=== PATIENT | male | born 1955 | race Caucasian/White ===

== ENCOUNTER 2018-12-03 12:11 | Emergency (ER) | payer MEDICARE, BC ==
--- NOTE | 2018-12-03 12:23 | ERPHSYRPT ---
- History of Present Illness Time Seen by Provider: 12/03/18 12:22 Source: patient, family Exam Limitations: no limitations Physician History: 63 y/o white male presents with left shoulder pain and bruising. pt outside at night and missed a step when walking. fell onto left shoulder. denies head or neck injury. no other complaints. occurred 6 days ago. Occurred: days ago (6) Reason for Fall: tripped (on missed step) Injuries/Pain Location: upper extremity (left shoulder) Loss of Consciousness: no loss of consciousness Quality: aching Severity of Pain-Max: moderate Severity of Pain-Current: moderate Modifying Factors: Improves With: movement (worsens) Associated Symptoms (Fall): extremity injury (left shoulder) Allergies/Adverse Reactions: No Known Drug Allergies Allergy (Verified 12/03/18 12:32) Home Medications: Aspirin EC 81 mg [Ecotrin 81 mg] 81 mg PO DAILY 03/01/13 [History] Atorvastatin Calcium [Lipitor] 40 mg PO DAILY 03/01/13 [History] B Complex with Vitamin C [Super B Complex with C] 1 each PO DAILY 03/01/13 [ History] Losartan Potassium 50 mg [Cozaar 50 MG] 100 mg PO DAILY 03/01/13 [History] Metoprolol Succinate 50 mg [Toprol Xl 50 MG] 50 mg PO DAILY 03/01/13 [ History] Nitroglycerin 0.4 mg Tablet [Nitrostat 0.4 MG Tablet] 0.4 mg SL UD PRN 07/08 [History] Albuterol Sulfate 0.63 mg IH Q6H 12/03/18 [History] Albuterol Sulfate [Ventolin Hfa] 1 gm IH UD PRN 12/03/18 [History] Bumetanide 1 mg PO BID 12/03/18 [History] Fluticasone/Vilanterol [Breo Ellipta 200-25 Mcg INH] 1 inh PO DAILY 12/03/18 [ History] Terazosin HCl [Hytrin] 2 mg PO DAILY 12/03/18 [History] Tiotropium [place] [Spiriva Respimat] 1 inh PO BID 12/03/18 [History] Hx Tetanus, Diphtheria Vaccination/Date Given: No Hx Influenza Vaccination/Date Given: No (2011) Hx Pneumococcal Vaccination/Date Given: No - Review of Systems Constitutional: No Symptoms Eyes: No Symptoms Ears, Nose, & Throat: No Symptoms Respiratory: No Symptoms Cardiac: No Symptoms Abdominal/Gastrointestinal: No Symptoms Genitourinary Symptoms: No Symptoms Musculoskeletal: Fall, Injury (left shoulder) Skin: No Symptoms Neurological: No Symptoms Psychological: No Symptoms Endocrine: No Symptoms Immunological/Allergic: No Symptoms All Other Systems: Reviewed and Negative - Past Medical History Pertinent Past Medical History: Yes Neurological History: No Pertinent History ENT History: No Pertinent History Cardiac History: Coronary Artery Disease, High Cholesterol, Hypertension, Other Respiratory History: COPD, Other (smoker) Endocrine Medical History: Other (questionable in the past) Musculoskeletal History: No Pertinent History GI Medical History: No Pertinent History History: No Pertinent History Psycho-Social History: No Pertinent History Male Reproductive Disorders: No Pertinent History Other Medical History: Rupture disc-surgery to repair - Past Surgical History Past Surgical History: Yes Neuro Surgical History: No Pertinent History Cardiac: Other (stent) Respiratory: No Pertinent History Gastrointestinal: No Pertinent History Genitourinary: No Pertinent History Musculoskeletal: Other Male Surgical History: No Pertinent History Other Surgical History: T&A at 8-8 yrs old. Ruptured disc repair - Social History Smoking Status: Current every day smoker How long have you smoked: 43 yrs Exposure to second hand smoke: Yes Drug Use: none Patient Lives Alone: No - Nursing Vital Signs Nursing Vital Signs: Initial Vital Signs Temperature 98.0 F 12/03/18 12:19 Pulse Rate 91 H 12/03/18 12:19 Blood Pressure 139/78 12/03/18 12:19 O2 Sat by Pulse Oximetry 98 12/03/18 12:19 Pain Scale Pain Intensity 0 - Vero Coma Score Best Eye Response (Vero): (4) open spontaneously Best Verbal Response (Spencer): (5) oriented Best Motor Response (Spencer): (6) obeys commands Spencer Total: 15 - Physical Exam General Appearance: mild distress, alert, anxiety Head Injury: no evidence of injury, No active bleeding, No Bell's Sign, No ecchymosis, No tenderness Eye Exam: PERRL/EOMI, eyes nml inspection ENT Exam: airway nml, nml ext.inspection Neck Exam: supple, trachea midline, full range of motion, normal alignment Respiratory/Chest Exam: normal breath sounds, No chest tenderness, No respiratory distress, No ecchymosis, No crepitus Cardiovascular Exam: normal heart sounds, regular rate/rhythm Gastrointestinal Exam: soft, normal bowel sounds, No tenderness Rectal Exam: not done Back Exam: normal inspection, normal range of motion, No CVA tenderness, No vertebral tenderness Extremity Exam: limited range of motion, evidence of injury (left shoulder), tenderness, other (ecchymosis) Neurologic Exam: alert, oriented x 3, cooperative, 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 tested, normal mood/affect, nml cerebellar function, nml station & gait, sensation nml Skin Exam: normal color, warm, dry O2 Delivery: Room Air Ordered Tests: Active Orders 24 hr Category Date Time Status HUMERUS Stat Exams 12/03/18 12:50 Completed SHOULDER Stat Exams 12/03/18 12:50 Completed Medication Summary Discontinued Medications Generic Name Dose Route Start Last Admin Trade Name Freq PRN Reason Stop Dose Admin Hydromorphone HCl 1 mg 12/03/18 12:51 12/03/18 13:49 Hydromorphone 1 Mg/Ml Ampule IM 12/03/18 12:52 Not Given STAT ONE Hydromorphone HCl Confirm 12/03/18 13:01 Hydromorphone 1 Mg/Ml Ampule Administered 12/03/18 13:02 Dose 1 mg .ROUTE .STK-MED ONE Ondansetron HCl 4 mg 12/03/18 12:51 12/03/18 13:32 Zofran Odt 4 Mg PO 12/03/18 12:52 Not Given STAT ONE Ondansetron HCl Confirm 12/03/18 13:01 Zofran Odt 4 Mg Administered 12/03/18 13:02 Dose 4 mg .ROUTE .STK-MED ONE - Progress Progress: improved, pain not gone completely, re-examined Progress Note: 12/03/18 14:01 xray left shoulder-minimally displaced comminuted humeral head/neck fx Counseled pt/family regarding: diagnosis, need for follow-up, rad results - Departure Departure Disposition: Home Clinical Impression: Fracture of humeral head, left, closed Condition: Stable Critical Care Time: No Referrals: CAROLYNE CARCAMO MD [Primary Care Provider] - [place] - JYOTHI SNOW NP [NON-STAFF PHY W/O PRIVILEGES] - [facility]-Ortho M-F [phone] Additional Instructions: wear sling for comfort. ice pack to area 3 times daily for 2 days. follow up with [facility] tomorrow morning for further management Prescriptions: Oxycodone HCl/Acetaminophen [Percocet 5-325 mg Tablet] 1 each PO Q6H PRN PRN # 12 tablet MDD 4 PRN Reason: Pain Cyclobenzaprine HCl 10 mg [Cyclobenzaprine 10 MG] 10 mg PO TID #10 tablet
[2018-12-03] MEDS ORDERED: ZOFRAN ODT 4 MG PO ONE (12:51)
[2018-12-03] MEDS ORDERED: Hydromorphone 1 mg/ml Ampule IM ONE (12:51)
[2018-12-03] MEDS ORDERED: ZOFRAN ODT 4 MG ONE (13:01)
[2018-12-03] MEDS ORDERED: Hydromorphone 1 mg/ml Ampule ONE (13:01)
--- NOTE | 2018-12-03 13:47 | XRAY ---
Indication: Pain following fall November 27, 2018. Comparison: None 3 views of the left shoulder demonstrates minimally displaced comminuted humeral head/neck fracture without obvious callus formation. Elsewhere mild osteopenia, mild AC degenerative arthropathy, and old 10 rib fracture. No other bony, articular, or soft tissue abnormalities.
--- NOTE | 2018-12-03 13:48 | XRAY ---
Indication: Pain following fall November 27, 2018. Comparison: None 2 views of the left humerus demonstrates minimally displaced comminuted humeral head/neck fracture without obvious callus formation. Elsewhere mild osteopenia, mild AC degenerative arthropathy, and old anterior 10 rib fracture. No other bony, articular, or soft tissue abnormalities.
[2018-12-03 14:13] VITALS: BP 145/70; PULSE 78; O2SAT 97
== END 2018-12-03 14:21 | disposition home or self-care (01) ==
LOC: ED 12:11
DX: S42.492A Other displaced fracture of lower end of left humerus, initial encounter for closed fracture (principal); M25.512 Pain in left shoulder; W01.10XA Fall on same level from slipping, tripping and stumbling with subsequent striking against unspecified object, initial encounter; Y93.01 Activity, walking, marching and hiking; Z79.899 Other long term (current) drug therapy
CPT/HCPCS: 73030; 73060; 99283; J1170; Q0162

== ENCOUNTER 2021-03-14 14:43 | Inpatient (IN) | payer MEDICARE, BC ==
[2021-03-14] MEDS ORDERED: DUONEB 0.5-3 MG/3 ml Neb IH ONE ×2 (15:08→15:42)
--- NOTE | 2021-03-14 15:14 | ERPHSYRPT ---
- History of Present Illness Source: patient Exam Limitations: clinical condition Patient Subjective Stated Complaint: "I can't breath." Triage Nursing Assessment: Patient reported 1 week progressive dyspnea with increasing use of home rescue inhaler. Significant history of COPD, HTN, and CAD. He has not been taking his home breathing treatments d/t insurance coverage problems. Reported moderate productive cough with thick white sputum. Denied headache, dizziness, chest pain, N/V/D. he reported that he does wear supplemental oxygen 2 L/min via [place] [facility]. however, he has been wearing the oxygen more throghout the day. Obvious respiratory distress evidence by two word d yspnea, orthopnea, audible wheezes, and hypoxia 86% on room air. Pupils 4mm bilateral. Neck supple without JVD/lymphadenopathy. Symmetrical chest expansion. heart tones S1/S2 RRR without extra sounds. Lungs with significant insp/exp wheezes in the upper bilateral lobes and rhonchi/diminished sounds in the lower bilateral lobes. Peripheral pulses +2 bilateral. 3+ pitting edema in the bilateral lower extremities. Physician History: 65 yo WM w progressive dyspnea x 1 wk/Worsening cough/mild rhinorrhea. Pt smokes 1.5 ppd and uses O2 prn with increasing need. Pt denies chest pain ands states that dyspnea is worse upon exertion. He is fully vaccinated and boosted w Mode rna. Timing/Duration: other (1 WK) Severity of Dyspnea-Max: severe Severity of Dyspnea-Current: severe Possible Cause: frequent episodes Modifying Factors: Improves With: exertion Associated Symptoms: cough, edema, ankle swelling, leg swelling, productive cough, No anxiety, No chest pain/discomfort, No fever, No insomnia, No loss of appetite, No lightheadedness, No wheezing, No weakness, No chills, No hemoptysis, No calf pain, No dizziness, No heaviness, No heart racing, No lightheadedness, No muscle spasms feet, No muscle spasms hands, No painful breathing, No sweating, No tightness, No tingling face Allergies/Adverse Reactions: No Known Drug Allergies Allergy (Verified 03/14/21 21:50) Home Medications: Aspirin EC 81 mg [Ecotrin 81 mg] 81 mg PO DAILY 03/01/13 [History] Atorvastatin Calcium [Lipitor] 40 mg PO DAILY 03/01/13 [History] B Complex with Vitamin C [Super B Complex with C] 1 each PO DAILY 03/01/13 [History] Losartan Potassium 50 mg [Cozaar 50 MG] 100 mg PO DAILY 03/01/13 [History] Metoprolol Succinate 50 mg [Toprol Xl 50 MG] 50 mg PO DAILY 03/01/13 [History] Nitroglycerin 0.4 mg Tablet [Nitrostat 0.4 MG Tablet] 0.4 mg SL UD PRN 03/01/13 [History] Albuterol Sulfate [Ventolin Hfa] 1 gm IH UD PRN 12/03/18 [History] Fluticasone/Vilanterol [Breo Ellipta 200-25 Mcg INH] 1 inh PO DAILY 12/03/18 [History] Terazosin HCl [Hytrin] 2 mg PO DAILY 12/03/18 [History] Tiotropium [place] [Spiriva Respimat] 1 inh PO BID 12/03/18 [History] Torsemide 20 mg [Demadex 20 mg] 40 mg PO DAILY 03/14/21 [History] Hx Tetanus, Diphtheria Vaccination/Date Given: No Hx Influenza Vaccination/Date Given: No (2011) Hx Pneumococcal Vaccination/Date Given: No Travel Risk - International Travel Have you traveled outside of the country in past 3 weeks: No - Coronavirus Screening Are you exhibiting any of the following symptoms?: Yes Symptoms: Shortness of Breath Close contact with a COVID-19 positive Pt in past 14-21 Days: No - Vaccine Status Have you recieved a Covid-19 vaccination: Yes Conference Services Director: FIZZA - Vaccination Dates Date of 2cond Vaccination (if applicable): 05/2020 - Review of Systems Constitutional: No Symptoms, Weakness Eyes: No Symptoms Ears, Nose, & Throat: No Symptoms Respiratory: Cough, Dyspnea Cardiac: No Symptoms, Edema Abdominal/Gastrointestinal: No Symptoms Genitourinary Symptoms: No Symptoms Musculoskeletal: No Symptoms Skin: No Symptoms Neurological: No Symptoms Psychological: No Symptoms Endocrine: No Symptoms Hematologic/Lymphatic: No Symptoms Immunological/Allergic: No Symptoms - Past Medical History Pertinent Past Medical History: Yes Neurological History: No Pertinent History ENT History: No Pertinent History Cardiac History: Coronary Artery Disease, High Cholesterol, Hypertension, Other Respiratory History: CHF, COPD, Other Endocrine Medical History: Other Musculoskeletal History: No Pertinent History GI Medical History: No Pertinent History History: No Pertinent History Psycho-Social History: No Pertinent History Male Reproductive Disorders: No Pertinent History Other Medical History: Rupture disc-surgery to repair - Past Surgical History Past Surgical History: Yes Neuro Surgical History: No Pertinent History Cardiac: Other Respiratory: No Pertinent History Gastrointestinal: No Pertinent History Genitourinary: No Pertinent History Musculoskeletal: Other Male Surgical History: No Pertinent History Other Surgical History: T&A at 8-10 yrs old. Ruptured disc repair - Social History Smoking Status: Current every day smoker How long have you smoked: 43 yrs Exposure to second hand smoke: Yes Drug Use: none Patient Lives Alone: No Significant Family History: no pertinent family hx - Nursing Vital Signs Nursing Vital Signs: Initial Vital Signs Temperature 97.8 F 03/14/21 14:43 Pulse Rate 88 03/14/21 14:43 Respiratory Rate 26 H 03/14/21 14:43 Blood Pressure 149/69 03/14/21 14:43 O2 Sat by Pulse Oximetry 84 L 03/14/21 14:43 Pain Scale Pain Intensity 0 Hypoxic - Physical Exam General Appearance: mild distress, obese Eye Exam: PERRL/EOMI, eyes nml inspection Ears, Nose, Throat Exam: hearing grossly normal, normal ENT inspection, normal pharynx Neck Exam: normal inspection, non-tender, supple, full range of motion, No Brudzinski, No Kernig's, No meningismus, No carotid bruit Respiratory Exam: respiratory distress (Mild to Moderate), airway intact, rhonchi, wheezing Cardiovascular/Chest Exam: normal heart sounds, regular rate/rhythm, normal peripheral pulses, edema (1-2 +), No murmur Abdominal/Gastrointestinal Exam: soft, normal bowel sounds, No tenderness Extremity Exam: non-tender, normal range of motion, normal inspection, normal capillary refill, no calf tenderness, pedal edema Peripheral Pulses Exam: carotid (R): 2+, carotid (L): 2+ Neurologic Exam: alert, oriented x 3, cooperative, 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-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 nml as tested, normal mood/affect Skin Exam: normal color, warm, dry, No rash Lymphatic Exam: No adenopathy SpO2 Interpretation: hypoxic SpO2: 86 - Course Nursing assessment & vital signs reviewed: Yes EKG Interpreted by Me: RATE (NSR/R88/Possible old Septal TX/IVCD/No acute ST segment changes) Ordered Tests: Active Orders 24 hr Category Date Time Status EKG-ER Only STAT Care 03/14/21 15:07 Completed CHEST 1 VIEW (PORTABLE) Stat Exams 03/14/21 15:07 Completed CHEST WITH CONTRAST [CT] Stat Exams 03/14/21 16:19 Completed BLOOD CULTURE Stat Lab 03/14/21 18:15 Received CBC W DIFF Stat Lab 03/14/21 15:18 Completed CMP AM.LAB Lab 03/15/21 04:00 Ordered CMP Stat Lab 03/14/21 15:18 Completed D-DIMER QUANTITATIVE Stat Lab 03/14/21 15:52 Completed Manual Differential NC Stat Lab 03/14/21 15:18 Completed NT PRO BNP Stat Lab 03/14/21 15:18 Completed PROTIME WITH INR Stat Lab 03/14/21 15:18 Completed PTT Stat Lab 03/14/21 15:18 Completed TROPONIN Q3H Lab 03/14/21 15:18 Completed TROPONIN Q3H Lab 03/14/21 18:15 Completed TROPONIN Q3H Lab 03/14/21 21:51 Completed TROPONIN Q3H Lab 03/15/21 00:15 Ordered TROPONIN Q3H Lab 03/15/21 03:15 Ordered Transfer Order Routine Transfer 03/14/21 Completed Medication Summary Generic Name Dose Route Start Last Admin Trade Name Freq PRN Reason Stop Dose Admin Albuterol/Ipratropium 3 ml 03/14/21 19:00 03/14/21 20:40 Ipratropium/Albuterol Sulfate 3 Ml Ampul.Neb IH 04/13/21 18:59 3 ml Q4HRT SAL Administration Enoxaparin Sodium 40 mg 03/15/21 10:00 Enoxaparin Sodium 40 Mg/0.4 Ml Syringe SQ 04/14/21 09:59 DAILY SAL Sodium Chloride 1,000 mls @ 80 mls/hr 03/14/21 17:30 Sodium Chloride 0.9% 1000 Ml IV 04/13/21 17:29 .[id number] SAL Azithromycin 500 mg in 250 mls @ 250 mls/hr 03/15/21 10:00 Zithromax 500 Mg/ 250 Ml Nacl Premix IV 04/14/21 09:59 Q24H10 SAL Ceftriaxone Sodium/Dextrose 1 g in 50 mls @ 100 mls/hr 03/15/21 10:00 Rocephin 1 Gm-D5w 50 Ml Bag IV 03/18/21 09:59 Q24H10 SAL Nicotine 21 mg 03/14/21 17:30 03/14/21 22:35 Nicotine 21 Mg/Patch Patch TOP 04/13/21 17:29 Not Given Q24H SAL Pantoprazole Sodium 40 mg 03/15/21 10:00 Pantoprazole 40 Mg Vial IV 04/14/21 09:59 Q24H10 SAL Discontinued Medications Generic Name Dose Route Start Last Admin Trade Name Freq PRN Reason Stop Dose Admin Albuterol/Ipratropium 3 ml 03/14/21 15:08 03/14/21 15:48 Ipratropium/Albuterol Sulfate 3 Ml Ampul.Neb IH 03/14/21 15:09 3 ml STAT ONE Administration Albuterol/Ipratropium Confirm 03/14/21 15:42 Ipratropium/Albuterol Sulfate 3 Ml Ampul.Neb Administered 03/14/21 15:43 Dose 3 ml IH .STK-MED ONE Ceftriaxone Sodium/Dextrose 1 g in 50 mls @ 100 mls/hr 03/14/21 17:26 03/14/21 18:43 Rocephin 1 Gm-D5w 50 Ml Bag IV 03/14/21 17:55 Infused STAT STA Infusion Ceftriaxone Sodium/Dextrose Confirm 03/14/21 17:30 Rocephin 1 Gm-D5w 50 Ml Bag Administered 03/14/21 17:31 Dose 1 g in 50 mls @ ud IV .STK-MED ONE Lab/Rad Data: Laboratory Result Diagrams 03/14/21 15:18 03/14/21 15:18 Laboratory Results 03/14/21 03/14/21 03/14/21 Range/Units 18:15 15:52 15:18 WBC (4.0-10.5) K/mm3 RBC (4.1-5.6) M/mm3 Hgb (12.5-18.0) gm/dl Hct (42-50) % MCV (78-100) fl MCH (26-32) pg MCHC (32-36) g/dl RDW (11.5-14.0) % Plt Count (150-450) K/mm3 MPV (7.5-11.0) fl Segmented Neutrophils (36.-66.) % Lymphocytes (Manual) (24-44) % Monocytes (Manual) (0.0-12.0) % Toxic Granulation Platelet Estimate (NORMAL) RBC Morphology PT (9.4-12.5) SECONDS INR (0.8-3.0) APTT (25.1-36.5) SECONDS D-Dimer 962 H* (215-500) ng/mL Sodium (137-145) mmol/L Potassium (3.5-5.1) mmol/L Chloride (98-107) mmol/L Carbon Dioxide (22-30) mmol/L Anion Gap (5-15) MEQ/L BUN (9-20) mg/dL Creatinine (0.66-1.25) mg/dL Estimated GFR ML/MIN Glucose (74-106) mg/dL Calcium (8.4-10.2) mg/dL Total Bilirubin (0.2-1.3) mg/dL AST (17-59) U/L ALT (0-50) U/L Alkaline Phosphatase (38-126) U/L Troponin I 0.020 0.020 (0.000-0.034) ng/mL NT-Pro-B Natriuret Pep (0-900) pg/mL Serum Total Protein (6.3-8.2) g/dL Albumin (3.5-5.0) g/dL Influenza Type A Ag (NEGATIVE) Influenza Type B Ag (NEGATIVE) RSV (PCR) (Negative) SARS-CoV-2 (PCR) (NEGATIVE) 03/14/21 03/14/21 03/14/21 Range/Units 15:18 15:18 15:18 WBC 17.6 H (4.0-10.5) K/mm3 RBC 3.95 L (4.1-5.6) M/mm3 Hgb 12.6 (12.5-18.0) gm/dl Hct 37.0 L (42-50) % MCV 93.7 (78-100) fl MCH 31.9 (26-32) pg MCHC 34.1 (32-36) g/dl RDW 14.2 H (11.5-14.0) % Plt Count 253 (150-450) K/mm3 MPV 10.0 (7.5-11.0) fl Segmented Neutrophils 88 H (36.-66.) % Lymphocytes (Manual) 8 L (24-44) % Monocytes (Manual) 4 (0.0-12.0) % Toxic Granulation 1+ Platelet Estimate NORMAL (NORMAL) RBC Morphology NORMAL PT 12.5 (9.4-12.5) SECONDS INR 1.06 (0.8-3.0) APTT 31.0 (25.1-36.5) SECONDS D-Dimer (215-500) ng/mL Sodium 125 L (137-145) mmol/L Potassium 3.7 (3.5-5.1) mmol/L Chloride 83 L (98-107) mmol/L Carbon Dioxide 30 (22-30) mmol/L Anion Gap 15.1 H (5-15) MEQ/L BUN 34 H (9-20) mg/dL Creatinine 1.18 (0.66-1.25) mg/dL Estimated GFR > 60.0 ML/MIN Glucose 108 H (74-106) mg/dL Calcium 8.7 (8.4-10.2) mg/dL Total Bilirubin 1.00 (0.2-1.3) mg/dL AST 64 H (17-59) U/L ALT 34 (0-50) U/L Alkaline Phosphatase 122 (38-126) U/L Troponin I (0.000-0.034) ng/mL NT-Pro-B Natriuret Pep 267 (0-900) pg/mL Serum Total Protein 6.8 (6.3-8.2) g/dL Albumin 3.8 (3.5-5.0) g/dL Influenza Type A Ag (NEGATIVE) Influenza Type B Ag (NEGATIVE) RSV (PCR) (Negative) SARS-CoV-2 (PCR) (NEGATIVE) 03/14/21 Range/Units 15:17 WBC (4.0-10.5) K/mm3 RBC (4.1-5.6) M/mm3 Hgb (12.5-18.0) gm/dl Hct (42-50) % MCV (78-100) fl MCH (26-32) pg MCHC (32-36) g/dl RDW (11.5-14.0) % Plt Count (150-450) K/mm3 MPV (7.5-11.0) fl Segmented Neutrophils (36.-66.) % Lymphocytes (Manual) (24-44) % Monocytes (Manual) (0.0-12.0) % Toxic Granulation Platelet Estimate (NORMAL) RBC Morphology PT (9.4-12.5) SECONDS INR (0.8-3.0) APTT (25.1-36.5) SECONDS D-Dimer (215-500) ng/mL Sodium (137-145) mmol/L Potassium (3.5-5.1) mmol/L Chloride (98-107) mmol/L Carbon Dioxide (22-30) mmol/L Anion Gap (5-15) MEQ/L BUN (9-20) mg/dL Creatinine (0.66-1.25) mg/dL Estimated GFR ML/MIN Glucose (74-106) mg/dL Calcium (8.4-10.2) mg/dL Total Bilirubin (0.2-1.3) mg/dL AST (17-59) U/L ALT (0-50) U/L Alkaline Phosphatase (38-126) U/L Troponin I (0.000-0.034) ng/mL NT-Pro-B Natriuret Pep (0-900) pg/mL Serum Total Protein (6.3-8.2) g/dL Albumin (3.5-5.0) g/dL Influenza Type A Ag NEGATIVE (NEGATIVE) Influenza Type B Ag NEGATIVE (NEGATIVE) RSV (PCR) NEGATIVE (Negative) SARS-CoV-2 (PCR) NEGATIVE (NEGATIVE) - Progress Progress: improved Progress Note: 03/14/21 23:59 Pt's sats greatly improved on 5L Oximask and Duoneb 1gm IV Rocephin Discussed with : Duane Counseled pt/family regarding: lab results, diagnosis, need for follow-up, rad results - Departure Departure Disposition: Observation Clinical Impression: Pneumonia Condition: Stable Critical Care Time: No
[2021-03-14 15:21] LABS: Hemoglobin 12.6 gm/dl (12.5-18.0); Mean Cell Volume 93.7 fl (78-100); Mean Corpuscular Hemoglobin 31.9 pg (26-32); Mean Corpuscular Hgb Concent. 34.1 g/dl (32-36); Platelet Count 253 K/mm3 (150-450); Red Blood Count 3.95 M/mm3 (4.1-5.6); Red Cell Distribution Width 14.2 % (11.5-14.0); White Blood Count 17.6 K/mm3 (4.0-10.5)
[2021-03-14 15:27] LABS: INR 1.06 (0.8-3.0); PROTIME 12.5 SECONDS (9.4-12.5)
[2021-03-14 15:41] LABS: ALBUMIN 3.8 g/dL (3.5-5.0); ALKALINE PHOSPHATASE 122 U/L (38-126); ANION GAP 15.1 MEQ/L (5-15); BLOOD UREA NITROGEN 34 mg/dL (9-20); CHLORIDE 83 mmol/L (98-107); Calcium 8.7 mg/dL (8.4-10.2); Carbon Dioxide 30 mmol/L (22-30); Creatinine 1 1.18 mg/dL (0.66-1.25); EST GLOMERULAR FILTRATION RATE > 60.0 ML/MIN; Glucose 108 mg/dL (74-106); NT PRO BNP 267 pg/mL (0-900); Potassium 3.7 mmol/L (3.5-5.1); SGOT/AST 64 U/L (17-59); SGPT/ALT 34 U/L (0-50); SODIUM 125 mmol/L (137-145); Total Protein 6.8 g/dL (6.3-8.2)
[2021-03-14 15:57] LABS: INFLUENZA A NEGATIVE (NEGATIVE); INFLUENZA B NEGATIVE (NEGATIVE); RESPIRATORY SYNCTIAL VIRUS NEGATIVE (Negative); SARS-CoV-2 Xpert Express NEGATIVE (NEGATIVE)
--- NOTE | 2021-03-14 16:21 | XRAY ---
Indication: Dyspnea 5 days. Comparison: January 23, 2016. Portable apical lordotic chest demonstrates new mild bibasilar infiltrates versus atelectasis, left greater than right. Heart not enlarged. Bony thorax intact again with mild osteopenia and degenerative changes.
[2021-03-14 16:29] LABS: Lymphocytes 8 % (24-44); Monocyte 4 % (0.0-12.0); Neutrophils 88 % (36.-66.); Platelet Estimate NORMAL (NORMAL); Total Cells Counted 100; Toxic Granulation 1+
--- NOTE | 2021-03-14 17:14 | XRAY ---
Indication: Pneumonia. Elevated d-dimer. Pulmonary embolus. Multiple contiguous axial images obtained through the chest using 80 cc Isovue 370 contrast and PE protocol. Comparison: None There is adequate opacification of the pulmonary arteries. However marked diffuse respiration artifact limits evaluation for pulmonary embolus. No obvious central pulmonary embolus. Heart not enlarged. Aorta is mildly arteriosclerotic without aneurysm/dissection. No pathologic mediastinal/hilar lymphadenopathy. Lungs demonstrates moderate diffuse pulmonary emphysema with scattered fibrosis/scarring bilaterally. Mid to lower lung lisa demonstrates scattered consolidating opacities, subsegmental atelectasis versus organizing pneumonia. No effusion. Bony thorax intact with mild osteopenia and mild degenerative changes throughout the spine. Limited upper abdomen images mild diffuse fatty liver. Impression: 1. Marked diffuse respiration artifact limits evaluation for pulmonary embolus. No obvious central pulmonary embolus. 2. Scattered bilateral mid to lower lung consolidating opacities, subsegmental atelectasis versus organizing pneumonia. 3. Diffuse pulmonary emphysema with scattered fibrosis/scarring. 4. Incidental fatty liver and chronic bony findings.
[2021-03-14] MEDS ORDERED: ROCEPHIN 1 Gm-D5w 50 ml Bag** 1 G/50 ML IVPB IV STA (17:26)
[2021-03-14] MEDS ORDERED: ROCEPHIN 1 Gm-D5w 50 ml Bag** 1 G/50 ML IVPB IV ONE (17:30)
[2021-03-14] MEDS ORDERED: Sodium Chloride 0.9% 1000 ML 1,000 ML IV SCH (17:30)
[2021-03-14] MEDS: DUONEB 0.5-3 MG/3 ml Neb IH SCH (20:40)
[2021-03-14 22:16] LABS: A-aADO2 161; ABG HEMOGLOBIN 12.8; ABG POTASSIUM 3.7 (3.5-5.1); ARTERIAL BLD GAS O2 SATURATION 95.5 % (95-100); ARTERIAL BLOOD GAS BASE EXCESS 2.8 (-2.0-2.0); ARTERIAL BLOOD GAS FIO2 45 %; ARTERIAL BLOOD GAS PO2 76 mmHg (75-100); ARTERIAL BLOOD GAS pH 7.28 (7.35-7.45); CARBOXYHEMOGLOBIN 1.7 % THgb (0.0-6.9); HCO3- 31.5 (22-28); HGB O2 SAT 93.2 g/dF (94-100); Methhemoglobin 0.7 % (1.4-1.5)
[2021-03-14 22:17] LABS: ABG SITE RIGHT RADIAL; ALLEN TEST OK? YES; ARTERIAL BLOOD GAS PCO2 67 mmHg (35-45)
[2021-03-14] MEDS: Nicoderm CQ 21 MG TOP SCH (22:35)
[2021-03-15] MEDS: DUONEB 0.5-3 MG/3 ml Neb IH SCH ×7 (00:20→22:50)
[2021-03-15 03:46] LABS: A-aADO2 99; ABG HEMOGLOBIN 12.1; ABG POTASSIUM 3.9 (3.5-5.1); ARTERIAL BLD GAS O2 SATURATION 99.7 % (95-100); ARTERIAL BLOOD GAS FIO2 40 %; ARTERIAL BLOOD GAS PCO2 57 mmHg (35-45); ARTERIAL BLOOD GAS PO2 115 mmHg (75-100); ARTERIAL BLOOD GAS pH 7.32 (7.35-7.45); CARBOXYHEMOGLOBIN 1.9 % THgb (0.0-6.9); HCO3- 29.4 (22-28); HGB O2 SAT 96.8 g/dF (94-100)
[2021-03-15 03:47] LABS: ABG SITE LEFT RADIAL; ALLEN TEST OK? YES
[2021-03-15 04:14] LABS: ALBUMIN 3.9 g/dL (3.5-5.0); ANION GAP 15.6 MEQ/L (5-15); BILIRUBIN,TOTAL 0.8 mg/dL (0.2-1.3); Calcium 8.7 mg/dL (8.4-10.2); Creatinine 1 1.68 mg/dL (0.66-1.25); EST GLOMERULAR FILTRATION RATE 43.5 ML/MIN; Potassium 3.9 mmol/L (3.5-5.1); Total Protein 7.2 g/dL (6.3-8.2)
[2021-03-15 04:15] LABS: Hemoglobin 12.5 gm/dl (12.5-18.0); Mean Cell Volume 97.2 fl (78-100); Mean Corpuscular Hgb Concent. 32.9 g/dl (32-36); Mean Platelet Volume 10.4 fl (7.5-11.0); Platelet Count 218 K/mm3 (150-450); Red Blood Count 3.91 M/mm3 (4.1-5.6); Red Cell Distribution Width 14.8 % (11.5-14.0); White Blood Count 19.2 K/mm3 (4.0-10.5)
[2021-03-15] MEDS: Advair Hfa 115/21 Common canister IH SCH ×2 (06:42→19:25)
[2021-03-15] MEDS: PROTONIX 40 MG IV IV SCH (10:05)
[2021-03-15] MEDS: ROCEPHIN 1 Gm-D5w 50 ml Bag** 1 G/50 ML IVPB IV SCH (10:11)
--- NOTE | 2021-03-15 10:18 | PCM.HP ---
History of Present Illness - Chief Complaint Chief Complaint: pneumonia History of Present Illness: is a 65 year old male who presented to the ER with cough and increasing shortness of breath, he has had some white sputum production, no fever. has a history of copd, continues to smoke, was hypoxic on arrival to ER, he is feeling some better since admission. - Review of Systems Constitutional: No Fever, No Chills Respiratory: Cough, Short Of Breath, Wheezing Cardiac: No Chest Pain, No Edema, No Syncope Abdominal/Gastrointestinal: No Abdominal Pain, No Nausea, No Vomiting, No Diarrhea Skin: No Rash All Other Systems: Reviewed and Negative Medications & Allergies Home Medications: Home Medication List Aspirin EC 81 mg [Ecotrin 81 mg] 81 mg PO DAILY 03/01/13 [History Confirmed 03/14/21] Atorvastatin Calcium [Lipitor] 40 mg PO DAILY 03/01/13 [History Confirmed 03/14] B Complex with Vitamin C [Super B Complex with C] 1 each PO QHS 03/01/13 [History Confirmed 03/15/21] Losartan Potassium 50 mg [Cozaar 50 MG] 100 mg PO DAILY 03/01/13 [History Confirmed 03/14/21] Metoprolol Succinate 50 mg [Toprol Xl 50 MG] 50 mg PO QHS 03/01/13 [History Confirmed 03/15/21] Nitroglycerin 0.4 mg Tablet [Nitrostat 0.4 MG Tablet] 0.4 mg SL UD PRN 03/01/13 [History Confirmed 03/14/21] Albuterol Sulfate [Ventolin Hfa] 1 gm IH UD PRN 12/03/18 [History Confirmed 03/14/21] Fluticasone/Vilanterol [Breo Ellipta 200-25 Mcg INH] 1 inh PO QHS 12/03/18 [History Confirmed 03/15/21] Terazosin HCl [Hytrin] 2 mg PO QHS 12/03/18 [History Confirmed 03/15/21] Torsemide 20 mg [Demadex 20 mg] 40 mg PO DAILY 03/14/21 [History Confirmed 03/14/21] Umeclidinium [place] [Incruse Ellipta] 1 puff IH QHS 03/15/21 [History Confirmed 03/15/21] Allergies/Adverse Reactions: Allergies Allergy/AdvReac Type Severity Reaction Status Date / Time No Known Drug Allergies Allergy Verified 03/14/21 21:50 - Past Medical History Past Medical History: Yes Neurological History: No Pertinent History ENT History: No Pertinent History Cardiac History: Coronary Artery Disease, High Cholesterol, Hypertension, Other Respiratory History: CHF, COPD, Other Endocrine Medical History: Other Musculoskelatal History: No Pertinent History GI Medical History: No Pertinent History History: No Pertinent History Pyscho-Social History: No Pertinent History Male Reproductive Disorders: No Pertinent History Comment: Rupture disc-surgery to repair - Past Surgical History Past Surgical History: Yes Neuro Surgical History: No Pertinent History Cardiac History: Other Respiratory Surgery: No Pertinent History GI Surgical History: No Pertinent History Genitourinary Surgical Hx: No Pertinent History Musculskeletal Surgical Hx: Other Male Surgical History: No Pertinent History Other Surgical History: T&A at 8-10 yrs old. Ruptured disc repair - Social History Smoking Status: Current every day smoker How long have you smoked: 43 yrs Exposure to second hand smoke: Yes Alcohol: Daily Drug Use: none Significant Family History: no pertinent family hx - Physical Exam Vital Signs: Vital Signs - 24 hr Temp Pulse Resp BP Pulse Ox 03/15/21 08:00 98.4 F 91 H 26 H 129/58 93 L 03/15/21 06:44 92 H 22 90 L 03/15/21 04:02 98.7 F 92 H 23 120/58 94 L 03/15/21 03:25 83 24 94 L 03/15/21 00:20 85 25 H 95 03/15/21 00:00 86 L 03/14/21 23:35 99.1 F 84 25 H 112/55 93 L 03/14/21 22:25 99 03/14/21 21:53 98.5 F 97 H 26 H 141/72 93 L 03/14/21 21:04 92 H 20 93 L 03/14/21 20:40 90 26 H 92 L 03/14/21 20:00 28 H 122/68 92 L 03/14/21 19:05 81 17 111/68 92 L 03/14/21 18:44 86 24 127/59 90 L 03/14/21 17:27 89 24 124/67 92 L 03/14/21 16:02 76 22 112/51 93 L 03/14/21 15:48 80 22 136/70 93 L 03/14/21 14:43 97.8 F 88 26 H 149/69 86 L General Appearance: no apparent distress Neurologic Exam: alert, oriented x 3, cooperative Respiratory Exam: accessory muscle use, prolonged expirations, wheezing Cardiovascular Exam: regular rate/rhythm, normal heart sounds, normal peripheral pulses Gastrointestinal/Abdomen Exam: soft, normal bowel sounds, No tenderness, No mass Extremity Exam: normal inspection, normal range of motion, pelvis stable Skin Exam: normal color, warm, dry, No rash Results - Labs Lab/Micro Results: Lab Results-Last 24 Hours 03/14/21 03/14/21 03/14/21 Range/Units 03:32 15:17 15:18 WBC 19.2 H 17.6 H (4.0-10.5) K/mm3 RBC 3.91 L 3.95 L (4.1-5.6) M/mm3 Hgb 12.5 12.6 (12.5-18.0) gm/dl Hct 38.0 L 37.0 L (42-50) % MCV 97.2 93.7 (78-100) fl MCH 32.0 31.9 (26-32) pg MCHC 32.9 34.1 (32-36) g/dl RDW 14.8 H 14.2 H (11.5-14.0) % Plt Count 218 253 (150-450) K/mm3 MPV 10.4 10.0 (7.5-11.0) fl Segmented Neutrophils 88 H (36.-66.) % Lymphocytes (Manual) 8 L (24-44) % Monocytes (Manual) 4 (0.0-12.0) % Toxic Granulation 1+ Platelet Estimate NORMAL (NORMAL) RBC Morphology NORMAL PT (9.4-12.5) SECONDS INR (0.8-3.0) APTT (25.1-36.5) SECONDS D-Dimer (215-500) ng/mL Puncture Site pCO2 (35-45) mmHg pO2 (75-100) mmHg Base Excess (-2.0-2.0) O2 Saturation (94-100) g/dF ABG pH (7.35-7.45) ABG HCO3 (22-28) ABG O2 Sat (Measured) (95-100) % Win Test A-a Gradient a/A Ratio Hemoglobin Carboxyhemoglobin (0.0-6.9) % THgb Methemoglobin (1.4-1.5) % Temperature C POC O2 Flow Rate % Inspiratory BiPAP Expiratory BiPAP Sodium (137-145) mmol/L Potassium (3.5-5.1) mmol/L Chloride (98-107) mmol/L Carbon Dioxide (22-30) mmol/L Anion Gap (5-15) MEQ/L BUN (9-20) mg/dL Creatinine (0.66-1.25) mg/dL Estimated GFR ML/MIN Glucose (74-106) mg/dL Calcium (8.4-10.2) mg/dL Total Bilirubin (0.2-1.3) mg/dL AST (17-59) U/L ALT (0-50) U/L Alkaline Phosphatase (38-126) U/L Troponin I (0.000-0.034) ng/mL NT-Pro-B Natriuret Pep (0-900) pg/mL Serum Total Protein (6.3-8.2) g/dL Albumin (3.5-5.0) g/dL Prealbumin (17.6-36.0) mg/dL Influenza Type A Ag NEGATIVE (NEGATIVE) Influenza Type B Ag NEGATIVE (NEGATIVE) RSV (PCR) NEGATIVE (Negative) SARS-CoV-2 (PCR) NEGATIVE (NEGATIVE) 03/14/21 03/14/21 03/14/21 Range/Units 15:18 15:18 15:18 WBC (4.0-10.5) K/mm3 RBC (4.1-5.6) M/mm3 Hgb (12.5-18.0) gm/dl Hct (42-50) % MCV (78-100) fl MCH (26-32) pg MCHC (32-36) g/dl RDW (11.5-14.0) % Plt Count (150-450) K/mm3 MPV (7.5-11.0) fl Segmented Neutrophils (36.-66.) % Lymphocytes (Manual) (24-44) % Monocytes (Manual) (0.0-12.0) % Toxic Granulation Platelet Estimate (NORMAL) RBC Morphology PT 12.5 (9.4-12.5) SECONDS INR 1.06 (0.8-3.0) APTT 31.0 (25.1-36.5) SECONDS D-Dimer (215-500) ng/mL Puncture Site pCO2 (35-45) mmHg pO2 (75-100) mmHg Base Excess (-2.0-2.0) O2 Saturation (94-100) g/dF ABG pH (7.35-7.45) ABG HCO3 (22-28) ABG O2 Sat (Measured) (95-100) % Win Test A-a Gradient a/A Ratio Hemoglobin Carboxyhemoglobin (0.0-6.9) % THgb Methemoglobin (1.4-1.5) % Temperature C POC O2 Flow Rate % Inspiratory BiPAP Expiratory BiPAP Sodium 125 L (137-145) mmol/L Potassium 3.7 (3.5-5.1) mmol/L Chloride 83 L (98-107) mmol/L Carbon Dioxide 30 (22-30) mmol/L Anion Gap 15.1 H (5-15) MEQ/L BUN 34 H (9-20) mg/dL Creatinine 1.18 (0.66-1.25) mg/dL Estimated GFR > 60.0 ML/MIN Glucose 108 H (74-106) mg/dL Calcium 8.7 (8.4-10.2) mg/dL Total Bilirubin 1.00 (0.2-1.3) mg/dL AST 64 H (17-59) U/L ALT 34 (0-50) U/L Alkaline Phosphatase 122 (38-126) U/L Troponin I 0.020 (0.000-0.034) ng/mL NT-Pro-B Natriuret Pep 267 (0-900) pg/mL Serum Total Protein 6.8 (6.3-8.2) g/dL Albumin 3.8 (3.5-5.0) g/dL Prealbumin (17.6-36.0) mg/dL Influenza Type A Ag (NEGATIVE) Influenza Type B Ag (NEGATIVE) RSV (PCR) (Negative) SARS-CoV-2 (PCR) (NEGATIVE) 03/14/21 03/14/21 03/14/21 Range/Units 15:52 18:15 21:51 WBC (4.0-10.5) K/mm3 RBC (4.1-5.6) M/mm3 Hgb (12.5-18.0) gm/dl Hct (42-50) % MCV (78-100) fl MCH (26-32) pg MCHC (32-36) g/dl RDW (11.5-14.0) % Plt Count (150-450) K/mm3 MPV (7.5-11.0) fl Segmented Neutrophils (36.-66.) % Lymphocytes (Manual) (24-44) % Monocytes (Manual) (0.0-12.0) % Toxic Granulation Platelet Estimate (NORMAL) RBC Morphology PT (9.4-12.5) SECONDS INR (0.8-3.0) APTT (25.1-36.5) SECONDS D-Dimer 962 H* (215-500) ng/mL Puncture Site pCO2 (35-45) mmHg pO2 (75-100) mmHg Base Excess (-2.0-2.0) O2 Saturation (94-100) g/dF ABG pH (7.35-7.45) ABG HCO3 (22-28) ABG O2 Sat (Measured) (95-100) % Win Test A-a Gradient a/A Ratio Hemoglobin Carboxyhemoglobin (0.0-6.9) % THgb Methemoglobin (1.4-1.5) % Temperature C POC O2 Flow Rate % Inspiratory BiPAP Expiratory BiPAP Sodium (137-145) mmol/L Potassium (3.5-5.1) mmol/L Chloride (98-107) mmol/L Carbon Dioxide (22-30) mmol/L Anion Gap (5-15) MEQ/L BUN (9-20) mg/dL Creatinine (0.66-1.25) mg/dL Estimated GFR ML/MIN Glucose (74-106) mg/dL Calcium (8.4-10.2) mg/dL Total Bilirubin (0.2-1.3) mg/dL AST (17-59) U/L ALT (0-50) U/L Alkaline Phosphatase (38-126) U/L Troponin I 0.020 0.020 (0.000-0.034) ng/mL NT-Pro-B Natriuret Pep (0-900) pg/mL Serum Total Protein (6.3-8.2) g/dL Albumin (3.5-5.0) g/dL Prealbumin (17.6-36.0) mg/dL Influenza Type A Ag (NEGATIVE) Influenza Type B Ag (NEGATIVE) RSV (PCR) (Negative) SARS-CoV-2 (PCR) (NEGATIVE) 03/14/21 03/15/21 03/15/21 Range/Units 22:11 00:50 03:32 WBC (4.0-10.5) K/mm3 RBC (4.1-5.6) M/mm3 Hgb (12.5-18.0) gm/dl Hct (42-50) % MCV (78-100) fl MCH (26-32) pg MCHC (32-36) g/dl RDW (11.5-14.0) % Plt Count (150-450) K/mm3 MPV (7.5-11.0) fl Segmented Neutrophils (36.-66.) % Lymphocytes (Manual) (24-44) % Monocytes (Manual) (0.0-12.0) % Toxic Granulation Platelet Estimate (NORMAL) RBC Morphology PT (9.4-12.5) SECONDS INR (0.8-3.0) APTT (25.1-36.5) SECONDS D-Dimer (215-500) ng/mL Puncture Site RIGHT RADIAL pCO2 67 H* (35-45) mmHg pO2 76 (75-100) mmHg Base Excess 2.8 H (-2.0-2.0) O2 Saturation 93.2 L (94-100) g/dF ABG pH 7.28 L (7.35-7.45) ABG HCO3 31.5 H* (22-28) ABG O2 Sat (Measured) 95.5 (95-100) % Win Test YES A-a Gradient 161 a/A Ratio 0.32 Hemoglobin 12.8 Carboxyhemoglobin 1.7 (0.0-6.9) % THgb Methemoglobin 0.7 L (1.4-1.5) % Temperature 37.0 C POC O2 Flow Rate 45 % Inspiratory BiPAP Expiratory BiPAP Sodium (137-145) mmol/L Potassium 3.7 (3.5-5.1) mmol/L Chloride (98-107) mmol/L Carbon Dioxide (22-30) mmol/L Anion Gap (5-15) MEQ/L BUN (9-20) mg/dL Creatinine (0.66-1.25) mg/dL Estimated GFR ML/MIN Glucose (74-106) mg/dL Calcium (8.4-10.2) mg/dL Total Bilirubin (0.2-1.3) mg/dL AST (17-59) U/L ALT (0-50) U/L Alkaline Phosphatase (38-126) U/L Troponin I 0.025 0.032 (0.000-0.034) ng/mL NT-Pro-B Natriuret Pep (0-900) pg/mL Serum Total Protein (6.3-8.2) g/dL Albumin (3.5-5.0) g/dL Prealbumin (17.6-36.0) mg/dL Influenza Type A Ag (NEGATIVE) Influenza Type B Ag (NEGATIVE) RSV (PCR) (Negative) SARS-CoV-2 (PCR) (NEGATIVE) 03/15/21 03/15/21 03/15/21 Range/Units 03:32 03:32 03:41 WBC (4.0-10.5) K/mm3 RBC (4.1-5.6) M/mm3 Hgb (12.5-18.0) gm/dl Hct (42-50) % MCV (78-100) fl MCH (26-32) pg MCHC (32-36) g/dl RDW (11.5-14.0) % Plt Count (150-450) K/mm3 MPV (7.5-11.0) fl Segmented Neutrophils (36.-66.) % Lymphocytes (Manual) (24-44) % Monocytes (Manual) (0.0-12.0) % Toxic Granulation Platelet Estimate (NORMAL) RBC Morphology PT (9.4-12.5) SECONDS INR (0.8-3.0) APTT (25.1-36.5) SECONDS D-Dimer (215-500) ng/mL Puncture Site LEFT RADIAL pCO2 57 H (35-45) mmHg pO2 115 H (75-100) mmHg Base Excess 2.0 (-2.0-2.0) O2 Saturation 96.8 (94-100) g/dF ABG pH 7.32 L (7.35-7.45) ABG HCO3 29.4 H* (22-28) ABG O2 Sat (Measured) 99.7 (95-100) % Win Test YES A-a Gradient 99 a/A Ratio 0.54 Hemoglobin 12.1 Carboxyhemoglobin 1.9 (0.0-6.9) % THgb Methemoglobin 1.0 L (1.4-1.5) % Temperature 37.0 C POC O2 Flow Rate 40 % Inspiratory BiPAP 16 Expiratory BiPAP 10 Sodium 126 L (137-145) mmol/L Potassium 3.9 3.9 (3.5-5.1) mmol/L Chloride 84 L (98-107) mmol/L Carbon Dioxide 30 (22-30) mmol/L Anion Gap 15.6 H (5-15) MEQ/L BUN 39 H (9-20) mg/dL Creatinine 1.68 H (0.66-1.25) mg/dL Estimated GFR 43.5 ML/MIN Glucose 103 (74-106) mg/dL Calcium 8.7 (8.4-10.2) mg/dL Total Bilirubin 0.80 (0.2-1.3) mg/dL AST 54 (17-59) U/L ALT 34 (0-50) U/L Alkaline Phosphatase 112 (38-126) U/L Troponin I (0.000-0.034) ng/mL NT-Pro-B Natriuret Pep (0-900) pg/mL Serum Total Protein 7.2 (6.3-8.2) g/dL Albumin 3.9 (3.5-5.0) g/dL Prealbumin 5.89 L (17.6-36.0) mg/dL Influenza Type A Ag (NEGATIVE) Influenza Type B Ag (NEGATIVE) RSV (PCR) (Negative) SARS-CoV-2 (PCR) (NEGATIVE) - Radiology Impressions Radiology Exams & Impressions: Radiology Procedures Category Date Time Status CHEST 1 VIEW (PORTABLE) Stat Exams 03/14/21 15:07 Completed CHEST WITH CONTRAST [CT] Stat Exams 03/14/21 16:19 Completed - Other Procedures and Tests Respiratory Therapy 03/14/21 15:54 Respiratory Therapy Assessment DAILY 03/14/21 17:22 Oxygen Oxymask LPM 5 lpm 03/14/21 22:55 BiPap/CPAP ROUTINE Assessment/Plan (1) COPD with acute exacerbation Current Visit: Yes Status: Acute Assessment & Plan: add IV solu medrol, continue rocephin and zithromax, chest ct reviewed, clinically appears more like copd exacerbation than lobar pneumonia so will add steroid but continue CAP treatment Code(s): J44.1 - CHRONIC OBSTRUCTIVE PULMONARY DISEASE W (ACUTE) EXACERBATION (2) Hypoxia Current Visit: Yes Status: Acute Code(s): R09.02 - HYPOXEMIA (3) Pneumonia Current Visit: Yes Status: Acute Assessment & Plan: rocephin/zithromax Code(s): J18.9 - PNEUMONIA, UNSPECIFIED ORGANISM
[2021-03-15] MEDS ORDERED: DEMADEX 20 MG PO SCH (11:00)
[2021-03-15] MEDS: Zithromax 500 MG/ 250 ML NaCl Premix 500 MG/250 ML IVPB IV SCH (11:17)
[2021-03-15] MEDS: solu-MEDROL 80 MG, Sterile H2O 10 ml 2 ML IV SCH ×6 (11:18→23:30)
[2021-03-15] MEDS: Cozaar 50 MG PO SCH (11:27)
[2021-03-15] MEDS: ZOCOR 20MG PO SCH (11:27)
[2021-03-15] MEDS: ECOTRIN 81 MG PO SCH (11:27)
[2021-03-15] MEDS: ENOXAPARIN SODIUM SQ SCH (11:28)
[2021-03-15] MEDS ORDERED: solu-MEDROL W/DILUENT 500 MG IV SCH (12:00)
[2021-03-15] MEDS ORDERED: solu-MEDROL ONE (17:14)
[2021-03-15] MEDS: Nicoderm CQ 21 MG TOP SCH (17:37)
[2021-03-15] MEDS: HYTRIN 1 MG PO SCH (21:22)
[2021-03-15] MEDS: Toprol Xl 50 MG PO SCH (21:22)
[2021-03-15] MEDS ORDERED: TERAZOSIN HCL 2 MG PO SCH (22:00)
[2021-03-15] MEDS ORDERED: NON-FORMULARY ITEM (Umeclidinium Bromide [Incruse Ellipta] 62.5 MCG Blst.W.Dev) IH SCH (22:00)
[2021-03-16] MEDS: DUONEB 0.5-3 MG/3 ml Neb IH SCH ×6 (03:05→22:32)
[2021-03-16] MEDS ORDERED: solu-MEDROL ONE (03:38)
[2021-03-16] MEDS: solu-MEDROL 80 MG, Sterile H2O 10 ml 2 ML IV SCH ×6 (05:51→17:07)
[2021-03-16] MEDS: Advair Hfa 115/21 Common canister IH SCH ×2 (06:50→19:08)
--- NOTE | 2021-03-16 08:46 | PCM.NOTE ---
Date and Time: 03/16/21 0845 Subjective Assessment: patient is breathing some better, still requiring oxygen but feels less tight. he has swelling in his feet, slept in the chair so worse today Objective Exam General Appearance: no apparent distress Neurologic Exam: alert, oriented x 3 Respiratory Exam: crackles/rales, wheezing Cardiovascular Exam: regular rate/rhythm, normal heart sounds Gastrointestinal/Abdomen Exam: soft, No tenderness, No mass Extremity Exam: swelling (venous stasis changes BLE, 2+ pitting edema) OBJECTIVE DATA Vital Signs: Vital Signs - 24 hr Temp Pulse Resp BP Pulse Ox 03/16/21 08:00 97.5 F 87 16 126/59 93 L 03/16/21 06:52 73 22 93 L 03/16/21 04:00 98.7 F 81 19 131/62 98 03/16/21 03:05 87 24 95 03/15/21 23:56 98.6 F 80 20 111/54 92 L 03/15/21 22:40 89 22 95 03/15/21 20:00 98.8 F 90 20 129/57 95 03/15/21 19:26 86 24 93 L 03/15/21 16:00 97.9 F 81 22 124/58 94 L 03/15/21 15:22 85 24 93 L 03/15/21 11:57 98.0 F 87 24 114/53 93 L 03/15/21 10:32 81 22 91 L Pain Assessment - Last Documented Pain Intensity 0 Intake and Output: Intake & Output 03/13/21 03/14/21 03/15/21 03/16/21 11:59 11:59 11:59 11:59 Intake Total 120 2242 Output Total 500 Balance 120 1742 Weight 75.6 kg Radiology Exams: Radiology Procedures Category Date Time Status CHEST 1 VIEW (PORTABLE) Stat Exams 03/14/21 15:07 Completed CHEST WITH CONTRAST [CT] Stat Exams 03/14/21 16:19 Completed ECHO W/2D AND DOPPLER [US] Routine Exams 03/16/21 Ordered Multi-Disciplinary Progress Notes: Multi-Disciplinary Progress Notes 03/15/21 12:44 Case Management Note by Christy Garcia Addendum entered by Christy Garcia 03/15/21 12:45: NOTE PLACED ON CHART FOR MD Original Note: IF PHYSICIAN WOULD LIKE PATIENT TO HAVE NEBS AT HOME. PATIENT WILL NEED ORDER FOR NEB MACHINE AND NEBULES. THIS WILL NEED SUBMITTED TO [facility] D/Bre[facility] [employer]UR[employer] Initialized on 03/15/21 12:44 - END OF NOTE Assessment/Plan (1) COPD with acute exacerbation Current Visit: Yes Status: Acute Assessment & Plan: continue rocephin/zithromax and solu medrol with nebs Code(s): J44.1 - CHRONIC OBSTRUCTIVE PULMONARY DISEASE W (ACUTE) EXACERBATION (2) Hypoxia Current Visit: Yes Status: Acute Code(s): R09.02 - HYPOXEMIA (3) Pneumonia Current Visit: Yes Status: Acute Code(s): J18.9 - PNEUMONIA, UNSPECIFIED ORGANISM (4) CHF (congestive heart failure) Current Visit: Yes Status: Acute Assessment & Plan: IV lasix, check echo. has seen Dr De Leon in the past. Code(s): I50.9 - HEART FAILURE, UNSPECIFIED
[2021-03-16] MEDS ORDERED: LIPITOR 40MG PO SCH (10:00)
[2021-03-16] MEDS ORDERED: Lasix 40 MG/4 ML IV SCH (10:00)
[2021-03-16] MEDS: ROCEPHIN 1 Gm-D5w 50 ml Bag** 1 G/50 ML IVPB IV SCH (10:12)
[2021-03-16] MEDS: ECOTRIN 81 MG PO SCH (10:12)
[2021-03-16] MEDS: ZOCOR 20MG PO SCH (10:12)
[2021-03-16] MEDS: Klor Con 10 MEQ PO SCH (10:13)
[2021-03-16] MEDS: PROTONIX 40 MG IV IV SCH (10:13)
[2021-03-16] MEDS: Cozaar 50 MG PO SCH (10:13)
[2021-03-16] MEDS: ENOXAPARIN SODIUM SQ SCH (10:20)
[2021-03-16] MEDS: Zithromax 500 MG/ 250 ML NaCl Premix 500 MG/250 ML IVPB IV SCH (10:57)
[2021-03-16] MEDS: Nicoderm CQ 21 MG TOP SCH (17:07)
[2021-03-16] MEDS: HYTRIN 1 MG PO SCH (21:42)
[2021-03-16] MEDS: Toprol Xl 50 MG PO SCH (21:43)
[2021-03-17] MEDS: solu-MEDROL 80 MG, Sterile H2O 10 ml 2 ML IV SCH ×8 (00:07→18:15)
[2021-03-17] MEDS: DUONEB 0.5-3 MG/3 ml Neb IH SCH ×6 (03:04→22:41)
[2021-03-17 05:45] LABS: Hematocrit 37.7 % (42-50); Hemoglobin 12.3 gm/dl (12.5-18.0); Mean Cell Volume 95.9 fl (78-100); Mean Corpuscular Hemoglobin 31.3 pg (26-32); Mean Corpuscular Hgb Concent. 32.6 g/dl (32-36); Platelet Count 333 K/mm3 (150-450); Red Blood Count 3.93 M/mm3 (4.1-5.6); White Blood Count 16.1 K/mm3 (4.0-10.5)
[2021-03-17 06:39] LABS: ANISOCYTOSIS 1+; Lymphocytes 10 % (24-44); Monocyte 3 % (0.0-12.0); Neutrophils 87 % (36.-66.); Platelet Estimate NORMAL (NORMAL); Poikilocytosis 1+; Polychromasia 1+; Total Cells Counted 100
[2021-03-17 06:49] LABS: ANION GAP 14.5 MEQ/L (5-15); Calcium 9.5 mg/dL (8.4-10.2); Creatinine 1 2.59 mg/dL (0.66-1.25); EST GLOMERULAR FILTRATION RATE 26.4 ML/MIN; Potassium 3.7 mmol/L (3.5-5.1)
[2021-03-17] MEDS: Advair Hfa 115/21 Common canister IH SCH ×2 (07:16→18:49)
--- NOTE | 2021-03-17 08:26 | PCM.NOTE ---
Date and Time: 03/17/21822 Subjective Assessment: patient reports improvement in his shortness of breath and cough, still requiring 4-5L oxygen flow. normally is on 2-2.5L flow at home intermittently/mostly at night. Objective Exam General Appearance: no apparent distress Neurologic Exam: alert, oriented x 3 Respiratory Exam: prolonged expirations, wheezing Cardiovascular Exam: regular rate/rhythm, normal heart sounds Gastrointestinal/Abdomen Exam: soft, No tenderness, No mass Extremity Exam: pedal edema (chronic venous stasis changes) OBJECTIVE DATA Vital Signs: Vital Signs - 24 hr Temp Pulse Resp BP Pulse Ox 03/17/21 07:16 87 20 94 L 03/17/21 04:00 97.1 F 82 22 130/68 93 L 03/17/21 03:04 94 H 26 H 93 L 03/16/21 23:43 97.5 F 78 22 130/62 95 03/16/21 22:35 88 20 94 L 03/16/21 20:00 98.5 F 105 H 26 H 137/63 92 L 03/16/21 19:09 83 20 95 03/16/21 16:17 93 H 22 94 L 03/16/21 16:00 98.0 F 95 H 18 120/57 93 L 03/16/21 12:29 111 H 22 93 L 03/16/21 12:00 97.3 F 101 H 16 114/61 92 L Pain Assessment - Last Documented Pain Intensity 0 Intake and Output: Intake & Output 03/14/21 03/15/21 03/16/21 03/17/21 11:59 11:59 11:59 11:59 Intake Total 120 2482 1500 Output Total 500 Balance 120 1982 1500 Weight 75.6 kg 79.8 kg Lab Results: Lab Results-Last 24 Hours 03/17/21 03/17/21 Range/Units 04:30 04:30 WBC 16.1 H (4.0-10.5) K/mm3 RBC 3.93 L (4.1-5.6) M/mm3 Hgb 12.3 L (12.5-18.0) gm/dl Hct 37.7 L (42-50) % MCV 95.9 (78-100) fl MCH 31.3 (26-32) pg MCHC 32.6 (32-36) g/dl RDW 15.0 H (11.5-14.0) % Plt Count 333 (150-450) K/mm3 MPV 10.0 (7.5-11.0) fl Segmented Neutrophils 87 H (36.-66.) % Lymphocytes (Manual) 10 L (24-44) % Monocytes (Manual) 3 (0.0-12.0) % Platelet Estimate NORMAL (NORMAL) RBC Morphology ABNORMAL Polychromasia 1+ Poikilocytosis 1+ Anisocytosis 1+ Sodium 133 L (137-145) mmol/L Potassium 3.7 (3.5-5.1) mmol/L Chloride 92 L (98-107) mmol/L Carbon Dioxide 30 (22-30) mmol/L Anion Gap 14.5 (5-15) MEQ/L BUN 64 H (9-20) mg/dL Creatinine 2.59 H (0.66-1.25) mg/dL Estimated GFR 26.4 ML/MIN Glucose 189 H (74-106) mg/dL Calcium 9.5 (8.4-10.2) mg/dL NT-Pro-B Natriuret Pep 453 (0-900) pg/mL Radiology Exams: Radiology Procedures Category Date Time Status ECHO W/2D AND DOPPLER [US] Routine Exams 03/16/21 00:00 Taken Assessment/Plan (1) COPD with acute exacerbation Current Visit: Yes Status: Acute Assessment & Plan: continue rocephin/zithromax and IV solu medrol with nebs. clinically improving. Code(s): J44.1 - CHRONIC OBSTRUCTIVE PULMONARY DISEASE W (ACUTE) EXACERBATION (2) Acute on chronic renal insufficiency Current Visit: Yes Status: Acute Assessment & Plan: d/c IV lasix and rehydrate due to increase in bun/cr likely from excessive diuresis Code(s): N28.9 - DISORDER OF KIDNEY AND URETER, UNSPECIFIED; N18.9 - CHRONIC KIDNEY DISEASE, UNSPECIFIED (3) Hypoxia Current Visit: Yes Status: Acute Assessment & Plan: patient has home oxygen supplies through [employer] Code(s): R09.02 - HYPOXEMIA (4) Pneumonia Current Visit: Yes Status: Acute Code(s): J18.9 - PNEUMONIA, UNSPECIFIED ORGANISM (5) CHF (congestive heart failure) Current Visit: Yes Status: Acute Code(s): I50.9 - HEART FAILURE, UNSPECIFIED
[2021-03-17] MEDS: Klor Con 10 MEQ PO SCH (09:17)
[2021-03-17] MEDS: ENOXAPARIN SODIUM SQ SCH (09:17)
[2021-03-17] MEDS: Cozaar 50 MG PO SCH (09:17)
[2021-03-17] MEDS: Sodium Chloride 0.9% 1000 ML 1,000 ML IV SCH ×2 (09:17→21:24)
[2021-03-17] MEDS: ECOTRIN 81 MG PO SCH (09:18)
[2021-03-17] MEDS: ZOCOR 20MG PO SCH (09:18)
[2021-03-17] MEDS: ROCEPHIN 1 Gm-D5w 50 ml Bag** 1 G/50 ML IVPB IV SCH (09:21)
[2021-03-17] MEDS: PROTONIX 40 MG IV IV SCH (09:21)
[2021-03-17] MEDS: Zithromax 500 MG/ 250 ML NaCl Premix 500 MG/250 ML IVPB IV SCH (10:32)
[2021-03-17] MEDS: Nicoderm CQ 21 MG TOP SCH (18:53)
[2021-03-17] MEDS: Toprol Xl 50 MG PO SCH (21:21)
[2021-03-17] MEDS: HYTRIN 1 MG PO SCH (21:22)
[2021-03-18] MEDS: solu-MEDROL 80 MG, Sterile H2O 10 ml 2 ML IV SCH ×4 (01:11→06:30)
[2021-03-18] MEDS: DUONEB 0.5-3 MG/3 ml Neb IH SCH ×3 (02:53→10:55)
[2021-03-18 06:10] LABS: Hematocrit 36.9 % (42-50); Mean Cell Volume 96.6 fl (78-100); Mean Corpuscular Hemoglobin 31.4 pg (26-32); Mean Corpuscular Hgb Concent. 32.5 g/dl (32-36); Mean Platelet Volume 9.4 fl (7.5-11.0); Platelet Count 341 K/mm3 (150-450); Red Blood Count 3.82 M/mm3 (4.1-5.6); Red Cell Distribution Width 15.3 % (11.5-14.0); White Blood Count 13.2 K/mm3 (4.0-10.5)
[2021-03-18] MEDS: Sodium Chloride 0.9% 1000 ML 1,000 ML IV SCH (06:30)
[2021-03-18] MEDS: Advair Hfa 115/21 Common canister IH SCH (06:35)
[2021-03-18 06:43] LABS: ANION GAP 13.3 MEQ/L (5-15); Calcium 9.4 mg/dL (8.4-10.2); Creatinine 1 1.91 mg/dL (0.66-1.25); EST GLOMERULAR FILTRATION RATE 37.5 ML/MIN; MAGNESIUM 2.4 mg/dL (1.6-2.3); Potassium 4.1 mmol/L (3.5-5.1)
[2021-03-18 06:46] LABS: Lymphocytes 5 % (24-44); Monocyte 4 % (0.0-12.0); Neutrophils 91 % (36.-66.); Platelet Estimate NORMAL (NORMAL); Total Cells Counted 100
[2021-03-18 08:18] VITALS: BP 146/74
[2021-03-18] MEDS: ENOXAPARIN SODIUM SQ SCH (09:16)
[2021-03-18] MEDS: PROTONIX 40 MG IV IV SCH (09:16)
[2021-03-18] MEDS: ROCEPHIN 1 Gm-D5w 50 ml Bag** 1 G/50 ML IVPB IV SCH (09:16)
[2021-03-18] MEDS: ECOTRIN 81 MG PO SCH (09:17)
[2021-03-18] MEDS: Cozaar 50 MG PO SCH (09:17)
[2021-03-18] MEDS: Klor Con 10 MEQ PO SCH (09:17)
[2021-03-18] MEDS: ZOCOR 20MG PO SCH (09:17)
[2021-03-18] MEDS ORDERED: DEMADEX 20 MG PO SCH (10:00)
[2021-03-18 11:00] VITALS: PULSE 80
[2021-03-18 11:15] VITALS: O2SAT 95
--- NOTE | 2021-03-19 11:46 | PCM.DS ---
Discharge Summary Date of Admission: 03/15/21 10:13 Date of Discharge: 03/18/2021 Admitting Physician: CAROLYNE CARCAMO Primary Care Provider: CAROLYNE CARCAMO Allergies Allergies No Known Drug Allergies Allergy (Verified 03/14/21 21:50) Hospital Summary - Hospital Course Hospital Course: Pt. admitted to hospital for pneumonia, patient gradually improved and felt he was good, back to his baseline and ready to go home by the am of 03/18/21. Pt. adament he felt good and ready to go home. - Vitals & Intake/Output Vital Signs: Vital Signs Temperature 97.1 F 03/18/21 08:00 Pulse Rate 80 03/18/21 10:58 Respiratory Rate 24 03/18/21 10:58 Blood Pressure 146/74 03/18/21 08:00 O2 Sat by Pulse Oximetry 95 03/18/21 11:15 Intake & Output: Intake & Output 03/16/21 03/17/21 03/18/21 03/19/21 11:59 11:59 11:59 11:59 Intake Total 2482 1979 5401 Output Total 500 300 Balance 1981 1979 5101 Weight 79.8 kg 85.842 kg - Lab Result Diagrams: 03/18/21 05:55 03/18/21 05:55 Micro Results-Entire Visit: Microbiology 03/14/21 18:15 Blood Culture Gram Stain - Final Blood Not Reportable Blood Culture - Final NO GROWTH 03/14/21 14:52 Blood Culture Gram Stain - Final Blood Blood Culture - Preliminary Coagulase Negative Staph. Possible Contaminant. Clinical judgement required. NO FURTHER WORKUP WILL BE PERFORMED UNLESS PHYSICIAN REQUESTED WITHIN THE NEXT 72 HOURS - Procedures and Test Procedures and Tests throughout Hospitalization: Therapy Orders & Screens 03/14/21 15:54 Respiratory Therapy Assessment DAILY Comment: 03/14/21 17:22 Oxygen Oxymask LPM 5 lpm Comment: 03/14/21 22:55 BiPap/CPAP ROUTINE Comment: Diagnosis: pneumonia 03/15/21 04:13 Respiratory MDI BID Comment: Diagnosis: pneumonia 03/15/21 08:30 Flutter Therapy UD Comment: Diagnosis: pneumonia 03/15/21 10:00 Smoking Cessation Education ONCE Comment: Diagnosis: pneumonia Smoking Status: Current every day smoker How long have you smoked: 58 years Have you smoked in the past 12 months: Yes Approximately how many cigarettes per day: 20 Do you dip or chew tobacco: No 03/16/21 06:52 Oxygen Nasal Cannula 5 lpm Comment: Diagnosis: pneumonia 03/17/21 08:38 PT Eval & Treat ( Order) ONCE Reason for Eval:: PATIENT WOULD LIKE WALKER TO STABILIZE Diagnosis: EXAC COPD, PNEUMONIA Discharge Exam General Appearance: no apparent distress, alert Neurologic Exam: alert, oriented x 3, cooperative, normal mood/affect, nml cerebellar function, sensation nml, No motor deficits Eye Exam: PERRL, EOMI, eyes nml inspection Ears, Nose, Throat Exam: normal ENT inspection, pharynx normal, moist mucous membranes Neck Exam: normal inspection, non-tender, supple, full range of motion Respiratory Exam: diminished breath sounds, No respiratory distress Cardiovascular Exam: regular rate/rhythm, normal heart sounds Gastrointestinal/Abdomen Exam: soft, No tenderness, No mass Male Genitalia Exam: deferred Rectal Exam: deferred Back Exam: normal inspection, normal range of motion, No CVA tenderness, No vertebral tenderness Extremity Exam: normal inspection, normal range of motion Skin Exam: warm, dry, other (venous stasis changed and pedal edema noted, which pt. will not change habits and does not was compression for, notes this is normal and he will continue to sit in his recliner with feet down, this does not bother him.) Final Diagnosis/Problem List - Final Discharge Diagnosis/Problem (1) COPD with acute exacerbation Status: Acute Code(s): J44.1 - CHRONIC OBSTRUCTIVE PULMONARY DISEASE W (ACUTE) EXACERBATION (2) Hypoxia Status: Acute Code(s): R09.02 - HYPOXEMIA (3) Pneumonia Status: Acute Code(s): J18.9 - PNEUMONIA, UNSPECIFIED ORGANISM - Discharge Discharge Date: 03/18/21 Disposition: Home, Self-Care Condition: Stable Prescriptions: New Amox Tr/[place] Clav. 875 mg [Augmentin 875-125 Tablet] 875 mg PO BID #20 tablet Azithromycin [Azithromycin 250 mg Pack] 250 mg PO UD #6 tablet Methylprednisolone Packet [Medrol Dosepack] 4 mg PO UD #1 packet Continue Aspirin EC 81 mg [Ecotrin 81 mg] 81 mg PO DAILY Losartan Potassium 50 mg [Cozaar 50 MG] 100 mg PO DAILY Atorvastatin Calcium [Lipitor] 40 mg PO DAILY B Complex with Vitamin C [Super B Complex with C] 1 each PO QHS Metoprolol Succinate 50 mg [Toprol Xl 50 MG] 50 mg PO QHS Nitroglycerin 0.4 mg Tablet [Nitrostat 0.4 MG Tablet] 0.4 mg SL UD PRN PRN Reason: Chest Pain Fluticasone/Vilanterol [Breo Ellipta 200-25 Mcg INH] 1 inh PO QHS Albuterol Sulfate [Ventolin Hfa] 1 gm IH UD PRN PRN Reason: Shortness Of Breath Terazosin HCl [Hytrin] 2 mg PO QHS Torsemide 20 mg [Demadex 20 mg] 40 mg PO DAILY Umeclidinium [place] [Incruse Ellipta] 1 puff IH QHS Instructions: Pneumonia, Adult (DC) Additional Instructions: ORDER FOR ROLLATOR SENT TO [facility]- THEY WILL DELIVER THIS TO YOUR HOME. THEIR PHONE NUMBER IS [phone] Follow up with: CAROLYNE CARCAMO MD [Primary Care Provider] - 03/27/21 1:15 am Forms: Discharge Instructions
== END 2021-03-18 11:32 | disposition home or self-care (01) | DRG 190 ==
LOC: ED 14:43 → MED SURG 21:25 → OBSVTOIN 03-15 10:13
PROVIDERS: ADMIT Family Medicine; ATTEND Family Medicine
DX: J44.1 Chronic obstructive pulmonary disease with (acute) exacerbation (principal); J18.9 Pneumonia, unspecified organism; I13.0 Hypertensive heart and chronic kidney disease with heart failure and stage 1 through stage 4 chronic kidney disease, or unspecified chronic kidney disease; R09.02 Hypoxemia; I25.10 Atherosclerotic heart disease of native coronary artery without angina pectoris; N18.9 Chronic kidney disease, unspecified; E78.00 Pure hypercholesterolemia, unspecified; I50.9 Heart failure, unspecified; R60.0 Localized edema; Z72.0 Tobacco use; Z99.81 Dependence on supplemental oxygen; Z79.899 Other long term (current) drug therapy; Z20.828 Contact with and (suspected) exposure to other viral communicable diseases
CPT/HCPCS: 0241U; 36415; 36600; 71045; 71260; 80048; 80053; 82375; 82803; 83735; 83880; 84134; 84484; 85025; 85027; 85379; 85610; 85730; 87040; 93005; 93306; 94002; 94003; 94640; 94667; 94762; 96365; 97161; 99284; G0378; J0456; J0696; J1650; J1940; J2930; A9270-GY

== ENCOUNTER 2022-02-03 23:55 | Inpatient (IN) | payer MEDICARE, BC ==
[2022-02-04] MEDS ORDERED: DUONEB 0.5-3 MG/3 ml Neb IH ONE ×3 (00:01→08:43)
[2022-02-04] MEDS ORDERED: TYLENOL EXTRA STRENGTH 500 MG PO STA (00:19)
[2022-02-04] MEDS ORDERED: Zithromax 500 MG/ 250 ML NaCl Premix 500 MG/250 ML IVPB IV STA (00:22)
[2022-02-04] MEDS ORDERED: ROCEPHIN 2 Gm-D5w 50ML BAG** 2 G/50 ML IVPB IV STA (00:22)
[2022-02-04] MEDS ORDERED: TYLENOL EXTRA STRENGTH 500 MG ONE (00:22)
--- NOTE | 2022-02-04 00:30 | ERPHSYRPT ---
- History of Present Illness Time Seen by Provider: 02/04/22 00:00 Patient Subjective Stated Complaint: pt states "I started feeling more short of breath around 8 pm. I felt sick all day." Triage Nursing Assessment: pt presents to ED via Scat 1, pt alert and oriented x3, pt c/o increased shortness of breath and generally not feeling well, pt has hx of copd, chf, cardiac stent, pt normally wears 3l NC at home, pt recieved duoneb and 125 mg solumederol, pt labored breathing, wheezing lung sounds Physician History: 66 years old male with a history of chronic respiratory failure secondary to COPD on 3 L oxygen, coronary artery disease status post stenting, hypertension, hyperlipidemia, tobacco abuse, chronic bilateral lower extremity with swelling/lymphedema presented in the ER with sudden onset worsening shortness of breath since 8 PM tonight with associated cough productive of yellow-green sputum along with bilateral diffuse wheezing and subjective feeling of fever and chills. As per EMS patient was in mild to moderate distress with oxygen saturation on the low 90s, given DuoNeb and Solu-Medrol and on presentation around 92% on 4 L. Patient also has a temperature of 103 on presentation in the ER. Timing/Duration: hour(s) (4), gradual onset, worse Activities at Onset: activity, rest Severity of Dyspnea-Max: severe Severity of Dyspnea-Current: moderate Possible Cause: unknown cause Modifying Factors: Improves With: albuterol nebulizer, oxygen. Worsens With: coughing Associated Symptoms: cough, chest pain/discomfort, edema, fever, lightheadedness, wheezing, heaviness, productive cough, tightness Allergies/Adverse Reactions: No Known Drug Allergies Allergy (Verified 02/04/22 00:03) Home Medications: Aspirin EC 81 mg [Ecotrin 81 mg] 81 mg PO DAILY 03/01/13 [History] Atorvastatin Calcium [Lipitor] 40 mg PO DAILY 03/01/13 [History] B Complex with Vitamin C [Super B Complex with C] 1 each PO QHS 03/01/13 [History] Losartan Potassium 50 mg [Cozaar 50 MG] 100 mg PO DAILY 03/01/13 [History] Metoprolol Succinate 50 mg [Toprol Xl 50 MG] 50 mg PO QHS 03/01/13 [History] Nitroglycerin 0.4 mg Tablet [Nitrostat 0.4 MG Tablet] 0.4 mg SL UD PRN 03/01/13 [History] Albuterol Sulfate [Ventolin Hfa] 1 gm IH UD PRN 12/03/18 [History] Fluticasone/Vilanterol [Breo Ellipta 200-25 Mcg INH] 1 inh PO QHS 12/03/18 [History] Terazosin HCl [Hytrin] 2 mg PO QHS 12/03/18 [History] Torsemide 20 mg [Demadex 20 mg] 40 mg PO DAILY 03/14/21 [History] Umeclidinium Upham [Incruse Ellipta] 1 puff IH QHS 03/15/21 [History] Hx Tetanus, Diphtheria Vaccination/Date Given: Yes Hx Influenza Vaccination/Date Given: No Hx Pneumococcal Vaccination/Date Given: Yes Immunizations Up to Date: Yes Travel Risk - International Travel Have you traveled outside of the country in past 3 weeks: No - Coronavirus Screening Are you exhibiting any of the following symptoms?: Yes Symptoms: Fever, Cough: New Onset, Shortness of Breath Close contact with a COVID-19 positive Pt in past 14-21 Days: No - Vaccine Status Have you recieved a Covid-19 vaccination: Yes 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: [email or web address] - Vaccination Dates Date of 2cond Vaccination (if applicable): 05/2020 - Review of Systems Constitutional: Fever, Chills Eyes: No Symptoms Ears, Nose, & Throat: No Symptoms Respiratory: Cough, Dyspnea, Wheezing Cardiac: Edema Abdominal/Gastrointestinal: No Symptoms Genitourinary Symptoms: No Symptoms Musculoskeletal: Arthralgias Skin: No Symptoms Neurological: No Symptoms Psychological: No Symptoms Hematologic/Lymphatic: No Symptoms Immunological/Allergic: No Symptoms - Past Medical History Pertinent Past Medical History: Yes Neurological History: No Pertinent History ENT History: No Pertinent History Cardiac History: Coronary Artery Disease, High Cholesterol, Hypertension, Other Respiratory History: CHF, COPD, Emphysema, Pneumonia, Other Endocrine Medical History: Other Musculoskeletal History: No Pertinent History GI Medical History: No Pertinent History History: No Pertinent History Psycho-Social History: No Pertinent History Male Reproductive Disorders: No Pertinent History Other Medical History: Rupture disc-surgery to repair - Past Surgical History Past Surgical History: Yes Neuro Surgical History: No Pertinent History Cardiac: Other Respiratory: No Pertinent History Gastrointestinal: No Pertinent History Genitourinary: No Pertinent History Musculoskeletal: Other Male Surgical History: No Pertinent History Other Surgical History: T&A at 8-10 yrs old. Ruptured disc repair - Social History Smoking Status: Current every day smoker How long have you smoked: 43 yrs Exposure to second hand smoke: No Drug Use: none Patient Lives Alone: No Significant Family History: no pertinent family hx - Nursing Vital Signs Nursing Vital Signs: Initial Vital Signs O2 Sat by Pulse Oximetry 86 L 02/04/22 00:00 Pain Scale Pain Intensity 0 - Physical Exam General Appearance: no apparent distress, alert Eye Exam: PERRL/EOMI Ears, Nose, Throat Exam: hearing grossly normal, pharyngeal erythema Neck Exam: normal inspection, supple, full range of motion Respiratory Exam: diminished breath sounds, accessory muscle use, crackles/rales, rhonchi, wheezing Cardiovascular/Chest Exam: regular rate/rhythm, edema, tachycardia Abdominal/Gastrointestinal Exam: soft, normal bowel sounds, No tenderness Extremity Exam: pedal edema, swelling Neurologic Exam: alert, oriented x 3, assurance manager insurance II-XII nml as tested Skin Exam: normal color SpO2 Interpretation: O2 applied SpO2: 90 O2 Delivery: Nasal Cannula - Course EKG Interpreted by Me: RATE (124), Sinus Tach, NORMAL AXIS, Q-wave, Non-specific ST Changes, Other (ST depression in anterolateral leads) Ordered Tests: Active Orders 24 hr Category Date Time Status Manufacturing Engineer Paint STAT Care 02/04/22 00:02 Active EKG-ER Only STAT Care 02/04/22 00:01 Active IV Insertion STAT Care 02/04/22 00:01 Active Oxygen-ED Only Nasal Cannula 4 lpm Care 02/04/22 00:01 Active CHEST 1 VIEW (PORTABLE) Stat Exams 02/04/22 00:02 Taken CHEST WITH CONTRAST [CT] Stat Exams 02/04/22 01:45 Taken ARTERIAL BLOOD GASES Stat Lab 02/04/22 00:46 Completed BLOOD CULTURE Stat Lab 02/04/22 00:27 Received CBC W DIFF Stat Lab 02/04/22 00:27 Completed CMP Stat Lab 02/04/22 00:27 Completed D-DIMER QUANTITATIVE Stat Lab 02/04/22 00:20 Completed Lactic Acid Stat Lab 02/04/22 00:46 Completed MAGNESIUM Stat Lab 02/04/22 00:27 Completed NT PRO BNP Stat Lab 02/04/22 00:27 Completed PROCALCITONIN Stat Lab 02/04/22 00:36 Completed TROPONIN Q4H Lab 02/04/22 00:27 Completed TROPONIN Q4H Lab 02/04/22 04:21 Completed TROPONIN Q4H Lab 02/04/22 08:15 Ordered UA W/RFX CULTURE Stat Lab 02/04/22 Ordered Respiratory Therapy Assessment DAILY RT 02/04/22 00:23 Active Transfer Order Routine Transfer 02/04/22 Ordered Medication Summary Generic Name Dose Route Start Last Admin Trade Name Freq PRN Reason Stop Dose Admin Magnesium Sulfate/Dextrose 100 mls @ 100 mls/hr 02/04/22 01:45 02/04/22 03:43 Magnesium 1 Gm / 100 Ml D5w IV 02/04/22 03:44 100 mls/hr Q1H SAL Administration Discontinued Medications Generic Name Dose Route Start Last Admin Trade Name Freq PRN Reason Stop Dose Admin Acetaminophen 1,000 mg 02/04/22 00:19 02/04/22 00:23 Acetaminophen 500 Mg Tablet PO 02/04/22 00:20 1,000 mg STAT STA Administration Acetaminophen Confirm 02/04/22 00:22 Acetaminophen 500 Mg Tablet Administered 02/04/22 00:23 Dose 1,000 mg .ROUTE .STK-MED ONE Albuterol/Ipratropium 3 ml 02/04/22 00:01 02/04/22 00:25 Ipratropium/Albuterol Sulfate 3 Ml Ampul.Neb IH 02/04/22 00:02 3 ml STAT ONE Administration Albuterol/Ipratropium Confirm 02/04/22 00:24 Ipratropium/Albuterol Sulfate 3 Ml Ampul.Neb Administered 02/04/22 00:25 Dose 3 ml IH .STK-MED ONE Aspirin 324 mg 02/04/22 00:50 02/04/22 00:57 Aspirin 81 Mg Tab.Chew PO 02/04/22 00:51 324 mg STAT ONE Administration Ceftriaxone Sodium/Dextrose 2 g in 50 mls @ 100 mls/hr 02/04/22 00:22 02/04/22 01:40 Rocephin 2 Gm-D5w 50ml Bag IV 02/04/22 00:51 Infused STAT STA Infusion Azithromycin 500 mg in 250 mls @ 250 mls/hr 02/04/22 00:22 02/04/22 03:05 Zithromax 500 Mg/ 250 Ml Nacl Premix IV 02/04/22 01:21 Infused STAT STA Infusion Ceftriaxone Sodium/Dextrose Confirm 02/04/22 00:56 Rocephin 2 Gm-D5w 50ml Bag Administered 02/04/22 00:57 Dose 2 g in 50 mls @ ud IV .STK-MED ONE Azithromycin Confirm 02/04/22 01:26 Zithromax 500 Mg/ 250 Ml Nacl Premix Administered 02/04/22 01:27 Dose 500 mg in 250 mls @ ud IV .STK-MED ONE Lab/Rad Data: Laboratory Result Diagrams 02/04/22 00:27 02/04/22 00:27 Laboratory Results 02/04/22 02/04/22 02/04/22 Range/Units 04:21 00:46 00:36 WBC (4.0-10.5) x10^3/uL RBC (4.1-5.6) x10^6/uL Hgb (12.5-18.0) g/dL Hct (42-50) % MCV (78-100) fL MCH (26-32) pg MCHC (32-36) g/dL RDW (11.5-14.0) % Plt Count (150-450) x10^3/uL MPV (7.5-11.0) fL Gran % (36.0-66.0) % Immature Gran % (Auto) (0.00-0.4) % Nucleat RBC Rel Count (0.00-0.1) % Eos # (Auto) (0-0.5) x10^3/uL Immature Gran # (Auto) (0.00-0.03) x10^3u/L Absolute Lymphs (auto) (1.0-4.6) x10^3/uL Absolute Monos (auto) (0.0-1.3) x10^3/uL Absolute Nucleated RBC (0.00-0.01) x10^3u/L Lymphocytes % (24.0-44.0) % Monocytes % (0.0-12.0) % Eosinophils % (0.00-5.0) % Basophils % (0.0-0.4) % Absolute Granulocytes (1.4-6.9) x10^3/uL Basophils # (0-0.4) x10^3/uL D-Dimer (0.0-0.50) mg/L Puncture Site RIGHT RADIAL pCO2 44 (35-45) mmHg pO2 68 L (75-100) mmHg Base Excess 6.7 H (-2.0-2.0) O2 Saturation 92.7 L (94-100) g/dF ABG pH 7.46 H (7.35-7.45) ABG HCO3 31.3 H* (22-28) ABG O2 Sat (Measured) 95.3 (95-100) % Win Test YES A-a Gradient 134 a/A Ratio 0.34 Hemoglobin 11.7 Carboxyhemoglobin 2.0 (0.0-6.9) % THgb Methemoglobin 0.7 L (1.4-1.5) % Temperature 37.0 C POC O2 Flow Rate 36 % Sodium (137-145) mmol/L Potassium 3.4 L (3.5-5.1) mmol/L Chloride (98-107) mmol/L Carbon Dioxide (22-30) mmol/L Anion Gap (5-15) MEQ/L BUN (9-20) mg/dL Creatinine (0.66-1.25) mg/dL Estimated GFR ML/MIN Glucose (74-106) mg/dL Lactic Acid 0.7 (0.4-2.0) Calcium (8.4-10.2) mg/dL Magnesium (1.6-2.3) mg/dL Total Bilirubin (0.2-1.3) mg/dL AST (17-59) U/L ALT (0-50) U/L Alkaline Phosphatase (38-126) U/L Troponin I 0.031 (0.000-0.034) ng/mL NT-Pro-B Natriuret Pep (0-900) pg/mL Serum Total Protein (6.3-8.2) g/dL Albumin (3.5-5.0) g/dL Procalcitonin 1.390 H (0.030-0.080) ng/mL Influenza Type A Ag (NEGATIVE) Influenza Type B Ag (NEGATIVE) RSV (PCR) (Negative) SARS-CoV-2 (PCR) (NEGATIVE) 02/04/22 02/04/2202/04/22 Range/Units 00:32 00:27 00:27 WBC (4.0-10.5) x10^3/uL RBC (4.1-5.6) x10^6/uL Hgb (12.5-18.0) g/dL Hct (42-50) % MCV (78-100) fL MCH (26-32) pg MCHC (32-36) g/dL RDW (11.5-14.0) % Plt Count (150-450) x10^3/uL MPV (7.5-11.0) fL Gran % (36.0-66.0) % Immature Gran % (Auto) (0.00-0.4) % Nucleat RBC Rel Count (0.00-0.1) % Eos # (Auto) (0-0.5) x10^3/uL Immature Gran # (Auto) (0.00-0.03) x10^3u/L Absolute Lymphs (auto) (1.0-4.6) x10^3/uL Absolute Monos (auto) (0.0-1.3) x10^3/uL Absolute Nucleated RBC (0.00-0.01) x10^3u/L Lymphocytes % (24.0-44.0) % Monocytes % (0.0-12.0) % Eosinophils % (0.00-5.0) % Basophils % (0.0-0.4) % Absolute Granulocytes (1.4-6.9) x10^3/uL Basophils # (0-0.4) x10^3/uL D-Dimer (0.0-0.50) mg/L Puncture Site pCO2 (35-45) mmHg pO2 (75-100) mmHg Base Excess (-2.0-2.0) O2 Saturation (94-100) g/dF ABG pH (7.35-7.45) ABG HCO3 (22-28) ABG O2 Sat (Measured) (95-100) % Win Test A-a Gradient a/A Ratio Hemoglobin Carboxyhemoglobin (0.0-6.9) % THgb Methemoglobin (1.4-1.5) % Temperature C POC O2 Flow Rate % Sodium 133 L (137-145) mmol/L Potassium 3.9 (3.5-5.1) mmol/L Chloride 95 L (98-107) mmol/L Carbon Dioxide 30 (22-30) mmol/L Anion Gap 11.8 (5-15) MEQ/L BUN 35 H (9-20) mg/dL Creatinine 1.09 (0.66-1.25) mg/dL Estimated GFR > 60.0 ML/MIN Glucose 101 (74-106) mg/dL Lactic Acid (0.4-2.0) Calcium 9.5 (8.4-10.2) mg/dL Magnesium 1.3 L (1.6-2.3) mg/dL Total Bilirubin 0.90 (0.2-1.3) mg/dL AST 39 (17-59) U/L ALT 28 (0-50) U/L Alkaline Phosphatase 134 H (38-126) U/L Troponin I 0.020 (0.000-0.034) ng/mL NT-Pro-B Natriuret Pep 136 (0-900) pg/mL Serum Total Protein 8.4 H (6.3-8.2) g/dL Albumin 4.2 (3.5-5.0) g/dL Procalcitonin (0.030-0.080) ng/mL Influenza Type A Ag NEGATIVE (NEGATIVE) Influenza Type B Ag NEGATIVE (NEGATIVE) RSV (PCR) NEGATIVE (Negative) SARS-CoV-2 (PCR) NEGATIVE (NEGATIVE) 02/04/22 02/04/22 Range/Units 00:27 00:20 WBC 20.5 H (4.0-10.5) x10^3/uL RBC 3.94 L (4.1-5.6) x10^6/uL Hgb 11.6 L (12.5-18.0) g/dL Hct 36.6 L (42-50) % MCV 92.9 (78-100) fL MCH 29.4 (26-32) pg MCHC 31.7 L (32-36) g/dL RDW 14.7 H (11.5-14.0) % Plt Count 330 (150-450) x10^3/uL MPV 9.5 (7.5-11.0) fL Gran % 94.0 H (36.0-66.0) % Immature Gran % (Auto) 1.0 H (0.00-0.4) % Nucleat RBC Rel Count 0.0 (0.00-0.1) % Eos # (Auto) 0.01 (0-0.5) x10^3/uL Immature Gran # (Auto) 0.20 H (0.00-0.03) x10^3u/L Absolute Lymphs (auto) 0.30 L (1.0-4.6) x10^3/uL Absolute Monos (auto) 0.66 (0.0-1.3) x10^3/uL Absolute Nucleated RBC 0.00 (0.00-0.01) x10^3u/L Lymphocytes % 1.5 L (24.0-44.0) % Monocytes % 3.2 (0.0-12.0) % Eosinophils % 0.0 (0.00-5.0) % Basophils % 0.3 (0.0-0.4) % Absolute Granulocytes 19.24 H (1.4-6.9) x10^3/uL Basophils # 0.06 (0-0.4) x10^3/uL D-Dimer 2.38 H* (0.0-0.50) mg/L Puncture Site pCO2 (35-45) mmHg pO2 (75-100) mmHg Base Excess (-2.0-2.0) O2 Saturation (94-100) g/dF ABG pH (7.35-7.45) ABG HCO3 (22-28) ABG O2 Sat (Measured) (95-100) % Win Test A-a Gradient a/A Ratio Hemoglobin Carboxyhemoglobin (0.0-6.9) % THgb Methemoglobin (1.4-1.5) % Temperature C POC O2 Flow Rate % Sodium (137-145) mmol/L Potassium (3.5-5.1) mmol/L Chloride (98-107) mmol/L Carbon Dioxide (22-30) mmol/L Anion Gap (5-15) MEQ/L BUN (9-20) mg/dL Creatinine (0.66-1.25) mg/dL Estimated GFR ML/MIN Glucose (74-106) mg/dL Lactic Acid (0.4-2.0) Calcium (8.4-10.2) mg/dL Magnesium (1.6-2.3) mg/dL Total Bilirubin (0.2-1.3) mg/dL AST (17-59) U/L ALT (0-50) U/L Alkaline Phosphatase (38-126) U/L Troponin I (0.000-0.034) ng/mL NT-Pro-B Natriuret Pep (0-900) pg/mL Serum Total Protein (6.3-8.2) g/dL Albumin (3.5-5.0) g/dL Procalcitonin (0.030-0.080) ng/mL Influenza Type A Ag (NEGATIVE) Influenza Type B Ag (NEGATIVE) RSV (PCR) (Negative) SARS-CoV-2 (PCR) (NEGATIVE) - Progress Progress: improved Air Movement: fair Progress Note: 02/04/22 01:32 66 years old is evaluated for sudden onset difficulty breathing with fever chills. Patient is currently on 4 L oxygen. Given another DuoNeb while in the ER. Feeling better on reevaluation. Chest x-ray showed bilateral airspace disease and given dose of Rocephin and Zithromax. Work-up showed white count of 20 with normal lactate and procalcitonin of 1.3. Has negative initial troponin. Patient had a fever of 103 and given Tylenol with improvement in temperature. Patient will be admitted to . Blood Culture(s) Obtained: Yes Antibiotics given: Yes Discussed with : Jones Will see patient in: hospital (full admit) Counseled pt/family regarding: lab results, diagnosis, rad results - Departure Departure Disposition: In-patient Admission Clinical Impression: Pneumonia, COPD with acute exacerbation, Respiratory failure, Hypomagnesemia Condition: Fair Critical Care Time: No Referrals: CAROLYNE CARCAMO MD [Primary Care Provider] - Follow up/PCP as directed Instructions: Chronic Obstructive Pulmonary Disease
[2022-02-04 00:39] LABS: Absolute Neutrophil Ct (ANC) 19.24 x10^3/uL (1.4-6.9); Basophil (Absolute #) 0.06 x10^3/uL (0-0.4); Eosinophil (Absolute #) 0.01 x10^3/uL (0-0.5); Hematocrit 36.6 % (42-50); Hemoglobin 11.6 g/dL (12.5-18.0); Lymphocytes % 1.5 % (24.0-44.0); Mean Cell Volume 92.9 fL (78-100); Mean Corpuscular Hemoglobin 29.4 pg (26-32); Mean Corpuscular Hgb Concent. 31.7 g/dL (32-36); Mean Platelet Volume 9.5 fL (7.5-11.0); Monocyte (Absolute #) 0.66 x10^3/uL (0.0-1.3); Monocytes % 3.2 % (0.0-12.0); Platelet Count 330 x10^3/uL (150-450); Red Blood Count 3.94 x10^6/uL (4.1-5.6); Red Cell Distribution Width 14.7 % (11.5-14.0); White Blood Count 20.5 x10^3/uL (4.0-10.5)
[2022-02-04] MEDS ORDERED: BABY ASPIRIN 81 MG CHEW PO ONE (00:50)
[2022-02-04 00:51] LABS: A-aADO2 134; ABG HEMOGLOBIN 11.7; ABG POTASSIUM 3.4 (3.5-5.1); ARTERIAL BLD GAS O2 SATURATION 95.3 % (95-100); ARTERIAL BLOOD GAS BASE EXCESS 6.7 (-2.0-2.0); ARTERIAL BLOOD GAS FIO2 36 %; ARTERIAL BLOOD GAS PCO2 44 mmHg (35-45); ARTERIAL BLOOD GAS PO2 68 mmHg (75-100); ARTERIAL BLOOD GAS pH 7.46 (7.35-7.45); HCO3- 31.3 (22-28); HGB O2 SAT 92.7 g/dF (94-100); Lactic Acid 0.7 (0.4-2.0); Methhemoglobin 0.7 % (1.4-1.5)
[2022-02-04 00:52] LABS: ABG SITE RIGHT RADIAL; ALLEN TEST OK? YES
[2022-02-04] MEDS ORDERED: ROCEPHIN 2 Gm-D5w 50ML BAG** 2 G/50 ML IVPB IV ONE (00:56)
[2022-02-04 01:03] LABS: ALBUMIN 4.2 g/dL (3.5-5.0); ALKALINE PHOSPHATASE 134 U/L (38-126); ANION GAP 11.8 MEQ/L (5-15); BLOOD UREA NITROGEN 35 mg/dL (9-20); CHLORIDE 95 mmol/L (98-107); Calcium 9.5 mg/dL (8.4-10.2); Carbon Dioxide 30 mmol/L (22-30); Creatinine 1 1.09 mg/dL (0.66-1.25); EST GLOMERULAR FILTRATION RATE > 60.0 ML/MIN; Glucose 101 mg/dL (74-106); MAGNESIUM 1.3 mg/dL (1.6-2.3); NT PRO BNP 136 pg/mL (0-900); Potassium 3.9 mmol/L (3.5-5.1); SGOT/AST 39 U/L (17-59); SGPT/ALT 28 U/L (0-50); SODIUM 133 mmol/L (137-145); Total Protein 8.4 g/dL (6.3-8.2)
[2022-02-04 01:15] LABS: INFLUENZA A NEGATIVE (NEGATIVE); INFLUENZA B NEGATIVE (NEGATIVE); RESPIRATORY SYNCTIAL VIRUS NEGATIVE (Negative); SARS-CoV-2 Xpert Express NEGATIVE (NEGATIVE)
[2022-02-04] MEDS ORDERED: Zithromax 500 MG/ 250 ML NaCl Premix 500 MG/250 ML IVPB IV ONE (01:26)
[2022-02-04] MEDS ORDERED: Magnesium 1 Gm / 100 Ml D5W*** 100 ML IV ONE ×2 (02:41→03:43)
[2022-02-04] MEDS: Magnesium 1 Gm / 100 Ml D5W*** 100 ML IV SCH ×2 (02:42→03:43)
[2022-02-04] MEDS ORDERED: Zofran 4 MG/2 ML VIAL IV PRN (08:07)
[2022-02-04] MEDS ORDERED: MORPHINE SULFATE 2 MG INJ IV PRN (08:07)
[2022-02-04] MEDS ORDERED: TYLENOL 325 MG PO PRN (08:07)
[2022-02-04] MEDS ORDERED: VENTOLIN COMMON CANISTER IH PRN (09:50)
[2022-02-04] MEDS ORDERED: Nitrostat 0.4 MG Tablet SL PRN (09:50)
[2022-02-04] MEDS ORDERED: DUONEB 0.5-3 MG/3 ml Neb IH PRN (09:50)
--- NOTE | 2022-02-04 09:59 | XRAY ---
Indication: Cough, short of breath, congestion, and elevated d-dimer. Multiple contiguous axial images obtained through the chest using 100 cc Isovue 370 contrast and PE protocol. Comparison: March 14, 2021 Good opacification of the pulmonary arteries to include the lobar and segmental branches. No pulmonary embolus. Heart not enlarged. Aorta remains mildly arteriosclerotic without aneurysm/dissection. No pathologic mediastinal/hilar lymphadenopathy. Lungs again demonstrates diffuse pulmonary emphysema with minimal scattered fibrosis/scarring. Left lower lobe demonstrates new bronchial opacification with distal postobstructive atelectasis. No suspicious pulmonary mass, infiltrate, effusion, or pneumothorax. Bony thorax intact again with osteopenia and degenerative changes throughout the spine. Limited upper abdomen again demonstrates fatty liver. Impression: 1. Continued negative pulmonary embolus. 2. Distal left lower lobe bronchial opacification with postobstructive atelectasis. 3. Again chronic findings including pulmonary emphysema, scattered fibrosis/scarring, arteriosclerotic disease, fatty liver, and chronic bony findings. Comment: Preliminary interpretation made by [facility]. No critical discrepancy.
[2022-02-04] MEDS ORDERED: LIPITOR 40MG PO SCH (10:00)
--- NOTE | 2022-02-04 10:01 | XRAY ---
Indication: Short of breath. Comparison: March 14, 2021 Portable chest again hyperinflated with new mild left base discoid atelectasis. No focal infiltrate, consolidation, or large effusion. Heart not enlarged. Bony thorax intact again with osteopenia, degenerative changes, and old left humeral neck fracture.
--- NOTE | 2022-02-04 10:51 | PCM.HP ---
History of Present Illness - Chief Complaint Chief Complaint: shortness of breath for 2-3 days History of Present Illness: is a 66 year old male.with a history of chronic respiratory failure secondary to COPD on 3 L oxygen, coronary artery disease status post stenting, hypertension, hyperlipidemia, tobacco abuse, chronic bilateral lower extremity with swelling/lymphedema presented in the ER with sudden onset worsening shortness of breath since 8 PM tonight with associated cough productive of yellow-green sputum along with bilateral diffuse wheezing and subjective feeling of fever and chills. As per EMS patient was in mild to moderate distress with oxygen saturation on the low 90s, given DuoNeb and Solu-Medrol and on presentation around 92% on 4 L. Patient also has a temperature of 103 on presentation in the ER. Timing/Duration: hour(s) (4), gradual onset, worse Activities at Onset: activity, rest Severity of Dyspnea-Max: severe Severity of Dyspnea-Current: moderate Possible Cause: unknown cause Modifying Factors: Improves With: albuterol nebulizer, oxygen. Worsens With: coughing Associated Symptoms: cough, chest pain/discomfort, edema, fever, lightheadedness, wheezing, heaviness, productive cough, tightness - Review of Systems Constitutional: No Fever, No Chills Eyes: No Symptoms Ears, Nose, & Throat: No Symptoms Respiratory: Cough, Short Of Breath, Wheezing Cardiac: Orthopnea, PND, No Chest Pain, No Edema, No Syncope Abdominal/Gastrointestinal: No Abdominal Pain, No Nausea, No Vomiting, No Diarrhea Genitourinary Symptoms: No Dysuria Musculoskeletal: No Back Pain, No Neck Pain Skin: No Rash Neurological: No Dizziness, No Focal Weakness, No Sensory Changes Psychological: No Symptoms Endocrine: No Symptoms Hematologic/Lymphatic: No Symptoms Immunological/Allergic: No Symptoms Medications & Allergies Home Medications: Home Medication List Aspirin EC 81 mg [Ecotrin 81 mg] 81 mg PO DAILY 03/01/13 [History Confirmed 02/04/22] Atorvastatin Calcium [Lipitor] 40 mg PO DAILY 03/01/13 [History Confirmed 02/04/22] B Complex with Vitamin C [Super B Complex with C] 1 each PO QHS 03/01/13 [History Confirmed 02/04/22] Losartan Potassium 50 mg [Cozaar 50 MG] 100 mg PO DAILY 03/01/13 [History Confirmed 02/04/22] Metoprolol Succinate 50 mg [Toprol Xl 50 MG] 50 mg PO QHS 03/01/13 [History Confirmed 02/04/22] Nitroglycerin 0.4 mg Tablet [Nitrostat 0.4 MG Tablet] 0.4 mg SL UD PRN 03/01/13 [History Confirmed 02/04/22] Albuterol Sulfate [Ventolin Hfa] 1 gm IH UD PRN 12/03/18 [History Confirmed 02/04/22] Terazosin HCl [Hytrin] 2 mg PO QHS 12/03/18 [History Confirmed 02/04/22] Torsemide 20 mg [Demadex 20 mg] 40 mg PO DAILY 03/14/21 [History Confirmed 02/04/22] Albuterol/Ipratropium 3ml Neb* [DUONEB 0.5-3 MG/3 ml Neb] 3 ml IH Q4H PRN PRN 02/04/22 [History Confirmed 02/04/22] Allergies/Adverse Reactions: Allergies Allergy/AdvReac Type Severity Reaction Status Date / Time No Known Drug Allergies Allergy Verified 02/04/22 00:03 - Past Medical History Past Medical History: Yes Neurological History: No Pertinent History ENT History: No Pertinent History Cardiac History: Coronary Artery Disease, High Cholesterol, Hypertension, Other Respiratory History: CHF, COPD, Emphysema, Pneumonia, Other Endocrine Medical History: Other Musculoskelatal History: No Pertinent History GI Medical History: No Pertinent History History: No Pertinent History Pyscho-Social History: No Pertinent History Male Reproductive Disorders: No Pertinent History Comment: Rupture disc-surgery to repair - Past Surgical History Past Surgical History: Yes Neuro Surgical History: No Pertinent History Cardiac History: Other Respiratory Surgery: No Pertinent History GI Surgical History: No Pertinent History Genitourinary Surgical Hx: No Pertinent History Musculskeletal Surgical Hx: Other Male Surgical History: No Pertinent History Other Surgical History: T&A at 8-10 yrs old. Ruptured disc repair - Social History Smoking Status: Current every day smoker How long have you smoked: 50 years Exposure to second hand smoke: No Alcohol: Daily Drug Use: none Significant Family History: no pertinent family hx - Physical Exam Vital Signs: Vital Signs - 24 hr Temp Pulse Resp BP Pulse Ox 02/04/22 08:41 74 20 92 L 02/04/22 08:24 97.3 F 76 113/58 90 L 02/04/22 08:23 97.3 F 76 22 113/58 90 L 02/04/22 07:42 99 F 67 22 98/68 99 02/04/22 07:08 90 L 02/04/22 06:06 74 19 99 02/04/22 05:05 86 21 111/53 97 02/04/22 04:06 80 24 105/73 99 02/04/22 03:04 86 26 H 108/55 97 02/04/22 02:24 94 H 18 126/71 98 02/04/22 01:24 100 H 24 96 02/04/22 00:26 119 H 29 H 94 L 02/04/22 00:04 103 F 123 H 31 H 132/65 90 L 02/04/22 00:00 86 L General Appearance: no apparent distress, alert Neurologic Exam: alert, oriented x 3, cooperative, normal mood/affect, nml cerebellar function, nml station & gait, sensation nml, No motor deficits Eye Exam: PERRL/EOMI, eyes nml inspection Ears, Nose, Throat Exam: normal ENT inspection, TMs normal, pharynx normal, moist mucous membranes Neck Exam: normal inspection, non-tender, supple, full range of motion Respiratory Exam: diminished breath sounds, crackles/rales, rhonchi, wheezing, No respiratory distress Cardiovascular Exam: regular rate/rhythm, normal heart sounds, normal peripheral pulses Gastrointestinal/Abdomen Exam: soft, normal bowel sounds, No tenderness, No mass Back Exam: normal inspection, normal range of motion, No CVA tenderness, No vertebral tenderness Extremity Exam: normal inspection, normal range of motion, pelvis stable Skin Exam: normal color, warm, dry, No rash Lymphatic Exam: No adenopathy Results - Labs Lab/Micro Results: Lab Results-Last 24 Hours 02/04/22 02/04/22 02/04/22 Range/Units 00:20 00:27 00:27 WBC 20.5 H (4.0-10.5) x10^3/uL RBC 3.94 L (4.1-5.6) x10^6/uL Hgb 11.6 L (12.5-18.0) g/dL Hct 36.6 L (42-50) % MCV 92.9 (78-100) fL MCH 29.4 (26-32) pg MCHC 31.7 L (32-36) g/dL RDW 14.7 H (11.5-14.0) % Plt Count 330 (150-450) x10^3/uL MPV 9.5 (7.5-11.0) fL Gran % 94.0 H (36.0-66.0) % Immature Gran % (Auto) 1.0 H (0.00-0.4) % Nucleat RBC Rel Count 0.0 (0.00-0.1) % Eos # (Auto) 0.01 (0-0.5) x10^3/uL Immature Gran # (Auto) 0.20 H (0.00-0.03) x10^3u/L Absolute Lymphs (auto) 0.30 L (1.0-4.6) x10^3/uL Absolute Monos (auto) 0.66 (0.0-1.3) x10^3/uL Absolute Nucleated RBC 0.00 (0.00-0.01) x10^3u/L Lymphocytes % 1.5 L (24.0-44.0) % Monocytes % 3.2 (0.0-12.0) % Eosinophils % 0.0 (0.00-5.0) % Basophils % 0.3 (0.0-0.4) % Absolute Granulocytes 19.24 H (1.4-6.9) x10^3/uL Basophils # 0.06 (0-0.4) x10^3/uL D-Dimer 2.38 H* (0.0-0.50) mg/L Puncture Site pCO2 (35-45) mmHg pO2 (75-100) mmHg Base Excess (-2.0-2.0) O2 Saturation (94-100) g/dF ABG pH (7.35-7.45) ABG HCO3 (22-28) ABG O2 Sat (Measured) (95-100) % Win Test A-a Gradient a/A Ratio Hemoglobin Carboxyhemoglobin (0.0-6.9) % THgb Methemoglobin (1.4-1.5) % Temperature C POC O2 Flow Rate % Sodium 133 L (137-145) mmol/L Potassium 3.9 (3.5-5.1) mmol/L Chloride 95 L (98-107) mmol/L Carbon Dioxide 30 (22-30) mmol/L Anion Gap 11.8 (5-15) MEQ/L BUN 35 H (9-20) mg/dL Creatinine 1.09 (0.66-1.25) mg/dL Estimated GFR > 60.0 ML/MIN Glucose 101 (74-106) mg/dL Lactic Acid (0.4-2.0) Calcium 9.5 (8.4-10.2) mg/dL Magnesium 1.3 L (1.6-2.3) mg/dL Total Bilirubin 0.90 (0.2-1.3) mg/dL AST 39 (17-59) U/L ALT 28 (0-50) U/L Alkaline Phosphatase 134 H (38-126) U/L Troponin I (0.000-0.034) ng/mL NT-Pro-B Natriuret Pep 136 (0-900) pg/mL Serum Total Protein 8.4 H (6.3-8.2) g/dL Albumin 4.2 (3.5-5.0) g/dL Procalcitonin (0.030-0.080) ng/mL Influenza Type A Ag (NEGATIVE) Influenza Type B Ag (NEGATIVE) RSV (PCR) (Negative) SARS-CoV-2 (PCR) (NEGATIVE) 02/04/22 02/04/22 02/04/22 Range/Units 00:27 00:32 00:36 WBC (4.0-10.5) x10^3/uL RBC (4.1-5.6) x10^6/uL Hgb (12.5-18.0) g/dL Hct (42-50) % MCV (78-100) fL MCH (26-32) pg MCHC (32-36) g/dL RDW (11.5-14.0) % Plt Count (150-450) x10^3/uL MPV (7.5-11.0) fL Gran % (36.0-66.0) % Immature Gran % (Auto) (0.00-0.4) % Nucleat RBC Rel Count (0.00-0.1) % Eos # (Auto) (0-0.5) x10^3/uL Immature Gran # (Auto) (0.00-0.03) x10^3u/L Absolute Lymphs (auto) (1.0-4.6) x10^3/uL Absolute Monos (auto) (0.0-1.3) x10^3/uL Absolute Nucleated RBC (0.00-0.01) x10^3u/L Lymphocytes % (24.0-44.0) % Monocytes % (0.0-12.0) % Eosinophils % (0.00-5.0) % Basophils % (0.0-0.4) % Absolute Granulocytes (1.4-6.9) x10^3/uL Basophils # (0-0.4) x10^3/uL D-Dimer (0.0-0.50) mg/L Puncture Site pCO2 (35-45) mmHg pO2 (75-100) mmHg Base Excess (-2.0-2.0) O2 Saturation (94-100) g/dF ABG pH (7.35-7.45) ABG HCO3 (22-28) ABG O2 Sat (Measured) (95-100) % Win Test A-a Gradient a/A Ratio Hemoglobin Carboxyhemoglobin (0.0-6.9) % THgb Methemoglobin (1.4-1.5) % Temperature C POC O2 Flow Rate % Sodium (137-145) mmol/L Potassium (3.5-5.1) mmol/L Chloride (98-107) mmol/L Carbon Dioxide (22-30) mmol/L Anion Gap (5-15) MEQ/L BUN (9-20) mg/dL Creatinine (0.66-1.25) mg/dL Estimated GFR ML/MIN Glucose (74-106) mg/dL Lactic Acid (0.4-2.0) Calcium (8.4-10.2) mg/dL Magnesium (1.6-2.3) mg/dL Total Bilirubin (0.2-1.3) mg/dL AST (17-59) U/L ALT (0-50) U/L Alkaline Phosphatase (38-126) U/L Troponin I 0.020 (0.000-0.034) ng/mL NT-Pro-B Natriuret Pep (0-900) pg/mL Serum Total Protein (6.3-8.2) g/dL Albumin (3.5-5.0) g/dL Procalcitonin 1.390 H (0.030-0.080) ng/mL Influenza Type A Ag NEGATIVE (NEGATIVE) Influenza Type B Ag NEGATIVE (NEGATIVE) RSV (PCR) NEGATIVE (Negative) SARS-CoV-2 (PCR) NEGATIVE (NEGATIVE) 02/04/22 02/04/22 02/04/22 Range/Units 00:46 04:21 08:04 WBC (4.0-10.5) x10^3/uL RBC (4.1-5.6) x10^6/uL Hgb (12.5-18.0) g/dL Hct (42-50) % MCV (78-100) fL MCH (26-32) pg MCHC (32-36) g/dL RDW (11.5-14.0) % Plt Count (150-450) x10^3/uL MPV (7.5-11.0) fL Gran % (36.0-66.0) % Immature Gran % (Auto) (0.00-0.4) % Nucleat RBC Rel Count (0.00-0.1) % Eos # (Auto) (0-0.5) x10^3/uL Immature Gran # (Auto) (0.00-0.03) x10^3u/L Absolute Lymphs (auto) (1.0-4.6) x10^3/uL Absolute Monos (auto) (0.0-1.3) x10^3/uL Absolute Nucleated RBC (0.00-0.01) x10^3u/L Lymphocytes % (24.0-44.0) % Monocytes % (0.0-12.0) % Eosinophils % (0.00-5.0) % Basophils % (0.0-0.4) % Absolute Granulocytes (1.4-6.9) x10^3/uL Basophils # (0-0.4) x10^3/uL D-Dimer (0.0-0.50) mg/L Puncture Site RIGHT RADIAL pCO2 44 (35-45) mmHg pO2 68 L (75-100) mmHg Base Excess 6.7 H (-2.0-2.0) O2 Saturation 92.7 L (94-100) g/dF ABG pH 7.46 H (7.35-7.45) ABG HCO3 31.3 H* (22-28) ABG O2 Sat (Measured) 95.3 (95-100) % Win Test YES A-a Gradient 134 a/A Ratio 0.34 Hemoglobin 11.7 Carboxyhemoglobin 2.0 (0.0-6.9) % THgb Methemoglobin 0.7 L (1.4-1.5) % Temperature 37.0 C POC O2 Flow Rate 36 % Sodium (137-145) mmol/L Potassium 3.4 L (3.5-5.1) mmol/L Chloride (98-107) mmol/L Carbon Dioxide (22-30) mmol/L Anion Gap (5-15) MEQ/L BUN (9-20) mg/dL Creatinine (0.66-1.25) mg/dL Estimated GFR ML/MIN Glucose (74-106) mg/dL Lactic Acid 0.7 (0.4-2.0) Calcium (8.4-10.2) mg/dL Magnesium (1.6-2.3) mg/dL Total Bilirubin (0.2-1.3) mg/dL AST (17-59) U/L ALT (0-50) U/L Alkaline Phosphatase (38-126) U/L Troponin I 0.031 0.022 (0.000-0.034) ng/mL NT-Pro-B Natriuret Pep (0-900) pg/mL Serum Total Protein (6.3-8.2) g/dL Albumin (3.5-5.0) g/dL Procalcitonin (0.030-0.080) ng/mL Influenza Type A Ag (NEGATIVE) Influenza Type B Ag (NEGATIVE) RSV (PCR) (Negative) SARS-CoV-2 (PCR) (NEGATIVE) - Radiology Impressions Radiology Exams & Impressions: Radiology Procedures Category Date Time Status CHEST 1 VIEW (PORTABLE) Stat Exams 02/04/22 00:02 Completed CHEST WITH CONTRAST [CT] Stat Exams 02/04/22 01:[address]/CHEST WITH CONTRAST Indication: Cough, short of breath, congestion, and elevated d-dimer. Multiple contiguous axial images obtained through the chest using 100 cc Isovue 370 contrast and PE protocol. Comparison: March 14, 2021 Good opacification of the pulmonary arteries to include the lobar and segmental branches. No pulmonary embolus. Heart not enlarged. Aorta remains mildly arteriosclerotic without aneurysm/dissection. No pathologic mediastinal/hilar lymphadenopathy. Lungs again demonstrates diffuse pulmonary emphysema with minimal scattered fibrosis/scarring. Left lower lobe demonstrates new bronchial opacification with distal postobstructive atelectasis. No suspicious pulmonary mass, infiltrate, effusion, or pneumothorax. Bony thorax intact again with osteopenia and degenerative changes throughout the spine. Limited upper abdomen again demonstrates fatty liver. Impression: 1. Continued negative pulmonary embolus. 2. Distal left lower lobe bronchial opacification with postobstructive atelectasis. 3. Again chronic findings including pulmonary emphysema, scattered fibrosis/scarring, arteriosclerotic disease, fatty liver, and chronic bony findings. - Other Procedures and Tests Respiratory Therapy 02/04/22 00:23 Respiratory Therapy Assessment DAILY 02/04/22 08:07 Oxygen Nasal Cannula 4 lpm Assessment/Plan (1) COPD with acute exacerbation Current Visit: Yes Status: Acute Assessment & Plan: Chief Complaint Diagnosis Respiratory failure Allergies Allergy/AdvReac Type Severity Reaction Status Date / Time No Known Drug Allergies Allergy Verified 02/04/22 00:03 Vital Signs (Last 24 hours) Temp Pulse Resp BP Pulse Ox 02/04/22 08:41 74 20 92 L 02/04/22 08:24 97.3 F 76 113/58 90 L 02/04/22 08:23 97.3 F 76 22 113/58 90 L 02/04/22 07:42 99 F 67 22 98/68 99 02/04/22 07:08 90 L 02/04/22 06:06 74 19 99 02/04/22 05:05 86 21 111/53 97 02/04/22 04:06 80 24 105/73 99 02/04/22 03:04 86 26 H 108/55 97 02/04/22 02:24 94 H 18 126/71 98 02/04/22 01:24 100 H 24 96 02/04/22 00:26 119 H 29 H 94 L 02/04/22 00:04 103 F 123 H 31 H 132/65 90 L 02/04/22 00:00 86 L Home Medications Medication Instructions Recorded Confirmed Last Taken Type Albuterol/Ipratropium 3ml Neb* 3 ml IH Q4H PRN PRN 02/04/22 02/04/22 Unknown History [DUONEB 0.5-3 MG/3 ml Neb] Current Medications Generic Name Dose Route Start Last Admin Trade Name Freq PRN Reason Stop Dose Admin Acetaminophen 650 mg 02/04/22 08:07 Acetaminophen 325 Mg Tablet PO 03/06/22 08:06 Q4H PRN PRN PAIN AND/OR FEVER Albuterol/Ipratropium 3 ml 02/04/22 13:00 Ipratropium/Albuterol Sulfate 3 Ml Ampul.Neb 03/06/22 12:59 Q6HRT SAL Albuterol/Ipratropium 3 ml 02/04/22 09:50 Ipratropium/Albuterol Sulfate 3 Ml Ampul.Neb 03/06/22 09:49 Q4H PRN PRN SHORTNESS OF BREATH Aspirin 81 mg 02/04/22 10:00 Aspirin 81 Mg Tablet.Ec PO 03/06/22 09:59 DAILY [facility] Methylprednisolone Sodium 0 mg 02/04/22 12:00 Succinate 60 mg/ Sterile Water IV 03/06/22 11:59 2 ml Q6HT SAL Azithromycin 500 mg in 250 mls @ 250 mls/hr 02/04/22 10:00 Zithromax 500 Mg/ 250 Ml Nacl Premix IV 03/06/22 09:59 HS SAL Ceftriaxone Sodium/Dextrose 2 g in 50 mls @ 100 mls/hr 02/04/22 22:00 Rocephin 2 Gm-D5w 50ml Bag IV 02/07/22 21:59 Q24H22 SAL Losartan Potassium 100 mg 02/04/22 10:00 Losartan Potassium 50 Mg Tablet PO 03/06/22 09:59 DAILY SAL Metoprolol Succinate 50 mg 02/04/22 22:00 Metoprolol Succinate 50 Mg Tablet.Sa PO 03/06/22 21:59 QHS SAL Morphine Sulfate 2 mg 02/04/22 08:07 Morphine Sulfate 2 Mg/Ml Inj IV 02/09/22 08:06 Q4H PRN PRN PAIN Multivitamins 1 tab 02/04/22 22:00 Vitamin B Complex With Vit. C Tablet PO 03/06/22 21:59 QHS SAL Nitroglycerin 0.4 mg 02/04/22 09:50 Nitroglycerin 0.4 Mg Tablet Bottle SL 03/06/22 09:49 Q5MIN PRN MR X 3 PRN CHEST PAIN Ondansetron HCl 4 mg 02/04/22 08:07 Ondansetron Hcl 4 Mg/2 Ml Vial IV 03/06/22 08:06 Q6H PRN PRN NAUSEA/VOMITING Pantoprazole Sodium 40 mg 02/04/22 10:00 Pantoprazole 40 Mg Vial IV 03/06/22 09:59 Q24H10 SAL Simvastatin 40 mg 02/04/22 10:00 Simvastatin 20 Mg Tablet PO 03/06/22 09:59 DAILY SAL Terazosin HCl 2 mg 02/04/22 22:00 Terazosin Hcl 1 Mg Cap PO 03/06/22 21:59 QHS SAL Torsemide 40 mg 02/04/22 10:00 Torsemide 20 Mg Tablet PO 03/06/22 09:59 DAILY SAL Discontinued Medications Generic Name Dose Route Start Last Admin Trade Name Freq PRN Reason Stop Dose Admin Acetaminophen 1,000 mg 02/04/22 00:19 02/04/22 00:23 Acetaminophen 500 Mg Tablet PO 02/04/22 00:20 1,000 mg STAT STA Administration Acetaminophen Confirm 02/04/22 00:22 Acetaminophen 500 Mg Tablet Administered 02/04/22 00:23 Dose 1,000 mg .ROUTE .STK-MED ONE Albuterol Sulfate puff 02/04/22 09:50 Albuterol Common Canister Inhaler 03/06/22 09:49 UD PRN SHORTNESS OF BREATH Albuterol/Ipratropium 3 ml 02/04/22 00:01 02/04/22 00:25 Ipratropium/Albuterol Sulfate 3 Ml Ampul.Neb IH 02/04/22 00:02 3 ml STAT ONE Administration Albuterol/Ipratropium Confirm 02/04/22 00:24 Ipratropium/Albuterol Sulfate 3 Ml Ampul.Neb Administered 02/04/22 00:25 Dose 3 ml IH .STK-MED ONE Albuterol/Ipratropium Confirm 02/04/22 08:43 Ipratropium/Albuterol Sulfate 3 Ml Ampul.Neb Administered 02/04/22 08:44 Dose 3 ml IH .STK-MED ONE Aspirin 324 mg 02/04/22 00:50 02/04/22 00:57 Aspirin 81 Mg Tab.Chew PO 02/04/22 00:51 324 mg STAT ONE Administration Ceftriaxone Sodium/Dextrose 2 g in 50 mls @ 100 mls/hr 02/04/22 00:22 02/04/22 01:40 Rocephin 2 Gm-D5w 50ml Bag IV 02/04/22 00:51 Infused STAT STA Infusion Azithromycin 500 mg in 250 mls @ 250 mls/hr 02/04/22 00:22 02/04/22 03:05 Zithromax 500 Mg/ 250 Ml Nacl Premix IV 02/04/22 01:21 Infused STAT STA Infusion Ceftriaxone Sodium/Dextrose Confirm 02/04/22 00:56 Rocephin 2 Gm-D5w 50ml Bag Administered 02/04/22 00:57 Dose 2 g in 50 mls @ ud IV .STK-MED ONE Azithromycin Confirm 02/04/22 01:26 Zithromax 500 Mg/ 250 Ml Nacl Premix Administered 02/04/22 01:27 Dose 500 mg in 250 mls @ ud IV .STK-MED ONE Magnesium Sulfate/Dextrose 100 mls @ 100 mls/hr 02/04/22 01:45 02/04/22 03:43 Magnesium 1 Gm / 100 Ml D5w IV 02/04/22 03:44 100 mls/hr Q1H SAL Administration Magnesium Sulfate/Dextrose Confirm 02/04/22 02:41 Magnesium 1 Gm / 100 Ml D5w Administered 02/04/22 02:42 Dose 100 mls @ ud IV .STK-MED ONE Magnesium Sulfate/Dextrose Confirm 02/04/22 03:43 Magnesium 1 Gm / 100 Ml D5w Administered 02/04/22 03:44 Dose 100 mls @ ud IV .STK-MED ONE Intake & Output (Last 24 hours) 02/01/22 02/02/22 02/03/22 02/04/22 11:59 11:59 11:59 11:59 Output Total 700 Balance -700 Weight 89.811 kg Microbiology Results (Last 24 hours) 02/04/22 00:27 Blood Blood Culture Gram Stain - Pending 02/04/22 00:27 Blood Blood Culture - Pending 02/04/22 00:27 Blood Blood Culture Gram Stain - Pending 12/11/22 00:27 Blood Blood Culture - Pending Laboratory Results (Last 24 hours) 02/04/22 02/04/22 02/04/22 08:04 04:21 00:46 WBC RBC Hgb Hct MCV MCH MCHC RDW Plt Count MPV Gran % Immature Gran % (Auto) Nucleat RBC Rel Count Eos # (Auto) Immature Gran # (Auto) Absolute Lymphs (auto) Absolute Monos (auto) Absolute Nucleated RBC Lymphocytes % Monocytes % Eosinophils % Basophils % Absolute Granulocytes Basophils # D-Dimer Puncture Site RIGHT RADIAL pCO2 44 pO2 68 L Base Excess 6.7 H O2 Saturation 92.7 L ABG pH 7.46 H ABG HCO3 31.3 H* ABG O2 Sat (Measured) 95.3 Win Test YES A-a Gradient 134 a/A Ratio 0.34 Hemoglobin 11.7 Carboxyhemoglobin 2.0 Methemoglobin 0.7 L Temperature 37.0 POC O2 Flow Rate 36 Sodium Potassium 3.4 L Chloride Carbon Dioxide Anion Gap BUN Creatinine Estimated GFR Glucose Lactic Acid 0.7 Calcium Magnesium Total Bilirubin AST ALT Alkaline Phosphatase Troponin I 0.022 0.031 NT-Pro-B Natriuret Pep Serum Total Protein Albumin Procalcitonin Influenza Type A Ag Influenza Type B Ag RSV (PCR) SARS-CoV-2 (PCR) 02/04/22 02/04/22 02/04/22 00:36 00:32 00:27 WBC RBC Hgb Hct MCV MCH MCHC RDW Plt Count MPV Gran % Immature Gran % (Auto) Nucleat RBC Rel Count Eos # (Auto) Immature Gran # (Auto) Absolute Lymphs (auto) Absolute Monos (auto) Absolute Nucleated RBC Lymphocytes % Monocytes % Eosinophils % Basophils % Absolute Granulocytes Basophils # D-Dimer Puncture Site pCO2 pO2 Base Excess O2 Saturation ABG pH ABG HCO3 ABG O2 Sat (Measured) Win Test A-a Gradient a/A Ratio Hemoglobin Carboxyhemoglobin Methemoglobin Temperature POC O2 Flow Rate Sodium Potassium Chloride Carbon Dioxide Anion Gap BUN Creatinine Estimated GFR Glucose Lactic Acid Calcium Magnesium Total Bilirubin AST ALT Alkaline Phosphatase Troponin I 0.020 NT-Pro-B Natriuret Pep Serum Total Protein Albumin Procalcitonin 1.390 H Influenza Type A Ag NEGATIVE Influenza Type B Ag NEGATIVE RSV (PCR) NEGATIVE SARS-CoV-2 (PCR) NEGATIVE 02/04/22 02/04/22 02/04/22 00:27 00:27 00:20 WBC 20.5 H RBC 3.94 L Hgb 11.6 L Hct 36.6 L MCV 92.9 MCH 29.4 MCHC 31.7 L RDW 14.7 H Plt Count 330 MPV 9.5 Gran % 94.0 H Immature Gran % (Auto) 1.0 H Nucleat RBC Rel Count 0.0 Eos # (Auto) 0.01 Immature Gran # (Auto) 0.20 H Absolute Lymphs (auto) 0.30 L Absolute Monos (auto) 0.66 Absolute Nucleated RBC 0.00 Lymphocytes % 1.5 L Monocytes % 3.2 Eosinophils % 0.0 Basophils % 0.3 Absolute Granulocytes 19.24 H Basophils # 0.06 D-Dimer 2.38 H* Puncture Site pCO2 pO2 Base Excess O2 Saturation ABG pH ABG HCO3 ABG O2 Sat (Measured) Win Test A-a Gradient a/A Ratio Hemoglobin Carboxyhemoglobin Methemoglobin Temperature POC O2 Flow Rate Sodium 133 L Potassium 3.9 Chloride 95 L Carbon Dioxide 30 Anion Gap 11.8 BUN 35 H Creatinine 1.09 Estimated GFR > 60.0 Glucose 101 Lactic Acid Calcium 9.5 Magnesium 1.3 L Total Bilirubin 0.90 AST 39 ALT 28 Alkaline Phosphatase 134 H Troponin I NT-Pro-B Natriuret Pep 136 Serum Total Protein 8.4 H Albumin 4.2 Procalcitonin Influenza Type A Ag Influenza Type B Ag RSV (PCR) SARS-CoV-2 (PCR) Orders (Last 24 hours) Category Date Time Status Bedrest ROUTINE Activity 02/04/22 08:07 Active Up With Assistance ROUTINE Activity 02/04/22 08:07 Active Tests Superintendent STAT Care 02/04/22 00:02 Completed Catheter-[place] Cid ROUTINE Care 02/04/22 08:07 Completed Code Status Order ROUTINE Care 02/04/22 08:07 Active EKG-ER Only STAT Care 02/04/22 00:01 Completed Fall Protocol Q1H Care 02/04/22 08:07 Active IV Care Q6H Care 02/04/22 08:07 Active IV Insertion STAT Care 02/04/22 00:[address] in Observation ROUTINE Care 02/04/22 08:07 Active Kathi Gillespie ROUTINE Care 02/04/22 08:07 Active Weight,Daily 0600 Care 02/04/22 08:07 Active Heart-Healthy Diet Diet 02/05/22 Breakfast Active CHEST 1 VIEW (PORTABLE) Stat Exams 02/04/22 00:02 Completed CHEST WITH CONTRAST [CT] Stat Exams 02/04/22 01:45 Completed ARTERIAL BLOOD GASES Stat Lab 02/04/22 00:46 Completed BLOOD CULTURE Stat Lab 02/04/22 00:27 Received CBC W DIFF AM.LAB Lab 02/05/22 04:00 Ordered CBC W DIFF Stat Lab 02/04/22 00:27 Completed CMP AM.LAB Lab 02/05/22 04:00 Ordered CMP Stat Lab 02/04/22 00:27 Completed COVID/FLU/RSV Panel Stat Lab 02/04/22 00:32 Completed D-DIMER QUANTITATIVE Stat Lab 02/04/22 00:20 Completed Lactic Acid Stat Lab 02/04/22 00:46 Completed MAGNESIUM Stat Lab 02/04/22 00:27 Completed NT PRO BNP Stat Lab 02/04/22 00:27 Completed PROCALCITONIN Stat Lab 02/04/22 00:36 Completed TROPONIN Q4H Lab 02/04/22 00:27 Completed TROPONIN Q4H Lab 02/04/22 04:21 Completed TROPONIN Q4H Lab 02/04/22 08:04 Completed UA W/RFX CULTURE Stat Lab 02/04/22 Ordered Acetaminophen 325 mg [Tylenol 325 mg] Med 02/04/22 08:07 Active 650 mg PO Q4H PRN PRN Acetaminophen 500 mg [Tylenol Extra Strength 500 mg* Med 02/04/22 00:22 Discontinued ] 1,000 mg .ROUTE .STK-MED ONE Acetaminophen 500 mg [Tylenol Extra Strength 500 mg* Med 02/04/22 00:19 Discontinued ] 1,000 mg PO STAT STA Albuterol Common Canister [Ventolin Common Canister* Med 02/04/22 09:50 Discontinued ] DOSE puff IH UD PRN Albuterol/Ipratropium 3ml Neb* [DUONEB 0.5-3 MG/3 ml Med 02/04/22 00:24 Discontinued Neb] 3 ml IH .STK-MED ONE Albuterol/Ipratropium 3ml Neb* [DUONEB 0.5-3 MG/3 ml Med 02/04/22 08:43 Discontinued Neb] 3 ml IH .STK-MED ONE Albuterol/Ipratropium 3ml Neb* [DUONEB 0.5-3 MG/3 ml Med 02/04/22 09:50 Active Neb] 3 ml IH Q4H PRN PRN Albuterol/Ipratropium 3ml Neb* [DUONEB 0.5-3 MG/3 ml Med 02/04/22 13:00 Active Neb] 3 ml IH Q6HRT Albuterol/Ipratropium 3ml Neb* [DUONEB 0.5-3 MG/3 ml Med 02/04/22 00:01 Discontinued Neb] 3 ml IH STAT ONE Aspirin 81 gm Chew [Baby Aspirin 81 mg Chew] Med 02/04/22 00:50 Discontinued 324 mg PO STAT ONE Aspirin EC 81 mg [Ecotrin 81 mg] Med 02/04/22 10:00 Active 81 mg PO DAILY Azithromycin 500 mg/250 ml [Zithromax 500 MG/ 250 ML Med 02/04/22 10:00 Active NaCl Premix] 500 mg in 250 ml IV HS Azithromycin 500 mg/250 ml [Zithromax 500 MG/ 250 ML Med 02/04/22 00:22 Discontinued NaCl Premix] 500 mg in 250 ml IV STAT Azithromycin 500 mg/250 ml [Zithromax 500 MG/ 250 ML Med 02/04/22 01:26 Discontinued NaCl Premix] 500 mg in 250 ml IV UD Ceftriaxone 2 GM/50 ML PREMIX* [ROCEPHIN 2 Gm-D5w 50ML Med 02/04/22 22:00 Active BAG] 2 g in 50 ml IV Q24H22 Ceftriaxone 2 GM/50 ML PREMIX* [ROCEPHIN 2 Gm-D5w 50ML Med 02/04/22 00:22 Discontinued BAG] 2 g in 50 ml IV STAT Ceftriaxone 2 GM/50 ML PREMIX* [ROCEPHIN 2 Gm-D5w 50ML Med 02/04/22 00:56 Discontinued BAG] 2 g in 50 ml IV UD Losartan Potassium 50 mg [Cozaar 50 MG] Med 02/04/22 10:00 Active 100 mg PO DAILY Magnesium Sulfate 1 gm/100 ml* [Magnesium 1 Gm / 100 Ml Med 02/04/22 01:45 Discontinued D5W] 100 ml IV Q1H Magnesium Sulfate 1 gm/100 ml* [Magnesium 1 Gm / 100 Ml Med 02/04/22 02:41 Discontinued D5W] 100 ml IV UD Magnesium Sulfate 1 gm/100 ml* [Magnesium 1 Gm / 100 Ml Med 02/04/22 03:43 Discontinued D5W] 100 ml IV UD Methylprednis Sod Succ 125 mg* [solu-MEDROL] 60 mg Med 02/04/22 12:00 Active Water For Injection,Sterile [Sterile H2O 10 ml] 2 ml IV Q6HT Metoprolol Succinate 50 mg [Toprol Xl 50 MG] Med 02/04/22 22:00 Active 50 mg PO QHS Morphine Sulfate 2 mg Inj Med 02/04/22 08:07 Active 2 mg IV Q4H PRN PRN Nitroglycerin 0.4 mg Tablet [Nitrostat 0.4 MG Tablet Med 02/04/22 09:50 Active ] 0.4 mg SL Q5MIN PRN MR X 3 PRN Ondansetron HCl 4 mg/2 ml [Zofran 4 MG/2 ML VIAL] Med 02/04/22 08:07 Active 4 mg IV Q6H PRN PRN Pantoprazole 40 mg [Protonix 40 mg IV] Med 02/04/22 10:00 Active 40 mg IV Q24H10 Simvastatin 20Mg [Zocor 20Mg] Med 02/04/22 10:00 Active 40 mg PO DAILY Terazosin HCl 1 mg [Hytrin 1 mg] Med 02/04/22 22:00 Active 2 mg PO QHS Torsemide 20 mg [Demadex 20 mg] Med 02/04/22 10:00 Active 40 mg PO DAILY Vitamin B Comp W-C [Ingrid-Bee with C] Med 02/04/22 22:00 Active 1 tab PO QHS Oxygen Nasal Cannula 4 lpm RT 02/04/22 08:07 Active Pulse Oximetry .spot check RT 02/04/22 08:42 Active Respiratory Therapy Assessment DAILY RT 02/04/22 00:23 Active Transfer Order Routine Transfer 02/04/22 Completed Patient Care Notes (Last 24 hours) 02/04/22 09:01 Nursing Note by Caridad Brice During rounding with Dr Bey, Pt requests to not recieve a cid catheter, Dr Bey states as long as pt can ambulate to the bathroom, he will not require at this time Initialized on 02/04/22 09:01 - END OF NOTE Code(s): J44.1 - CHRONIC OBSTRUCTIVE PULMONARY DISEASE W (ACUTE) EXACERBATION
[2022-02-04] MEDS: Zithromax 500 MG/ 250 ML NaCl Premix 500 MG/250 ML IVPB IV SCH ×2 (10:55→21:52)
[2022-02-04] MEDS: PROTONIX 40 MG IV IV SCH (10:57)
[2022-02-04] MEDS: DEMADEX 20 MG PO SCH (10:58)
[2022-02-04] MEDS: ZOCOR 20MG PO SCH (10:58)
[2022-02-04] MEDS: ECOTRIN 81 MG PO SCH (10:58)
[2022-02-04] MEDS: Cozaar 50 MG PO SCH (10:59)
[2022-02-04] MEDS: solu-MEDROL 60 MG, Sterile H2O 10 ml 2 ML IV SCH ×6 (11:47→23:39)
[2022-02-04] MEDS: DUONEB 0.5-3 MG/3 ml Neb IH SCH ×2 (12:00→19:29)
[2022-02-04 16:02] LABS: Mucus SLIGHT /HPF (NEGATIVE); RBC 0-2 /HPF (0-2)
[2022-02-04 16:03] LABS: Appearance CLEAR (CLEAR); Bilirubin NEGATIVE (NEGATIVE); Dipstick done @ ? MAIN LAB; Glucose NEGATIVE (NEGATIVE); Ketones NEGATIVE (NEGATIVE); Nitrite NEGATIVE (NEGATIVE); Ph 5.5 (5-6); Protein,Urine Dip NEGATIVE (Negative); RBC TRACE-INTACT Ery/ul (0-5); Urine Cultured Indicated? NO; Urobilinogen 0.2 mg/dL (0-1)
[2022-02-04] MEDS: HYTRIN 1 MG PO SCH (21:51)
[2022-02-04] MEDS: Toprol Xl 50 MG PO SCH (21:51)
[2022-02-04] MEDS: ROCEPHIN 2 Gm-D5w 50ML BAG** 2 G/50 ML IVPB IV SCH (21:52)
[2022-02-04] MEDS: VITA-BEE WITH C PO SCH (21:52)
[2022-02-04] MEDS ORDERED: B COMPLEX WITH VITAMIN C PO SCH (22:00)
[2022-02-04] MEDS ORDERED: TERAZOSIN HCL 2 MG PO SCH (22:00)
[2022-02-05] MEDS: DUONEB 0.5-3 MG/3 ml Neb IH SCH ×6 (01:11→23:02)
[2022-02-05 05:37] LABS: ALBUMIN 3.5 g/dL (3.5-5.0); ALKALINE PHOSPHATASE 81 U/L (38-126); ANION GAP 10.7 MEQ/L (5-15); BLOOD UREA NITROGEN 41 mg/dL (9-20); CHLORIDE 95 mmol/L (98-107); Calcium 8.6 mg/dL (8.4-10.2); Carbon Dioxide 29 mmol/L (22-30); EST GLOMERULAR FILTRATION RATE > 60.0 ML/MIN; Glucose 158 mg/dL (74-106); Potassium 3.7 mmol/L (3.5-5.1); SGOT/AST 40 U/L (17-59); SGPT/ALT 25 U/L (0-50); SODIUM 131 mmol/L (137-145); Total Protein 7.3 g/dL (6.3-8.2)
[2022-02-05] MEDS: solu-MEDROL 60 MG, Sterile H2O 10 ml 2 ML IV SCH ×2 (05:40)
[2022-02-05 05:43] LABS: Hematocrit 32.4 % (42-50); Hemoglobin 10.2 g/dL (12.5-18.0); Mean Corpuscular Hemoglobin 29.9 pg (26-32); Mean Corpuscular Hgb Concent. 31.5 g/dL (32-36); Mean Platelet Volume 9.7 fL (7.5-11.0); Platelet Count 280 x10^3/uL (150-450); Red Blood Count 3.41 x10^6/uL (4.1-5.6); Red Cell Distribution Width 15.5 % (11.5-14.0)
[2022-02-05 05:45] LABS: White Blood Count 33.5 x10^3/uL (4.0-10.5)
[2022-02-05 07:00] LABS: BAND 6 % (0.0-2.0); Lymphocytes 3 % (24-44); Total Cells Counted 100
[2022-02-05 07:02] LABS: ANISOCYTOSIS 1+; Platelet Estimate NORMAL (NORMAL); Toxic Granulation 2+
--- NOTE | 2022-02-05 08:16 | PCM.NOTE ---
Date and Time: 02/05/22813 Subjective Assessment: patient still requiring 3L oxygen this am, he only wears oxygen at night. sees Dr Deluca for advanced copd. he is feeling better than when he arrived Objective Exam General Appearance: no apparent distress, obese Neurologic Exam: alert Respiratory Exam: diminished breath sounds, prolonged expirations Cardiovascular Exam: regular rate/rhythm, normal heart sounds Gastrointestinal/Abdomen Exam: soft, No tenderness, No mass Extremity Exam: normal inspection, normal range of motion, swelling, other (rough scaly skin to sandy lower legs) OBJECTIVE DATA Vital Signs: Vital Signs - 24 hr Temp Pulse Resp BP Pulse Ox 02/05/22 07:20 95 02/05/22 07:17 81 18 95 02/05/22 07:00 97.7 F 74 18 109/53 94 L 02/05/22 03:00 97.5 F 78 20 99/52 92 L 02/05/22 01:11 99 H 19 96 02/04/22 23:00 97.7 F 76 13 105/58 96 02/04/22 19:34 97.8 F 77 17 108/57 96 02/04/22 19:30 80 26 H 96 02/04/22 16:00 97.7 F 83 20 94/46 94 L 02/04/22 12:01 76 22 94 L 02/04/22 11:56 97.6 F 75 20 96/55 90 L 02/04/22 08:41 74 20 92 L 02/04/22 08:24 97.3 F 76 113/58 90 L 02/04/22 08:23 97.3 F 76 22 113/58 90 L Pain Assessment - Last Documented Pain Intensity 0 Intake and Output: Intake & Output 02/02/22 02/03/22 02/04/22 02/05/22 11:59 11:59 11:59 11:59 Intake Total 1280 Output Total 700 2125 Balance -700 -845 Weight 89.811 kg 83.5 kg Lab Results: Lab Results-Last 24 Hours 02/04/22 02/04/22 02/05/22 Range/Units 08:04 16:03 04:40 WBC 33.5 H* (4.0-10.5) x10^3/uL RBC 3.41 L (4.1-5.6) x10^6/uL Hgb 10.2 L (12.5-18.0) g/dL Hct 32.4 L (42-50) % MCV 95.0 (78-100) fL MCH 29.9 (26-32) pg MCHC 31.5 L (32-36) g/dL RDW 15.5 H (11.5-14.0) % Plt Count 280 (150-450) x10^3/uL MPV 9.7 (7.5-11.0) fL Segmented Neutrophils 91 H (36.-66.) % Band Neutrophils 6 H (0.0-2.0) % Lymphocytes (Manual) 3 L (24-44) % Toxic Granulation 2+ Platelet Estimate NORMAL (NORMAL) RBC Morphology ABNORMAL Anisocytosis 1+ Smear Path Review Pending Sodium (137-145) mmol/L Potassium (3.5-5.1) mmol/L Chloride (98-107) mmol/L Carbon Dioxide (22-30) mmol/L Anion Gap (5-15) MEQ/L BUN (9-20) mg/dL Creatinine (0.66-1.25) mg/dL Estimated GFR ML/MIN Glucose (74-106) mg/dL Calcium (8.4-10.2) mg/dL Total Bilirubin (0.2-1.3) mg/dL AST (17-59) U/L ALT (0-50) U/L Alkaline Phosphatase (38-126) U/L Troponin I 0.022 (0.000-0.034) ng/mL Serum Total Protein (6.3-8.2) g/dL Albumin (3.5-5.0) g/dL Urinalys Dipstick Clnc MAIN LAB Urine Color YELLOW (YELLOW) Urine Appearance CLEAR (CLEAR) Urine pH 5.5 (5-6) Ur Specific [place] 1.010 (1.005-1.025) POC Urine Protein Conf NEGATIVE (Negative) Urine Ketones NEGATIVE (NEGATIVE) Urine Nitrite NEGATIVE (NEGATIVE) Urine Bilirubin NEGATIVE (NEGATIVE) Urine Urobilinogen 0.2 (0-1) mg/dL Urine Leukocytes NEGATIVE (NEGATIVE) Urine WBC (Auto) NONE (0-5) /HPF Urine RBC (Auto) 0-2 (0-2) /HPF U Epithel Cells (Auto) NONE (FEW) /HPF Urine Bacteria (Auto) NONE (NEGATIVE) /HPF Urine RBC TRACE-INTACT A (0-5) Dae/ul Urine Mucus (Auto) SLIGHT A (NEGATIVE) /HPF Ur Culture Indicated? NO Urine Glucose NEGATIVE (NEGATIVE) mg/dL 02/05/22 Range/Units 04:40 WBC (4.0-10.5) x10^3/uL RBC (4.1-5.6) x10^6/uL Hgb (12.5-18.0) g/dL Hct (42-50) % MCV (78-100) fL MCH (26-32) pg MCHC (32-36) g/dL RDW (11.5-14.0) % Plt Count (150-450) x10^3/uL MPV (7.5-11.0) fL Segmented Neutrophils (36.-66.) % Band Neutrophils (0.0-2.0) % Lymphocytes (Manual) (24-44) % Toxic Granulation Platelet Estimate (NORMAL) RBC Morphology Anisocytosis Smear Path Review Sodium 131 L (137-145) mmol/L Potassium 3.7 (3.5-5.1) mmol/L Chloride 95 L (98-107) mmol/L Carbon Dioxide 29 (22-30) mmol/L Anion Gap 10.7 (5-15) MEQ/L BUN 41 H (9-20) mg/dL Creatinine 1.00 (0.66-1.25) mg/dL Estimated GFR > 60.0 ML/MIN Glucose 158 H (74-106) mg/dL Calcium 8.6 (8.4-10.2) mg/dL Total Bilirubin 0.40 (0.2-1.3) mg/dL AST 40 (17-59) U/L ALT 25 (0-50) U/L Alkaline Phosphatase 81 (38-126) U/L Troponin I (0.000-0.034) ng/mL Serum Total Protein 7.3 (6.3-8.2) g/dL Albumin 3.5 (3.5-5.0) g/dL Urinalys Dipstick Clnc Urine Color (YELLOW) Urine Appearance (CLEAR) Urine pH (5-6) Ur Specific [place] (1.005-1.025) POC Urine Protein Conf (Negative) Urine Ketones (NEGATIVE) Urine Nitrite (NEGATIVE) Urine Bilirubin (NEGATIVE) Urine Urobilinogen (0-1) mg/dL Urine Leukocytes (NEGATIVE) Urine WBC (Auto) (0-5) /HPF Urine RBC (Auto) (0-2) /HPF U Epithel Cells (Auto) (FEW) /HPF Urine Bacteria (Auto) (NEGATIVE) /HPF Urine RBC (0-5) Dae/ul Urine Mucus (Auto) (NEGATIVE) /HPF Ur Culture Indicated? Urine Glucose (NEGATIVE) mg/dL Radiology Exams: Radiology Procedures Category Date Time Status CHEST 1 VIEW (PORTABLE) Stat Exams 02/04/22 00:02 Completed CHEST WITH CONTRAST [CT] Stat Exams 02/04/22 01:45 Completed Multi-Disciplinary Progress Notes: Multi-Disciplinary Progress Notes 02/05/22 07:34 Respiratory Note by Kateryna Paul PT REQUESTED ,HE WOULD LIKE HIS TX CLOSER THAN 6 HRS, CHANGED TO Q4 Initialized on 02/05/22 07:34 - END OF NOTE Assessment/Plan (1) COPD with acute exacerbation Current Visit: Yes Status: Acute Assessment & Plan: continue rocephin/zithromax, nebs and IV steroids. poor air exchange on exam Code(s): J44.1 - CHRONIC OBSTRUCTIVE PULMONARY DISEASE W (ACUTE) EXACERBATION (2) CHF (congestive heart failure) Current Visit: No Status: Acute Code(s): I50.9 - HEART FAILURE, UNSPECIFIED (3) Xerosis of skin Current Visit: Yes Status: Acute Code(s): L85.3 - XEROSIS CUTIS
[2022-02-05] MEDS: Cozaar 50 MG PO SCH (09:57)
[2022-02-05] MEDS: ECOTRIN 81 MG PO SCH (09:57)
[2022-02-05] MEDS: ZOCOR 20MG PO SCH (09:57)
[2022-02-05] MEDS: DEMADEX 20 MG PO SCH (09:57)
[2022-02-05] MEDS: ENOXAPARIN SODIUM SQ SCH (09:58)
[2022-02-05] MEDS: PROTONIX 40 MG IV IV SCH (09:58)
[2022-02-05] MEDS ORDERED: solu-MEDROL IV SCH (12:00)
[2022-02-05] MEDS: solu-MEDROL 80 MG, Sterile H2O 10 ml 2 ML IV SCH ×4 (13:13→18:51)
--- NOTE | 2022-02-05 16:42 | PCM.CONS ---
Podiatry HPI - Consult Date of Consultation Date: 02/05/22 Reason for Consult: fissures heels bilateral Consulting Provider: CONNER GAY DPM - [facility] History of Present Illness: Darryl is a very pleasant 66-year-old male who is seen at bedside this afternoon for concerns of heel pain. Patient has returned recent admission due to shortness of breath with COPD and congestive heart failure. Patient has been consulted secondary to significant xerosis to the bilateral lower extremity with fissures as a result of the calluses. He currently denies any constitutional symptoms of infection. He denies any other pedal complaints at this time Medications & Allergies Home Medications: Home Medication List Aspirin EC 81 mg [Ecotrin 81 mg] 81 mg PO DAILY 03/01/13 [History Conf irmed 02/04/22] Atorvastatin Calcium [Lipitor] 40 mg PO DAILY 03/01/13 [History Confirmed 02/04/22] B Complex with Vitamin C [Super B Complex with C] 1 each PO QHS 03/01/13 [History Confirmed 02/04/22] Losartan Potassium 50 mg [Cozaar 50 MG] 100 mg PO DAILY 03/01/13 [History Confirmed 02/04/22] Metoprolol Succinate 50 mg [Toprol Xl 50 MG] 50 mg PO QHS 03/01/13 [History Confirmed 02/04/22] Nitroglycerin 0.4 mg Tablet [Nitrostat 0.4 MG Tablet] 0.4 mg SL UD PRN 03/01/13 [History Confirmed 02/04/22] Albuterol Sulfate [Ventolin Hfa] 1 gm IH UD PRN 12/03/18 [History Confirmed 02/04/22] Terazosin HCl [Hytrin] 2 mg PO QHS 12/03/18 [History Confirmed 02/04/22] Torsemide 20 mg [Demadex 20 mg] 40 mg PO DAILY 03/14/21 [History Confirmed 02/04/22] Albuterol/Ipratropium 3ml Neb* [DUONEB 0.5-3 MG/3 ml Neb] 3 ml IH Q4H PRN PRN 02/04/22 [History Confirmed 02/04/22] Allergies/Adverse Reactions: Allergies Allergy/AdvReac Type Severity Reaction Status Date / Time No Known Drug Allergies Allergy Verified 02/04/22 00:03 - Past Medical History Past Medical History: Yes Neurological History: No Pertinent History ENT History: No Pertinent History Cardiac History: Coronary Artery Disease, High Cholesterol, Hypertension, Other Respiratory History: CHF, COPD, Emphysema, Pneumonia, Other Endocrine Medical History: Other Musculoskelatal History: No Pertinent History GI Medical History: No Pertinent History History: No Pertinent History Pyscho-Social History: No Pertinent History Male Reproductive Disorders: No Pertinent History Comment: Rupture disc-surgery to repair - Past Surgical History Past Surgical History: Yes Neuro Surgical History: No Pertinent History Cardiac History: Other Respiratory Surgery: No Pertinent History GI Surgical History: No Pertinent History Genitourinary Surgical Hx: No Pertinent History Musculskeletal Surgical Hx: Other Male Surgical History: No Pertinent History Other Surgical History: T&A at 8-10 yrs old. Ruptured disc repair - Social History Smoking Status: Current every day smoker How long have you smoked: 50 years Exposure to second hand smoke: No Alcohol: Daily Drug Use: none Significant Family History: no pertinent family hx Physical Exam - General General Appearance: no apparent distress - Neuro Neurologic: Epicritic and protopathic - Vascular Peripheral Pulses: Posterior tibialis: 2+, Dorsalis-Pedis: 2+ (Difficult to assess secondary to combination pitting nonpitting edema) Capillary Refill Time: < 3 seconds Hair Growth: Symmetrical and Bilateral Varicosities: Positive Edema: Pitting Edema Degree: 2+ Skin: Supple, not atrophic Skin Temperature: Warm to touch - Muscular Muscle Strength: 5/5 on all 4 quadrants - Narrative Narrative Physical Exam: Podiatry Physical Exam Dermatological exam: Skin is diffusely xerotic to the bilateral lower extremity with evidence of exfoliative changes to the bilateral leg from the tibial tuberosity to the dorsal aspect of the foot plantar aspect of the heel with significant verruca formation type changes secondary likely to chronic exfoliative changes to the skin. Fissures with hemorrhagic callus noted to the bilateral lower extremity painful on palpation. No active bleeding at this time Results - Labs Lab/Micro Results: Lab Results-Last 24 Hours 02/05/22 02/05/22 Range/Units 04:40 04:40 WBC 33.5 H* (4.0-10.5) x10^3/uL RBC 3.41 L (4.1-5.6) x10^6/uL Hgb 10.2 L (12.5-18.0) g/dL Hct 32.4 L (42-50) % MCV 95.0 (78-100) fL MCH 29.9 (26-32) pg MCHC 31.5 L (32-36) g/dL RDW 15.5 H (11.5-14.0) % Plt Count 280 (150-450) x10^3/uL MPV 9.7 (7.5-11.0) fL Segmented Neutrophils 91 H (36.-66.) % Band Neutrophils 6 H (0.0-2.0) % Lymphocytes (Manual) 3 L (24-44) % Toxic Granulation 2+ Platelet Estimate NORMAL (NORMAL) RBC Morphology ABNORMAL Anisocytosis 1+ Smear Path Review Pending Sodium 131 L (137-145) mmol/L Potassium 3.7 (3.5-5.1) mmol/L Chloride 95 L (98-107) mmol/L Carbon Dioxide 29 (22-30) mmol/L Anion Gap 10.7 (5-15) MEQ/L BUN 41 H (9-20) mg/dL Creatinine 1.00 (0.66-1.25) mg/dL Estimated GFR > 60.0 ML/MIN Glucose 158 H (74-106) mg/dL Calcium 8.6 (8.4-10.2) mg/dL Total Bilirubin 0.40 (0.2-1.3) mg/dL AST 40 (17-59) U/L ALT 25 (0-50) U/L Alkaline Phosphatase 81 (38-126) U/L Serum Total Protein 7.3 (6.3-8.2) g/dL Albumin 3.5 (3.5-5.0) g/dL Microbiology 02/04/22 00:27 Blood Culture Gram Stain - Final Blood Blood Culture - Preliminary GRAM POSITIVE ID AND SENSITIVITY PENDING 02/04/22 00:27 Blood Culture Gram Stain - Final Blood Blood Culture - Preliminary GRAM POSITIVE ID AND SENSITIVITY PENDING - Radiology Impressions Radiology Exams & Impressions: Radiology Procedures Category Date Time Status CHEST 1 VIEW (PORTABLE) Stat Exams 02/04/22 00:02 Completed CHEST WITH CONTRAST [CT] Stat Exams 02/04/22 01:45 Completed Assessment/Plan (1) Fissure in skin of both feet Current Visit: Yes Status: Acute Assessment & Plan: Initial patient examination evaluation. Clinical examination is consistent with chronic venous insufficiency with mixed lymphedema resulting in pitting edema as well as nonpitting edema to the bilateral lower extremity. Patient does have some evidence of exfoliative changes to the bilateral lower extremity consistent with volume overload secondary to congestive heart failure and COPD. This as a result appears to be the cause of the verruca form is type changes to his bilateral heels. For this recommendation of debridement at bedside utilizing a 10 blade and a dremmel which was performed without incident to the patient's satisfaction. At this time will proceed with sterile saline cleanse and barrier cream applied in order to break down the remaining thickened tissue under occlusion. Will return tomorrow for bilateral Unna boots as well as nail care Medicine for medical management. Will follow closely Code(s): R23.4 - CHANGES IN SKIN TEXTURE (2) COPD with acute exacerbation Current Visit: Yes Status: Acute Code(s): J44.1 - CHRONIC OBSTRUCTIVE PULMONARY DISEASE W (ACUTE) EXACERBATION (3) Xerosis of skin Current Visit: Yes Status: Acute Code(s): L85.3 - XEROSIS CUTIS (4) Acute on chronic renal insufficiency Current Visit: No Status: Acute Code(s): N28.9 - DISORDER OF KIDNEY AND URETER, UNSPECIFIED; N18.9 - CHRONIC KIDNEY DISEASE, UNSPECIFIED (5) CHF (congestive heart failure) Current Visit: No Status: Acute Code(s): I50.9 - HEART FAILURE, UNSPECIFIED
[2022-02-05] MEDS: ROCEPHIN 2 Gm-D5w 50ML BAG** 2 G/50 ML IVPB IV SCH (22:22)
[2022-02-05] MEDS: HYTRIN 1 MG PO SCH (22:22)
[2022-02-05] MEDS: VITA-BEE WITH C PO SCH (22:22)
[2022-02-05] MEDS: Toprol Xl 50 MG PO SCH (22:22)
[2022-02-05] MEDS: Zithromax 500 MG/ 250 ML NaCl Premix 500 MG/250 ML IVPB IV SCH (23:01)
[2022-02-06] MEDS: solu-MEDROL 80 MG, Sterile H2O 10 ml 2 ML IV SCH ×8 (01:47→21:04)
[2022-02-06] MEDS: DUONEB 0.5-3 MG/3 ml Neb IH SCH ×6 (03:07→23:20)
[2022-02-06 05:45] LABS: Absolute Neutrophil Ct (ANC) 23.39 x10^3/uL (1.4-6.9); Basophil (Absolute #) 0.02 x10^3/uL (0-0.4); Eosinophil (Absolute #) 0 x10^3/uL (0-0.5); Hematocrit 31.4 % (42-50); Hemoglobin 9.9 g/dL (12.5-18.0); Lymphocyte (Absolute #) 0.35 x10^3/uL (1.0-4.6); Lymphocytes % 1.4 % (24.0-44.0); Mean Cell Volume 91.5 fL (78-100); Mean Corpuscular Hemoglobin 28.9 pg (26-32); Mean Corpuscular Hgb Concent. 31.5 g/dL (32-36); Mean Platelet Volume 10.4 fL (7.5-11.0); Monocyte (Absolute #) 0.46 x10^3/uL (0.0-1.3); Monocytes % 1.9 % (0.0-12.0); Neutrophil % 95.6 % (36.0-66.0); Platelet Count 300 x10^3/uL (150-450); Red Blood Count 3.43 x10^6/uL (4.1-5.6); White Blood Count 24.5 x10^3/uL (4.0-10.5)
[2022-02-06] MEDS ORDERED: solu-MEDROL ONE ×2 (05:46→20:48)
[2022-02-06 06:13] LABS: ANION GAP 9.3 MEQ/L (5-15); BLOOD UREA NITROGEN 42 mg/dL (9-20); CHLORIDE 95 mmol/L (98-107); Calcium 8.7 mg/dL (8.4-10.2); Carbon Dioxide 30 mmol/L (22-30); Creatinine 1 1.16 mg/dL (0.66-1.25); EST GLOMERULAR FILTRATION RATE > 60.0 ML/MIN; Glucose 182 mg/dL (74-106); MAGNESIUM 2.3 mg/dL (1.6-2.3); Potassium 3.5 mmol/L (3.5-5.1); SODIUM 131 mmol/L (137-145)
[2022-02-06 07:58] LABS: Slide Review 1 YES
[2022-02-06] MEDS: ENOXAPARIN SODIUM SQ SCH (09:33)
[2022-02-06] MEDS: PROTONIX 40 MG IV IV SCH (09:33)
[2022-02-06] MEDS: Cozaar 50 MG PO SCH (09:34)
[2022-02-06] MEDS: ZOCOR 20MG PO SCH (09:34)
[2022-02-06] MEDS: ECOTRIN 81 MG PO SCH (09:35)
[2022-02-06] MEDS: DEMADEX 20 MG PO SCH (09:35)
--- NOTE | 2022-02-06 12:09 | PCM.NOTE ---
Date and Time: 02/06/22 1204 Subjective Assessment: He is feeling much better. is concerned because when blood was being drawn this morning it was marianne tting. - Review of Systems Constitutional: No Fever Respiratory: Short Of Breath Objective Exam General Appearance: no apparent distress, alert Neurologic Exam: oriented x 3, cooperative Skin Exam: warm, dry, No rash Eye Exam: eyes nml inspection Ears, Nose, Throat Exam: moist mucous membranes Neck Exam: normal inspection Respiratory Exam: diminished breath sounds (fair to good air exchange), No crackles/rales, No rhonchi, No wheezing Cardiovascular Exam: regular rate/rhythm, normal heart sounds, No murmur Gastrointestinal/Abdomen Exam: soft, normal bowel sounds, No tenderness, No distention, No mass, No guarding, No rebound Extremity Exam: other (Unna boots in place bilat) Back Exam: normal inspection, No rash OBJECTIVE DATA Vital Signs: Vital Signs - 24 hr Temp Pulse Resp BP Pulse Ox 02/06/22 11:30 85 18 95 02/06/22 07:28 97.8 F 88 20 122/58 98 02/06/22 07:13 80 24 91 L 02/06/22 03:47 97.7 F 75 18 114/53 98 02/06/22 03:07 88 16 96 02/05/22 23:02 78 18 95 02/05/22 22:50 97.8 F 90 18 131/58 94 L 02/05/22 19:11 98.5 F 108 H 14 104/51 98 02/05/22 18:37 85 16 96 02/05/22 16:26 98.3 F 88 19 112/57 95 02/05/22 15:21 87 18 93 L Pain Assessment - Last Documented Pain Intensity 0 Intake and Output: Intake & Output 02/04/22 02/05/22 02/06/22 02/07/22 11:59 11:59 11:59 11:59 Intake Total 1520 1760 Output Total 700 2125 3000 Balance -794 -001 -3663 Weight 89.811 kg 83.5 kg 83.5 kg Lab Results: Lab Results-Last 24 Hours 02/06/22 02/06/22 Range/Units 04:00 04:45 WBC 24.5 H (4.0-10.5) x10^3/uL RBC 3.43 L (4.1-5.6) x10^6/uL Hgb 9.9 L (12.5-18.0) g/dL Hct 31.4 L (42-50) % MCV 91.5 (78-100) fL MCH 28.9 (26-32) pg MCHC 31.5 L (32-36) g/dL RDW 15.0 H (11.5-14.0) % Plt Count 300 (150-450) x10^3/uL MPV 10.4 (7.5-11.0) fL Gran % 95.6 H (36.0-66.0) % Immature Gran % (Auto) 1.0 H (0.00-0.4) % Nucleat RBC Rel Count 0.0 (0.00-0.1) % Eos # (Auto) 0 (0-0.5) x10^3/uL Immature Gran # (Auto) 0.24 H (0.00-0.03) x10^3u/L Absolute Lymphs (auto) 0.35 L (1.0-4.6) x10^3/uL Absolute Monos (auto) 0.46 (0.0-1.3) x10^3/uL Absolute Nucleated RBC 0.00 (0.00-0.01) x10^3u/L Lymphocytes % 1.4 L (24.0-44.0) % Monocytes % 1.9 (0.0-12.0) % Eosinophils % 0.0 (0.00-5.0) % Basophils % 0.1 (0.0-0.4) % Absolute Granulocytes 23.39 H (1.4-6.9) x10^3/uL Basophils # 0.02 (0-0.4) x10^3/uL Sodium 131 L (137-145) mmol/L Potassium 3.5 (3.5-5.1) mmol/L Chloride 95 L (98-107) mmol/L Carbon Dioxide 30 (22-30) mmol/L Anion Gap 9.3 (5-15) MEQ/L BUN 42 H (9-20) mg/dL Creatinine 1.16 (0.66-1.25) mg/dL Estimated GFR > 60.0 ML/MIN Glucose 182 H (74-106) mg/dL Calcium 8.7 (8.4-10.2) mg/dL Magnesium 2.3 (1.6-2.3) mg/dL Slides for Path Review YES Multi-Disciplinary Progress Notes: Multi-Disciplinary Progress Notes 02/06/22 10:53 Case Management Note by Christy Garcia S/W PATIENT AND - HE DENIES ANY NEW NEEDS AT [place] IN GENERAL. WE DISCUSSED DRESSING CHANGES ON LEGS. IF FREQUENT DRESSING CHANGES ARE NEEDED AT [place] HE WOULD LIKE TO HAVE [facility] SET UP FOR THOSE. WILL SET THIS UP IF NEEDED CLOSER TO TIME OF DC Initialized on 02/06/22 10:53 - END OF NOTE Assessment/Plan (1) COPD with acute exacerbation Current Visit: Yes Status: Acute Assessment & Plan: Sounding good, although still on 3L O2 per [place]. Discussed decreasing steroid, but will keep at current level in hopes his O2 requirement will decrease. He would like to discharge to home in 2 days () if possible. Code(s): J44.1 - CHRONIC OBSTRUCTIVE PULMONARY DISEASE W (ACUTE) EXACERBATION (2) CHF (congestive heart failure) Current Visit: No Status: Acute Qualifiers: Heart failure chronicity: chronic Code(s): I50.9 - HEART FAILURE, UNSPECIFIED (3) Fissure in skin of both feet Current Visit: Yes Status: Chronic Assessment & Plan: Dr. Gaston treating, thank you. Code(s): R23.4 - CHANGES IN SKIN TEXTURE (4) Xerosis of skin Current Visit: Yes Status: Chronic Code(s): L85.3 - XEROSIS CUTIS
[2022-02-06 14:09] LABS: INR 0.99 (0.8-3.0); PROTIME 10.5 SECONDS (9.4-12.5); PTT 30.1 SECONDS (25.1-36.5)
[2022-02-06] MEDS: VITA-BEE WITH C PO SCH (21:05)
[2022-02-06] MEDS: ROCEPHIN 2 Gm-D5w 50ML BAG** 2 G/50 ML IVPB IV SCH (21:05)
[2022-02-06] MEDS: HYTRIN 1 MG PO SCH (21:05)
[2022-02-06] MEDS: Zithromax 500 MG/ 250 ML NaCl Premix 500 MG/250 ML IVPB IV SCH (21:05)
[2022-02-06] MEDS: Toprol Xl 50 MG PO SCH (21:06)
[2022-02-07] MEDS ORDERED: solu-MEDROL ONE ×3 (02:27→16:02)
[2022-02-07] MEDS: solu-MEDROL 80 MG, Sterile H2O 10 ml 2 ML IV SCH ×8 (02:30→17:53)
[2022-02-07] MEDS: DUONEB 0.5-3 MG/3 ml Neb IH SCH ×6 (03:23→22:24)
[2022-02-07 05:58] LABS: ANION GAP 9.1 MEQ/L (5-15); BLOOD UREA NITROGEN 43 mg/dL (9-20); CHLORIDE 98 mmol/L (98-107); Calcium 8.8 mg/dL (8.4-10.2); Carbon Dioxide 30 mmol/L (22-30); Creatinine 1 1.04 mg/dL (0.66-1.25); EST GLOMERULAR FILTRATION RATE > 60.0 ML/MIN; Glucose 163 mg/dL (74-106); Potassium 3.5 mmol/L (3.5-5.1); SODIUM 134 mmol/L (137-145)
--- NOTE | 2022-02-07 08:16 | PCM.NOTE ---
Date and Time: 02/07/22812 Subjective Assessment: seen at bedside today. doing well. No significant changes noted. Physical Exam - General General Appearance: no apparent distress - Vascular Peripheral Pulses: Posterior tibialis: 2+, Dorsalis-Pedis: 2+ Capillary Refill Time: < 3 seconds Hair Growth: Symmetrical and Bilateral Varicosities: Positive Edema: Pitting (combination) Edema Degree: 2+ Skin: Supple, not atrophic Skin Temperature: Warm to touch - Muscular Muscle Strength: 5/5 on all 4 quadrants - Narrative Narrative Physical Exam: Podiatry Physical Exam OBJECTIVE DATA Vital Signs: Vital Signs - 24 hr Temp Pulse Resp BP Pulse Ox 02/07/22 07:35 98.3 F 90 18 124/61 96 02/07/22 07:28 78 18 97 02/07/22 03:59 98.2 F 86 19 117/58 94 L 02/07/22 03:25 86 20 98 02/06/22 23:47 98.2 F 72 24 124/57 94 L 02/06/22 23:20 70 16 97 02/06/22 19:30 98.2 F 98 H 16 128/57 95 02/06/22 18:32 98 H 16 95 02/06/22 15:59 98.4 F 84 18 123/58 93 L 02/06/22 14:33 88 20 96 02/06/22 12:00 97.8 F 81 20 117/59 98 02/06/22 11:30 85 18 95 Pain Assessment - Last Documented Pain Intensity 0 Intake and Output: Intake & Output 02/04/22 02/05/22 02/06/22 02/07/22 11:59 11:59 11:59 11:59 Intake Total 1520 1760 1720 Output Total 700 8897 6741 850 Balance -356 -745 -2968 870 Weight 89.811 kg 83.5 kg 83.5 kg Lab Results: Lab Results-Last 24 Hours 02/05/22 02/06/22 02/07/22 Range/Units 04:40 04:45 05:25 Smear Path Review PT 10.5 (9.4-12.5) SECONDS INR 0.99 (0.8-3.0) APTT 30.1 (25.1-36.5) SECONDS Sodium 134 L (137-145) mmol/L Potassium 3.5 (3.5-5.1) mmol/L Chloride 98 (98-107) mmol/L Carbon Dioxide 30 (22-30) mmol/L Anion Gap 9.1 (5-15) MEQ/L BUN 43 H (9-20) mg/dL Creatinine 1.04 (0.66-1.25) mg/dL Estimated GFR > 60.0 ML/MIN Glucose 163 H (74-106) mg/dL Calcium 8.8 (8.4-10.2) mg/dL Multi-Disciplinary Progress Notes: Multi-Disciplinary Progress Notes 02/06/22 10:53 Case Management Note by Christy Garcia S/W PATIENT AND - HE DENIES ANY NEW NEEDS AT [place] IN GENERAL. WE DISCUSSED DRESSING CHANGES ON LEGS. IF FREQUENT DRESSING CHANGES ARE NEEDED AT [place] HE WOULD LIKE TO HAVE [facility] SET UP FOR THOSE. WILL SET THIS UP IF NEEDED CLOSER TO TIME OF DC Initialized on 02/06/22 10:53 - END OF NOTE Assessment/Plan (1) Fissure in skin of both feet Current Visit: Yes Status: Chronic Assessment & Plan: Patient examination and evaluation Nail care provided to nails 1-5 on the right and 1-5 on the left to patients satisifaction without complication Unna boots applied with barrier cream to heels to break down hyperkeratotic tissue to heels and control venous insuffiency Will follow while in house D.c plan for home healthcare once cleared from medical standpoint. Code(s): R23.4 - CHANGES IN SKIN TEXTURE (2) COPD with acute exacerbation Current Visit: Yes Status: Acute Code(s): J44.1 - CHRONIC OBSTRUCTIVE PULMONARY DISEASE W (ACUTE) EXACERBATION (3) Xerosis of skin Current Visit: Yes Status: Chronic Code(s): L85.3 - XEROSIS CUTIS (4) Acute on chronic renal insufficiency Current Visit: No Status: Acute Code(s): N28.9 - DISORDER OF KIDNEY AND URETER, UNSPECIFIED; N18.9 - CHRONIC KIDNEY DISEASE, UNSPECIFIED (5) CHF (congestive heart failure) Current Visit: No Status: Acute Qualifiers: Heart failure chronicity: chronic Code(s): I50.9 - HEART FAILURE, UNSPECIFIED
--- NOTE | 2022-02-07 08:48 | PCM.NOTE ---
Date and Time: 02/07/22 0844 Subjective Assessment: patient reports some improvement in shortness of breath, requiring 3L oxygen Objective Exam General Appearance: no apparent distress, obese Respiratory Exam: prolonged expirations, wheezing Cardiovascular Exam: regular rate/rhythm, normal heart sounds Gastrointestinal/Abdomen Exam: soft, No tenderness, No mass OBJECTIVE DATA Vital Signs: Vital Signs - 24 hr Temp Pulse Resp BP Pulse Ox 02/07/22 07:35 98.3 F 90 18 124/61 96 02/07/22 07:28 78 18 97 02/07/22 03:59 98.2 F 86 19 117/58 94 L 02/07/22 03:25 86 20 98 02/06/22 23:47 98.2 F 72 24 124/57 94 L 02/06/22 23:20 70 16 97 02/06/22 19:30 98.2 F 98 H 16 128/57 95 02/06/22 18:32 98 H 16 95 02/06/22 15:59 98.4 F 84 18 123/58 93 L 02/06/22 14:33 88 20 96 02/06/22 12:00 97.8 F 81 20 117/59 98 02/06/22 11:30 85 18 95 Pain Assessment - Last Documented Pain Intensity 0 Intake and Output: Intake & Output 02/04/22 02/05/22 02/06/22 02/07/22 11:59 11:59 11:59 11:59 Intake Total 1520 1760 1720 Output Total 700 2125 3000 850 Balance -700 605 -1240 870 Weight 89.811 kg 83.5 kg 83.5 kg Lab Results: Lab Results-Last 24 Hours 02/05/22 02/06/22 02/07/22 Range/Units 04:40 04:45 05:25 Smear Path Review PT 10.5 (9.4-12.5) SECONDS INR 0.99 (0.8-3.0) APTT 30.1 (25.1-36.5) SECONDS Sodium 134 L (137-145) mmol/L Potassium 3.5 (3.5-5.1) mmol/L Chloride 98 (98-107) mmol/L Carbon Dioxide 30 (22-30) mmol/L Anion Gap 9.1 (5-15) MEQ/L BUN 43 H (9-20) mg/dL Creatinine 1.04 (0.66-1.25) mg/dL Estimated GFR > 60.0 ML/MIN Glucose 163 H (74-106) mg/dL Calcium 8.8 (8.4-10.2) mg/dL Multi-Disciplinary Progress Notes: Multi-Disciplinary Progress Notes 02/06/22 10:53 Case Management Note by Christy Garcia S/W PATIENT AND - HE DENIES ANY NEW NEEDS AT DC IN GENERAL. WE DISCUSSED DRESSING CHANGES ON LEGS. IF FREQUENT DRESSING CHANGES ARE NEEDED AT DC HE WOULD LIKE TO HAVE [facility] SET UP FOR THOSE. WILL SET THIS UP IF NEEDED CLOSER TO TIME OF DC Initialized on 02/06/22 10:53 - END OF NOTE Assessment/Plan (1) COPD with acute exacerbation Current Visit: Yes Status: Acute Assessment & Plan: continue rocephin/zithromax, nebs and solu medrol Code(s): J44.1 - CHRONIC OBSTRUCTIVE PULMONARY DISEASE W (ACUTE) EXACERBATION (2) CHF (congestive heart failure) Current Visit: No Status: Acute Qualifiers: Heart failure chronicity: chronic Code(s): I50.9 - HEART FAILURE, UNSPECIFIED (3) Xerosis of skin Current Visit: Yes Status: Chronic Code(s): L85.3 - XEROSIS CUTIS
[2022-02-07] MEDS: ECOTRIN 81 MG PO SCH (09:40)
[2022-02-07] MEDS: DEMADEX 20 MG PO SCH (09:40)
[2022-02-07] MEDS: Cozaar 50 MG PO SCH (09:40)
[2022-02-07] MEDS: PROTONIX 40 MG IV IV SCH (09:41)
[2022-02-07] MEDS: ENOXAPARIN SODIUM SQ SCH (09:41)
[2022-02-07] MEDS: ZOCOR 20MG PO SCH (09:41)
[2022-02-07] MEDS: HYTRIN 1 MG PO SCH (22:03)
[2022-02-07] MEDS: Zithromax 500 MG/ 250 ML NaCl Premix 500 MG/250 ML IVPB IV SCH (22:03)
[2022-02-07] MEDS: Toprol Xl 50 MG PO SCH (22:03)
[2022-02-07] MEDS: ROCEPHIN 2 Gm-D5w 50ML BAG** 2 G/50 ML IVPB IV SCH (22:03)
[2022-02-07] MEDS: VITA-BEE WITH C PO SCH (23:40)
[2022-02-08] MEDS: solu-MEDROL 80 MG, Sterile H2O 10 ml 2 ML IV SCH ×4 (00:21→05:57)
[2022-02-08] MEDS: DUONEB 0.5-3 MG/3 ml Neb IH SCH ×2 (02:25→05:50)
[2022-02-08 05:20] LABS: BLOOD UREA NITROGEN 44 mg/dL (9-20); CHLORIDE 96 mmol/L (98-107); Calcium 8.6 mg/dL (8.4-10.2); Carbon Dioxide 34 mmol/L (22-30); Creatinine 1 1.02 mg/dL (0.66-1.25); EST GLOMERULAR FILTRATION RATE > 60.0 ML/MIN; Glucose 179 mg/dL (74-106); Potassium 3.6 mmol/L (3.5-5.1); SODIUM 134 mmol/L (137-145)
[2022-02-08] MEDS ORDERED: solu-MEDROL ONE (05:49)
[2022-02-08 06:49] VITALS: BP 134/61; PULSE 87; O2SAT 91
--- NOTE | 2022-02-08 08:29 | PCM.DS ---
Discharge Summary Date of Admission: 02/05/22 08:14 Admitting Physician: CAROLYNE CARCAMO Consults: Consults on Case 02/05/22 09:44 Consult Podiatry ROUTINE Primary Care Provider: CAROLYNE CARCAMO Allergies Allergies No Known Drug Allergies Allergy (Verified 02/04/22 00:03) Hospital Summary - Hospital Course Hospital Course: patient admitted with cough and shortness of breath, treated for copd exacerbation. has advanced copd with chronic hypoxemic resp failure, is on 3L oxygen at all times at home per his report. he is doing much better at time of discharge, breathing is back at baseline and he is able to ambulate to the restroom on his own and feels much better. - Vitals & Intake/Output Vital Signs: Vital Signs Temperature 97.7 F 02/08/22 06:47 Pulse Rate 87 02/08/22 06:47 Respiratory Rate 18 02/08/22 06:47 Blood Pressure 134/61 02/08/22 06:47 O2 Sat by Pulse Oximetry 91 L 02/08/22 06:47 Intake & Output: Intake & Output 02/05/22 02/06/22 02/07/22 02/08/22 11:59 11:59 11:59 11:59 Intake Total 1520 1760 1840 1740 Output Total 2125 3000 1450 3875 Balance -605 -1240 390 -2135 Weight 83.5 kg 83.5 kg 87 kg 87.4 kg - Lab Result Diagrams: 02/06/22 04:00 02/08/22 04:45 Lab Results-Last 24 Hrs: Lab Results-Last 24 Hours 02/08/22 Range/Units 04:45 Sodium 134 L (137-145) mmol/L Potassium 3.6 (3.5-5.1) mmol/L Chloride 96 L (98-107) mmol/L Carbon Dioxide 34 H (22-30) mmol/L Anion Gap 8.0 (5-15) MEQ/L BUN 44 H (9-20) mg/dL Creatinine 1.02 (0.66-1.25) mg/dL Estimated GFR > 60.0 ML/MIN Glucose 179 H (74-106) mg/dL Calcium 8.6 (8.4-10.2) mg/dL Micro Results-Entire Visit: Microbiology 02/04/22 00:27 Aerobic Culture - Preliminary Blood Aerobic Organism ID Result 1 - Preliminary 02/04/22 00:27 Aerobic Culture - Preliminary Blood Aerobic Organism ID Result 1 - Preliminary 02/04/22 00:27 Blood Culture Gram Stain - Final Blood Blood Culture - Preliminary 02/04/22 00:27 Blood Culture Gram Stain - Final Blood Blood Culture - Preliminary - Procedures and Test Procedures and Tests throughout Hospitalization: Therapy Orders & Screens 02/04/22 00:23 Respiratory Therapy Assessment DAILY Comment: 02/04/22 08:07 Oxygen Nasal Cannula 4 lpm Comment: Discharge Exam General Appearance: no apparent distress, obese Neurologic Exam: alert, oriented x 3 Respiratory Exam: diminished breath sounds, prolonged expirations Cardiovascular Exam: regular rate/rhythm, normal heart sounds Gastrointestinal/Abdomen Exam: soft, No tenderness, No mass Extremity Exam: pedal edema, swelling Final Diagnosis/Problem List - Final Discharge Diagnosis/Problem (1) COPD with acute exacerbation Current Visit: Yes Status: Acute Assessment & Plan: back to baseline, doing much better. home on po doxy and prednisone taper Code(s): J44.1 - CHRONIC OBSTRUCTIVE PULMONARY DISEASE W (ACUTE) EXACERBATION (2) CHF (congestive heart failure) Current Visit: No Status: Acute Code(s): I50.9 - HEART FAILURE, UNSPECIFIED (3) Xerosis of skin Current Visit: Yes Status: Chronic Assessment & Plan: seen by Dr Gaston during his hospital stay, legs feeling much better. Code(s): L85.3 - XEROSIS CUTIS - Discharge Disposition: Home, Self-Care Condition: Fair Prescriptions: New Ammonium Lactate [Ammonium Lactate 12%] 225 gm TP UD #1 unit Prednisone 20 mg [Deltasone 20 mg] 20 mg PO UD #18 tablet Doxycycline Hyclate 100 mg [Vibramycin 100 MG] 100 mg PO BID #14 tab Continue Aspirin EC 81 mg [Ecotrin 81 mg] 81 mg PO DAILY Losartan Potassium 50 mg [Cozaar 50 MG] 100 mg PO DAILY Atorvastatin Calcium [Lipitor] 40 mg PO DAILY B Complex with Vitamin C [Super B Complex with C] 1 each PO QHS Metoprolol Succinate 50 mg [Toprol Xl 50 MG] 50 mg PO QHS Nitroglycerin 0.4 mg Tablet [Nitrostat 0.4 MG Tablet] 0.4 mg SL UD PRN PRN Reason: Chest Pain Albuterol Sulfate [Ventolin Hfa] 1 gm IH UD PRN PRN Reason: Shortness Of Breath Terazosin HCl [Hytrin] 2 mg PO QHS Torsemide 20 mg [Demadex 20 mg] 40 mg PO DAILY Albuterol/Ipratropium 3ml Neb* [DUONEB 0.5-3 MG/3 ml Neb] 3 ml IH Q4H PRN PRN PRN Reason: Shortness Of Breath Additional Instructions: [facility] HAS BEEN SET UP FOR YOUR DRESSING CHANGES. THEY WILL CONTACT YOU TO ARRANGE A TIME TO SEE YOU. THEIR PHONE NUMBER IS [phone] DRESSING CHANGES TO BE FOLLOWS: APPLY AMMONIUM LACTATE 12% CREAM TO BILATERAL HEELS AND UNNA BOOTS BILATERALLY ON MON, WED, FRI Follow up with: CONNER GAY DPM [ACTIVE STAFF] - 02/13/22 8:30 am () CAROLYNE CARCAMO MD [Primary Care Provider] - 02/16/22 11:15 am
[2022-02-08] MEDS: DEMADEX 20 MG PO SCH (08:41)
[2022-02-08] MEDS: ZOCOR 20MG PO SCH (08:42)
[2022-02-08] MEDS: Cozaar 50 MG PO SCH (08:42)
[2022-02-08] MEDS: ECOTRIN 81 MG PO SCH (08:43)
[2022-02-08] MEDS: PROTONIX 40 MG IV IV SCH (08:43)
[2022-02-08] MEDS: ENOXAPARIN SODIUM SQ SCH (08:43)
== END 2022-02-08 10:34 | disposition home health service (06) | DRG 191 ==
LOC: ED 23:55 → MED SURG 02-04 08:05 → OBSVTOIN 02-05 08:14 → MED SURG 02-07 12:43
PROVIDERS: ADMIT Family Medicine; ATTEND Family Medicine
PROC: 2W1MX6Z Compression of Left Lower Extremity using Pressure Dressing (ICD-10-PCS; principal; 2022-02-05)
PROC: 2W1LX6Z Compression of Right Lower Extremity using Pressure Dressing (ICD-10-PCS; 2022-02-05)
DX: J44.1 Chronic obstructive pulmonary disease with (acute) exacerbation (principal); I13.0 Hypertensive heart and chronic kidney disease with heart failure and stage 1 through stage 4 chronic kidney disease, or unspecified chronic kidney disease; N18.9 Chronic kidney disease, unspecified; I50.9 Heart failure, unspecified; L85.3 Xerosis cutis; I25.10 Atherosclerotic heart disease of native coronary artery without angina pectoris; R23.4 Changes in skin texture; E78.5 Hyperlipidemia, unspecified; M79.89 Other specified soft tissue disorders; Z99.81 Dependence on supplemental oxygen; Z79.899 Other long term (current) drug therapy; Z20.828 Contact with and (suspected) exposure to other viral communicable diseases; Z72.0 Tobacco use
CPT/HCPCS: 0241U; 11057; 11721; 29580; 36000; 36415; 36600; 71045; 71260; 80048; 80053; 81015; 82375; 82803; 83605; 83735; 83880; 84145; 84484; 85025; 85379; 85610; 85730; 87040; 87077; 93005; 93041; 93268; 94640; 94760; 94762; 96365; 96367; 99219; 99285; G0378; J0456; J0696; J1650; J2930; J3475; A9270-GY

== ENCOUNTER 2022-06-18 14:28 | Observation (INO) | payer MEDICARE, BC ==
[2022-06-18] MEDS ORDERED: solu-MEDROL 125 MG, Sterile H2O 10 ml 2 ML IV ONE ×2 (15:00)
--- NOTE | 2022-06-18 15:09 | XRAY ---
Indication: Fever and cough. Hypoxia. COPD. Comparison: February 04, 2022 Portable chest demonstrates new small left base pleural effusion and minimal right base fibrosis/scarring. Stable left base discoid atelectasis. Remaining heart and upper lungs unremarkable. Bony thorax intact again osteopenia, degenerative changes, and old left humerus neck fracture.
[2022-06-18 15:10] LABS: Absolute Neutrophil Ct (ANC) 9.02 x10^3/uL (1.4-6.9); BASOPHIL % 0.6 % (0.0-0.4); Basophil (Absolute #) 0.07 x10^3/uL (0-0.4); Eosinophil (Absolute #) 0.32 x10^3/uL (0-0.5); Hematocrit 37.3 % (42-50); Hemoglobin 11.9 g/dL (12.5-18.0); IMMATURE GRAN # 0.05 x10^3u/L (0.00-0.03); IMMATURE GRAN % 0.5 % (0.00-0.4); Lymphocyte (Absolute #) 0.58 x10^3/uL (1.0-4.6); Lymphocytes % 5.4 % (24.0-44.0); Mean Corpuscular Hgb Concent. 31.9 g/dL (32-36); Mean Platelet Volume 9.2 fL (7.5-11.0); Monocyte (Absolute #) 0.79 x10^3/uL (0.0-1.3); Monocytes % 7.3 % (0.0-12.0); Neutrophil % 83.2 % (36.0-66.0); Platelet Count 315 x10^3/uL (150-450); Red Blood Count 3.97 x10^6/uL (4.1-5.6); Red Cell Distribution Width 13.7 % (11.5-14.0); White Blood Count 10.8 x10^3/uL (4.0-10.5)
[2022-06-18 15:24] LABS: ALBUMIN 4.6 g/dL (3.5-5.0); ALKALINE PHOSPHATASE 120 U/L (38-126); ANION GAP 10.4 MEQ/L (5-15); BLOOD UREA NITROGEN 37 mg/dL (9-20); CHLORIDE 89 mmol/L (98-107); Calcium 9.4 mg/dL (8.4-10.2); Carbon Dioxide 39 mmol/L (22-30); Creatinine 1 1.14 mg/dL (0.66-1.25); EST GLOMERULAR FILTRATION RATE > 60.0 ML/MIN; Glucose 95 mg/dL (74-106); SGOT/AST 43 U/L (17-59); SGPT/ALT 33 U/L (0-50); SODIUM 135 mmol/L (137-145); Total Protein 8.1 g/dL (6.3-8.2)
[2022-06-18 15:48] LABS: INFLUENZA A NEGATIVE (NEGATIVE); INFLUENZA B NEGATIVE (NEGATIVE); RESPIRATORY SYNCTIAL VIRUS NEGATIVE (NEGATIVE); SARS-CoV-2 Xpert Express NEGATIVE (NEGATIVE)
[2022-06-18] MEDS: ROCEPHIN 1 Gm-D5w 50 ml Bag** 1 G/50 ML IVPB IV SCH (16:16)
[2022-06-18] MEDS: DUONEB 0.5-3 MG/3 ml Neb IH SCH ×2 (16:16→22:00)
[2022-06-18] MEDS ORDERED: DUONEB 0.5-3 MG/3 ml Neb IH PRN (16:23)
--- NOTE | 2022-06-18 16:39 | PCM.HP ---
History of Present Illness - Chief Complaint Chief Complaint: hypoxia History of Present Illness: is a 66 year old male who was seen by [employer] in my office today with cough, shortness of breath and hypoxia. hx of advanced copd on chronic oxygen therapy, he continues to smoke. I saw him in the office and direct admitted for copd exacerbation and hypoxia. - Review of Systems Constitutional: No Fever Respiratory: Cough, Short Of Breath Cardiac: No Chest Pain, No Edema, No Syncope Abdominal/Gastrointestinal: No Abdominal Pain, No Nausea, No Vomiting, No Diarrhea Genitourinary Symptoms: No Dysuria All Other Systems: Reviewed and Negative Medications & Allergies Home Medications: Home Medication List Aspirin EC 81 mg [Ecotrin 81 mg] 81 mg PO DAILY 03/01/13 [History Confirmed 06/18/22] Atorvastatin Calcium [Lipitor] 40 mg PO QHS 03/01/13 [History Confirmed 06/18/22] B Complex with Vitamin C [Super B Complex with C] 1 each PO QHS 03/01/13 [History Confirmed 06/18/22] Losartan Potassium 50 mg [Cozaar 50 MG] 100 mg PO DAILY 03/01/13 [History Confirmed 06/18/22] Metoprolol Succinate 50 mg [Toprol Xl 50 MG] 50 mg PO QHS 03/01/13 [History Confirmed 06/18/22] Nitroglycerin 0.4 mg Tablet [Nitrostat 0.4 MG Tablet] 0.4 mg SL UD PRN 03/01/13 [History Confirmed 06/18/22] Albuterol Sulfate [Ventolin Hfa] 1 gm IH UD PRN 12/03/18 [History Confirmed 06/18/22] Terazosin HCl [Hytrin] 2 mg PO QHS 12/03/18 [History Confirmed 06/18/22] Torsemide 20 mg [Demadex 20 mg] 40 mg PO DAILY 03/14/21 [History Confirmed 06/18/22] Albuterol/Ipratropium 3ml Neb* [DUONEB 0.5-3 MG/3 ml Neb] 3 ml IH Q4H PRN PRN 02/04/22 [History Confirmed 06/18/22] Ammonium Lactate [Ammonium Lactate 12%] 225 gm TP UD #1 unit 02/07/22 [Rx Confirmed 06/18/22] Allergies/Adverse Reactions: Allergies Allergy/AdvReac Type Severity Reaction Status Date / Time No Known Drug Allergies Allergy Verified 02/04/22 00:03 - Past Medical History Past Medical History: Yes Neurological History: No Pertinent History ENT History: No Pertinent History Cardiac History: Coronary Artery Disease, High Cholesterol, Hypertension, Other Respiratory History: CHF, COPD, Emphysema, Pneumonia, Other Endocrine Medical History: No Pertinent History Musculoskelatal History: No Pertinent History GI Medical History: No Pertinent History History: No Pertinent History Pyscho-Social History: No Pertinent History Male Reproductive Disorders: No Pertinent History Comment: Rupture disc-surgery to repair - Past Surgical History Past Surgical History: Yes Neuro Surgical History: No Pertinent History Cardiac History: Other Respiratory Surgery: No Pertinent History GI Surgical History: No Pertinent History Genitourinary Surgical Hx: No Pertinent History Musculskeletal Surgical Hx: Other Male Surgical History: No Pertinent History Other Surgical History: T&A at 8-10 yrs old. Ruptured disc repair. Stent x 1more than 15 yrs ago. cataract surgery - Social History Smoking Status: Current every day smoker How long have you smoked: 50 years Exposure to second hand smoke: Yes Alcohol: Daily Drug Use: none Significant Family History: no pertinent family hx - Physical Exam Vital Signs: Vital Signs - 24 hr Temp Pulse Resp BP BP Pulse Ox 06/18/22 16:18 75 18 95 06/18/22 15:01 97.9 F 78 18 142/76 91 L 06/18/22 14:54 97.9 F 78 20 142/76 91 L 06/18/22 14:36 97.9 F 78 20 142/76 91 L General Appearance: no apparent distress Neurologic Exam: alert, oriented x 3, cooperative Respiratory Exam: diminished breath sounds, prolonged expirations, wheezing Cardiovascular Exam: regular rate/rhythm, normal heart sounds, normal peripheral pulses Gastrointestinal/Abdomen Exam: soft, normal bowel sounds, No tenderness, No mass Extremity Exam: normal inspection, normal range of motion, pelvis stable Skin Exam: normal color, warm, dry, No rash Results - Labs Lab/Micro Results: Lab Results-Last 24 Hours 06/18/22 06/18/22 06/18/22 Range/Units 15:02 15:02 15:02 WBC 10.8 H (4.0-10.5) x10^3/uL RBC 3.97 L (4.1-5.6) x10^6/uL Hgb 11.9 L (12.5-18.0) g/dL Hct 37.3 L (42-50) % MCV 94.0 (78-100) fL MCH 30.0 (26-32) pg MCHC 31.9 L (32-36) g/dL RDW 13.7 (11.5-14.0) % Plt Count 315 (150-450) x10^3/uL MPV 9.2 (7.5-11.0) fL Gran % 83.2 H (36.0-66.0) % Immature Gran % (Auto) 0.5 H (0.00-0.4) % Nucleat RBC Rel Count 0.0 (0.00-0.1) % Eos # (Auto) 0.32 (0-0.5) x10^3/uL Immature Gran # (Auto) 0.05 H (0.00-0.03) x10^3u/L Absolute Lymphs (auto) 0.58 L (1.0-4.6) x10^3/uL Absolute Monos (auto) 0.79 (0.0-1.3) x10^3/uL Absolute Nucleated RBC 0.00 (0.00-0.01) x10^3u/L Lymphocytes % 5.4 L (24.0-44.0) % Monocytes % 7.3 (0.0-12.0) % Eosinophils % 3.0 (0.00-5.0) % Basophils % 0.6 (0.0-0.4) % Absolute Granulocytes 9.02 H (1.4-6.9) x10^3/uL Basophils # 0.07 (0-0.4) x10^3/uL Sodium 135 L (137-145) mmol/L Potassium 4.0 (3.5-5.1) mmol/L Chloride 89 L (98-107) mmol/L Carbon Dioxide 39 H (22-30) mmol/L Anion Gap 10.4 (5-15) MEQ/L BUN 37 H (9-20) mg/dL Creatinine 1.14 (0.66-1.25) mg/dL Estimated GFR > 60.0 ML/MIN Glucose 95 (74-106) mg/dL Lactic Acid 0.9 (0.4-2.0) Calcium 9.4 (8.4-10.2) mg/dL Total Bilirubin 0.70 (0.2-1.3) mg/dL AST 43 (17-59) U/L ALT 33 (0-50) U/L Alkaline Phosphatase 120 (38-126) U/L Serum Total Protein 8.1 (6.3-8.2) g/dL Albumin 4.6 (3.5-5.0) g/dL Procalcitonin (0.030-0.080) ng/mL Influenza Type A Ag (NEGATIVE) Influenza Type B Ag (NEGATIVE) RSV (PCR) (NEGATIVE) SARS-CoV-2 (PCR) (NEGATIVE) 06/18/22 06/18/22 Range/Units 15:02 15:02 WBC (4.0-10.5) x10^3/uL RBC (4.1-5.6) x10^6/uL Hgb (12.5-18.0) g/dL Hct (42-50) % MCV (78-100) fL MCH (26-32) pg MCHC (32-36) g/dL RDW (11.5-14.0) % Plt Count (150-450) x10^3/uL MPV (7.5-11.0) fL Gran % (36.0-66.0) % Immature Gran % (Auto) (0.00-0.4) % Nucleat RBC Rel Count (0.00-0.1) % Eos # (Auto) (0-0.5) x10^3/uL Immature Gran # (Auto) (0.00-0.03) x10^3u/L Absolute Lymphs (auto) (1.0-4.6) x10^3/uL Absolute Monos (auto) (0.0-1.3) x10^3/uL Absolute Nucleated RBC (0.00-0.01) x10^3u/L Lymphocytes % (24.0-44.0) % Monocytes % (0.0-12.0) % Eosinophils % (0.00-5.0) % Basophils % (0.0-0.4) % Absolute Granulocytes (1.4-6.9) x10^3/uL Basophils # (0-0.4) x10^3/uL Sodium (137-145) mmol/L Potassium (3.5-5.1) mmol/L Chloride (98-107) mmol/L Carbon Dioxide (22-30) mmol/L Anion Gap (5-15) MEQ/L BUN (9-20) mg/dL Creatinine (0.66-1.25) mg/dL Estimated GFR ML/MIN Glucose (74-106) mg/dL Lactic Acid (0.4-2.0) Calcium (8.4-10.2) mg/dL Total Bilirubin (0.2-1.3) mg/dL AST (17-59) U/L ALT (0-50) U/L Alkaline Phosphatase (38-126) U/L Serum Total Protein (6.3-8.2) g/dL Albumin (3.5-5.0) g/dL Procalcitonin 0.044 (0.030-0.080) ng/mL Influenza Type A Ag NEGATIVE (NEGATIVE) Influenza Type B Ag NEGATIVE (NEGATIVE) RSV (PCR) NEGATIVE (NEGATIVE) SARS-CoV-2 (PCR) NEGATIVE (NEGATIVE) - Radiology Impressions Radiology Exams & Impressions: Radiology Procedures Category Date Time Status CHEST 1 VIEW (PORTABLE) Stat Exams 06/18/22 14:58 Completed - Other Procedures and Tests Respiratory Therapy 06/18/22 16:17 Oxygen Nasal Cannula 3 lpm Respiratory Therapy Assessment DAILY Assessment/Plan (1) Pneumonia Current Visit: No Status: Acute Assessment & Plan: rocephin/zithromax, nebs Code(s): J18.9 - PNEUMONIA, UNSPECIFIED ORGANISM (2) COPD with acute exacerbation Current Visit: No Status: Acute Assessment & Plan: continue IV steroids, nebs and abx at this time Code(s): J44.1 - CHRONIC OBSTRUCTIVE PULMONARY DISEASE W (ACUTE) EXACERBATION (3) CHF (congestive heart failure) Current Visit: No Status: Acute Assessment & Plan: appears euvolemic at this time, will monitor volume status Code(s): I50.9 - HEART FAILURE, UNSPECIFIED
[2022-06-18] MEDS: Zithromax 500 MG/ 250 ML NaCl Premix 500 MG/250 ML IVPB IV SCH (17:00)
[2022-06-18] MEDS: solu-MEDROL 80 MG, Sterile H2O 10 ml 2 ML IV SCH ×4 (18:30→23:39)
[2022-06-18] MEDS: HYTRIN 1 MG PO SCH (21:39)
[2022-06-18] MEDS: ZOCOR 20MG PO SCH (21:40)
[2022-06-18] MEDS: Toprol Xl 50 MG PO SCH (21:40)
[2022-06-18] MEDS ORDERED: LIPITOR 40MG PO SCH (22:00)
[2022-06-18] MEDS ORDERED: TERAZOSIN HCL 2 MG PO SCH (22:00)
[2022-06-19] MEDS: DUONEB 0.5-3 MG/3 ml Neb IH SCH ×4 (03:24→18:55)
[2022-06-19] MEDS: solu-MEDROL 80 MG, Sterile H2O 10 ml 2 ML IV SCH ×6 (05:22→17:17)
[2022-06-19 05:33] LABS: BASOPHIL % 0.3 % (0.0-0.4); Basophil (Absolute #) 0.02 x10^3/uL (0-0.4); Eosinophil (Absolute #) 0 x10^3/uL (0-0.5); Hematocrit 41.4 % (42-50); Hemoglobin 12.7 g/dL (12.5-18.0); IMMATURE GRAN # 0.04 x10^3u/L (0.00-0.03); IMMATURE GRAN % 0.5 % (0.00-0.4); Lymphocyte (Absolute #) 0.29 x10^3/uL (1.0-4.6); Lymphocytes % 3.8 % (24.0-44.0); Mean Cell Volume 94.7 fL (78-100); Mean Corpuscular Hemoglobin 29.1 pg (26-32); Mean Corpuscular Hgb Concent. 30.7 g/dL (32-36); Mean Platelet Volume 9.6 fL (7.5-11.0); Monocyte (Absolute #) 0.02 x10^3/uL (0.0-1.3); Monocytes % 0.3 % (0.0-12.0); Neutrophil % 95.1 % (36.0-66.0); Platelet Count 361 x10^3/uL (150-450); Red Blood Count 4.37 x10^6/uL (4.1-5.6); Red Cell Distribution Width 13.5 % (11.5-14.0); White Blood Count 7.7 x10^3/uL (4.0-10.5)
[2022-06-19 05:50] LABS: ANION GAP 14.5 MEQ/L (5-15); BLOOD UREA NITROGEN 35 mg/dL (9-20); CHLORIDE 92 mmol/L (98-107); Calcium 9.9 mg/dL (8.4-10.2); Carbon Dioxide 35 mmol/L (22-30); Creatinine 1 0.97 mg/dL (0.66-1.25); EST GLOMERULAR FILTRATION RATE > 60.0 ML/MIN; Glucose 156 mg/dL (74-106); Potassium 4.5 mmol/L (3.5-5.1); SODIUM 137 mmol/L (137-145)
[2022-06-19 06:13] LABS: Slide Review 1 YES
[2022-06-19] MEDS: ROCEPHIN 1 Gm-D5w 50 ml Bag** 1 G/50 ML IVPB IV SCH (08:26)
[2022-06-19] MEDS: ECOTRIN 81 MG PO SCH (08:26)
[2022-06-19] MEDS: Cozaar 50 MG PO SCH (08:26)
[2022-06-19] MEDS: Zithromax 500 MG/ 250 ML NaCl Premix 500 MG/250 ML IVPB IV SCH (08:26)
[2022-06-19] MEDS: DEMADEX 20 MG PO SCH (08:26)
[2022-06-19] MEDS ORDERED: Lasix 20 MG/2 ML IV ONE (08:41)
--- NOTE | 2022-06-19 08:41 | PCM.NOTE ---
Date and Time: 06/19/22837 Subjective Assessment: patient states he believes he is feeling a little better today. Objective Exam General Appearance: no apparent distress Neurologic Exam: alert, oriented x 3 Respiratory Exam: prolonged expirations, rhonchi Cardiovascular Exam: regular rate/rhythm, normal heart sounds Gastrointestinal/Abdomen Exam: soft, No tenderness, No mass Extremity Exam: pedal edema, swelling OBJECTIVE DATA Vital Signs: Vital Signs - 24 hr Temp Pulse Resp BP BP Pulse Ox 06/19/22 07:41 96 H 24 94 L 06/19/22 07:26 97.3 F 88 18 140/65 91 L 06/19/22 03:52 98.0 F 80 26 H 155/79 94 L 06/19/22 03:24 90 24 92 L 06/18/22 23:35 97.1 F 95 H 30 H 125/60 92 L 06/18/22 22:00 96 H 24 92 L 06/18/22 20:00 97.5 F 91 H 26 H 138/70 91 L 06/18/22 19:21 90 L 06/18/22 16:18 75 18 95 06/18/22 15:01 97.9 F 78 18 142/76 91 L 06/18/22 14:54 97.9 F 78 20 142/76 91 L 06/18/22 14:36 97.9 F 78 20 142/76 91 L Pain Assessment - Last Documented Pain Intensity 0 Intake and Output: Intake & Output 06/16/22 06/17/22 06/18/22 06/19/22 11:59 11:59 11:59 11:59 Intake Total 1280 Output Total 650 Balance 630 Weight 81.3 kg Lab Results: Lab Results-Last 24 Hours 06/18/22 06/18/22 06/18/22 Range/Units 15:02 15:02 15:02 WBC 10.8 H (4.0-10.5) x10^3/uL RBC 3.97 L (4.1-5.6) x10^6/uL Hgb 11.9 L (12.5-18.0) g/dL Hct 37.3 L (42-50) % MCV 94.0 (78-100) fL MCH 30.0 (26-32) pg MCHC 31.9 L (32-36) g/dL RDW 13.7 (11.5-14.0) % Plt Count 315 (150-450) x10^3/uL MPV 9.2 (7.5-11.0) fL Gran % 83.2 H (36.0-66.0) % Immature Gran % (Auto) 0.5 H (0.00-0.4) % Nucleat RBC Rel Count 0.0 (0.00-0.1) % Eos # (Auto) 0.32 (0-0.5) x10^3/uL Immature Gran # (Auto) 0.05 H (0.00-0.03) x10^3u/L Absolute Lymphs (auto) 0.58 L (1.0-4.6) x10^3/uL Absolute Monos (auto) 0.79 (0.0-1.3) x10^3/uL Absolute Nucleated RBC 0.00 (0.00-0.01) x10^3u/L Lymphocytes % 5.4 L (24.0-44.0) % Monocytes % 7.3 (0.0-12.0) % Eosinophils % 3.0 (0.00-5.0) % Basophils % 0.6 (0.0-0.4) % Absolute Granulocytes 9.02 H (1.4-6.9) x10^3/uL Basophils # 0.07 (0-0.4) x10^3/uL Sodium 135 L (137-145) mmol/L Potassium 4.0 (3.5-5.1) mmol/L Chloride 89 L (98-107) mmol/L Carbon Dioxide 39 H (22-30) mmol/L Anion Gap 10.4 (5-15) MEQ/L BUN 37 H (9-20) mg/dL Creatinine 1.14 (0.66-1.25) mg/dL Estimated GFR > 60.0 ML/MIN Glucose 95 (74-106) mg/dL Lactic Acid 0.9 (0.4-2.0) Calcium 9.4 (8.4-10.2) mg/dL Total Bilirubin 0.70 (0.2-1.3) mg/dL AST 43 (17-59) U/L ALT 33 (0-50) U/L Alkaline Phosphatase 120 (38-126) U/L Serum Total Protein 8.1 (6.3-8.2) g/dL Albumin 4.6 (3.5-5.0) g/dL Procalcitonin (0.030-0.080) ng/mL Influenza Type A Ag (NEGATIVE) Influenza Type B Ag (NEGATIVE) RSV (PCR) (NEGATIVE) SARS-CoV-2 (PCR) (NEGATIVE) Slides for Path Review 06/18/22 06/18/22 06/19/22 Range/Units 15:02 15:02 04:48 WBC 7.7 (4.0-10.5) x10^3/uL RBC 4.37 (4.1-5.6) x10^6/uL Hgb 12.7 (12.5-18.0) g/dL Hct 41.4 L (42-50) % MCV 94.7 (78-100) fL MCH 29.1 (26-32) pg MCHC 30.7 L (32-36) g/dL RDW 13.5 (11.5-14.0) % Plt Count 361 (150-450) x10^3/uL MPV 9.6 (7.5-11.0) fL Gran % 95.1 H (36.0-66.0) % Immature Gran % (Auto) 0.5 H (0.00-0.4) % Nucleat RBC Rel Count 0.0 (0.00-0.1) % Eos # (Auto) 0 (0-0.5) x10^3/uL Immature Gran # (Auto) 0.04 H (0.00-0.03) x10^3u/L Absolute Lymphs (auto) 0.29 L (1.0-4.6) x10^3/uL Absolute Monos (auto) 0.02 (0.0-1.3) x10^3/uL Absolute Nucleated RBC 0.00 (0.00-0.01) x10^3u/L Lymphocytes % 3.8 L (24.0-44.0) % Monocytes % 0.3 (0.0-12.0) % Eosinophils % 0.0 (0.00-5.0) % Basophils % 0.3 (0.0-0.4) % Absolute Granulocytes 7.30 H (1.4-6.9) x10^3/uL Basophils # 0.02 (0-0.4) x10^3/uL Sodium (137-145) mmol/L Potassium (3.5-5.1) mmol/L Chloride (98-107) mmol/L Carbon Dioxide (22-30) mmol/L Anion Gap (5-15) MEQ/L BUN (9-20) mg/dL Creatinine (0.66-1.25) mg/dL Estimated GFR ML/MIN Glucose (74-106) mg/dL Lactic Acid (0.4-2.0) Calcium (8.4-10.2) mg/dL Total Bilirubin (0.2-1.3) mg/dL AST (17-59) U/L ALT (0-50) U/L Alkaline Phosphatase (38-126) U/L Serum Total Protein (6.3-8.2) g/dL Albumin (3.5-5.0) g/dL Procalcitonin 0.044 (0.030-0.080) ng/mL Influenza Type A Ag NEGATIVE (NEGATIVE) Influenza Type B Ag NEGATIVE (NEGATIVE) RSV (PCR) NEGATIVE (NEGATIVE) SARS-CoV-2 (PCR) NEGATIVE (NEGATIVE) Slides for Path Review YES 06/19/22 Range/Units 04:48 WBC (4.0-10.5) x10^3/uL RBC (4.1-5.6) x10^6/uL Hgb (12.5-18.0) g/dL Hct (42-50) % MCV (78-100) fL MCH (26-32) pg MCHC (32-36) g/dL RDW (11.5-14.0) % Plt Count (150-450) x10^3/uL MPV (7.5-11.0) fL Gran % (36.0-66.0) % Immature Gran % (Auto) (0.00-0.4) % Nucleat RBC Rel Count (0.00-0.1) % Eos # (Auto) (0-0.5) x10^3/uL Immature Gran # (Auto) (0.00-0.03) x10^3u/L Absolute Lymphs (auto) (1.0-4.6) x10^3/uL Absolute Monos (auto) (0.0-1.3) x10^3/uL Absolute Nucleated RBC (0.00-0.01) x10^3u/L Lymphocytes % (24.0-44.0) % Monocytes % (0.0-12.0) % Eosinophils % (0.00-5.0) % Basophils % (0.0-0.4) % Absolute Granulocytes (1.4-6.9) x10^3/uL Basophils # (0-0.4) x10^3/uL Sodium 137 (137-145) mmol/L Potassium 4.5 (3.5-5.1) mmol/L Chloride 92 L (98-107) mmol/L Carbon Dioxide 35 H (22-30) mmol/L Anion Gap 14.5 (5-15) MEQ/L BUN 35 H (9-20) mg/dL Creatinine 0.97 (0.66-1.25) mg/dL Estimated GFR > 60.0 ML/MIN Glucose 156 H (74-106) mg/dL Lactic Acid (0.4-2.0) Calcium 9.9 (8.4-10.2) mg/dL Total Bilirubin (0.2-1.3) mg/dL AST (17-59) U/L ALT (0-50) U/L Alkaline Phosphatase (38-126) U/L Serum Total Protein (6.3-8.2) g/dL Albumin (3.5-5.0) g/dL Procalcitonin (0.030-0.080) ng/mL Influenza Type A Ag (NEGATIVE) Influenza Type B Ag (NEGATIVE) RSV (PCR) (NEGATIVE) SARS-CoV-2 (PCR) (NEGATIVE) Slides for Path Review Radiology Exams: Radiology Procedures Category Date Time Status CHEST 1 VIEW (PORTABLE) Stat Exams 06/18/22 14:58 Completed Assessment/Plan (1) Pneumonia Current Visit: No Status: Acute Assessment & Plan: continue rocephin and zithromax Code(s): J18.9 - PNEUMONIA, UNSPECIFIED ORGANISM (2) COPD with acute exacerbation Current Visit: No Status: Acute Assessment & Plan: continue nebs, steroids and antibiotics. some improvement Code(s): J44.1 - CHRONIC OBSTRUCTIVE PULMONARY DISEASE W (ACUTE) EXACERBATION (3) CHF (congestive heart failure) Current Visit: No Status: Acute Assessment & Plan: will give a 1 time dose of IV lasix today Code(s): I50.9 - HEART FAILURE, UNSPECIFIED
[2022-06-19] MEDS ORDERED: PATIENT OWN MEDICATION IH PRN (14:04)
[2022-06-19] MEDS: PATIENT OWN MEDICATION IH SCH (19:37)
[2022-06-19] MEDS: Toprol Xl 50 MG PO SCH (21:36)
[2022-06-19] MEDS: ZOCOR 20MG PO SCH (21:36)
[2022-06-19] MEDS: HYTRIN 1 MG PO SCH (21:36)
[2022-06-20] MEDS: DUONEB 0.5-3 MG/3 ml Neb IH SCH ×4 (00:02→18:24)
[2022-06-20] MEDS: solu-MEDROL 80 MG, Sterile H2O 10 ml 2 ML IV SCH ×10 (00:20→23:19)
[2022-06-20] MEDS ORDERED: DUONEB 0.5-3 MG/3 ml Neb IH ONE (05:24)
[2022-06-20 05:35] LABS: Absolute Neutrophil Ct (ANC) 10.59 x10^3/uL (1.4-6.9); BASOPHIL % 0.5 % (0.0-0.4); Basophil (Absolute #) 0.06 x10^3/uL (0-0.4); Eosinophil % 0.2 % (0.00-5.0); Eosinophil (Absolute #) 0.02 x10^3/uL (0-0.5); Hematocrit 40.7 % (42-50); Hemoglobin 12.2 g/dL (12.5-18.0); IMMATURE GRAN # 0.05 x10^3u/L (0.00-0.03); IMMATURE GRAN % 0.4 % (0.00-0.4); Lymphocytes % 2.7 % (24.0-44.0); Mean Cell Volume 98.1 fL (78-100); Mean Corpuscular Hemoglobin 29.4 pg (26-32); Mean Platelet Volume 10.6 fL (7.5-11.0); Monocyte (Absolute #) 0.26 x10^3/uL (0.0-1.3); Monocytes % 2.3 % (0.0-12.0); Neutrophil % 93.9 % (36.0-66.0); Platelet Count 316 x10^3/uL (150-450); Red Blood Count 4.15 x10^6/uL (4.1-5.6); Red Cell Distribution Width 14.2 % (11.5-14.0); White Blood Count 11.3 x10^3/uL (4.0-10.5)
[2022-06-20 06:52] LABS: ANION GAP 11.3 MEQ/L (5-15); BLOOD UREA NITROGEN 55 mg/dL (9-20); CHLORIDE 95 mmol/L (98-107); Calcium 9.9 mg/dL (8.4-10.2); Carbon Dioxide 39 mmol/L (22-30); Creatinine 1 1.17 mg/dL (0.66-1.25); EST GLOMERULAR FILTRATION RATE > 60.0 ML/MIN; Glucose 162 mg/dL (74-106); Potassium 4.8 mmol/L (3.5-5.1); SODIUM 141 mmol/L (137-145)
[2022-06-20 07:48] LABS: Slide Review 1 YES
--- NOTE | 2022-06-20 09:34 | PCM.NOTE ---
Date and Time: 06/20/22931 Subjective Assessment: patient is feeling better, breathing improved and he is on 3L oxygen which is home flow. Objective Exam General Appearance: no apparent distress Respiratory Exam: diminished breath sounds, accessory muscle use, wheezing Cardiovascular Exam: regular rate/rhythm, normal heart sounds Gastrointestinal/Abdomen Exam: soft, No tenderness, No mass Extremity Exam: normal inspection, normal range of motion OBJECTIVE DATA Vital Signs: Vital Signs - 24 hr Temp Pulse Resp BP Pulse Ox 06/20/22 07:57 97.7 F 92 H 20 126/58 90 L 06/20/22 05:53 81 20 91 L 06/20/22 04:00 97.3 F 84 24 134/70 93 L 06/20/22 00:06 91 L 06/20/22 00:00 98.0 F 71 24 114/53 90 L 06/19/22 20:00 98.6 F 91 H 24 131/60 91 L 06/19/22 19:37 94 H 18 92 L 06/19/22 15:19 97.7 F 88 18 131/61 92 L 06/19/22 13:21 91 H 18 94 L 06/19/22 12:00 97.4 F 99 H 18 117/57 91 L Pain Assessment - Last Documented Pain Intensity 0 Intake and Output: Intake & Output 06/17/22 06/18/22 06/19/22 06/20/22 11:59 11:59 11:59 11:59 Intake Total 1520 1520 Output Total 1150 1200 Balance 370 320 Weight 81.3 kg Lab Results: Lab Results-Last 24 Hours 06/20/22 06/20/22 Range/Units 04:52 04:52 WBC 11.3 H (4.0-10.5) x10^3/uL RBC 4.15 (4.1-5.6) x10^6/uL Hgb 12.2 L (12.5-18.0) g/dL Hct 40.7 L (42-50) % MCV 98.1 (78-100) fL MCH 29.4 (26-32) pg MCHC 30.0 L (32-36) g/dL RDW 14.2 H (11.5-14.0) % Plt Count 316 (150-450) x10^3/uL MPV 10.6 (7.5-11.0) fL Gran % 93.9 H (36.0-66.0) % Immature Gran % (Auto) 0.4 (0.00-0.4) % Nucleat RBC Rel Count 0.0 (0.00-0.1) % Eos # (Auto) 0.02 (0-0.5) x10^3/uL Immature Gran # (Auto) 0.05 H (0.00-0.03) x10^3u/L Absolute Lymphs (auto) 0.30 L (1.0-4.6) x10^3/uL Absolute Monos (auto) 0.26 (0.0-1.3) x10^3/uL Absolute Nucleated RBC 0.00 (0.00-0.01) x10^3u/L Lymphocytes % 2.7 L (24.0-44.0) % Monocytes % 2.3 (0.0-12.0) % Eosinophils % 0.2 (0.00-5.0) % Basophils % 0.5 (0.0-0.4) % Absolute Granulocytes 10.59 H (1.4-6.9) x10^3/uL Basophils # 0.06 (0-0.4) x10^3/uL Sodium 141 (137-145) mmol/L Potassium 4.8 (3.5-5.1) mmol/L Chloride 95 L (98-107) mmol/L Carbon Dioxide 39 H (22-30) mmol/L Anion Gap 11.3 (5-15) MEQ/L BUN 55 H (9-20) mg/dL Creatinine 1.17 (0.66-1.25) mg/dL Estimated GFR > 60.0 ML/MIN Glucose 162 H (74-106) mg/dL Calcium 9.9 (8.4-10.2) mg/dL Slides for Path Review YES Radiology Exams: Radiology Procedures Category Date Time Status CHEST 1 VIEW (PORTABLE) Stat Exams 06/18/22 14:58 Completed Multi-Disciplinary Progress Notes: Multi-Disciplinary Progress Notes 06/19/22 11:25 Case Management Note by Mariel Win PATIENT HAS [facility]. THEY WERE NOTIFIED THAT PATIENT HERE IN OBS STATUS. THEY WILL NEED NOTIFIED AT TIME OF DC AT [phone]. THEY WILL NEED FAXED THE DC INSTRUCTION, DC MED LIST, AND DC SUMMARY (IF AVAILABLE) TO [phone]. Initialized on 06/19/22 11:25 - END OF NOTE Assessment/Plan (1) Pneumonia Current Visit: No Status: Acute Assessment & Plan: continue rocephin/zithromax, nebs and steroids. Code(s): J18.9 - PNEUMONIA, UNSPECIFIED ORGANISM (2) COPD with acute exacerbation Current Visit: No Status: Acute Assessment & Plan: continue rocephin/zithromax and steroids Code(s): J44.1 - CHRONIC OBSTRUCTIVE PULMONARY DISEASE W (ACUTE) EXACERBATION (3) CHF (congestive heart failure) Current Visit: No Status: Acute Code(s): I50.9 - HEART FAILURE, UNSPECIFIED
[2022-06-20] MEDS: DEMADEX 20 MG PO SCH (10:04)
[2022-06-20] MEDS: ECOTRIN 81 MG PO SCH (10:04)
[2022-06-20] MEDS: Cozaar 50 MG PO SCH (10:04)
[2022-06-20] MEDS: ROCEPHIN 1 Gm-D5w 50 ml Bag** 1 G/50 ML IVPB IV SCH (10:05)
[2022-06-20] MEDS: Zithromax 500 MG/ 250 ML NaCl Premix 500 MG/250 ML IVPB IV SCH (10:05)
[2022-06-20] MEDS: PATIENT OWN MEDICATION IH SCH (18:28)
[2022-06-20] MEDS: Toprol Xl 50 MG PO SCH (21:29)
[2022-06-20] MEDS: HYTRIN 1 MG PO SCH (21:29)
[2022-06-20] MEDS: ZOCOR 20MG PO SCH (21:29)
[2022-06-21] MEDS: DUONEB 0.5-3 MG/3 ml Neb IH SCH ×2 (03:00→07:04)
[2022-06-21 05:36] LABS: Absolute Neutrophil Ct (ANC) 15.11 x10^3/uL (1.4-6.9); BASOPHIL % 0.1 % (0.0-0.4); Basophil (Absolute #) 0.01 x10^3/uL (0-0.4); Eosinophil (Absolute #) 0 x10^3/uL (0-0.5); Hematocrit 37.2 % (42-50); Hemoglobin 11.8 g/dL (12.5-18.0); IMMATURE GRAN # 0.07 x10^3u/L (0.00-0.03); IMMATURE GRAN % 0.4 % (0.00-0.4); Lymphocyte (Absolute #) 0.29 x10^3/uL (1.0-4.6); Lymphocytes % 1.8 % (24.0-44.0); Mean Cell Volume 93.5 fL (78-100); Mean Corpuscular Hemoglobin 29.6 pg (26-32); Mean Corpuscular Hgb Concent. 31.7 g/dL (32-36); Mean Platelet Volume 9.7 fL (7.5-11.0); Monocyte (Absolute #) 0.23 x10^3/uL (0.0-1.3); Monocytes % 1.5 % (0.0-12.0); Neutrophil % 96.2 % (36.0-66.0); Platelet Count 341 x10^3/uL (150-450); Red Blood Count 3.98 x10^6/uL (4.1-5.6); Red Cell Distribution Width 14.2 % (11.5-14.0); White Blood Count 15.7 x10^3/uL (4.0-10.5)
[2022-06-21 05:59] LABS: ANION GAP 9.3 MEQ/L (5-15); BLOOD UREA NITROGEN 54 mg/dL (9-20); CHLORIDE 93 mmol/L (98-107); Calcium 9.7 mg/dL (8.4-10.2); Carbon Dioxide 39 mmol/L (22-30); Creatinine 1 1.07 mg/dL (0.66-1.25); EST GLOMERULAR FILTRATION RATE > 60.0 ML/MIN; Glucose 160 mg/dL (74-106); Potassium 4.5 mmol/L (3.5-5.1); SODIUM 137 mmol/L (137-145)
[2022-06-21] MEDS: solu-MEDROL 80 MG, Sterile H2O 10 ml 2 ML IV SCH ×2 (06:05)
[2022-06-21 06:25] LABS: Slide Review 1 YES
--- NOTE | 2022-06-21 07:42 | PCM.DS ---
Discharge Summary Date of Admission: 06/18/22 14:35 Admitting Physician: CAROLYNE CARCAMO Primary Care Provider: CAROLYNE CARCAMO Allergies Allergies No Known Drug Allergies Allergy (Verified 02/04/22 00:03) Hospital Summary - Hospital Course Hospital Course: patient admitted with productive cough and hypoxia, copd exacerbation with early pneumonia. he is doing much better after treatment with nebs, steroids and antibiotics. he is on his home flow rate of oxygen and clinically much improved. - Vitals & Intake/Output Vital Signs: Vital Signs Temperature 98.0 F 06/20/22 23:49 Pulse Rate 100 H 06/21/22 07:08 Respiratory Rate 06/21/22 07:08 Blood Pressure 160/72 06/21/22 03:34 O2 Sat by Pulse Oximetry 93 L 06/21/22 07:08 Intake & Output: Intake & Output 06/18/22 06/19/22 06/20/22 06/21/22 11:59 11:59 11:59 11:59 Intake Total 1520 1520 920 Output Total 1150 1200 2030 Balance 370 320 -1110 Weight 81.3 kg - Lab Result Diagrams: 06/21/22 04:56 06/21/22 04:56 Lab Results-Last 24 Hrs: Lab Results-Last 24 Hours 06/20/22 06/21/22 06/21/22 Range/Units 04:52 04:56 04:56 WBC 15.7 H (4.0-10.5) x10^3/uL RBC 3.98 L (4.1-5.6) x10^6/uL Hgb 11.8 L (12.5-18.0) g/dL Hct 37.2 L (42-50) % MCV 93.5 (78-100) fL MCH 29.6 (26-32) pg MCHC 31.7 L (32-36) g/dL RDW 14.2 H (11.5-14.0) % Plt Count 341 (150-450) x10^3/uL MPV 9.7 (7.5-11.0) fL Gran % 96.2 H (36.0-66.0) % Immature Gran % (Auto) 0.4 (0.00-0.4) % Nucleat RBC Rel Count 0.0 (0.00-0.1) % Eos # (Auto) 0 (0-0.5) x10^3/uL Immature Gran # (Auto) 0.07 H (0.00-0.03) x10^3u/L Absolute Lymphs (auto) 0.29 L (1.0-4.6) x10^3/uL Absolute Monos (auto) 0.23 (0.0-1.3) x10^3/uL Absolute Nucleated RBC 0.00 (0.00-0.01) x10^3u/L Lymphocytes % 1.8 L (24.0-44.0) % Monocytes % 1.5 (0.0-12.0) % Eosinophils % 0.0 (0.00-5.0) % Basophils % 0.1 (0.0-0.4) % Absolute Granulocytes 15.11 H (1.4-6.9) x10^3/uL Basophils # 0.01 (0-0.4) x10^3/uL Sodium 137 (137-145) mmol/L Potassium 4.5 (3.5-5.1) mmol/L Chloride 93 L (98-107) mmol/L Carbon Dioxide 39 H (22-30) mmol/L Anion Gap 9.3 (5-15) MEQ/L BUN 54 H (9-20) mg/dL Creatinine 1.07 (0.66-1.25) mg/dL Estimated GFR > 60.0 ML/MIN Glucose 160 H (74-106) mg/dL Calcium 9.7 (8.4-10.2) mg/dL Slides for Path Review YES YES Micro Results-Entire Visit: Microbiology 06/18/22 15:02 Blood Culture - Preliminary Blood - Procedures and Test Procedures and Tests throughout Hospitalization: Therapy Orders & Screens 06/18/22 16:17 Oxygen Nasal Cannula 3 lpm Comment: Diagnosis: hypoxia Respiratory Therapy Assessment DAILY Comment: Diagnosis: hypoxia Discharge Exam General Appearance: no apparent distress Respiratory Exam: prolonged expirations, No respiratory distress, No accessory muscle use, No wheezing Cardiovascular Exam: regular rate/rhythm, normal heart sounds Gastrointestinal/Abdomen Exam: soft, No tenderness, No mass Extremity Exam: normal inspection, normal range of motion Skin Exam: normal color, warm, dry Final Diagnosis/Problem List - Final Discharge Diagnosis/Problem (1) Pneumonia Current Visit: No Status: Acute Code(s): J18.9 - PNEUMONIA, UNSPECIFIED ORGANISM (2) COPD with acute exacerbation Current Visit: No Status: Acute Code(s): J44.1 - CHRONIC OBSTRUCTIVE PULMONARY DISEASE W (ACUTE) EXACERBATION (3) CHF (congestive heart failure) Current Visit: No Status: Acute Code(s): I50.9 - HEART FAILURE, UNSPECIFIED - Discharge Disposition: Home, Self-Care Condition: Stable Prescriptions: New Prednisone 20 mg [Deltasone 20 mg] 20 mg PO UD #18 tablet Levofloxacin [Levofloxacin 500 MG Tablet] 500 mg PO QAM #7 tablet Continue Aspirin EC 81 mg [Ecotrin 81 mg] 81 mg PO DAILY Losartan Potassium 50 mg [Cozaar 50 MG] 100 mg PO DAILY Atorvastatin Calcium [Lipitor] 40 mg PO QHS B Complex with Vitamin C [Super B Complex with C] 1 each PO QHS Metoprolol Succinate 50 mg [Toprol Xl 50 MG] 50 mg PO QHS Nitroglycerin 0.4 mg Tablet [Nitrostat 0.4 MG Tablet] 0.4 mg SL UD PRN PRN Reason: Chest Pain Albuterol Sulfate [Ventolin Hfa] 1 gm IH UD PRN PRN Reason: Shortness Of Breath Terazosin HCl [Hytrin] 2 mg PO QHS Torsemide 20 mg [Demadex 20 mg] 40 mg PO DAILY Albuterol/Ipratropium 3ml Neb* [DUONEB 0.5-3 MG/3 ml Neb] 3 ml IH Q4H PRN PRN PRN Reason: Shortness Of Breath Ammonium Lactate [Ammonium Lactate 12%] 225 gm TP UD #1 unit Follow up with: CAROLYNE CARCAMO MD [Primary Care Provider] -
[2022-06-21 07:52] VITALS: BP 135/61; PULSE 88; O2SAT 90
[2022-06-21] MEDS: ROCEPHIN 1 Gm-D5w 50 ml Bag** 1 G/50 ML IVPB IV SCH (07:52)
[2022-06-21] MEDS: DEMADEX 20 MG PO SCH (07:52)
[2022-06-21] MEDS: Cozaar 50 MG PO SCH (07:52)
[2022-06-21] MEDS: Zithromax 500 MG/ 250 ML NaCl Premix 500 MG/250 ML IVPB IV SCH (07:52)
[2022-06-21] MEDS: ECOTRIN 81 MG PO SCH (07:52)
[2022-06-22] MEDS ORDERED: AMMONIUM LACTATE 12% TP SCH (10:00)
== END 2022-06-21 10:10 | disposition home or self-care (01) ==
LOC: MED SURG 14:35
PROVIDERS: ADMIT Family Medicine; ATTEND Family Medicine
DX: J18.9 Pneumonia, unspecified organism (principal); J44.1 Chronic obstructive pulmonary disease with (acute) exacerbation; I11.0 Hypertensive heart disease with heart failure; I50.9 Heart failure, unspecified; Z99.81 Dependence on supplemental oxygen; Z72.0 Tobacco use; Z79.899 Other long term (current) drug therapy; Z20.828 Contact with and (suspected) exposure to other viral communicable diseases
CPT/HCPCS: 0241U; 36415; 71045; 80048; 80053; 83605; 84145; 85025; 87040; 94640; 94760; 94762; G0378; G0379; J0456; J0696; J1940; J2930; A9270-GY

== ENCOUNTER 2022-08-05 18:19 | Inpatient (IN) | payer MEDICARE, BC ==
[2022-08-05] MEDS ORDERED: DUONEB 0.5-3 MG/3 ml Neb IH ONE ×3 (18:25→23:03)
--- NOTE | 2022-08-05 18:26 | ERPHSYRPT ---
- History of Present Illness Time Seen by Provider: 08/05/22 18:25 Source: patient, EMS, old records Exam Limitations: clinical condition Physician History: This a 67-year-old white male patient of Dr. Campos who was brought into the emergency department by the ambulance service. Independent history was obtained both the old admission records in May 2022 here at the hospital as well as the paramedics who brought the patient into the emergency department. Patient s tates that he had sudden onset of shortness of breath after his nap today. He is a daily smoker of cigarettes and a daily consumer of alcohol. He has no known drug allergies. Patient does see a legal consultant, Dr. De Leon and a back maker Dr. Reyes. Patient presents to the emergency department with a fever of 103 F. Patient states that he does not have CHF although the patient's old charts state that he does. Patient has oxygen dependent COPD with 4 L of oxygen by nasal cannula, hypertension, hyperlipidemia. Patient is on torsemide diuretic. He has coronary artery disease as well. He denies chest pain at this time. He has no abdominal pain. He denies nausea and vomiting. He denies diarrhea Timing/Duration: today Severity of Dyspnea-Max: moderate Severity of Dyspnea-Current: moderate Possible Cause: frequent episodes Modifying Factors: Improves With: activity Associated Symptoms: fever, leg swelling Allergies/Adverse Reactions: No Known Drug Allergies Allergy (Verified 08/05/22 18:22) Home Medications: Aspirin EC 81 mg [Ecotrin 81 mg] 81 mg PO DAILY 03/01/13 [History] Atorvastatin Calcium [Lipitor] 40 mg PO QHS 03/01/13 [History] B Complex with Vitamin C [Super B Complex with C] 1 each PO QHS 03/01/13 [History] Losartan Potassium 50 mg [Cozaar 50 MG] 100 mg PO DAILY 03/01/13 [History] Metoprolol Succinate 50 mg [Toprol Xl 50 MG] 50 mg PO QHS 03/01/13 [History] Nitroglycerin 0.4 mg Tablet [Nitrostat 0.4 MG Tablet] 0.4 mg UD PRN 07/08 [History] Albuterol Sulfate [Ventolin Hfa] 1 gm UD PRN 12/03/18 [History] Terazosin HCl [Hytrin] 2 mg PO QHS 12/03/18 [History] Torsemide 20 mg [Demadex 20 mg] 40 mg PO DAILY 03/14/21 [History] Albuterol/Ipratropium 3ml Neb* [DUONEB 0.5-3 MG/3 ml Neb] 3 ml IH Q4H PRN PRN 02/04/22 [History] Hx Tetanus, Diphtheria Vaccination/Date Given: Yes Hx Influenza Vaccination/Date Given: No Hx Pneumococcal Vaccination/Date Given: Yes Travel Risk - International Travel Have you traveled outside of the country in past 3 weeks: No - Coronavirus Screening Are you exhibiting any of the following symptoms?: Yes Symptoms: Fever, Shortness of Breath Close contact with a COVID-19 positive Pt in past 14-21 Days: No - Vaccine Status Have you recieved a Covid-19 vaccination: Yes Ginning Operator: Moderna - Vaccination Dates Date of 2cond Vaccination (if applicable): 05/05/2020 Comment: Also 10/03/2021 - Review of Systems Constitutional: Fever, Weakness Eyes: No Symptoms Ears, Nose, & Throat: No Symptoms Respiratory: Dyspnea Cardiac: No Symptoms Abdominal/Gastrointestinal: No Symptoms Genitourinary Symptoms: No Symptoms Musculoskeletal: No Symptoms Skin: No Symptoms Neurological: No Symptoms Psychological: No Symptoms Endocrine: No Symptoms Hematologic/Lymphatic: No Symptoms Immunological/Allergic: No Symptoms All Other Systems: Reviewed and Negative - Past Medical History Pertinent Past Medical History: Yes Neurological History: No Pertinent History ENT History: No Pertinent History Cardiac History: Coronary Artery Disease, High Cholesterol, Hypertension, Other Respiratory History: CHF, COPD, Emphysema, Pneumonia, Other Endocrine Medical History: No Pertinent History Musculoskeletal History: No Pertinent History GI Medical History: No Pertinent History History: No Pertinent History Psycho-Social History: No Pertinent History Male Reproductive Disorders: No Pertinent History Other Medical History: Rupture disc-surgery to repair - Past Surgical History Past Surgical History: Yes Neuro Surgical History: No Pertinent History Cardiac: Other Respiratory: No Pertinent History Gastrointestinal: No Pertinent History Genitourinary: No Pertinent History Musculoskeletal: Other Male Surgical History: No Pertinent History Other Surgical History: T&A at 8-10 yrs old. Ruptured disc repair. Stent x 1more than 15 yrs ago. cataract surgery - Social History Smoking Status: Current every day smoker How long have you smoked: 50 years Exposure to second hand smoke: Yes Drug Use: none Patient Lives Alone: No Significant Family History: no pertinent family hx - Nursing Vital Signs Nursing Vital Signs: Initial Vital Signs Temperature 102.7 F 08/05/22 18:20 Pulse Rate 130 H 08/05/22 18:20 Respiratory Rate 31 H 08/05/22 18:20 Blood Pressure 154/92 08/05/22 18:20 O2 Sat by Pulse Oximetry 71 L 08/05/22 18:20 Pain Scale Pain Intensity 0 - Physical Exam General Appearance: mild distress (To moderate) Eye Exam: PERRL/EOMI, eyes nml inspection Ears, Nose, Throat Exam: hearing grossly normal, normal ENT inspection, normal pharynx Neck Exam: normal inspection, non-tender, supple, full range of motion Respiratory Exam: respiratory distress (Mild), diminished breath sounds (Bilaterally), rhonchi (Bilateral diffuse), No chest tenderness Cardiovascular/Chest Exam: edema Abdominal/Gastrointestinal Exam: soft, normal bowel sounds, No tenderness Rectal Exam: not done Extremity Exam: non-tender, normal range of motion, pedal edema (Bilateral 2-3+ feet ankles and lower legs below the knees) Neurologic Exam: alert, oriented x 3, cooperative, winderman II-XII nml as tested Skin Exam: other (Chronic venous stasis disease bilateral lower extremities with lymphedema bilaterally lower extremities) Lymphatic Exam: No adenopathy SpO2 Interpretation: normal SpO2: 99 O2 Delivery: Nasal Cannula (5 liters oxygen nasal cannula) - Course Nursing assessment & vital signs reviewed: Yes EKG Interpreted by Me: RATE (131), Sinus Tach, NORMAL AXIS, NORMAL INTERVALS, NORMAL QRS, Other (No acute ischemic changes on today's twelve-lead EKG.) Ordered Tests: Active Orders 24 hr Category Date Time Status Clear Liquid Diet 08/06/22 Breakfast Completed Medication Summary Generic Name Dose Route Start Last Admin Trade Name Freq PRN Reason Stop Dose Admin Acetaminophen 650 mg 08/05/22 22:49 08/06/22 10:27 Acetaminophen 325 Mg Tablet PO 09/04/22 22:48 650 mg Q4H PRN PRN Administration PAIN, FEVER, HEADACHE Albuterol Sulfate 2 puff 08/06/22 07:46 Albuterol Common Canister Inhaler IH 09/05/22 07:45 UD PRN SHORTNESS OF BREATH Albuterol/Ipratropium 3 ml 08/05/22 23:00 08/07/22 06:42 Ipratropium/Albuterol Sulfate 3 Ml Ampul.Neb IH 09/04/22 22:59 3 ml Q4HRT SAL Administration Ammonium Lactate 0 gm 08/06/22 10:00 08/06/22 10:16 Ammonium Lactate 12% 226 Gm Lotion TP 09/05/22 09:59 226 gm Q3D SAL Administration Aspirin 81 mg 08/06/22 10:00 08/06/22 10:14 Aspirin 81 Mg Tablet.Ec PO 09/05/22 09:59 81 mg DAILY SAL Administration Methylprednisolone Sodium 0 mg 08/06/22 00:16 08/07/22 05:50 Succinate 60 mg/ Sterile Water IV 09/05/22 00:15 60 mg 2 ml Q8HT SAL Administration Device 1 08/07/22 21:30 Therapuetic Drug Level Monitor Each IJ 08/07/22 21:31 1XONLY ONE Enoxaparin Sodium 40 mg 08/06/22 10:00 08/06/22 10:14 Enoxaparin Sodium 40 Mg/0.4 Ml Syringe SQ 09/05/22 09:59 40 mg DAILY ASL Administration Cefepime HCl 1 g/ Sodium 100 mls @ 200 mls/hr 08/06/22 09:00 08/07/22 02:31 Chloride IV 09/05/22 08:59 200 mls/hr Q8H SAL Administration Vancomycin HCl 1 gm in 200 mls @ 133.333 mls/hr 08/06/22 10:00 08/06/22 21:08 Vancomycin 1 Gram/200 Ml Bag IV 09/05/22 09:59 133.333 mls/hr Q12HT SAL Administration Lorazepam 1 mg 08/06/22 08:34 Lorazepam 2 Mg/1 Ml 2 Mg Vial IV 09/05/22 08:33 PRN PRN CIWA SCORE Lorazepam 0 mg 08/06/22 08:34 Lorazepam 2 Mg/1 Ml 2 Mg Vial IV 09/05/22 08:33 Q2H PRN PRN CIWA SCORE Protocol Losartan Potassium 100 mg 08/06/22 10:00 08/06/22 10:27 Losartan Potassium 50 Mg Tablet PO 09/05/22 09:59 Not Given DAILY SAL Metoprolol Succinate 50 mg 08/06/22 22:00 08/06/22 21:19 Metoprolol Succinate 50 Mg Tablet.Sa PO 09/05/22 21:59 Not Given HS SAL Midodrine 10 mg 08/06/22 08:00 08/06/22 17:08 Midodrine Hcl 5 Mg Tablet PO 09/05/22 00:20 Not Given 0800,1300,1700 SAL Multivitamins 1 tab 08/06/22 22:00 08/06/22 21:08 Vitamin B Complex With Vit. C Tablet PO 09/05/22 21:59 1 tab HS SAL Administration Multivitamins Therapeutic 1 tab 08/06/22 10:00 08/06/22 10:15 Multivitamins,Therapeutic 1 Tab Tab PO 09/05/22 09:59 1 tab QAM SAL Administration Nitroglycerin 0.4 mg 08/06/22 03:26 Nitroglycerin 0.4 Mg Tablet Bottle SL 09/05/22 03:25 Q5MIN PRN MR X 3 PRN CHEST PAIN Ondansetron HCl 4 mg 08/05/22 22:49 Ondansetron Hcl 4 Mg/2 Ml Vial IV 09/04/22 22:48 Q6H PRN PRN NAUSEA/VOMITING Simvastatin 40 mg 08/06/22 00:40 08/06/22 00:46 Simvastatin 20 Mg Tablet PO 09/05/22 00:39 40 mg HS SAL Administration Terazosin HCl 2 mg 08/06/22 22:00 08/06/22 21:19 Terazosin Hcl 1 Mg Cap PO 09/05/22 21:59 Not Given HS SAL Thiamine HCl 100 mg 08/06/22 10:00 08/06/22 10:14 Thiamine Hcl 100 Mg Tablet PO 09/05/22 09:59 100 mg DAILY SAL Administration Torsemide 40 mg 08/06/22 10:00 08/06/22 10:14 Torsemide 20 Mg Tablet PO 09/05/22 09:59 40 mg DAILY SAL Administration Discontinued Medications Generic Name Dose Route Start Last Admin Trade Name Freq PRN Reason Stop Dose Admin Acetaminophen 650 mg 08/05/22 18:34 08/05/22 18:39 Acetaminophen 325 Mg Tablet PO 08/05/22 18:35 650 mg STAT STA Administration Acetaminophen Confirm 08/05/22 18:39 Acetaminophen 325 Mg Tablet Administered 08/05/22 18:40 Dose 650 mg .ROUTE .STK-MED ONE Albuterol/Ipratropium Confirm 08/05/22 18:30 Ipratropium/Albuterol Sulfate 3 Ml Ampul.Neb Administered 08/05/22 18:31 Dose 3 ml IH .STK-MED ONE Albuterol/Ipratropium 3 ml 08/05/22 18:25 08/05/22 18:32 Ipratropium/Albuterol Sulfate 3 Ml Ampul.Neb IH 08/05/22 18:26 3 ml STAT ONE Administration Albuterol/Ipratropium Confirm 08/05/22 23:03 Ipratropium/Albuterol Sulfate 3 Ml Ampul.Neb Administered 08/05/22 23:04 Dose 3 ml IH .STK-MED ONE Cefepime HCl Confirm 08/06/22 01:24 Cefepime Hcl 1 Gm Vial Administered 08/06/22 01:25 Dose 1 g .ROUTE .STK-MED ONE Doxycycline Hyclate Confirm 08/06/22 01:24 Doxycycline Hyclate 100 Mg/Vial Injection Administered 08/06/22 01:25 Dose 100 mg IV .STK-MED ONE Meropenem 1 gm/ Sodium 100 mls @ 200 mls/hr 08/05/22 19:22 08/05/22 19:29 Chloride IV 08/05/22 19:51 200 mls/hr STAT ONE Administration Sodium Chloride 1,000 mls @ 999 mls/hr 08/05/22 19:22 08/05/22 20:30 Sodium Chloride 0.9% 1000 Ml IV 08/05/22 20:22 Infused .Q1H1M STA Infusion Sodium Chloride Confirm 08/05/22 19:27 Sodium Chloride 100ml Mini-Bag Plus Administered 08/05/22 19:28 Dose 100 mls @ ud IV .STK-MED ONE Sodium Chloride Confirm 08/05/22 19:27 Sodium Chloride 0.9% 1000 Ml Administered 08/05/22 19:28 Dose 1,000 mls @ ud .ROUTE .STK-MED ONE Sodium Chloride 1,000 mls @ 999 mls/hr 08/05/22 20:53 08/05/22 21:58 Sodium Chloride 0.9% 1000 Ml IV 08/05/22 21:53 Infused .Q1H1M STA Infusion Sodium Chloride Confirm 08/05/22 20:56 Sodium Chloride 0.9% 1000 Ml Administered 08/05/22 20:57 Dose 1,000 mls @ ud .ROUTE .STK-MED ONE Sodium Chloride 1,000 mls @ 150 mls/hr 08/05/22 22:49 Sodium Chloride 0.9% 1000 Ml IV 09/04/22 22:48 .Q6H40M SAL Meropenem 1 gm/ Sodium 100 mls @ 200 mls/hr 08/06/22 06:00 Chloride IV 08/09/22 05:59 Q8HT SAL Cefepime HCl 1 g/ Dextrose 100 mls @ 200 mls/hr 08/06/22 00:30 08/06/22 01:47 IV 08/11/22 00:29 200 mls/hr Q8H SAL Administration Doxycycline Hyclate 100 mg/ 100 mls @ 100 mls/hr 08/06/22 00:25 08/06/22 01:43 Dextrose IV 08/11/22 00:24 100 mls/hr Q12HT SAL Administration Sodium Chloride Confirm 08/06/22 01:25 Sodium Chloride 0.9% Administered 08/06/22 01:26 Dose 100 mls @ ud .ROUTE .STK-MED ONE Dextrose Confirm 08/06/22 01:25 D5w 100ml Mini Bag 100 Ml Administered 08/06/22 01:26 Dose 100 mls @ ud IV .STK-MED ONE Dextrose Confirm 08/06/22 01:29 D5w 100ml Mini Bag 100 Ml Administered 08/06/22 01:30 Dose 100 mls @ ud IV .STK-MED ONE Sodium Chloride Confirm 08/06/22 01:36 Sodium Chloride 0.9% 1000 Ml Administered 08/06/22 01:37 Dose 1,000 mls @ ud .ROUTE .STK-MED ONE Cefepime HCl 1 g/ Dextrose 100 mls @ 200 mls/hr 08/06/22 09:00 IV 09/05/22 08:59 Q8H SAL Labetalol HCl 10 mg 08/05/22 19:09 08/05/22 19:17 Labetalol Hcl 20 Mg/4 Ml Disp.Syringe IV 08/05/22 19:10 Not Given STAT ONE Labetalol HCl Confirm 08/05/22 19:12 Labetalol Hcl 20 Mg/4 Ml Disp.Syringe Administered 08/05/22 19:13 Dose 20 mg IV .STK-MED ONE Meropenem Confirm 08/05/22 19:26 Meropenem 1 Gm Vial Administered 08/05/22 19:27 Dose 1 gm IV .STK-MED ONE Methylprednisolone Sodium Succinate Confirm 08/06/22 00:43 Methylprednis Sod Succ 125 Mg/2 Ml Vial Administered 08/06/22 00:44 Dose 125 mg .ROUTE .STK-MED ONE Methylprednisolone Sodium Succinate Confirm 08/06/22 06:02 Methylprednis Sod Succ 125 Mg/2 Ml Vial Administered 08/06/22 06:03 Dose 125 mg .ROUTE .STK-MED ONE Midodrine 10 mg 08/06/22 00:21 08/06/22 00:46 Midodrine Hcl 5 Mg Tablet PO 09/05/22 00:20 10 mg TID SAL Administration Simvastatin 40 mg 08/06/22 22:00 Simvastatin 20 Mg Tablet PO 09/05/22 21:59 HS SAL Sterile Water Confirm 08/06/22 00:43 Water For Injection,Sterile 10 Ml Vial Administered 08/06/22 00:44 Dose 10 ml IJ .STK-MED ONE Sterile Water Confirm 08/06/22 06:02 Water For Injection,Sterile 10 Ml Vial Administered 08/06/22 06:03 Dose 10 ml IJ .STK-MED ONE Lab/Rad Data: Laboratory Result Diagrams 08/05/22 18:41 08/05/22 18:41 Laboratory Results 08/05/22 08/05/22 08/05/22 Range/Units 22:36 18:54 18:41 WBC (4.0-10.5) x10^3/uL RBC (4.1-5.6) x10^6/uL Hgb (12.5-18.0) g/dL Hct (42-50) % MCV (78-100) fL MCH (26-32) pg MCHC (32-36) g/dL RDW (11.5-14.0) % Plt Count (150-450) x10^3/uL MPV (7.5-11.0) fL Gran % (36.0-66.0) % Immature Gran % (Auto) (0.00-0.4) % Nucleat RBC Rel Count (0.00-0.1) % Eos # (Auto) (0-0.5) x10^3/uL Immature Gran # (Auto) (0.00-0.03) x10^3u/L Absolute Lymphs (auto) (1.0-4.6) x10^3/uL Absolute Monos (auto) (0.0-1.3) x10^3/uL Absolute Nucleated RBC (0.00-0.01) x10^3u/L Lymphocytes % (24.0-44.0) % Monocytes % (0.0-12.0) % Eosinophils % (0.00-5.0) % Basophils % (0.0-0.4) % Absolute Granulocytes (1.4-6.9) x10^3/uL Basophils # (0-0.4) x10^3/uL D-Dimer (0.0-0.50) mg/L Puncture Site pCO2 (35-45) mmHg pO2 (75-100) mmHg Base Excess (-2.0-2.0) O2 Saturation (94-100) g/dF ABG pH (7.35-7.45) ABG HCO3 (22-28) ABG O2 Sat (Measured) (95-100) % Win Test A-a Gradient a/A Ratio Hemoglobin Carboxyhemoglobin (0.0-6.9) % THgb Methemoglobin (1.4-1.5) % Potassium (3.5-5.1) Temperature C POC O2 Flow Rate % Sodium (137-145) mmol/L Chloride (98-107) mmol/L Carbon Dioxide (22-30) mmol/L Anion Gap (5-15) MEQ/L BUN (9-20) mg/dL Creatinine (0.66-1.25) mg/dL Estimated GFR ML/MIN Glucose (74-106) mg/dL Lactic Acid (0.4-2.0) Calcium (8.4-10.2) mg/dL Total Bilirubin (0.2-1.3) mg/dL AST (17-59) U/L ALT (0-50) U/L Alkaline Phosphatase (38-126) U/L Troponin I 0.041 H* (0.000-0.034) ng/mL NT-Pro-B Natriuret Pep 72.1 (<300) pg/mL Serum Total Protein (6.3-8.2) g/dL Albumin (3.5-5.0) g/dL Urine Color (Yellow) Urine Appearance (Clear) Urine pH (4.6-8.0) Ur Specific [place] (1.005-1.030) Urine Protein (Negative) Urine Glucose (UA) (Negative) mg/dL Urine Ketones (Negative) Urine Blood (Negative) Urine Nitrite (Negative) Urine Bilirubin (Negative) Urine Urobilinogen (0.2) mg/dL Ur Leukocyte Esterase (Negative) U Hyaline Cast (Auto) (0-2) /LPF Urine Microscopic RBC (0-5) /HPF Urine Microscopic WBC (0-5) /HPF Ur Epithelial Cells (None Seen) /HPF Urine Bacteria (None Seen) /HPF Urine Culture Reflexed (NO) Influenza Type A Ag NEGATIVE (NEGATIVE) Influenza Type B Ag NEGATIVE (NEGATIVE) RSV (PCR) NEGATIVE (NEGATIVE) SARS-CoV-2 (PCR) NEGATIVE (NEGATIVE) 08/05/22 08/05/22 08/05/22 Range/Units 18:41 18:41 18:41 WBC (4.0-10.5) x10^3/uL RBC (4.1-5.6) x10^6/uL Hgb (12.5-18.0) g/dL Hct (42-50) % MCV (78-100) fL MCH (26-32) pg MCHC (32-36) g/dL RDW (11.5-14.0) % Plt Count (150-450) x10^3/uL MPV (7.5-11.0) fL Gran % (36.0-66.0) % Immature Gran % (Auto) (0.00-0.4) % Nucleat RBC Rel Count (0.00-0.1) % Eos # (Auto) (0-0.5) x10^3/uL Immature Gran # (Auto) (0.00-0.03) x10^3u/L Absolute Lymphs (auto) (1.0-4.6) x10^3/uL Absolute Monos (auto) (0.0-1.3) x10^3/uL Absolute Nucleated RBC (0.00-0.01) x10^3u/L Lymphocytes % (24.0-44.0) % Monocytes % (0.0-12.0) % Eosinophils % (0.00-5.0) % Basophils % (0.0-0.4) % Absolute Granulocytes (1.4-6.9) x10^3/uL Basophils # (0-0.4) x10^3/uL D-Dimer 1.54 H* (0.0-0.50) mg/L Puncture Site pCO2 (35-45) mmHg pO2 (75-100) mmHg Base Excess (-2.0-2.0) O2 Saturation (94-100) g/dF ABG pH (7.35-7.45) ABG HCO3 (22-28) ABG O2 Sat (Measured) (95-100) % Win Test A-a Gradient a/A Ratio Hemoglobin Carboxyhemoglobin (0.0-6.9) % THgb Methemoglobin (1.4-1.5) % Potassium 4.4 (3.5-5.1) Temperature C POC O2 Flow Rate % Sodium 131 L (137-145) mmol/L Chloride 92 L (98-107) mmol/L Carbon Dioxide 29 (22-30) mmol/L Anion Gap 14.5 (5-15) MEQ/L BUN 26 H (9-20) mg/dL Creatinine 1.02 (0.66-1.25) mg/dL Estimated GFR > 60.0 ML/MIN Glucose 109 H (74-106) mg/dL Lactic Acid (0.4-2.0) Calcium 9.2 (8.4-10.2) mg/dL Total Bilirubin 0.90 (0.2-1.3) mg/dL AST 37 (17-59) U/L ALT 26 (0-50) U/L Alkaline Phosphatase 115 (38-126) U/L Troponin I 0.017 (0.000-0.034) ng/mL NT-Pro-B Natriuret Pep (<300) pg/mL Serum Total Protein 7.2 (6.3-8.2) g/dL Albumin 4.3 (3.5-5.0) g/dL Urine Color (Yellow) Urine Appearance (Clear) Urine pH (4.6-8.0) Ur Specific [place] (1.005-1.030) Urine Protein (Negative) Urine Glucose (UA) (Negative) mg/dL Urine Ketones (Negative) Urine Blood (Negative) Urine Nitrite (Negative) Urine Bilirubin (Negative) Urine Urobilinogen (0.2) mg/dL Ur Leukocyte Esterase (Negative) U Hyaline Cast (Auto) (0-2) /LPF Urine Microscopic RBC (0-5) /HPF Urine Microscopic WBC (0-5) /HPF Ur Epithelial Cells (None Seen) /HPF Urine Bacteria (None Seen) /HPF Urine Culture Reflexed (NO) Influenza Type A Ag (NEGATIVE) Influenza Type B Ag (NEGATIVE) RSV (PCR) (NEGATIVE) SARS-CoV-2 (PCR) (NEGATIVE) 08/05/22 08/05/22 08/05/22 Range/Units 18:41 18:32 18:27 WBC 24.5 H (4.0-10.5) x10^3/uL RBC 3.91 L (4.1-5.6) x10^6/uL Hgb 11.7 L (12.5-18.0) g/dL Hct 35.4 L (42-50) % MCV 90.5 (78-100) fL MCH 29.9 (26-32) pg MCHC 33.1 (32-36) g/dL RDW 15.1 H (11.5-14.0) % Plt Count 222 (150-450) x10^3/uL MPV 9.9 (7.5-11.0) fL Gran % 94.3 H (36.0-66.0) % Immature Gran % (Auto) 0.8 H (0.00-0.4) % Nucleat RBC Rel Count 0.0 (0.00-0.1) % Eos # (Auto) 0.02 (0-0.5) x10^3/uL Immature Gran # (Auto) 0.19 H (0.00-0.03) x10^3u/L Absolute Lymphs (auto) 0.32 L (1.0-4.6) x10^3/uL Absolute Monos (auto) 0.79 (0.0-1.3) x10^3/uL Absolute Nucleated RBC 0.00 (0.00-0.01) x10^3u/L Lymphocytes % 1.3 L (24.0-44.0) % Monocytes % 3.2 (0.0-12.0) % Eosinophils % 0.1 (0.00-5.0) % Basophils % 0.3 (0.0-0.4) % Absolute Granulocytes 23.12 H (1.4-6.9) x10^3/uL Basophils # 0.07 (0-0.4) x10^3/uL D-Dimer (0.0-0.50) mg/L Puncture Site RIGHT BRACHIAL pCO2 46 H (35-45) mmHg pO2 63 L (75-100) mmHg Base Excess 7.8 H (-2.0-2.0) O2 Saturation 89.8 L (94-100) g/dF ABG pH 7.46 H (7.35-7.45) ABG HCO3 32.7 H* (22-28) ABG O2 Sat (Measured) 93.8 L (95-100) % Win Test NOT APPLICABLE A-a Gradient 165 a/A Ratio 0.28 Hemoglobin 12.5 Carboxyhemoglobin 3.3 (0.0-6.9) % THgb Methemoglobin 1.0 L (1.4-1.5) % Potassium 4.5 (3.5-5.1) Temperature 37.0 C POC O2 Flow Rate 40 % Sodium (137-145) mmol/L Chloride (98-107) mmol/L Carbon Dioxide (22-30) mmol/L Anion Gap (5-15) MEQ/L BUN (9-20) mg/dL Creatinine (0.66-1.25) mg/dL Estimated GFR ML/MIN Glucose (74-106) mg/dL Lactic Acid 0.8 (0.4-2.0) Calcium (8.4-10.2) mg/dL Total Bilirubin (0.2-1.3) mg/dL AST (17-59) U/L ALT (0-50) U/L Alkaline Phosphatase (38-126) U/L Troponin I (0.000-0.034) ng/mL NT-Pro-B Natriuret Pep (<300) pg/mL Serum Total Protein (6.3-8.2) g/dL Albumin (3.5-5.0) g/dL Urine Color Yellow (Yellow) Urine Appearance Clear (Clear) Urine pH 6.5 (4.6-8.0) Ur Specific [place] 1.010 (1.005-1.030) Urine Protein Negative (Negative) Urine Glucose (UA) Negative (Negative) mg/dL Urine Ketones Negative (Negative) Urine Blood Trace (Negative) Urine Nitrite Negative (Negative) Urine Bilirubin Negative (Negative) Urine Urobilinogen 0.2 (0.2) mg/dL Ur Leukocyte Esterase Negative (Negative) U Hyaline Cast (Auto) NONE SEEN (0-2) /LPF Urine Microscopic RBC 0-2 (0-5) /HPF Urine Microscopic WBC 0-2 (0-5) /HPF Ur Epithelial Cells None Seen (None Seen) /HPF Urine Bacteria None Seen (None Seen) /HPF Urine Culture Reflexed ORDERED SEPARATELY (NO) Influenza Type A Ag (NEGATIVE) Influenza Type B Ag (NEGATIVE) RSV (PCR) (NEGATIVE) SARS-CoV-2 (PCR) (NEGATIVE) - Progress Progress: improved, re-examined Air Movement: fair Progress Note: 08/05/22 20:52 Venous Doppler bilateral lower extremities show no evidence of any DVT per principal technologist/ultrasound sonographerJess 08/05/22 20:57 Chest x-ray was interpreted by me. ? Bibasilar platelike atelectasis versus infiltrate 08/05/22 22:20 CT of the chest with contrast shows no pulmonary embolus. There is a question of a ground glass region right middle fissure. The impression was provided by the radiologist and I reviewed this impression. This patient's medical issue is 1 of high complexity. Level of complexity is based on the review of the patient's past medical history, review of the patient's medication list, review of the patient's drug allergy list, history of present illness and findings on physical examination. This patient work-up includes intravenous line placement, IV fluid infusion, CBC, CMP, D-dimer, troponin, twelve-lead EKG, urinalysis. I reviewed the results of the studies. The troponin is normal. The D-dimer is elevated which prompted us to order venous ultrasound of bilateral lower extremity and a CT a of the chest. There is no pulmonary embolus. There are no DVTs in his lower extremities. I spoke with Dr. Perdue who is the telehospitalist on today. I reviewed the patient his tory and physical findings and the vital signs as well as the results of the work-up before and after our intervention. She accepts the patient for admission into the hospital under telemetry. She stated to continue the meropenem. Blood Culture(s) Obtained: Yes Antibiotics given: Yes Counseled pt/family regarding: lab results, diagnosis, rad results Medical Desision Making - Independent Historian Additional History obtained from: Spouse - Diagnostic Testing Diagnostic test were ordered, analyzed, and reviewed by me: Yes Radiological Interpretation: Interpreted by me, Reviewed by me, Teleradiologist Report - Risk of complications The pt has a high risk of morbidity or mortality based on: Decision regarding hospitilization or escalation of hosp level of care - Departure Departure Disposition: In-patient Admission Clinical Impression: Hypoxia, Tachycardia, Fever, Respiratory distress, Pneumonia, Sepsis Condition: Fair Critical Care Time: Yes Critical Care Time(excluding separately billable procedures): Critical 30-74 mins (40)
[2022-08-05] MEDS ORDERED: TYLENOL 325 MG PO STA (18:34)
[2022-08-05] MEDS ORDERED: TYLENOL 325 MG ONE (18:39)
[2022-08-05 18:45] LABS: A-aADO2 165; ABG HEMOGLOBIN 12.5; ABG POTASSIUM 4.5 (3.5-5.1); ABG SITE RIGHT BRACHIAL; ARTERIAL BLD GAS O2 SATURATION 93.8 % (95-100); ARTERIAL BLOOD GAS BASE EXCESS 7.8 (-2.0-2.0); ARTERIAL BLOOD GAS FIO2 40 %; ARTERIAL BLOOD GAS PCO2 46 mmHg (35-45); ARTERIAL BLOOD GAS PO2 63 mmHg (75-100); ARTERIAL BLOOD GAS pH 7.46 (7.35-7.45); CARBOXYHEMOGLOBIN 3.3 % THgb (0.0-6.9); HCO3- 32.7 (22-28); HGB O2 SAT 89.8 g/dF (94-100); Lactic Acid 0.8 (0.4-2.0); paO2 pAO1 0.28
[2022-08-05 18:47] LABS: Absolute Neutrophil Ct (ANC) 23.12 x10^3/uL (1.4-6.9); BASOPHIL % 0.3 % (0.0-0.4); Basophil (Absolute #) 0.07 x10^3/uL (0-0.4); Eosinophil % 0.1 % (0.00-5.0); Eosinophil (Absolute #) 0.02 x10^3/uL (0-0.5); Hematocrit 35.4 % (42-50); Hemoglobin 11.7 g/dL (12.5-18.0); IMMATURE GRAN # 0.19 x10^3u/L (0.00-0.03); IMMATURE GRAN % 0.8 % (0.00-0.4); Lymphocyte (Absolute #) 0.32 x10^3/uL (1.0-4.6); Lymphocytes % 1.3 % (24.0-44.0); Mean Cell Volume 90.5 fL (78-100); Mean Corpuscular Hemoglobin 29.9 pg (26-32); Mean Corpuscular Hgb Concent. 33.1 g/dL (32-36); Mean Platelet Volume 9.9 fL (7.5-11.0); Monocyte (Absolute #) 0.79 x10^3/uL (0.0-1.3); Monocytes % 3.2 % (0.0-12.0); Neutrophil % 94.3 % (36.0-66.0); Platelet Count 222 x10^3/uL (150-450); Red Blood Count 3.91 x10^6/uL (4.1-5.6); Red Cell Distribution Width 15.1 % (11.5-14.0); White Blood Count 24.5 x10^3/uL (4.0-10.5)
[2022-08-05 18:54] LABS: Appearance Clear (Clear); Bacteria None Seen /HPF (None Seen); Bilirubin Negative (Negative); Blood Trace (Negative); Epithelial Cells None Seen /HPF (None Seen); Glucose, Urine Negative (Negative); Hyaline Casts NONE SEEN /LPF (0-2); Ketones Negative (Negative); Leukocyte Esterase Negative (Negative); Nitrite Negative (Negative); Ph 6.5 (4.6-8.0); Protein,Urine Dip Negative (Negative); RBC 0-2 /HPF (0-5); Urobilinogen 0.2 mg/dL (0.2); WBC 0-2 /HPF (0-5)
[2022-08-05 19:05] LABS: ALBUMIN 4.3 g/dL (3.5-5.0); ALKALINE PHOSPHATASE 115 U/L (38-126); ANION GAP 14.5 MEQ/L (5-15); BLOOD UREA NITROGEN 26 mg/dL (9-20); CHLORIDE 92 mmol/L (98-107); Calcium 9.2 mg/dL (8.4-10.2); Carbon Dioxide 29 mmol/L (22-30); Creatinine 1 1.02 mg/dL (0.66-1.25); EST GLOMERULAR FILTRATION RATE > 60.0 ML/MIN; Glucose 109 mg/dL (74-106); Potassium 4.4 mmol/L (3.5-5.1); SGOT/AST 37 U/L (17-59); SGPT/ALT 26 U/L (0-50); SODIUM 131 mmol/L (137-145); Total Protein 7.2 g/dL (6.3-8.2)
[2022-08-05] MEDS ORDERED: TRANDATE 20 MG/4 ML SYRINGE IV ONE ×2 (19:09→19:12)
[2022-08-05 19:14] LABS: ADD URINE CULTURE? ORDERED SEPARATELY (NO)
[2022-08-05] MEDS ORDERED: Sodium Chloride 0.9% 1000 ML 1,000 ML IV STA ×2 (19:22→20:53)
[2022-08-05] MEDS ORDERED: Merrem 1 GM in Sodium Chloride 100ML MINI-BAG PLUS 100 ML IV ONE (19:22)
[2022-08-05] MEDS ORDERED: Merrem IV ONE (19:26)
[2022-08-05] MEDS ORDERED: Sodium Chloride 100ML MINI-BAG PLUS 100 ML IV ONE (19:27)
[2022-08-05] MEDS ORDERED: Sodium Chloride 0.9% 1000 ML 1,000 ML ONE ×2 (19:27→20:56)
[2022-08-05 19:32] LABS: INFLUENZA A NEGATIVE (NEGATIVE); INFLUENZA B NEGATIVE (NEGATIVE); RESPIRATORY SYNCTIAL VIRUS NEGATIVE (NEGATIVE); SARS-CoV-2 Xpert Express NEGATIVE (NEGATIVE)
--- NOTE | 2022-08-05 21:46 | XRAY ---
CLINICAL HISTORY:SOA; elevated D-dimer. COMPARISON:02/03/2022. TECHNIQUES:CT chest with IV contrast in the axial plane. Coronal and sagittal reformats have also been acquired. DLP: 1413.06 mGy*cm, CTDI:18.7 mGy. FINDINGS: Lungs: No lung consolidation or mass was identified. Redemonstration of subsegmental atelectasis in left lung base. Mild right basal atelectasis is also again seen. Subtle ground glass opacification is again noted along the right oblique fissure. Background pulmonary emphysematous changes. No pleural effusions were identified. No pneumothorax. The airway is clear. Soft Tissues: No mediastinal, axillary, or supraclavicular adenopathy is identified. few subcentimeter mediastinal lymph nodes are again seen. Vascular: No filling defect within the pulmonary arteries to the segmental branch level. Normal aortic size. Mild atherosclerotic changes along the arch of the aorta. Grossly unremarkable sized heart. Bony structures: Mild degenerative changes. Stable cortical irregularity along the left humeral head/neck concerning for its chronic fracture. Upper Abdomen: Limited visualization of the solid upper abdominal organs show a small left simple renal cortical cyst. IMPRESSION: No acute pulmonary embolism. Stable atelectatic changes in bilateral lung bases. Electronically Signed by: Twila Avila MD. (08/05/2022 20:40:40 [employer])
[2022-08-05] MEDS ORDERED: Zofran 4 MG/2 ML VIAL IV PRN (22:49)
[2022-08-05] MEDS ORDERED: Sodium Chloride 0.9% 1000 ML 1,000 ML IV SCH (22:49)
[2022-08-05] MEDS ORDERED: TYLENOL 325 MG PO PRN (22:49)
[2022-08-05] MEDS: DUONEB 0.5-3 MG/3 ml Neb IH SCH (23:10)
[2022-08-06] MEDS ORDERED: PROAMATINE PO SCH (00:21)
[2022-08-06] MEDS ORDERED: VIBRAMYCIN 100 MG*** 100 MG in Dextrose 5%/Water IV Soln. 100ML PLUS BAG 100 ML IV SCH (00:25)
[2022-08-06] MEDS ORDERED: MAXIPIME 1 GM** 1 G in Dextrose 5%/Water IV Soln. 100ML PLUS BAG 100 ML IV SCH ×2 (00:30→09:00)
--- NOTE | 2022-08-06 00:31 | PCM.HP ---
History of Present Illness - Chief Complaint Chief Complaint: sepsis Date: 08/06/22 History of Present Illness: This is a 67-year-old male admitted to the ICU for sepsis. He has past medical history of hypertension, lymphedema, COPD on 3 L nasal cannula he was brought into the ED by EMS for evaluation of fever and shortness of breath. On arrival temp was 102.7, heart rate 130, blood pressure 154/92. Labs significant for WBC 24, hemoglobin 11.7, platelets 222, D-dimer 1.5, ABG 7.4 , sodium 131, creatinine 1 UA negative. Influenza, RSV, COVID serologies negative CT chest showed some atelectasis in the bilateral lung bases no acute PE. Per report Doppler study was negative in the ED he received Tylenol, DuoNeb, labetalol, meropenem, 2 L crystalloid. - Review of Systems Constitutional: Fever, Chills, Lethargy Eyes: No Symptoms Ears, Nose, & Throat: No Symptoms Respiratory: Cough, Short Of Breath, Wheezing Cardiac: No Chest Pain, No Syncope Abdominal/Gastrointestinal: No Abdominal Pain, No Nausea, No Vomiting, No Diarrhea Genitourinary Symptoms: No Dysuria Musculoskeletal: No Back Pain, No Neck Pain Skin: No Rash Medications & Allergies Home Medications: Home Medication List Aspirin EC 81 mg [Ecotrin 81 mg] 81 mg PO DAILY 03/01/13 [History Confirmed 08/05/22] Atorvastatin Calcium [Lipitor] 40 mg PO QHS 03/01/13 [History Confirmed 08/05/22] B Complex with Vitamin C [Super B Complex with C] 1 each PO QHS 03/01/13 [History Confirmed 08/05/22] Losartan Potassium 50 mg [Cozaar 50 MG] 100 mg PO DAILY 03/01/13 [History Confirmed 08/05/22] Metoprolol Succinate 50 mg [Toprol Xl 50 MG] 50 mg PO QHS 03/01/13 [History Confirmed 08/05/22] Nitroglycerin 0.4 mg Tablet [Nitrostat 0.4 MG Tablet] 0.4 mg UD PRN 03/01/13 [History Confirmed 08/05/22] Albuterol Sulfate [Ventolin Hfa] 1 gm UD PRN 12/03/18 [History Confirmed 08/05/22] Terazosin HCl [Hytrin] 2 mg PO QHS 12/03/18 [History Confirmed 08/05/22] Torsemide 20 mg [Demadex 20 mg] 40 mg PO DAILY 03/14/21 [History Confirmed 08/05/22] Albuterol/Ipratropium 3ml Neb* [DUONEB 0.5-3 MG/3 ml Neb] 3 ml IH Q4H PRN PRN 02/04/22 [History Confirmed 08/05/22] Ammonium Lactate [Ammonium Lactate 12%] 225 gm TP UD #1 unit 02/07/22 [Rx Confirmed 08/05/22] Allergies/Adverse Reactions: Allergies Allergy/AdvReac Type Severity Reaction Status Date / Time No Known Drug Allergies Allergy Verified 08/05/22 18:22 - Past Medical History Past Medical History: Yes Neurological History: No Pertinent History ENT History: No Pertinent History Cardiac History: Coronary Artery Disease, High Cholesterol, Hypertension, Other Respiratory History: CHF, COPD, Emphysema, Pneumonia, Other Endocrine Medical History: No Pertinent History Musculoskelatal History: No Pertinent History GI Medical History: No Pertinent History History: No Pertinent History Pyscho-Social History: No Pertinent History Male Reproductive Disorders: No Pertinent History Comment: Rupture disc-surgery to repair - Past Surgical History Past Surgical History: Yes Neuro Surgical History: No Pertinent History Cardiac History: Other Respiratory Surgery: No Pertinent History GI Surgical History: No Pertinent History Genitourinary Surgical Hx: No Pertinent History Musculskeletal Surgical Hx: Other Male Surgical History: No Pertinent History Other Surgical History: T&A at 8-10 yrs old. Ruptured disc repair. Stent x 1more than 15 yrs ago. cataract surgery - Social History Smoking Status: Current every day smoker How long have you smoked: 50 years Exposure to second hand smoke: Yes Alcohol: Daily Drug Use: none Significant Family History: no pertinent family hx - Physical Exam Vital Signs: Vital Signs - 24 hr Temp Pulse Resp BP BP Pulse Ox 08/06/22 00:00 97.5 F 93 H 15 92/51 91 L 08/05/22 23:25 103 H 28 H 92 L 08/05/22 23:05 98.6 F 103 H 25 H 95/54 93 L 08/05/22 22:30 100.2 F 103 H 26 H 86/56 93 L 08/05/22 22:23 99 08/05/22 22:20 100.4 F 100 H 29 H 93 L 08/05/22 22:10 100.4 F 96 H 27 H 92 L 08/05/22 22:02 100.4 F 95 H 24 94/60 90 L 08/05/22 21:51 100.4 F 97 H 26 H 91/76 91 L 08/05/22 21:42 100.4 F 101 H 23 85/67 92 L 08/05/22 21:40 100.4 F 105 H 28 H 93 L 08/05/22 21:33 100.6 F 107 H 30 H 92 L 08/05/22 21:21 100.6 F 104 H 30 H 73/56 92 L 08/05/22 21:10 100.6 F 100 H 28 H 92/59 92 L 08/05/22 21:00 100.8 F 105 H 26 H 92/56 93 L 08/05/22 20:57 100.9 F 107 H 26 H 94/57 93 L 08/05/22 19:40 102.7 F 110 H 35 H 93/44 92 L 08/05/22 19:30 103.1 F 113 H 36 H 85/47 91 L 08/05/22 19:20 103.3 F 117 H 34 H 90/48 92 L 08/05/22 19:18 103.6 F 120 H 28 H 76/42 93 L 08/05/22 18:53 103.8 F 124 H 31 H 97 08/05/22 18:51 103.8 F 125 H 35 H 67/49 94 L 08/05/22 18:47 130 H 40 H 93 L 08/05/22 18:41 103.8 F 126 H 38 H 132/83 62 L 08/05/22 18:36 103.3 F 129 H 36 H 144/67 89 L 08/05/22 18:34 102.7 F 128 H 36 H 144/67 94 L 08/05/22 18:33 93 L 08/05/22 18:32 34 H 91 L 08/05/22 18:23 103.2 F 130 H 34 H 154/92 99 08/05/22 18:20 102.7 F 130 H 31 H 154/92 71 L General Appearance: mild distress Results - Labs Lab/Micro Results: Lab Results-Last 24 Hours 08/05/22 08/05/22 08/05/22 Range/Units 18:27 18:32 18:41 WBC 24.5 H (4.0-10.5) x10^3/uL RBC 3.91 L (4.1-5.6) x10^6/uL Hgb 11.7 L (12.5-18.0) g/dL Hct 35.4 L (42-50) % MCV 90.5 (78-100) fL MCH 29.9 (26-32) pg MCHC 33.1 (32-36) g/dL RDW 15.1 H (11.5-14.0) % Plt Count 222 (150-450) x10^3/uL MPV 9.9 (7.5-11.0) fL Gran % 94.3 H (36.0-66.0) % Immature Gran % (Auto) 0.8 H (0.00-0.4) % Nucleat RBC Rel Count 0.0 (0.00-0.1) % Eos # (Auto) 0.02 (0-0.5) x10^3/uL Immature Gran # (Auto) 0.19 H (0.00-0.03) x10^3u/L Absolute Lymphs (auto) 0.32 L (1.0-4.6) x10^3/uL Absolute Monos (auto) 0.79 (0.0-1.3) x10^3/uL Absolute Nucleated RBC 0.00 (0.00-0.01) x10^3u/L Lymphocytes % 1.3 L (24.0-44.0) % Monocytes % 3.2 (0.0-12.0) % Eosinophils % 0.1 (0.00-5.0) % Basophils % 0.3 (0.0-0.4) % Absolute Granulocytes 23.12 H (1.4-6.9) x10^3/uL Basophils # 0.07 (0-0.4) x10^3/uL D-Dimer (0.0-0.50) mg/L Puncture Site RIGHT BRACHIAL pCO2 46 H (35-45) mmHg pO2 63 L (75-100) mmHg Base Excess 7.8 H (-2.0-2.0) O2 Saturation 89.8 L (94-100) g/dF ABG pH 7.46 H (7.35-7.45) ABG HCO3 32.7 H* (22-28) ABG O2 Sat (Measured) 93.8 L (95-100) % Win Test NOT APPLICABLE A-a Gradient 165 a/A Ratio 0.28 Hemoglobin 12.5 Carboxyhemoglobin 3.3 (0.0-6.9) % THgb Methemoglobin 1.0 L (1.4-1.5) % Potassium 4.5 (3.5-5.1) Temperature 37.0 C POC O2 Flow Rate 40 % Sodium (137-145) mmol/L Chloride (98-107) mmol/L Carbon Dioxide (22-30) mmol/L Anion Gap (5-15) MEQ/L BUN (9-20) mg/dL Creatinine (0.66-1.25) mg/dL Estimated GFR ML/MIN Glucose (74-106) mg/dL Lactic Acid 0.8 (0.4-2.0) Calcium (8.4-10.2) mg/dL Total Bilirubin (0.2-1.3) mg/dL AST (17-59) U/L ALT (0-50) U/L Alkaline Phosphatase (38-126) U/L Troponin I (0.000-0.034) ng/mL NT-Pro-B Natriuret Pep (<300) pg/mL Serum Total Protein (6.3-8.2) g/dL Albumin (3.5-5.0) g/dL Urine Color Yellow (Yellow) Urine Appearance Clear (Clear) Urine pH 6.5 (4.6-8.0) Ur Specific [place] 1.010 (1.005-1.030) Urine Protein Negative (Negative) Urine Glucose (UA) Negative (Negative) mg/dL Urine Ketones Negative (Negative) Urine Blood Trace (Negative) Urine Nitrite Negative (Negative) Urine Bilirubin Negative (Negative) Urine Urobilinogen 0.2 (0.2) mg/dL Ur Leukocyte Esterase Negative (Negative) U Hyaline Cast (Auto) NONE SEEN (0-2) /LPF Urine Microscopic RBC 0-2 (0-5) /HPF Urine Microscopic WBC 0-2 (0-5) /HPF Ur Epithelial Cells None Seen (None Seen) /HPF Urine Bacteria None Seen (None Seen) /HPF Urine Culture Reflexed ORDERED SEPARATELY (NO) Influenza Type A Ag (NEGATIVE) Influenza Type B Ag (NEGATIVE) RSV (PCR) (NEGATIVE) SARS-CoV-2 (PCR) (NEGATIVE) 08/05/22 08/05/22 08/05/22 Range/Units 18:41 18:41 18:41 WBC (4.0-10.5) x10^3/uL RBC (4.1-5.6) x10^6/uL Hgb (12.5-18.0) g/dL Hct (42-50) % MCV (78-100) fL MCH (26-32) pg MCHC (32-36) g/dL RDW (11.5-14.0) % Plt Count (150-450) x10^3/uL MPV (7.5-11.0) fL Gran % (36.0-66.0) % Immature Gran % (Auto) (0.00-0.4) % Nucleat RBC Rel Count (0.00-0.1) % Eos # (Auto) (0-0.5) x10^3/uL Immature Gran # (Auto) (0.00-0.03) x10^3u/L Absolute Lymphs (auto) (1.0-4.6) x10^3/uL Absolute Monos (auto) (0.0-1.3) x10^3/uL Absolute Nucleated RBC (0.00-0.01) x10^3u/L Lymphocytes % (24.0-44.0) % Monocytes % (0.0-12.0) % Eosinophils % (0.00-5.0) % Basophils % (0.0-0.4) % Absolute Granulocytes (1.4-6.9) x10^3/uL Basophils # (0-0.4) x10^3/uL D-Dimer 1.54 H* (0.0-0.50) mg/L Puncture Site pCO2 (35-45) mmHg pO2 (75-100) mmHg Base Excess (-2.0-2.0) O2 Saturation (94-100) g/dF ABG pH (7.35-7.45) ABG HCO3 (22-28) ABG O2 Sat (Measured) (95-100) % Win Test A-a Gradient a/A Ratio Hemoglobin Carboxyhemoglobin (0.0-6.9) % THgb Methemoglobin (1.4-1.5) % Potassium 4.4 (3.5-5.1) Temperature C POC O2 Flow Rate % Sodium 131 L (137-145) mmol/L Chloride 92 L (98-107) mmol/L Carbon Dioxide 29 (22-30) mmol/L Anion Gap 14.5 (5-15) MEQ/L BUN 26 H (9-20) mg/dL Creatinine 1.02 (0.66-1.25) mg/dL Estimated GFR > 60.0 ML/MIN Glucose 109 H (74-106) mg/dL Lactic Acid (0.4-2.0) Calcium 9.2 (8.4-10.2) mg/dL Total Bilirubin 0.90 (0.2-1.3) mg/dL AST 37 (17-59) U/L ALT 26 (0-50) U/L Alkaline Phosphatase 115 (38-126) U/L Troponin I 0.017 (0.000-0.034) ng/mL NT-Pro-B Natriuret Pep (<300) pg/mL Serum Total Protein 7.2 (6.3-8.2) g/dL Albumin 4.3 (3.5-5.0) g/dL Urine Color (Yellow) Urine Appearance (Clear) Urine pH (4.6-8.0) Ur Specific [place]ordo (1.005-1.030) Urine Protein (Negative) Urine Glucose (UA) (Negative) mg/dL Urine Ketones (Negative) Urine Blood (Negative) Urine Nitrite (Negative) Urine Bilirubin (Negative) Urine Urobilinogen (0.2) mg/dL Ur Leukocyte Esterase (Negative) U Hyaline Cast (Auto) (0-2) /LPF Urine Microscopic RBC (0-5) /HPF Urine Microscopic WBC (0-5) /HPF Ur Epithelial Cells (None Seen) /HPF Urine Bacteria (None Seen) /HPF Urine Culture Reflexed (NO) Influenza Type A Ag (NEGATIVE) Influenza Type B Ag (NEGATIVE) RSV (PCR) (NEGATIVE) SARS-CoV-2 (PCR) (NEGATIVE) 08/05/22 08/05/22 08/05/22 Range/Units 18:41 18:54 22:36 WBC (4.0-10.5) x10^3/uL RBC (4.1-5.6) x10^6/uL Hgb (12.5-18.0) g/dL Hct (42-50) % MCV (78-100) fL MCH (26-32) pg MCHC (32-36) g/dL RDW (11.5-14.0) % Plt Count (150-450) x10^3/uL MPV (7.5-11.0) fL Gran % (36.0-66.0) % Immature Gran % (Auto) (0.00-0.4) % Nucleat RBC Rel Count (0.00-0.1) % Eos # (Auto) (0-0.5) x10^3/uL Immature Gran # (Auto) (0.00-0.03) x10^3u/L Absolute Lymphs (auto) (1.0-4.6) x10^3/uL Absolute Monos (auto) (0.0-1.3) x10^3/uL Absolute Nucleated RBC (0.00-0.01) x10^3u/L Lymphocytes % (24.0-44.0) % Monocytes % (0.0-12.0) % Eosinophils % (0.00-5.0) % Basophils % (0.0-0.4) % Absolute Granulocytes (1.4-6.9) x10^3/uL Basophils # (0-0.4) x10^3/uL D-Dimer (0.0-0.50) mg/L Puncture Site pCO2 (35-45) mmHg pO2 (75-100) mmHg Base Excess (-2.0-2.0) O2 Saturation (94-100) g/dF ABG pH (7.35-7.45) ABG HCO3 (22-28) ABG O2 Sat (Measured) (95-100) % Win Test A-a Gradient a/A Ratio Hemoglobin Carboxyhemoglobin (0.0-6.9) % THgb Methemoglobin (1.4-1.5) % Potassium (3.5-5.1) Temperature C POC O2 Flow Rate % Sodium (137-145) mmol/L Chloride (98-107) mmol/L Carbon Dioxide (22-30) mmol/L Anion Gap (5-15) MEQ/L BUN (9-20) mg/dL Creatinine (0.66-1.25) mg/dL Estimated GFR ML/MIN Glucose (74-106) mg/dL Lactic Acid (0.4-2.0) Calcium (8.4-10.2) mg/dL Total Bilirubin (0.2-1.3) mg/dL AST (17-59) U/L ALT (0-50) U/L Alkaline Phosphatase (38-126) U/L Troponin I 0.041 H* (0.000-0.034) ng/mL NT-Pro-B Natriuret Pep 72.1 (<300) pg/mL Serum Total Protein (6.3-8.2) g/dL Albumin (3.5-5.0) g/dL Urine Color (Yellow) Urine Appearance (Clear) Urine pH (4.6-8.0) Ur Specific [place] (1.005-1.030) Urine Protein (Negative) Urine Glucose (UA) (Negative) mg/dL Urine Ketones (Negative) Urine Blood (Negative) Urine Nitrite (Negative) Urine Bilirubin (Negative) Urine Urobilinogen (0.2) mg/dL Ur Leukocyte Esterase (Negative) U Hyaline Cast (Auto) (0-2) /LPF Urine Microscopic RBC (0-5) /HPF Urine Microscopic WBC (0-5) /HPF Ur Epithelial Cells (None Seen) /HPF Urine Bacteria (None Seen) /HPF Urine Culture Reflexed (NO) Influenza Type A Ag NEGATIVE (NEGATIVE) Influenza Type B Ag NEGATIVE (NEGATIVE) RSV (PCR) NEGATIVE (NEGATIVE) SARS-CoV-2 (PCR) NEGATIVE (NEGATIVE) - Radiology Impressions Radiology Exams & Impressions: Radiology Procedures Category Date Time Status CHEST 1 VIEW (PORTABLE) Stat Exams 08/05/22 18:41 Taken CHEST WITH CONTRAST [CT] Stat Exams 08/05/22 19:24 Completed VENOUS BILATERAL EXTREMITY [US] Stat Exams 08/05/22 19:25 Taken - Other Procedures and Tests Respiratory Therapy 08/05/22 18:47 Respiratory Therapy Assessment DAILY 08/05/22 22:49 EKG REPEAT IN AM Oxygen Nasal Cannula 5 lpm 08/06/22 00:19 BiPap/CPAP ROUTINE Assessment/Plan (1) Pneumonia Current Visit: Yes Status: Acute Code(s): J18.9 - PNEUMONIA, UNSPECIFIED ORGANISM (2) Respiratory distress Current Visit: Yes Status: Acute Assessment & Plan: PHYSICAL EXAM: Gen: Alert, mild respiratory distress Eyes: PERRL ENT: MMM CV: S1S2 Pulm: +wheezing, coarse BS, + accessory muscle use Abd: Soft/n/tnd Extrem: + edema, erythema ASSESSMENT/PLAN ASSESSMENT #Sepsis, unclear etiology. Possible underlying pneumonia #COPD exacerbation #Acute respiratory failure #History of hypertension #History of lymphedema PLAN -Empiric broad-spectrum antibiotics with cefepime and Doxy -Solu-Medrol, DuoNebs -Defer further IV fluids -Follow cultures -Bipap w/ AVAPS overnight Prophylaxis: Lovenox Entire encounter performed via telemedicine Critical care time 60 minutes. Code(s): R06.03 - ACUTE RESPIRATORY DISTRESS Telemedicine Encounter - Telemedicine Encounter Telemedicine Encounter: The entirety of this encounter was performed via Telemedicine"
[2022-08-06] MEDS ORDERED: solu-MEDROL ONE ×2 (00:43→06:02)
[2022-08-06] MEDS ORDERED: Sterile H2O 10 ml IJ ONE ×2 (00:43→06:02)
[2022-08-06] MEDS: ZOCOR 20MG PO SCH (00:46)
[2022-08-06] MEDS: solu-MEDROL 60 MG, Sterile H2O 10 ml 2 ML IV SCH ×8 (00:49→21:06)
[2022-08-06] MEDS ORDERED: VIBRAMYCIN 100 MG IV ONE (01:24)
[2022-08-06] MEDS ORDERED: MAXIPIME 1 GM ONE (01:24)
[2022-08-06] MEDS ORDERED: Sodium Chloride 0.9% 0 ML ONE (01:25)
[2022-08-06] MEDS ORDERED: D5w 100ML Mini Bag 100 ML 100 ML IV ONE ×2 (01:25→01:29)
[2022-08-06] MEDS ORDERED: Sodium Chloride 0.9% 1000 ML 0 ML ONE (01:36)
[2022-08-06] MEDS: DUONEB 0.5-3 MG/3 ml Neb IH SCH ×6 (03:20→23:23)
[2022-08-06] MEDS ORDERED: Nitrostat 0.4 MG Tablet SL PRN (03:26)
[2022-08-06 04:05] LABS: A-aADO2 155; ABG HEMOGLOBIN 11.4; ABG POTASSIUM 4.8 (3.5-5.1); ARTERIAL BLD GAS O2 SATURATION 98.4 % (95-100); ARTERIAL BLD GAS TIDAL VOLUME 500 cc; ARTERIAL BLOOD GAS BASE EXCESS 5.4 (-2.0-2.0); ARTERIAL BLOOD GAS FIO2 45 %; ARTERIAL BLOOD GAS PCO2 46 mmHg (35-45); ARTERIAL BLOOD GAS PO2 108 mmHg (75-100); ARTERIAL BLOOD GAS pH 7.43 (7.35-7.45); CARBOXYHEMOGLOBIN 3.1 % THgb (0.0-6.9); HCO3- 30.5 (22-28); HGB O2 SAT 94.4 g/dF (94-100); paO2 pAO1 0.41
[2022-08-06 04:06] LABS: ABG SITE RIGHT RADIAL; ALLEN TEST OK? NO; ARTERIAL BLOOD GAS VENT MODE AVAPS; ARTERIAL BLOOD GAS VENT RATE 12 /MIN
[2022-08-06 04:31] LABS: ALBUMIN 3.5 g/dL (3.5-5.0); ALKALINE PHOSPHATASE 74 U/L (38-126); ANION GAP 11.3 MEQ/L (5-15); BLOOD UREA NITROGEN 26 mg/dL (9-20); CHLORIDE 95 mmol/L (98-107); Calcium 8.6 mg/dL (8.4-10.2); Carbon Dioxide 28 mmol/L (22-30); EST GLOMERULAR FILTRATION RATE > 60.0 ML/MIN; Glucose 135 mg/dL (74-106); NT PRO BNPII 1390 pg/mL (<300); Potassium 4.5 mmol/L (3.5-5.1); SGOT/AST 42 U/L (17-59); SGPT/ALT 23 U/L (0-50); SODIUM 130 mmol/L (137-145); Total Protein 6.2 g/dL (6.3-8.2)
[2022-08-06 05:12] LABS: Hematocrit 33.3 % (42-50); Hemoglobin 10.8 g/dL (12.5-18.0); Mean Cell Volume 92.5 fL (78-100); Mean Corpuscular Hgb Concent. 32.4 g/dL (32-36); Mean Platelet Volume 10.5 fL (7.5-11.0); Platelet Count 197 x10^3/uL (150-450); Red Cell Distribution Width 15.7 % (11.5-14.0)
[2022-08-06 05:21] LABS: White Blood Count 33.9 x10^3/uL (4.0-10.5)
[2022-08-06] MEDS ORDERED: Merrem 1 GM in Sodium Chloride 100ML MINI-BAG PLUS 100 ML IV SCH (06:00)
[2022-08-06 07:08] LABS: BAND 17 % (0.0-2.0); Lymphocytes 1 % (24-44); Neutrophils 82 % (36.-66.); Total Cells Counted 100
[2022-08-06 07:10] LABS: ANISOCYTOSIS 1+; Hypochromia 2+; Platelet Estimate NORMAL (NORMAL); Polychromasia 1+
[2022-08-06] MEDS ORDERED: VENTOLIN COMMON CANISTER IH PRN (07:46)
[2022-08-06] MEDS ORDERED: Ativan 2 MG/1 ML VIAL IV PRN ×2 (08:34)
--- NOTE | 2022-08-06 08:34 | PCM.NOTE ---
Date and Time: 08/06/22830 Subjective Assessment: patient seen and history reviewed, he developed fever and weakness yesterday, he has chronic copd and is on oxygen. he denies cough, he states he was slightly more short of breath than normal Objective Exam General Appearance: no apparent distress, obese Neurologic Exam: alert, oriented x 3 Respiratory Exam: rhonchi Cardiovascular Exam: regular rate/rhythm, normal heart sounds Gastrointestinal/Abdomen Exam: soft, No tenderness, No mass Extremity Exam: pedal edema, swelling, other (redness, warmth to anterior right lower leg to near the knee) OBJECTIVE DATA Vital Signs: Vital Signs - 24 hr Temp Pulse Resp BP BP Pulse Ox 08/06/22 07:02 71 26 H 95 08/06/22 06:51 97.7 F 77 30 H 114/59 97 08/06/22 04:00 97.7 F 68 16 114/58 94 L 08/06/22 03:22 72 26 H 95 08/06/22 00:00 97.5 F 93 H 15 92/51 91 L 08/05/22 23:25 103 H 28 H 92 L 08/05/22 23:05 98.6 F 103 H 25 H 95/54 93 L 08/05/22 22:30 100.2 F 103 H 26 H 86/56 93 L 08/05/22 22:23 99 08/05/22 22:20 100.4 F 100 H 29 H 93 L 08/05/22 22:10 100.4 F 96 H 27 H 92 L 08/05/22 22:02 100.4 F 95 H 24 94/60 90 L 08/05/22 21:51 100.4 F 97 H 26 H 91/76 91 L 08/05/22 21:42 100.4 F 101 H 23 85/67 92 L 08/05/22 21:40 100.4 F 105 H 28 H 93 L 08/05/22 21:33 100.6 F 107 H 30 H 92 L 08/05/22 21:21 100.6 F 104 H 30 H 73/56 92 L 08/05/22 21:10 100.6 F 100 H 28 H 92/59 92 L 08/05/22 21:00 100.8 F 105 H 26 H 92/56 93 L 08/05/22 20:57 100.9 F 107 H 26 H 94/57 93 L 06/11/23 19:40 102.7 F 110 H 35 H 93/44 92 L 08/05/22 19:30 103.1 F 113 H 36 H 85/47 91 L 08/05/22 19:20 103.3 F 117 H 34 H 90/48 92 L 08/05/22 19:18 103.6 F 120 H 28 H 76/42 93 L 08/05/22 18:53 103.8 F 124 H 31 H 97 08/05/22 18:51 103.8 F 125 H 35 H 67/49 94 L 08/05/22 18:47 130 H 40 H 93 L 08/05/22 18:41 103.8 F 126 H 38 H 132/83 62 L 08/05/22 18:36 103.3 F 129 H 36 H 144/67 89 L 08/05/22 18:34 102.7 F 128 H 36 H 144/67 94 L 08/05/22 18:33 93 L 08/05/22 18:32 34 H 91 L 08/05/22 18:23 103.2 F 130 H 34 H 154/92 99 08/05/22 18:20 102.7 F 130 H 31 H 154/92 71 L Pain Assessment - Last Documented Pain Intensity 0 Intake and Output: Intake & Output 08/03/22 08/04/22 08/05/22 08/06/22 11:59 11:59 11:59 11:59 Intake Total 540 Output Total 700 Balance -160 Weight 88.4 kg Lab Results: Lab Results-Last 24 Hours 08/05/22 08/05/22 08/05/22 Range/Units 18:27 18:32 18:41 WBC 24.5 H (4.0-10.5) x10^3/uL RBC 3.91 L (4.1-5.6) x10^6/uL Hgb 11.7 L (12.5-18.0) g/dL Hct 35.4 L (42-50) % MCV 90.5 (78-100) fL MCH 29.9 (26-32) pg MCHC 33.1 (32-36) g/dL RDW 15.1 H (11.5-14.0) % Plt Count 222 (150-450) x10^3/uL MPV 9.9 (7.5-11.0) fL Gran % 94.3 H (36.0-66.0) % Immature Gran % (Auto) 0.8 H (0.00-0.4) % Nucleat RBC Rel Count 0.0 (0.00-0.1) % Eos # (Auto) 0.02 (0-0.5) x10^3/uL Immature Gran # (Auto) 0.19 H (0.00-0.03) x10^3u/L Absolute Lymphs (auto) 0.32 L (1.0-4.6) x10^3/uL Absolute Monos (auto) 0.79 (0.0-1.3) x10^3/uL Absolute Nucleated RBC 0.00 (0.00-0.01) x10^3u/L Lymphocytes % 1.3 L (24.0-44.0) % Monocytes % 3.2 (0.0-12.0) % Eosinophils % 0.1 (0.00-5.0) % Basophils % 0.3 (0.0-0.4) % Absolute Granulocytes 23.12 H (1.4-6.9) x10^3/uL Segmented Neutrophils (36.-66.) % Band Neutrophils (0.0-2.0) % Lymphocytes (Manual) (24-44) % Basophils # 0.07 (0-0.4) x10^3/uL Hypochromia Platelet Estimate (NORMAL) RBC Morphology Polychromasia Anisocytosis Smear Path Review D-Dimer (0.0-0.50) mg/L Puncture Site RIGHT BRACHIAL pCO2 46 H (35-45) mmHg pO2 63 L (75-100) mmHg Base Excess 7.8 H (-2.0-2.0) O2 Saturation 89.8 L (94-100) g/dF ABG pH 7.46 H (7.35-7.45) ABG HCO3 32.7 H* (22-28) ABG O2 Sat (Measured) 93.8 L (95-100) % Win Test NOT APPLICABLE A-a Gradient 165 a/A Ratio 0.28 Hemoglobin 12.5 Carboxyhemoglobin 3.3 (0.0-6.9) % THgb Methemoglobin 1.0 L (1.4-1.5) % Potassium 4.5 (3.5-5.1) Temperature 37.0 C POC O2 Flow Rate 40 % Vent Mode Vent Rate /MIN Tidal Volume cc PEEP cmH2O Sodium (137-145) mmol/L Chloride (98-107) mmol/L Carbon Dioxide (22-30) mmol/L Anion Gap (5-15) MEQ/L BUN (9-20) mg/dL Creatinine (0.66-1.25) mg/dL Estimated GFR ML/MIN Glucose (74-106) mg/dL Lactic Acid 0.8 (0.4-2.0) Calcium (8.4-10.2) mg/dL Total Bilirubin (0.2-1.3) mg/dL AST (17-59) U/L ALT (0-50) U/L Alkaline Phosphatase (38-126) U/L Troponin I (0.000-0.034) ng/mL NT-Pro-B Natriuret Pep (<300) pg/mL Serum Total Protein (6.3-8.2) g/dL Albumin (3.5-5.0) g/dL Urine Color Yellow (Yellow) Urine Appearance Clear (Clear) Urine pH 6.5 (4.6-8.0) Ur Specific [place] 1.010 (1.005-1.030) Urine Protein Negative (Negative) Urine Glucose (UA) Negative (Negative) mg/dL Urine Ketones Negative (Negative) Urine Blood Trace (Negative) Urine Nitrite Negative (Negative) Urine Bilirubin Negative (Negative) Urine Urobilinogen 0.2 (0.2) mg/dL Ur Leukocyte Esterase Negative (Negative) U Hyaline Cast (Auto) NONE SEEN (0-2) /LPF Urine Microscopic RBC 0-2 (0-5) /HPF Urine Microscopic WBC 0-2 (0-5) /HPF Ur Epithelial Cells None Seen (None Seen) /HPF Urine Bacteria None Seen (None Seen) /HPF Urine Culture Reflexed ORDERED SEPARATELY (NO) Influenza Type A Ag (NEGATIVE) Influenza Type B Ag (NEGATIVE) RSV (PCR) (NEGATIVE) SARS-CoV-2 (PCR) (NEGATIVE) 08/05/22 08/05/22 08/05/22 Range/Units 18:41 18:41 18:41 WBC (4.0-10.5) x10^3/uL RBC (4.1-5.6) x10^6/uL Hgb (12.5-18.0) g/dL Hct (42-50) % MCV (78-100) fL MCH (26-32) pg MCHC (32-36) g/dL RDW (11.5-14.0) % Plt Count (150-450) x10^3/uL MPV (7.5-11.0) fL Gran % (36.0-66.0) % Immature Gran % (Auto) (0.00-0.4) % Nucleat RBC Rel Count (0.00-0.1) % Eos # (Auto) (0-0.5) x10^3/uL Immature Gran # (Auto) (0.00-0.03) x10^3u/L Absolute Lymphs (auto) (1.0-4.6) x10^3/uL Absolute Monos (auto) (0.0-1.3) x10^3/uL Absolute Nucleated RBC (0.00-0.01) x10^3u/L Lymphocytes % (24.0-44.0) % Monocytes % (0.0-12.0) % Eosinophils % (0.00-5.0) % Basophils % (0.0-0.4) % Absolute Granulocytes (1.4-6.9) x10^3/uL Segmented Neutrophils (36.-66.) % Band Neutrophils (0.0-2.0) % Lymphocytes (Manual) (24-44) % Basophils # (0-0.4) x10^3/uL Hypochromia Platelet Estimate (NORMAL) RBC Morphology Polychromasia Anisocytosis Smear Path Review D-Dimer 1.54 H* (0.0-0.50) mg/L Puncture Site pCO2 (35-45) mmHg pO2 (75-100) mmHg Base Excess (-2.0-2.0) O2 Saturation (94-100) g/dF ABG pH (7.35-7.45) ABG HCO3 (22-28) ABG O2 Sat (Measured) (95-100) % Win Test A-a Gradient a/A Ratio Hemoglobin Carboxyhemoglobin (0.0-6.9) % THgb Methemoglobin (1.4-1.5) % Potassium 4.4 (3.5-5.1) Temperature C POC O2 Flow Rate % Vent Mode Vent Rate /MIN Tidal Volume cc PEEP cmH2O Sodium 131 L (137-145) mmol/L Chloride 92 L (98-107) mmol/L Carbon Dioxide 29 (22-30) mmol/L Anion Gap 14.5 (5-15) MEQ/L BUN 26 H (9-20) mg/dL Creatinine 1.02 (0.66-1.25) mg/dL Estimated GFR > 60.0 ML/MIN Glucose 109 H (74-106) mg/dL Lactic Acid (0.4-2.0) Calcium 9.2 (8.4-10.2) mg/dL Total Bilirubin 0.90 (0.2-1.3) mg/dL AST 37 (17-59) U/L ALT 26 (0-50) U/L Alkaline Phosphatase 115 (38-126) U/L Troponin I 0.017 (0.000-0.034) ng/mL NT-Pro-B Natriuret Pep (<300) pg/mL Serum Total Protein 7.2 (6.3-8.2) g/dL Albumin 4.3 (3.5-5.0) g/dL Urine Color (Yellow) Urine Appearance (Clear) Urine pH (4.6-8.0) Ur Specific [place] (1.005-1.030) Urine Protein (Negative) Urine Glucose (UA) (Negative) mg/dL Urine Ketones (Negative) Urine Blood (Negative) Urine Nitrite (Negative) Urine Bilirubin (Negative) Urine Urobilinogen (0.2) mg/dL Ur Leukocyte Esterase (Negative) U Hyaline Cast (Auto) (0-2) /LPF Urine Microscopic RBC (0-5) /HPF Urine Microscopic WBC (0-5) /HPF Ur Epithelial Cells (None Seen) /HPF Urine Bacteria (None Seen) /HPF Urine Culture Reflexed (NO) Influenza Type A Ag (NEGATIVE) Influenza Type B Ag (NEGATIVE) RSV (PCR) (NEGATIVE) SARS-CoV-2 (PCR) (NEGATIVE) 08/05/22 08/05/22 08/05/22 Range/Units 18:41 18:54 22:36 WBC (4.0-10.5) x10^3/uL RBC (4.1-5.6) x10^6/uL Hgb (12.5-18.0) g/dL Hct (42-50) % MCV (78-100) fL MCH (26-32) pg MCHC (32-36) g/dL RDW (11.5-14.0) % Plt Count (150-450) x10^3/uL MPV (7.5-11.0) fL Gran % (36.0-66.0) % Immature Gran % (Auto) (0.00-0.4) % Nucleat RBC Rel Count (0.00-0.1) % Eos # (Auto) (0-0.5) x10^3/uL Immature Gran # (Auto) (0.00-0.03) x10^3u/L Absolute Lymphs (auto) (1.0-4.6) x10^3/uL Absolute Monos (auto) (0.0-1.3) x10^3/uL Absolute Nucleated RBC (0.00-0.01) x10^3u/L Lymphocytes % (24.0-44.0) % Monocytes % (0.0-12.0) % Eosinophils % (0.00-5.0) % Basophils % (0.0-0.4) % Absolute Granulocytes (1.4-6.9) x10^3/uL Segmented Neutrophils (36.-66.) % Band Neutrophils (0.0-2.0) % Lymphocytes (Manual) (24-44) % Basophils # (0-0.4) x10^3/uL Hypochromia Platelet Estimate (NORMAL) RBC Morphology Polychromasia Anisocytosis Smear Path Review D-Dimer (0.0-0.50) mg/L Puncture Site pCO2 (35-45) mmHg pO2 (75-100) mmHg Base Excess (-2.0-2.0) O2 Saturation (94-100) g/dF ABG pH (7.35-7.45) ABG HCO3 (22-28) ABG O2 Sat (Measured) (95-100) % Win Test A-a Gradient a/A Ratio Hemoglobin Carboxyhemoglobin (0.0-6.9) % THgb Methemoglobin (1.4-1.5) % Potassium (3.5-5.1) Temperature C POC O2 Flow Rate % Vent Mode Vent Rate /MIN Tidal Volume cc PEEP cmH2O Sodium (137-145) mmol/L Chloride (98-107) mmol/L Carbon Dioxide (22-30) mmol/L Anion Gap (5-15) MEQ/L BUN (9-20) mg/dL Creatinine (0.66-1.25) mg/dL Estimated GFR ML/MIN Glucose (74-106) mg/dL Lactic Acid (0.4-2.0) Calcium (8.4-10.2) mg/dL Total Bilirubin (0.2-1.3) mg/dL AST (17-59) U/L ALT (0-50) U/L Alkaline Phosphatase (38-126) U/L Troponin I 0.041 H* (0.000-0.034) ng/mL NT-Pro-B Natriuret Pep 72.1 (<300) pg/mL Serum Total Protein (6.3-8.2) g/dL Albumin (3.5-5.0) g/dL Urine Color (Yellow) Urine Appearance (Clear) Urine pH (4.6-8.0) Ur Specific [place] (1.005-1.030) Urine Protein (Negative) Urine Glucose (UA) (Negative) mg/dL Urine Ketones (Negative) Urine Blood (Negative) Urine Nitrite (Negative) Urine Bilirubin (Negative) Urine Urobilinogen (0.2) mg/dL Ur Leukocyte Esterase (Negative) U Hyaline Cast (Auto) (0-2) /LPF Urine Microscopic RBC (0-5) /HPF Urine Microscopic WBC (0-5) /HPF Ur Epithelial Cells (None Seen) /HPF Urine Bacteria (None Seen) /HPF Urine Culture Reflexed (NO) Influenza Type A Ag NEGATIVE (NEGATIVE) Influenza Type B Ag NEGATIVE (NEGATIVE) RSV (PCR) NEGATIVE (NEGATIVE) SARS-CoV-2 (PCR) NEGATIVE (NEGATIVE) 08/06/22 08/06/22 08/06/22 Range/Units 03:55 04:00 04:00 WBC 33.9 H* (4.0-10.5) x10^3/uL RBC 3.60 L (4.1-5.6) x10^6/uL Hgb 10.8 L (12.5-18.0) g/dL Hct 33.3 L (42-50) % MCV 92.5 (78-100) fL MCH 30.0 (26-32) pg MCHC 32.4 (32-36) g/dL RDW 15.7 H (11.5-14.0) % Plt Count 197 (150-450) x10^3/uL MPV 10.5 (7.5-11.0) fL Gran % (36.0-66.0) % Immature Gran % (Auto) (0.00-0.4) % Nucleat RBC Rel Count (0.00-0.1) % Eos # (Auto) (0-0.5) x10^3/uL Immature Gran # (Auto) (0.00-0.03) x10^3u/L Absolute Lymphs (auto) (1.0-4.6) x10^3/uL Absolute Monos (auto) (0.0-1.3) x10^3/uL Absolute Nucleated RBC (0.00-0.01) x10^3u/L Lymphocytes % (24.0-44.0) % Monocytes % (0.0-12.0) % Eosinophils % (0.00-5.0) % Basophils % (0.0-0.4) % Absolute Granulocytes (1.4-6.9) x10^3/uL Segmented Neutrophils 82 H (36.-66.) % Band Neutrophils 17 H (0.0-2.0) % Lymphocytes (Manual) 1 L (24-44) % Basophils # (0-0.4) x10^3/uL Hypochromia 2+ Platelet Estimate NORMAL (NORMAL) RBC Morphology NORMAL Polychromasia 1+ Anisocytosis 1+ Smear Path Review Pending D-Dimer (0.0-0.50) mg/L Puncture Site RIGHT RADIAL pCO2 46 H (35-45) mmHg pO2 108 H (75-100) mmHg Base Excess 5.4 H (-2.0-2.0) O2 Saturation 94.4 (94-100) g/dF ABG pH 7.43 (7.35-7.45) ABG HCO3 30.5 H* (22-28) ABG O2 Sat (Measured) 98.4 (95-100) % Win Test NO A-a Gradient 155 a/A Ratio 0.41 Hemoglobin 11.4 Carboxyhemoglobin 3.1 (0.0-6.9) % THgb Methemoglobin 1.0 L (1.4-1.5) % Potassium 4.8 (3.5-5.1) Temperature 37.0 C POC O2 Flow Rate 45 % Vent Mode AVAPS Vent Rate 12 /MIN Tidal Volume 500 cc PEEP 7.0 cmH2O Sodium (137-145) mmol/L Chloride (98-107) mmol/L Carbon Dioxide (22-30) mmol/L Anion Gap (5-15) MEQ/L BUN (9-20) mg/dL Creatinine (0.66-1.25) mg/dL Estimated GFR ML/MIN Glucose (74-106) mg/dL Lactic Acid (0.4-2.0) Calcium (8.4-10.2) mg/dL Total Bilirubin (0.2-1.3) mg/dL AST (17-59) U/L ALT (0-50) U/L Alkaline Phosphatase (38-126) U/L Troponin I 0.035 H (0.000-0.034) ng/mL NT-Pro-B Natriuret Pep (<300) pg/mL Serum Total Protein (6.3-8.2) g/dL Albumin (3.5-5.0) g/dL Urine Color (Yellow) Urine Appearance (Clear) Urine pH (4.6-8.0) Ur Specific [place] (1.005-1.030) Urine Protein (Negative) Urine Glucose (UA) (Negative) mg/dL Urine Ketones (Negative) Urine Blood (Negative) Urine Nitrite (Negative) Urine Bilirubin (Negative) Urine Urobilinogen (0.2) mg/dL Ur Leukocyte Esterase (Negative) U Hyaline Cast (Auto) (0-2) /LPF Urine Microscopic RBC (0-5) /HPF Urine Microscopic WBC (0-5) /HPF Ur Epithelial Cells (None Seen) /HPF Urine Bacteria (None Seen) /HPF Urine Culture Reflexed (NO) Influenza Type A Ag (NEGATIVE) Influenza Type B Ag (NEGATIVE) RSV (PCR) (NEGATIVE) SARS-CoV-2 (PCR) (NEGATIVE) 08/06/22 Range/Units 04:00 WBC (4.0-10.5) x10^3/uL RBC (4.1-5.6) x10^6/uL Hgb (12.5-18.0) g/dL Hct (42-50) % MCV (78-100) fL MCH (26-32) pg MCHC (32-36) g/dL RDW (11.5-14.0) % Plt Count (150-450) x10^3/uL MPV (7.5-11.0) fL Gran % (36.0-66.0) % Immature Gran % (Auto) (0.00-0.4) % Nucleat RBC Rel Count (0.00-0.1) % Eos # (Auto) (0-0.5) x10^3/uL Immature Gran # (Auto) (0.00-0.03) x10^3u/L Absolute Lymphs (auto) (1.0-4.6) x10^3/uL Absolute Monos (auto) (0.0-1.3) x10^3/uL Absolute Nucleated RBC (0.00-0.01) x10^3u/L Lymphocytes % (24.0-44.0) % Monocytes % (0.0-12.0) % Eosinophils % (0.00-5.0) % Basophils % (0.0-0.4) % Absolute Granulocytes (1.4-6.9) x10^3/uL Segmented Neutrophils (36.-66.) % Band Neutrophils (0.0-2.0) % Lymphocytes (Manual) (24-44) % Basophils # (0-0.4) x10^3/uL Hypochromia Platelet Estimate (NORMAL) RBC Morphology Polychromasia Anisocytosis Smear Path Review D-Dimer (0.0-0.50) mg/L Puncture Site pCO2 (35-45) mmHg pO2 (75-100) mmHg Base Excess (-2.0-2.0) O2 Saturation (94-100) g/dF ABG pH (7.35-7.45) ABG HCO3 (22-28) ABG O2 Sat (Measured) (95-100) % Win Test A-a Gradient a/A Ratio Hemoglobin Carboxyhemoglobin (0.0-6.9) % THgb Methemoglobin (1.4-1.5) % Potassium 4.5 (3.5-5.1) Temperature C POC O2 Flow Rate % Vent Mode Vent Rate /MIN Tidal Volume cc PEEP cmH2O Sodium 130 L (137-145) mmol/L Chloride 95 L (98-107) mmol/L Carbon Dioxide 28 (22-30) mmol/L Anion Gap 11.3 (5-15) MEQ/L BUN 26 H (9-20) mg/dL Creatinine 1.00 (0.66-1.25) mg/dL Estimated GFR > 60.0 ML/MIN Glucose 135 H (74-106) mg/dL Lactic Acid (0.4-2.0) Calcium 8.6 (8.4-10.2) mg/dL Total Bilirubin 0.90 (0.2-1.3) mg/dL AST 42 (17-59) U/L ALT 23 (0-50) U/L Alkaline Phosphatase 74 (38-126) U/L Troponin I (0.000-0.034) ng/mL NT-Pro-B Natriuret Pep 1390 (<300) pg/mL Serum Total Protein 6.2 L (6.3-8.2) g/dL Albumin 3.5 (3.5-5.0) g/dL Urine Color (Yellow) Urine Appearance (Clear) Urine pH (4.6-8.0) Ur Specific [place] (1.005-1.030) Urine Protein (Negative) Urine Glucose (UA) (Negative) mg/dL Urine Ketones (Negative) Urine Blood (Negative) Urine Nitrite (Negative) Urine Bilirubin (Negative) Urine Urobilinogen (0.2) mg/dL Ur Leukocyte Esterase (Negative) U Hyaline Cast (Auto) (0-2) /LPF Urine Microscopic RBC (0-5) /HPF Urine Microscopic WBC (0-5) /HPF Ur Epithelial Cells (None Seen) /HPF Urine Bacteria (None Seen) /HPF Urine Culture Reflexed (NO) Influenza Type A Ag (NEGATIVE) Influenza Type B Ag (NEGATIVE) RSV (PCR) (NEGATIVE) SARS-CoV-2 (PCR) (NEGATIVE) Radiology Exams: Radiology Procedures Category Date Time Status CHEST 1 VIEW (PORTABLE) Stat Exams 08/05/22 18:41 Taken CHEST WITH CONTRAST [CT] Stat Exams 08/05/22 19:24 Completed VENOUS BILATERAL EXTREMITY [US] Stat Exams 08/05/22 19:25 Taken Assessment/Plan (1) Cellulitis Current Visit: Yes Status: Acute Assessment & Plan: continue cefepime, ct scan with no obvious infiltrate, I feel source of fever is cellulitis and blood cultures positive for gram positive cocci, add vanc and d/c doxy today. Code(s): L03.90 - CELLULITIS, UNSPECIFIED (2) Alcohol abuse Current Visit: Yes Status: Acute Assessment & Plan: alcohol detox protocol initiated due to chronic alcohol use, no signs of withdrawal currently Code(s): F10.10 - ALCOHOL ABUSE, UNCOMPLICATED (3) Sepsis Current Visit: Yes Status: Acute (4) CHF (congestive heart failure) Current Visit: No Status: Acute Code(s): I50.9 - HEART FAILURE, UNSPECIFIED (5) COPD with acute exacerbation Current Visit: No Status: Acute Code(s): J44.1 - CHRONIC OBSTRUCTIVE PULMONARY DISEASE W (ACUTE) EXACERBATION
--- NOTE | 2022-08-06 08:42 | XRAY ---
Indication: Short of breath. COPD. Comparison: June 18, 2022 Portable again hyperinflated with bibasilar subsegmental atelectasis/scarring. Left effusion has cleared. Remaining heart and lungs unremarkable. No new cardiopulmonary abnormalities.
--- NOTE | 2022-08-06 08:44 | XRAY ---
Indication: Bilateral leg swelling. Elevated d-dimer. Two-dimensional sonogram and color Doppler imaging of the major venous vessels of the left and right leg performed. Comparison: None No thrombus seen in the examined deep venous vessels of the left and right leg including greater saphenous vein. Veins demonstrate normal compressibility. Venous waveforms are normal with and without augmentation. Impression: Left and right legs negative for DVT. Comment: Preliminary report was given.
[2022-08-06] MEDS ORDERED: VANCOCIN INJECTION*** 1 GM in Sodium Chloride 0.9% 250 ML 250 ML IV SCH (09:00)
[2022-08-06] MEDS: DEMADEX 20 MG PO SCH (10:14)
[2022-08-06] MEDS: ECOTRIN 81 MG PO SCH (10:14)
[2022-08-06] MEDS: ENOXAPARIN SODIUM SQ SCH (10:14)
[2022-08-06] MEDS: Cozaar 50 MG PO SCH ×2 (10:14→10:27)
[2022-08-06] MEDS: VITAMIN B-1 100 MG PO SCH (10:14)
[2022-08-06] MEDS: THERAGRAN MULTIVITAMIN PO SCH (10:15)
[2022-08-06] MEDS: AMMONIUM LACTATE 12% TP SCH (10:16)
[2022-08-06] MEDS: MAXIPIME 1 GM** 1 G in Sodium Chloride 100ML MINI-BAG PLUS 100 ML IV SCH ×2 (10:16→17:08)
[2022-08-06] MEDS: VANCOMYCIN 1 GRAM/200 ML BAG 1 GM/200 ML PIGGYBACK IV SCH ×2 (10:16→21:08)
[2022-08-06] MEDS: PROAMATINE PO SCH ×3 (10:16→17:08)
[2022-08-06] MEDS: VITA-BEE WITH C PO SCH (21:08)
[2022-08-06] MEDS: Toprol Xl 50 MG PO SCH (21:19)
[2022-08-06] MEDS: HYTRIN 1 MG PO SCH (21:19)
[2022-08-06] MEDS ORDERED: ZOCOR 20MG PO SCH (22:00)
[2022-08-06] MEDS ORDERED: NON-FORMULARY BULK ITEM PO SCH (22:00)
[2022-08-07] MEDS: MAXIPIME 1 GM** 1 G in Sodium Chloride 100ML MINI-BAG PLUS 100 ML IV SCH ×3 (02:31→16:46)
[2022-08-07] MEDS: DUONEB 0.5-3 MG/3 ml Neb IH SCH ×6 (03:20→22:05)
[2022-08-07 05:06] LABS: Absolute Neutrophil Ct (ANC) 29.57 x10^3/uL (1.4-6.9); BASOPHIL % 0.1 % (0.0-0.4); Basophil (Absolute #) 0.04 x10^3/uL (0-0.4); Eosinophil (Absolute #) 0 x10^3/uL (0-0.5); Hematocrit 31.5 % (42-50); Hemoglobin 10.2 g/dL (12.5-18.0); IMMATURE GRAN # 0.68 x10^3u/L (0.00-0.03); IMMATURE GRAN % 2.2 % (0.00-0.4); Lymphocyte (Absolute #) 0.42 x10^3/uL (1.0-4.6); Lymphocytes % 1.3 % (24.0-44.0); Mean Corpuscular Hemoglobin 29.5 pg (26-32); Mean Corpuscular Hgb Concent. 32.4 g/dL (32-36); Mean Platelet Volume 10.5 fL (7.5-11.0); Monocyte (Absolute #) 0.73 x10^3/uL (0.0-1.3); Monocytes % 2.3 % (0.0-12.0); Neutrophil % 94.1 % (36.0-66.0); Platelet Count 200 x10^3/uL (150-450); Red Blood Count 3.46 x10^6/uL (4.1-5.6); Red Cell Distribution Width 15.8 % (11.5-14.0)
[2022-08-07 05:13] LABS: White Blood Count 31.4 x10^3/uL (4.0-10.5)
[2022-08-07 05:26] LABS: ALBUMIN 3.4 g/dL (3.5-5.0); ALKALINE PHOSPHATASE 76 U/L (38-126); ANION GAP 12.1 MEQ/L (5-15); BLOOD UREA NITROGEN 31 mg/dL (9-20); CHLORIDE 95 mmol/L (98-107); Calcium 8.7 mg/dL (8.4-10.2); Carbon Dioxide 28 mmol/L (22-30); Creatinine 1 1.03 mg/dL (0.66-1.25); EST GLOMERULAR FILTRATION RATE > 60.0 ML/MIN; Glucose 185 mg/dL (74-106); Potassium 3.5 mmol/L (3.5-5.1); SGOT/AST 46 U/L (17-59); SGPT/ALT 25 U/L (0-50); SODIUM 131 mmol/L (137-145); Total Protein 6.4 g/dL (6.3-8.2)
[2022-08-07 05:40] LABS: Lymphocytes 2 % (24-44); Neutrophils 98 % (36.-66.); Total Cells Counted 100
[2022-08-07 05:41] LABS: ANISOCYTOSIS 1+; Platelet Estimate NORMAL (NORMAL)
[2022-08-07] MEDS: solu-MEDROL 60 MG, Sterile H2O 10 ml 2 ML IV SCH ×6 (05:50→21:37)
[2022-08-07] MEDS: ECOTRIN 81 MG PO SCH (09:02)
[2022-08-07] MEDS: ENOXAPARIN SODIUM SQ SCH (09:03)
[2022-08-07] MEDS: Cozaar 50 MG PO SCH (09:03)
[2022-08-07] MEDS: DEMADEX 20 MG PO SCH (09:03)
[2022-08-07] MEDS: PROAMATINE PO SCH ×3 (09:04→16:42)
[2022-08-07] MEDS: VITAMIN B-1 100 MG PO SCH (10:12)
[2022-08-07] MEDS: THERAGRAN MULTIVITAMIN PO SCH (10:13)
[2022-08-07] MEDS: VANCOMYCIN 1 GRAM/200 ML BAG 1 GM/200 ML PIGGYBACK IV SCH ×2 (10:13→21:43)
[2022-08-07] MEDS ORDERED: TROUGH DRUG LEVELS IJ ONE (21:30)
[2022-08-07] MEDS: ZOCOR 20MG PO SCH (21:36)
[2022-08-07] MEDS: HYTRIN 1 MG PO SCH (21:36)
[2022-08-07] MEDS: Toprol Xl 50 MG PO SCH (21:36)
[2022-08-07] MEDS: VITA-BEE WITH C PO SCH (21:37)
[2022-08-08] MEDS: MAXIPIME 1 GM** 1 G in Sodium Chloride 100ML MINI-BAG PLUS 100 ML IV SCH ×3 (02:00→17:12)
[2022-08-08] MEDS: DUONEB 0.5-3 MG/3 ml Neb IH SCH ×6 (02:05→22:52)
[2022-08-08 04:49] LABS: Hematocrit 32.3 % (42-50); Hemoglobin 10.7 g/dL (12.5-18.0); Mean Cell Volume 90.5 fL (78-100); Mean Corpuscular Hgb Concent. 33.1 g/dL (32-36); Mean Platelet Volume 10.5 fL (7.5-11.0); Platelet Count 217 x10^3/uL (150-450); Red Blood Count 3.57 x10^6/uL (4.1-5.6)
[2022-08-08 05:00] LABS: INR 0.87 (0.8-3.0); PROTIME 9.6 SECONDS (9.4-12.5)
[2022-08-08 05:20] LABS: White Blood Count 26.3 x10^3/uL (4.0-10.5)
[2022-08-08 05:26] LABS: ALBUMIN 3.7 g/dL (3.5-5.0); ALKALINE PHOSPHATASE 79 U/L (38-126); ANION GAP 11.6 MEQ/L (5-15); BLOOD UREA NITROGEN 37 mg/dL (9-20); CHLORIDE 96 mmol/L (98-107); Calcium 9.3 mg/dL (8.4-10.2); Carbon Dioxide 31 mmol/L (22-30); Creatinine 1 1.09 mg/dL (0.66-1.25); EST GLOMERULAR FILTRATION RATE > 60.0 ML/MIN; Glucose 214 mg/dL (74-106); Potassium 3.4 mmol/L (3.5-5.1); SGOT/AST 40 U/L (17-59); SGPT/ALT 29 U/L (0-50); SODIUM 135 mmol/L (137-145); Total Protein 6.9 g/dL (6.3-8.2)
[2022-08-08] MEDS: solu-MEDROL 60 MG, Sterile H2O 10 ml 2 ML IV SCH ×2 (06:28)
[2022-08-08] MEDS ORDERED: solu-MEDROL 40 MG, Sterile H2O 10 ml 2 ML IV SCH ×2 (10:03)
--- NOTE | 2022-08-08 10:04 | PCM.NOTE ---
Date and Time: 08/08/22 1001 Subjective Assessment: patient reports he is feeling better than he did at admission, breathing is stable and up and down at times but feels near his baseline. Objective Exam General Appearance: no apparent distress, obese Neurologic Exam: alert, oriented x 3 Respiratory Exam: diminished breath sounds, prolonged expirations Cardiovascular Exam: regular rate/rhythm, normal heart sounds Gastrointestinal/Abdomen Exam: soft, No tenderness, No mass Extremity Exam: pedal edema, swelling (improving erythema to right lower leg, pitting edema BLE) OBJECTIVE DATA Vital Signs: Vital Signs - 24 hr Temp Pulse Resp BP Pulse Ox 08/08/22 07:08 98.0 F 87 20 137/59 95 08/08/22 06:38 91 H 20 91 L 08/08/22 04:00 98.1 F 106 H 19 103/52 94 L 08/08/22 02:14 89 20 94 L 08/07/22 23:54 98.0 F 103 H 20 121/58 93 L 08/07/22 22:05 103 H 20 93 L 08/07/22 20:00 97.9 F 91 H 24 123/58 94 L 08/07/22 18:53 90 22 94 L 08/07/22 16:00 98.1 F 85 20 133/62 91 L 08/07/22 14:31 97 H 22 95 08/07/22 11:42 98.9 F 74 22 123/59 91 L 08/07/22 11:06 98 H 24 92 L Pain Assessment - Last Documented Pain Intensity 0 Pain Scale Used 0-10 Pain Scale Intake and Output: Intake & Output 08/05/22 08/06/22 08/07/22 08/08/22 11:59 11:59 11:59 11:59 Intake Total 1020 1560 1680 Output Total 700 5600 1600 Balance 320 -4040 80 Weight 88.4 kg 88.4 kg 88.4 kg Lab Results: Lab Results-Last 24 Hours 08/06/22 08/07/22 08/08/22 Range/Units 04:00 21:53 04:20 WBC 26.3 H* (4.0-10.5) x10^3/uL RBC 3.57 L (4.1-5.6) x10^6/uL Hgb 10.7 L (12.5-18.0) g/dL Hct 32.3 L (42-50) % MCV 90.5 (78-100) fL MCH 30.0 (26-32) pg MCHC 33.1 (32-36) g/dL RDW 16.0 H (11.5-14.0) % Plt Count 217 (150-450) x10^3/uL MPV 10.5 (7.5-11.0) fL Smear Path Review PT (9.4-12.5) SECONDS INR (0.8-3.0) Sodium (137-145) mmol/L Potassium (3.5-5.1) mmol/L Chloride (98-107) mmol/L Carbon Dioxide (22-30) mmol/L Anion Gap (5-15) MEQ/L BUN (9-20) mg/dL Creatinine (0.66-1.25) mg/dL Estimated GFR ML/MIN Glucose (74-106) mg/dL Hemoglobin A1c (4.5-6.0) % Calcium (8.4-10.2) mg/dL Total Bilirubin (0.2-1.3) mg/dL AST (17-59) U/L ALT (0-50) U/L Alkaline Phosphatase (38-126) U/L Serum Total Protein (6.3-8.2) g/dL Albumin (3.5-5.0) g/dL Vancomycin Trough 11.74 (10-20) ug/mL 08/08/22 08/08/22 08/08/22 Range/Units 04:20 04:20 04:20 WBC (4.0-10.5) x10^3/uL RBC (4.1-5.6) x10^6/uL Hgb (12.5-18.0) g/dL Hct (42-50) % MCV (78-100) fL MCH (26-32) pg MCHC (32-36) g/dL RDW (11.5-14.0) % Plt Count (150-450) x10^3/uL MPV (7.5-11.0) fL Smear Path Review PT 9.6 (9.4-12.5) SECONDS INR 0.87 (0.8-3.0) Sodium 135 L (137-145) mmol/L Potassium 3.4 L (3.5-5.1) mmol/L Chloride 96 L (98-107) mmol/L Carbon Dioxide 31 H (22-30) mmol/L Anion Gap 11.6 (5-15) MEQ/L BUN 37 H (9-20) mg/dL Creatinine 1.09 (0.66-1.25) mg/dL Estimated GFR > 60.0 ML/MIN Glucose 214 H (74-106) mg/dL Hemoglobin A1c 5.88 (4.5-6.0) % Calcium 9.3 (8.4-10.2) mg/dL Total Bilirubin 0.40 (0.2-1.3) mg/dL AST 40 (17-59) U/L ALT 29 (0-50) U/L Alkaline Phosphatase 79 (38-126) U/L Serum Total Protein 6.9 (6.3-8.2) g/dL Albumin 3.7 (3.5-5.0) g/dL Vancomycin Trough (10-20) ug/mL Assessment/Plan (1) Cellulitis Current Visit: Yes Status: Acute Assessment & Plan: continue vanc Code(s): L03.90 - CELLULITIS, UNSPECIFIED (2) Alcohol abuse Current Visit: Yes Status: Acute Code(s): F10.10 - ALCOHOL ABUSE, UNCOMPLICATED (3) Sepsis Current Visit: Yes Status: Acute Assessment & Plan: GPC is blood culture, still no ID since admission, pending from lab. continue vanc and cefepime at this time. (4) CHF (congestive heart failure) Current Visit: No Status: Acute Code(s): I50.9 - HEART FAILURE, UNSPECIFIED (5) COPD with acute exacerbation Current Visit: No Status: Acute Assessment & Plan: no wheezing, reduce steroid dose today Code(s): J44.1 - CHRONIC OBSTRUCTIVE PULMONARY DISEASE W (ACUTE) EXACERBATION
[2022-08-08] MEDS: ENOXAPARIN SODIUM SQ SCH (10:25)
[2022-08-08] MEDS: VANCOMYCIN 1 GRAM/200 ML BAG 1 GM/200 ML PIGGYBACK IV SCH ×2 (10:25→21:43)
[2022-08-08] MEDS: Cozaar 50 MG PO SCH (10:26)
[2022-08-08] MEDS: ECOTRIN 81 MG PO SCH (10:27)
[2022-08-08] MEDS: THERAGRAN MULTIVITAMIN PO SCH (10:27)
[2022-08-08] MEDS: VITAMIN B-1 100 MG PO SCH (10:27)
[2022-08-08] MEDS: DEMADEX 20 MG PO SCH (10:27)
[2022-08-08] MEDS: PROAMATINE PO SCH ×3 (10:28→17:19)
[2022-08-08] MEDS: solu-MEDROL 40 MG, Sterile H2O 10 ml 1 ML IV SCH ×4 (14:11→21:42)
[2022-08-08] MEDS: HYTRIN 1 MG PO SCH (21:43)
[2022-08-08] MEDS: ZOCOR 20MG PO SCH (21:43)
[2022-08-08] MEDS: Toprol Xl 50 MG PO SCH (21:43)
[2022-08-08] MEDS: VITA-BEE WITH C PO SCH (21:44)
[2022-08-09] MEDS: MAXIPIME 1 GM** 1 G in Sodium Chloride 100ML MINI-BAG PLUS 100 ML IV SCH ×2 (01:29→08:15)
[2022-08-09] MEDS: DUONEB 0.5-3 MG/3 ml Neb IH SCH ×6 (03:02→23:00)
[2022-08-09 04:55] LABS: Hematocrit 33.7 % (42-50); Hemoglobin 10.8 g/dL (12.5-18.0); Mean Cell Volume 92.3 fL (78-100); Mean Corpuscular Hemoglobin 29.6 pg (26-32); Mean Platelet Volume 10.6 fL (7.5-11.0); Platelet Count 217 x10^3/uL (150-450); Red Blood Count 3.65 x10^6/uL (4.1-5.6); Red Cell Distribution Width 16.1 % (11.5-14.0); White Blood Count 22.2 x10^3/uL (4.0-10.5)
[2022-08-09 05:10] LABS: ALBUMIN 3.8 g/dL (3.5-5.0); ALKALINE PHOSPHATASE 86 U/L (38-126); ANION GAP 12.2 MEQ/L (5-15); BLOOD UREA NITROGEN 44 mg/dL (9-20); CHLORIDE 97 mmol/L (98-107); Calcium 9.4 mg/dL (8.4-10.2); Carbon Dioxide 33 mmol/L (22-30); Creatinine 1 1.12 mg/dL (0.66-1.25); EST GLOMERULAR FILTRATION RATE > 60.0 ML/MIN; Glucose 151 mg/dL (74-106); MAGNESIUM 1.9 mg/dL (1.6-2.3); Potassium 3.9 mmol/L (3.5-5.1); SGOT/AST 55 U/L (17-59); SGPT/ALT 47 U/L (0-50); SODIUM 138 mmol/L (137-145)
[2022-08-09] MEDS: solu-MEDROL 40 MG, Sterile H2O 10 ml 1 ML IV SCH ×2 (05:29)
[2022-08-09] MEDS: VITAMIN B-1 100 MG PO SCH (08:09)
[2022-08-09] MEDS: Cozaar 50 MG PO SCH (08:09)
[2022-08-09] MEDS: ENOXAPARIN SODIUM SQ SCH (08:10)
[2022-08-09] MEDS: ECOTRIN 81 MG PO SCH (08:10)
[2022-08-09] MEDS: THERAGRAN MULTIVITAMIN PO SCH (08:10)
[2022-08-09] MEDS: DEMADEX 20 MG PO SCH (08:10)
[2022-08-09] MEDS: PROAMATINE PO SCH ×2 (08:12→09:25)
[2022-08-09] MEDS: VITA-BEE WITH C PO SCH (08:13)
[2022-08-09] MEDS: AMMONIUM LACTATE 12% TP SCH (09:46)
[2022-08-09] MEDS: DELTASONE 20 MG PO SCH (09:48)
--- NOTE | 2022-08-09 16:05 | PCM.CONS ---
Podiatry HPI - Consult Consulting Provider: CONNER GAY DPM - HPI History of Present Illness: Darryl is a very pleasant 67 year old male who was admitted on saturday evening with sepsis due to suspected pneumonia. Patient has a long standing hx of COPD and Lymphedema. He is well known to our service. Medications & Allergies Home Medications: Home Medication List Aspirin EC 81 mg [Ecotrin 81 mg] 81 mg PO DAILY 03/01/13 [History Confirmed 08/05/22] Atorvastatin Calcium [Lipitor] 40 mg PO QHS 03/01/13 [History Confirmed 08/05/22] B Complex with Vitamin C [Super B Complex with C] 1 each PO QHS 03/01/13 [History Confirmed 08/05/22] Losartan Potassium 50 mg [Cozaar 50 MG] 100 mg PO DAILY 03/01/13 [History Confirmed 08/05/22] Metoprolol Succinate 50 mg [Toprol Xl 50 MG] 50 mg PO QHS 03/01/13 [History Confirmed 08/05/22] Nitroglycerin 0.4 mg Tablet [Nitrostat 0.4 MG Tablet] 0.4 mg SL UD PRN 03/01/13 [History Confirmed 08/05/22] Albuterol Sulfate [Ventolin Hfa] 1 gm IH UD PRN 12/03/18 [History Confirmed 08/05/22] Terazosin HCl [Hytrin] 2 mg PO QHS 12/03/18 [History Confirmed 08/05/22] Torsemide 20 mg [Demadex 20 mg] 40 mg PO DAILY 03/14/21 [History Confirmed 08/05/22] Albuterol/Ipratropium 3ml Neb* [DUONEB 0.5-3 MG/3 ml Neb] 3 ml IH Q4H PRN PRN 02/04/22 [History Confirmed 08/05/22] Ammonium Lactate [Ammonium Lactate 12%] 225 gm TP UD #1 unit 02/07/22 [Rx Confirmed 08/05/22] Allergies/Adverse Reactions: Allergies Allergy/AdvReac Type Severity Reaction Status Date / Time No Known Drug Allergies Allergy Verified 08/05/22 18:22 - Past Medical History Past Medical History: Yes Neurological History: No Pertinent History ENT History: No Pertinent History Cardiac History: Coronary Artery Disease, High Cholesterol, Hypertension, Other Respiratory History: CHF, COPD, Emphysema, Pneumonia, Other Endocrine Medical History: No Pertinent History Musculoskelatal History: No Pertinent History GI Medical History: No Pertinent History History: No Pertinent History Pyscho-Social History: No Pertinent History Male Reproductive Disorders: No Pertinent History Comment: Rupture disc-surgery to repair - Past Surgical History Past Surgical History: Yes Neuro Surgical History: No Pertinent History Cardiac History: Other Respiratory Surgery: No Pertinent History GI Surgical History: No Pertinent History Genitourinary Surgical Hx: No Pertinent History Musculskeletal Surgical Hx: Other Male Surgical History: No Pertinent History Other Surgical History: T&A at 8-10 yrs old. Ruptured disc repair. Stent x 1more than 15 yrs ago. cataract surgery - Social History Smoking Status: Current every day smoker How long have you smoked: 50 years Exposure to second hand smoke: Yes Alcohol: Daily Drug Use: none Significant Family History: no pertinent family hx Physical Exam - General General Appearance: no apparent distress - Neuro Neurologic: Epicritic and protopathic - Vascular Peripheral Pulses: Posterior tibialis: 2+, Dorsalis-Pedis: 2+ Capillary Refill Time: < 3 seconds Hair Growth: Symmetrical and Bilateral Varicosities: Positive Edema: Pitting Edema Degree: 3+ Skin: Supple, not atrophic Skin Temperature: Warm to touch - Muscular Muscle Strength: 5/5 on all 4 quadrants - Narrative Narrative Physical Exam: Podiatry Physical Exam Results - Labs Lab/Micro Results: Lab Results-Last 24 Hours 08/09/22 08/09/22 Range/Units 04:22 04:22 WBC 22.2 H (4.0-10.5) x10^3/uL RBC 3.65 L (4.1-5.6) x10^6/uL Hgb 10.8 L (12.5-18.0) g/dL Hct 33.7 L (42-50) % MCV 92.3 (78-100) fL MCH 29.6 (26-32) pg MCHC 32.0 (32-36) g/dL RDW 16.1 H (11.5-14.0) % Plt Count 217 (150-450) x10^3/uL MPV 10.6 (7.5-11.0) fL Sodium 138 (137-145) mmol/L Potassium 3.9 (3.5-5.1) mmol/L Chloride 97 L (98-107) mmol/L Carbon Dioxide 33 H (22-30) mmol/L Anion Gap 12.2 (5-15) MEQ/L BUN 44 H (9-20) mg/dL Creatinine 1.12 (0.66-1.25) mg/dL Estimated GFR > 60.0 ML/MIN Glucose 151 H (74-106) mg/dL Calcium 9.4 (8.4-10.2) mg/dL Magnesium 1.9 (1.6-2.3) mg/dL Total Bilirubin 0.40 (0.2-1.3) mg/dL AST 55 (17-59) U/L ALT 47 (0-50) U/L Alkaline Phosphatase 86 (38-126) U/L Serum Total Protein 7.0 (6.3-8.2) g/dL Albumin 3.8 (3.5-5.0) g/dL Microbiology 08/05/22 18:41 Blood Culture Gram Stain - Final Blood Blood Culture - Preliminary ADDITIONAL TESTING IS REQUIRED TO OBTAIN ID AND SENSITIVITY. SPECIMEN HAS BEEN SENT TO REFERENCE LAB, WITH FINAL RESULT EXPECTED WITHIN 96 HOURS. 08/05/22 18:25 Blood Culture Gram Stain - Final Blood Blood Culture - Preliminary ADDITIONAL TESTING IS REQUIRED TO OBTAIN ID AND SENSITIVITY. SPECIMEN HAS BEEN SENT TO REFERENCE LAB, WITH FINAL RESULT EXPECTED WITHIN 96 HOURS. 08/05/22 18:41 Aerobic Organism ID Result 1 - Final Blood Not Reportable Aerobic Organism ID Result 2 - Final Not Reportable Aerobic Organism ID Result 3 - Final Not Reportable Aerobic Organism ID Result 4 - Final Not Reportable Aerobic Bacterial Sensitivity - Final Not Reportable 08/05/22 18:32 Urine Culture - Final Catherized NO GROWTH Assessment/Plan (1) Lymphedema Current Visit: Yes Status: Acute Assessment & Plan: Patient examination evaluation. Patient has had some success with the use of Unna boots historically and will resume at this time. Patient is a good candidate for Lymphedema pumps and we will begin this process for him. [facility] to continue compression MF and we will see patient for changes Saturday for now. Will follow with you. . Code(s): I89.0 - LYMPHEDEMA, NOT ELSEWHERE CLASSIFIED (2) Venous insufficiency (chronic) (peripheral) Current Visit: Yes Status: Acute (3) COPD with acute exacerbation Current Visit: No Status: Acute Code(s): J44.1 - CHRONIC OBSTRUCTIVE PULMONARY DISEASE W (ACUTE) EXACERBATION (4) CHF (congestive heart failure) Current Visit: No Status: Acute Code(s): I50.9 - HEART FAILURE, UNSPECIFIED (5) Fissure in skin of both feet Current Visit: No Status: Chronic Code(s): R23.4 - CHANGES IN SKIN TEXTURE (6) Sepsis Current Visit: Yes Status: Acute
--- NOTE | 2022-08-09 20:00 | PCM.NOTE ---
Date and Time: 08/09/22 0750 Subjective Assessment: Feeling better; breathing better - Review of Systems Constitutional: No Fever, No Chills Eyes: No Symptoms Ears, Nose, & Throat: No Symptoms Respiratory: No Cough, No Short Of Breath Cardiac: No Chest Pain, No Edema, No Syncope Abdominal/Gastrointestinal: No Abdominal Pain, No Nausea, No Vomiting, No Diarrhea Genitourinary Symptoms: No Dysuria Musculoskeletal: No Back Pain, No Neck Pain Skin: No Rash Neurological: No Dizziness, No Focal Weakness, No Sensory Changes Psychological: No Symptoms Endocrine: No Symptoms Hematologic/Lymphatic: No Symptoms Immunological/Allergic: No Symptoms All Other Systems: Reviewed and Negative Objective Exam General Appearance: no apparent distress, alert Neurologic Exam: alert, oriented x 3, cooperative, normal mood/affect, nml cerebellar function, sensation nml, No motor deficits Skin Exam: normal color, warm, dry Eye Exam: PERRL, EOMI, eyes nml inspection Ears, Nose, Throat Exam: normal ENT inspection, pharynx normal, moist mucous membranes Neck Exam: normal inspection, non-tender, supple, full range of motion Respiratory Exam: normal breath sounds, lungs clear, No respiratory distress Cardiovascular Exam: regular rate/rhythm, normal heart sounds Gastrointestinal/Abdomen Exam: soft, No tenderness, No mass Extremity Exam: normal inspection, normal range of motion Back Exam: normal inspection, normal range of motion, No CVA tenderness, No vertebral tenderness Male Genitalia Exam: deferred Rectal Exam: deferred OBJECTIVE DATA Vital Signs: Vital Signs - 24 hr Temp Pulse Resp BP Pulse Ox 08/09/22 19:12 108 H 20 90 L 08/09/22 16:00 98.9 F 112 H 19 163/72 92 L 08/09/22 14:30 80 18 94 L 08/09/22 12:00 98.3 F 80 20 132/62 94 L 08/09/22 11:06 72 18 92 L 08/09/22 08:00 97.9 F 76 22 136/69 99 08/09/22 07:23 72 20 95 08/09/22 04:00 97.9 F 79 22 134/67 95 08/09/22 03:02 65 18 95 08/08/22 23:48 97.6 F 86 25 H 143/64 97 08/08/22 22:52 75 20 94 L 08/08/22 20:25 98.6 F 87 21 137/62 94 L 08/08/22 20:00 99.1 F 80 20 170/76 94 L Pain Assessment - Last Documented Pain Intensity 0 Pain Scale Used 0-10 Pain Scale Intake and Output: Intake & Output 08/07/22 08/08/22 08/09/22 08/10/22 11:59 11:59 11:59 11:59 Intake Total 1560 1680 1780 820 Output Total 5600 1600 3300 Balance -4040 80 -1520 820 Weight 88.4 kg 85.4 kg 85.3 kg Lab Results: Lab Results-Last 24 Hours 08/09/22 08/09/22 Range/Units 04:22 04:22 WBC 22.2 H (4.0-10.5) x10^3/uL RBC 3.65 L (4.1-5.6) x10^6/uL Hgb 10.8 L (12.5-18.0) g/dL Hct 33.7 L (42-50) % MCV 92.3 (78-100) fL MCH 29.6 (26-32) pg MCHC 32.0 (32-36) g/dL RDW 16.1 H (11.5-14.0) % Plt Count 217 (150-450) x10^3/uL MPV 10.6 (7.5-11.0) fL Sodium 138 (137-145) mmol/L Potassium 3.9 (3.5-5.1) mmol/L Chloride 97 L (98-107) mmol/L Carbon Dioxide 33 H (22-30) mmol/L Anion Gap 12.2 (5-15) MEQ/L BUN 44 H (9-20) mg/dL Creatinine 1.12 (0.66-1.25) mg/dL Estimated GFR > 60.0 ML/MIN Glucose 151 H (74-106) mg/dL Calcium 9.4 (8.4-10.2) mg/dL Magnesium 1.9 (1.6-2.3) mg/dL Total Bilirubin 0.40 (0.2-1.3) mg/dL AST 55 (17-59) U/L ALT 47 (0-50) U/L Alkaline Phosphatase 86 (38-126) U/L Serum Total Protein 7.0 (6.3-8.2) g/dL Albumin 3.8 (3.5-5.0) g/dL Multi-Disciplinary Progress Notes: Multi-Disciplinary Progress Notes 08/09/22 12:21 Case Management Note by Christy Garcia NO CHANGE IN DC PLANS AT THIS TIME- PATIENT [facility] HAS HOME OXYGEN AND HHC. HE PLANS TO DC HOME TO HIS PLF AT TIME OF DC Initialized on 08/09/22 12:21 - END OF NOTE Assessment/Plan (1) COPD with acute exacerbation Current Visit: No Status: Acute Assessment & Plan: ASSESSMENT 1. Sepsis 2. Hypotension 3. Acute Emphysematous COPD Exacerbation 4. Acute on Chronic Hypoxemic Respiratory Failure 5. Hyponatremia 6. Non-ST Elevation Myocardial Infarction, Type II 7. Hypertension 8. Hyperlipidemia 9. Chronic Anemia 10. Chronic Hypercapnic Respiratory Failure PLAN 1. Doing well; back to baseline [place] oxygen 2. Transition solumedrol --> PO prednisone for a 2 week taper 3. Stop fluids; stop midodrine 4. Stop Abx; all cultures negative; COVID and flu negative; no overt nidus of infection in work-up 5. Sodium improved 6. Start PT today 7. H/H stable 8. Blood pressure with good control; continue antihypertensives Lovenox The entirety of this encounter was done via telemedicine Jenaro Hammond MD Pulmonary and Critical Care Medicine Code(s): J44.1 - CHRONIC OBSTRUCTIVE PULMONARY DISEASE W (ACUTE) EXACERBATION
[2022-08-09] MEDS: ZOCOR 20MG PO SCH (21:17)
[2022-08-09] MEDS: HYTRIN 1 MG PO SCH (21:17)
[2022-08-09] MEDS: Toprol Xl 50 MG PO SCH (21:18)
[2022-08-10] MEDS: DUONEB 0.5-3 MG/3 ml Neb IH SCH ×3 (03:20→10:57)
[2022-08-10 04:54] LABS: Hematocrit 32.6 % (42-50); Hemoglobin 10.5 g/dL (12.5-18.0); Mean Cell Volume 91.6 fL (78-100); Mean Corpuscular Hemoglobin 29.5 pg (26-32); Mean Corpuscular Hgb Concent. 32.2 g/dL (32-36); Mean Platelet Volume 10.1 fL (7.5-11.0); Platelet Count 206 x10^3/uL (150-450); Red Blood Count 3.56 x10^6/uL (4.1-5.6); Red Cell Distribution Width 15.9 % (11.5-14.0); White Blood Count 17.7 x10^3/uL (4.0-10.5)
[2022-08-10 05:11] LABS: ALBUMIN 3.6 g/dL (3.5-5.0); ALKALINE PHOSPHATASE 76 U/L (38-126); ANION GAP 10.4 MEQ/L (5-15); BLOOD UREA NITROGEN 50 mg/dL (9-20); CHLORIDE 95 mmol/L (98-107); Calcium 9.2 mg/dL (8.4-10.2); Carbon Dioxide 37 mmol/L (22-30); Creatinine 1 1.11 mg/dL (0.66-1.25); EST GLOMERULAR FILTRATION RATE > 60.0 ML/MIN; Glucose 130 mg/dL (74-106); Potassium 3.6 mmol/L (3.5-5.1); SGOT/AST 45 U/L (17-59); SGPT/ALT 52 U/L (0-50); SODIUM 138 mmol/L (137-145); Total Protein 6.7 g/dL (6.3-8.2)
[2022-08-10] MEDS: ENOXAPARIN SODIUM SQ SCH (09:09)
[2022-08-10] MEDS: DEMADEX 20 MG PO SCH (09:09)
[2022-08-10] MEDS: ECOTRIN 81 MG PO SCH (09:10)
[2022-08-10] MEDS: DELTASONE 20 MG PO SCH (09:10)
[2022-08-10] MEDS: THERAGRAN MULTIVITAMIN PO SCH (09:10)
[2022-08-10] MEDS: Cozaar 50 MG PO SCH (09:10)
[2022-08-10] MEDS: VITAMIN B-1 100 MG PO SCH (09:10)
[2022-08-10 11:54] VITALS: BP 180/83; PULSE 86; O2SAT 90
--- NOTE | 2022-08-10 12:13 | PCM.DS ---
Discharge Summary Date of Admission: 08/05/22 22:39 Date of Discharge: 08/10/22 Admitting Physician: NICK LOPEZ MD Consults: Consults on Case 08/09/22 13:18 Consult Podiatry ROUTINE Primary Care Provider: CAROLYNE CARCAMO NIRAJ Allergies Allergies No Known Drug Allergies Allergy (Verified 08/05/22 18:22) Hospital Summary - Hospital Course Hospital Course: Respiratory status much improved. At home oxygen flow rate. Plan will be for a 15 day prednisone taper. Patient will follow up with podiatry as an outpatient for treatment of lymphedema. Patient will also follow up with his autopsy pathologist, Dr. De Leon, regarding his elevated troponin The patient was seen and examined via telemedicine. The entirety of this encounter was performed via telemedicine. The patient consented to this telemedicine encounter. - Vitals & Intake/Output Vital Signs: Vital Signs Temperature 98.6 F 08/10/22 11:00 Pulse Rate 86 08/10/22 11:00 Respiratory Rate 16 08/10/22 11:00 Blood Pressure 180/83 08/10/22 11:00 O2 Sat by Pulse Oximetry 90 L 08/10/22 11:00 Intake & Output: Intake & Output 08/08/22 08/09/22 08/10/22 08/11/22 11:59 11:59 11:59 11:59 Intake Total 1680 1780 1900 Output Total 1600 3300 Balance 80 -1520 1900 Weight 85.4 kg 85.3 kg - Lab Result Diagrams: 08/10/22 04:27 08/10/22 04:27 Lab Results-Last 24 Hrs: Lab Results-Last 24 Hours 08/10/22 08/10/22 08/10/22 Range/Units 04:27 04:27 04:27 WBC 17.7 H (4.0-10.5) x10^3/uL RBC 3.56 L (4.1-5.6) x10^6/uL Hgb 10.5 L (12.5-18.0) g/dL Hct 32.6 L (42-50) % MCV 91.6 (78-100) fL MCH 29.5 (26-32) pg MCHC 32.2 (32-36) g/dL RDW 15.9 H (11.5-14.0) % Plt Count 206 (150-450) x10^3/uL MPV 10.1 (7.5-11.0) fL Sodium 138 (137-145) mmol/L Potassium 3.6 (3.5-5.1) mmol/L Chloride 95 L (98-107) mmol/L Carbon Dioxide 37 H (22-30) mmol/L Anion Gap 10.4 (5-15) MEQ/L BUN 50 H (9-20) mg/dL Creatinine 1.11 (0.66-1.25) mg/dL Estimated GFR > 60.0 ML/MIN Glucose 130 H (74-106) mg/dL Calcium 9.2 (8.4-10.2) mg/dL Magnesium 1.9 (1.6-2.3) mg/dL Total Bilirubin 0.50 (0.2-1.3) mg/dL AST 45 (17-59) U/L ALT 52 H (0-50) U/L Alkaline Phosphatase 76 (38-126) U/L Serum Total Protein 6.7 (6.3-8.2) g/dL Albumin 3.6 (3.5-5.0) g/dL Micro Results-Entire Visit: Microbiology 08/05/22 18:41 Blood Culture Gram Stain - Final Blood Blood Culture - Preliminary ADDITIONAL TESTING IS REQUIRED TO OBTAIN ID AND SENSITIVITY. SPECIMEN HAS BEEN SENT TO REFERENCE LAB, WITH FINAL RESULT EXPECTED WITHIN 96 HOURS. 08/05/22 18:25 Blood Culture Gram Stain - Final Blood Blood Culture - Preliminary ADDITIONAL TESTING IS REQUIRED TO OBTAIN ID AND SENSITIVITY. SPECIMEN HAS BEEN SENT TO REFERENCE LAB, WITH FINAL RESULT EXPECTED WITHIN 96 HOURS. 08/05/22 18:32 Urine Culture - Final Catherized NO GROWTH - Procedures and Test Procedures and Tests throughout Hospitalization: Therapy Orders & Screens 08/05/22 18:47 Respiratory Therapy Assessment DAILY Comment: 08/05/22 22:49 EKG REPEAT IN AM Comment: Oxygen Nasal Cannula 5 lpm Comment: Respiratory Therapy Consult ONCE Comment: Reason For Exam: 08/06/22 00:19 BiPap/CPAP ROUTINE Comment: Diagnosis: sepsis 08/09/22 08:18 PT Eval & Treat ( Order) ONCE Reason for Eval:: treat and evaluate Diagnosis: sepsis Discharge Exam General Appearance: no apparent distress Neurologic Exam: alert, oriented x 3, cooperative, research program internship II-XII nml as tested, normal mood/affect, nml cerebellar function Eye Exam: PERRL, EOMI, eyes nml inspection Ears, Nose, Throat Exam: normal ENT inspection Neck Exam: normal inspection, non-tender, supple, full range of motion Respiratory Exam: normal breath sounds, lungs clear Cardiovascular Exam: regular rate/rhythm, normal heart sounds Gastrointestinal/Abdomen Exam: soft, normal bowel sounds Back Exam: normal range of motion Extremity Exam: normal range of motion, swelling Skin Exam: normal color Wound Assessment: In dressing Final Diagnosis/Problem List - Final Discharge Diagnosis/Problem (1) COPD with acute exacerbation Current Visit: No Status: Acute Assessment & Plan: Improved. Will discharge on a 2 week prednisone taper. Code(s): J44.1 - CHRONIC OBSTRUCTIVE PULMONARY DISEASE W (ACUTE) EXACERBATION - Discharge Disposition: Home, Self-Care Condition: Fair Prescriptions: New predniSONE [Prednisone] 10 mg PO UD 15 Days #32 tablet No Action Aspirin EC 81 mg [Ecotrin 81 mg] 81 mg PO DAILY Losartan Potassium 50 mg [Cozaar 50 MG] 100 mg PO DAILY Atorvastatin Calcium [Lipitor] 40 mg PO QHS B Complex with Vitamin C [Super B Complex with C] 1 each PO QHS Metoprolol Succinate 50 mg [Toprol Xl 50 MG] 50 mg PO QHS Nitroglycerin 0.4 mg Tablet [Nitrostat 0.4 MG Tablet] 0.4 mg SL UD PRN PRN Reason: Chest Pain Albuterol Sulfate [Ventolin Hfa] 1 gm IH UD PRN PRN Reason: Shortness Of Breath Terazosin HCl [Hytrin] 2 mg PO QHS Torsemide 20 mg [Demadex 20 mg] 40 mg PO DAILY Albuterol/Ipratropium 3ml Neb* [DUONEB 0.5-3 MG/3 ml Neb] 3 ml IH Q4H PRN PRN PRN Reason: Shortness Of Breath Ammonium Lactate [Ammonium Lactate 12%] 225 gm TP UD #1 unit Instructions: Pneumonia, Adult (DC), Cellulitis (Skin Infection), Adult ED Additional Instructions: Dr Gaston will talk to you about the pumps for your legs at your follow up appointment, Home health care has already been arranged Follow up with: CONNER GAY DPM [ACTIVE STAFF] - 08/15/22 9:30 am LAKIA NICHOLE [ACTIVE STAFF] - 08/13/22 1:15 pm CAROLYNE CARCAMO MD [Primary Care Provider] - 08/17/22 1:30 pm Forms: Discharge Instructions
== END 2022-08-10 12:17 | disposition home or self-care (01) | DRG 190 ==
LOC: ED 18:19 → MED SURG 22:39
PROVIDERS: ADMIT Internal Medicine; ATTEND Family Medicine
PROC: 2W1TX6Z Compression of Left Foot using Pressure Dressing (ICD-10-PCS; principal; 2022-08-09)
PROC: 2W1SX6Z Compression of Right Foot using Pressure Dressing (ICD-10-PCS; 2022-08-09)
DX: J44.1 Chronic obstructive pulmonary disease with (acute) exacerbation (principal); A41.9 Sepsis, unspecified organism; J18.9 Pneumonia, unspecified organism; L03.90 Cellulitis, unspecified; I89.0 Lymphedema, not elsewhere classified; I11.0 Hypertensive heart disease with heart failure; I50.9 Heart failure, unspecified; E78.5 Hyperlipidemia, unspecified; I25.10 Atherosclerotic heart disease of native coronary artery without angina pectoris; R06.03 Acute respiratory distress; F10.10 Alcohol abuse, uncomplicated; Z72.0 Tobacco use; Z79.899 Other long term (current) drug therapy; Z20.828 Contact with and (suspected) exposure to other viral communicable diseases; Z99.81 Dependence on supplemental oxygen
CPT/HCPCS: 0241U; 29580; 36000; 36415; 36600; 51702; 71045; 71260; 80053; 80202; 81001; 82375; 82803; 83036; 83605; 83735; 83880; 84484; 85025; 85027; 85379; 85610; 87040; 87077; 87086; 93005; 93041; 93970; 94002; 94003; 94640; 94760; 94762; 96360; 96361; 96365; 97161; 97530; 99285; Q3014; J0692; J1650; J2920; J2930; A9270-GY; J3370

== ENCOUNTER 2022-10-08 14:15 | Emergency (ER) | payer MEDICARE, BC ==
[2022-10-08] MEDS ORDERED: DUONEB 0.5-3 MG/3 ml Neb IH ONE ×2 (14:35→14:43)
--- NOTE | 2022-10-08 14:43 | ERPHSYRPT ---
- History of Present Illness Time Seen by Provider: 10/08/22 14:42 Source: patient, EMS, old records Exam Limitations: no limitations Physician History: This is an obese 67-year-old white male patient of Dr. 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 Patient continues to consume alcohol and smokes cigarettes daily. Patient states that he started gabapentin approximately 4 days ago. After doses on and Saturday, the patient states he slept most of Saturday and Saturday. Patient is too lethargic. Today he had increased shortness of breath and weakness. Patient quit taking the gabapentin 2 days ago. I obtained independent medical history from the paramedics as well as reviewing the patient's old inpatient chart. Patient has a history of oxygen dependent COPD on 4 L of oxygen nasal cannula, CHF, hypertension, hyperlipidemia and morbid obesity. He also has coronary artery disease. Patient's direct marketing coordinator is Dr. De Leon and Dr. Reyes is his boxer operator. Patient denies fever. Patient denies abdominal pain. He has mild chest tenderness. Timing/Duration: today, worse Activities at Onset: none Severity of Dyspnea-Max: moderate Severity of Dyspnea-Current: moderate Possible Cause: frequent episodes Modifying Factors: Improves With: exertion Associated Symptoms: chest pain/discomfort, weakness Allergies/Adverse Reactions: No Known Drug Allergies Allergy (Verified 10/08/22 14:22) Home Medications: Aspirin EC 81 mg [Ecotrin 81 mg] 81 mg PO DAILY 03/01/13 [History] Atorvastatin Calcium [Lipitor] 40 mg PO QHS 03/01/13 [History] B Complex with Vitamin C [Super B Complex with C] 1 each PO QHS 03/01/13 [History] Losartan Potassium 50 mg [Cozaar 50 MG] 100 mg PO DAILY 03/01/13 [History] Metoprolol Succinate 50 mg [Toprol Xl 50 MG] 50 mg PO QHS 03/01/13 [History] Nitroglycerin 0.4 mg Tablet [Nitrostat 0.4 MG Tablet] 0.4 mg UD PRN 03/01/13 [History] Albuterol Sulfate [Ventolin Hfa] 1 gm UD PRN 12/03/18 [History] Terazosin HCl [Hytrin] 2 mg PO QHS 12/03/18 [History] Torsemide 20 mg [Demadex 20 mg] 40 mg PO DAILY 03/14/21 [History] Albuterol/Ipratropium 3ml Neb* [DUONEB 0.5-3 MG/3 ml Neb] 3 ml IH Q4H PRN PRN 02/04/22 [History] Hx Tetanus, Diphtheria Vaccination/Date Given: Yes Hx Influenza Vaccination/Date Given: No Hx Pneumococcal Vaccination/Date Given: Yes Travel Risk - International Travel Have you traveled outside of the country in past 3 weeks: No - Coronavirus Screening Are you exhibiting any of the following symptoms?: Yes Symptoms: Shortness of Breath Close contact with a COVID-19 positive Pt in past 14-21 Days: No - Vaccine Status Have you recieved a Covid-19 vaccination: Yes Machine [employer] Measurer: Moderna - Vaccination Dates Date of 2cond Vaccination (if applicable): 05/05/2020 Comment: Also 10/03/2021 - Review of Systems Constitutional: Weakness Eyes: No Symptoms Ears, Nose, & Throat: No Symptoms Respiratory: Dyspnea Cardiac: Chest Pain (Mild central nonradiating chest discomfort) Abdominal/Gastrointestinal: No Symptoms Genitourinary Symptoms: No Symptoms Musculoskeletal: No Symptoms Skin: No Symptoms Neurological: No Symptoms Psychological: No Symptoms Endocrine: No Symptoms Hematologic/Lymphatic: No Symptoms Immunological/Allergic: No Symptoms All Other Systems: Reviewed and Negative - Past Medical History Pertinent Past Medical History: Yes Neurological History: No Pertinent History ENT History: No Pertinent History Cardiac History: Coronary Artery Disease, High Cholesterol, Hypertension, Other Respiratory History: CHF, COPD, Emphysema, Pneumonia, Other Endocrine Medical History: No Pertinent History Musculoskeletal History: No Pertinent History GI Medical History: No Pertinent History History: No Pertinent History Psycho-Social History: No Pertinent History Male Reproductive Disorders: No Pertinent History Other Medical History: Rupture disc-surgery to repair - Past Surgical History Past Surgical History: Yes Neuro Surgical History: No Pertinent History Cardiac: Other Respiratory: No Pertinent History Gastrointestinal: No Pertinent History Genitourinary: No Pertinent History Musculoskeletal: Other Male Surgical History: No Pertinent History Other Surgical History: T&A at 8-10 yrs old. Ruptured disc repair. Stent x 1more than 15 yrs ago. cataract surgery - Social History Smoking Status: Current every day smoker How long have you smoked: 50 years Exposure to second hand smoke: Yes Drug Use: none Patient Lives Alone: No Significant Family History: no pertinent family hx - Nursing Vital Signs Nursing Vital Signs: Initial Vital Signs Temperature 99 F 10/08/22 14:16 Pulse Rate 90 10/08/22 14:16 Respiratory Rate 31 H 10/08/22 14:16 Blood Pressure 132/72 10/08/22 14:16 O2 Sat by Pulse Oximetry 91 L 10/08/22 14:16 Pain Scale Pain Intensity 0 - Physical Exam General Appearance: mild distress, alert, anxiety, obese Eye Exam: PERRL/EOMI, eyes nml inspection Ears, Nose, Throat Exam: hearing grossly normal, normal ENT inspection, normal pharynx Neck Exam: normal inspection, non-tender, supple, full range of motion Respiratory Exam: chest tenderness, airway intact, rhonchi (Right side), No respiratory distress (Mild) Cardiovascular/Chest Exam: normal heart sounds, regular rate/rhythm, normal reji pheral pulses Abdominal/Gastrointestinal Exam: soft, normal bowel sounds, No tenderness Rectal Exam: not done Extremity Exam: non-tender, normal range of motion, normal inspection, normal capillary refill, no calf tenderness, no pedal edema, pelvis stable, calf tenderness Neurologic Exam: alert, oriented x 3, cooperative, skid man II-XII nml as tested, normal mood/affect, nml cerebellar function, nml station & gait, sensation nml Skin Exam: normal color, warm, dry Lymphatic Exam: No adenopathy SpO2 Interpretation: borderline oxygenation O2 Delivery: Nasal Cannula (4 L oxygen nasal cannula) - Course Nursing assessment & vital signs reviewed: Yes EKG Interpreted by Me: RATE (85), Sinus Rhythm, NORMAL AXIS, NORMAL INTERVALS, NORMAL QRS, NORMAL ST-T, Other (No acute ischemic changes on today's twelve-lead EKG) Ordered Tests: Active Orders 24 hr Category Date Time Status Regulatory Attorney STAT Care 10/08/22 14:40 Active EKG-ER Only STAT Care 10/08/22 14:40 Active IV Insertion STAT Care 10/08/22 14:40 Active Pulse Oximetry (ED) STAT Care 10/08/22 14:40 Active CHEST WITH CONTRAST [CT] Stat Exams 10/08/22 18:19 Completed ARTERIAL BLOOD GASES Stat Lab 10/08/22 14:49 Completed BLOOD CULTURE Stat Lab 10/08/22 15:00 Received CBC W DIFF Stat Lab 10/08/22 14:40 Completed CMP Stat Lab 10/08/22 17:31 Completed D-DIMER QUANTITATIVE Stat Lab 10/08/22 14:40 Completed NT PRO BNPII Stat Lab 10/08/22 15:00 Completed TROPONIN Q4H Lab 10/08/22 14:40 Completed TROPONIN Q4H Lab 10/08/22 18:50 Completed TROPONIN Q4H Lab 10/08/22 22:45 Ordered Respiratory Therapy Assessment DAILY RT 10/08/22 14:44 Active Medication Summary Discontinued Medications Generic Name Dose Route Start Last Admin Trade Name Freq PRN Reason Stop Dose Admin Albuterol Sulfate 2.5 mg 10/08/22 18:36 10/08/22 18:41 Albuterol Sulfate 2.5 Mg/3 Ml Neb IH 10/08/22 18:37 2.5 mg STAT ONE Administration Albuterol Sulfate Confirm 10/08/22 18:40 Albuterol Sulfate 2.5 Mg/3 Ml Neb Administered 10/08/22 18:41 Dose 2.5 mg IH .STK-MED ONE Albuterol/Ipratropium Confirm 10/08/22 14:35 Ipratropium/Albuterol Sulfate 3 Ml Ampul.Neb Administered 10/08/22 14:36 Dose 3 ml IH .STK-MED ONE Albuterol/Ipratropium 3 ml 10/08/22 14:43 10/08/22 14:44 Ipratropium/Albuterol Sulfate 3 Ml Ampul.Neb IH 10/08/22 14:44 3 ml STAT ONE Administration Sodium Chloride 500 mls @ 500 mls/hr 10/08/22 18:19 10/08/22 19:34 Sodium Chloride 0.9% 500 Ml IV 10/08/22 19:18 500 mls/hr .Q1H ONE Administration Sodium Chloride Confirm 10/08/22 19:34 Sodium Chloride 0.9% 500 Ml Administered 10/08/22 19:35 Dose 500 mls @ ud IV .STK-MED ONE Lab/Rad Data: Laboratory Result Diagrams 10/08/22 14:40 10/08/22 17:31 Laboratory Results 10/08/22 10/08/22 10/08/22 Range/Units 18:50 17:31 15:00 WBC (4.0-10.5) x10^3/uL RBC (4.1-5.6) x10^6/uL Hgb (12.5-18.0) g/dL Hct (42-50) % MCV (78-100) fL MCH (26-32) pg MCHC (32-36) g/dL RDW (11.5-14.0) % Plt Count (150-450) x10^3/uL MPV (7.5-11.0) fL Gran % (36.0-66.0) % Immature Gran % (Auto) (0.00-0.4) % Nucleat RBC Rel Count (0.00-0.1) % Eos # (Auto) (0-0.5) x10^3/uL Immature Gran # (Auto) (0.00-0.03) x10^3u/L Absolute Lymphs (auto) (1.0-4.6) x10^3/uL Absolute Monos (auto) (0.0-1.3) x10^3/uL Absolute Nucleated RBC (0.00-0.01) x10^3u/L Lymphocytes % (24.0-44.0) % Monocytes % (0.0-12.0) % Eosinophils % (0.00-5.0) % Basophils % (0.0-0.4) % Absolute Granulocytes (1.4-6.9) x10^3/uL Basophils # (0-0.4) x10^3/uL D-Dimer (0.0-0.50) mg/L Puncture Site pCO2 (35-45) mmHg pO2 (75-100) mmHg Base Excess (-2.0-2.0) O2 Saturation (94-100) g/dF ABG pH (7.35-7.45) ABG HCO3 (22-28) ABG O2 Sat (Measured) (95-100) % Win Test A-a Gradient a/A Ratio Hemoglobin Carboxyhemoglobin (0.0-6.9) % THgb Methemoglobin (1.4-1.5) % Potassium 4.4 (3.5-5.1) Temperature C POC O2 Flow Rate % Sodium 128 L (137-145) mmol/L Chloride 85 L (98-107) mmol/L Carbon Dioxide 36 H (22-30) mmol/L Anion Gap 11.0 (5-15) MEQ/L BUN 27 H (9-20) mg/dL Creatinine 0.91 (0.66-1.25) mg/dL Estimated GFR > 60.0 ML/MIN Glucose 97 (74-106) mg/dL Calcium 9.5 (8.4-10.2) mg/dL Total Bilirubin 1.00 (0.2-1.3) mg/dL AST 36 (17-59) U/L ALT 27 (0-50) U/L Alkaline Phosphatase 96 (38-126) U/L Troponin I < 0.012 (0.000-0.034) ng/mL NT-Pro-B Natriuret Pep (<300) pg/mL Serum Total Protein 7.3 (6.3-8.2) g/dL Albumin 4.4 (3.5-5.0) g/dL Influenza Type A Ag NEGATIVE (NEGATIVE) Influenza Type B Ag NEGATIVE (NEGATIVE) RSV (PCR) NEGATIVE (NEGATIVE) SARS-CoV-2 (PCR) NEGATIVE (NEGATIVE) Slides for Path Review 10/08/22 10/08/22 10/08/22 Range/Units 15:00 14:49 14:40 WBC (4.0-10.5) x10^3/uL RBC (4.1-5.6) x10^6/uL Hgb (12.5-18.0) g/dL Hct (42-50) % MCV (78-100) fL MCH (26-32) pg MCHC (32-36) g/dL RDW (11.5-14.0) % Plt Count (150-450) x10^3/uL MPV (7.5-11.0) fL Gran % (36.0-66.0) % Immature Gran % (Auto) (0.00-0.4) % Nucleat RBC Rel Count (0.00-0.1) % Eos # (Auto) (0-0.5) x10^3/uL Immature Gran # (Auto) (0.00-0.03) x10^3u/L Absolute Lymphs (auto) (1.0-4.6) x10^3/uL Absolute Monos (auto) (0.0-1.3) x10^3/uL Absolute Nucleated RBC (0.00-0.01) x10^3u/L Lymphocytes % (24.0-44.0) % Monocytes % (0.0-12.0) % Eosinophils % (0.00-5.0) % Basophils % (0.0-0.4) % Absolute Granulocytes (1.4-6.9) x10^3/uL Basophils # (0-0.4) x10^3/uL D-Dimer 0.51 H (0.0-0.50) mg/L Puncture Site RIGHT BRACHIAL pCO2 59 H (35-45) mmHg pO2 78 (75-100) mmHg Base Excess 11.8 H (-2.0-2.0) O2 Saturation 93.0 L (94-100) g/dF ABG pH 7.42 (7.35-7.45) ABG HCO3 38.3 H* (22-28) ABG O2 Sat (Measured) 97.9 (95-100) % Win Test NOT APPLICABLE A-a Gradient 105 a/A Ratio 0.43 Hemoglobin 11.3 Carboxyhemoglobin 4.3 (0.0-6.9) % THgb Methemoglobin 0.7 L (1.4-1.5) % Potassium 4.3 (3.5-5.1) Temperature 37.0 C POC O2 Flow Rate 36 % Sodium (137-145) mmol/L Chloride (98-107) mmol/L Carbon Dioxide (22-30) mmol/L Anion Gap (5-15) MEQ/L BUN (9-20) mg/dL Creatinine (0.66-1.25) mg/dL Estimated GFR ML/MIN Glucose (74-106) mg/dL Calcium (8.4-10.2) mg/dL Total Bilirubin (0.2-1.3) mg/dL AST (17-59) U/L ALT (0-50) U/L Alkaline Phosphatase (38-126) U/L Troponin I (0.000-0.034) ng/mL NT-Pro-B Natriuret Pep 107 (<300) pg/mL Serum Total Protein (6.3-8.2) g/dL Albumin (3.5-5.0) g/dL Influenza Type A Ag (NEGATIVE) Influenza Type B Ag (NEGATIVE) RSV (PCR) (NEGATIVE) SARS-CoV-2 (PCR) (NEGATIVE) Slides for Path Review 10/08/22 10/08/22 Range/Units 14:40 14:40 WBC 18.8 H (4.0-10.5) x10^3/uL RBC 3.79 L (4.1-5.6) x10^6/uL Hgb 11.6 L (12.5-18.0) g/dL Hct 35.5 L (42-50) % MCV 93.7 (78-100) fL MCH 30.6 (26-32) pg MCHC 32.7 (32-36) g/dL RDW 15.5 H (11.5-14.0) % Plt Count 214 (150-450) x10^3/uL MPV 11.4 H (7.5-11.0) fL Gran % 87.0 H (36.0-66.0) % Immature Gran % (Auto) 0.5 H (0.00-0.4) % Nucleat RBC Rel Count 0.0 (0.00-0.1) % Eos # (Auto) 0.06 (0-0.5) x10^3/uL Immature Gran # (Auto) 0.09 H (0.00-0.03) x10^3u/L Absolute Lymphs (auto) 0.72 L (1.0-4.6) x10^3/uL Absolute Monos (auto) 1.51 H (0.0-1.3) x10^3/uL Absolute Nucleated RBC 0.00 (0.00-0.01) x10^3u/L Lymphocytes % 3.8 L (24.0-44.0) % Monocytes % 8.1 (0.0-12.0) % Eosinophils % 0.3 (0.00-5.0) % Basophils % 0.3 (0.0-0.4) % Absolute Granulocytes 16.31 H (1.4-6.9) x10^3/uL Basophils # 0.06 (0-0.4) x10^3/uL D-Dimer (0.0-0.50) mg/L Puncture Site pCO2 (35-45) mmHg pO2 (75-100) mmHg Base Excess (-2.0-2.0) O2 Saturation (94-100) g/dF ABG pH (7.35-7.45) ABG HCO3 (22-28) ABG O2 Sat (Measured) (95-100) % Win Test A-a Gradient a/A Ratio Hemoglobin Carboxyhemoglobin (0.0-6.9) % THgb Methemoglobin (1.4-1.5) % Potassium (3.5-5.1) Temperature C POC O2 Flow Rate % Sodium (137-145) mmol/L Chloride (98-107) mmol/L Carbon Dioxide (22-30) mmol/L Anion Gap (5-15) MEQ/L BUN (9-20) mg/dL Creatinine (0.66-1.25) mg/dL Estimated GFR ML/MIN Glucose (74-106) mg/dL Calcium (8.4-10.2) mg/dL Total Bilirubin (0.2-1.3) mg/dL AST (17-59) U/L ALT (0-50) U/L Alkaline Phosphatase (38-126) U/L Troponin I < 0.012 (0.000-0.034) ng/mL NT-Pro-B Natriuret Pep (<300) pg/mL Serum Total Protein (6.3-8.2) g/dL Albumin (3.5-5.0) g/dL Influenza Type A Ag (NEGATIVE) Influenza Type B Ag (NEGATIVE) RSV (PCR) (NEGATIVE) SARS-CoV-2 (PCR) (NEGATIVE) Slides for Path Review YES - Progress Progress: improved, re-examined Air Movement: fair Progress Note: 10/08/22 20:33 CT scan of the chest with contrast was interpreted by the radiologist and I reviewed the impression. There is no obvious pulmonary embolus present. There is worsening of left lower lobe atelectasis. There is no mention of an infiltrate or consolidation. This patient's medical issue is 1 of moderate complexity. The level complexity in the work-up performed is based on review of the patient's past medical history, review of the patient's medication list, review the patient's drug allergy list, history of present illness, physical findings on examination. Work-up in this patient includes a CBC, CMP, intravenous line, infusion of Solu- Medrol intravenously, RT evaluation management and treatment, D-dimer, troponin and BNP. In addition twelve-lead EKG was performed and interpreted by me. Work-up reveals chronic leukocytosis. This patient's white blood cell count ranges anywhere between 13,030+ thousand. His D-dimer was just slightly elevated today but there is no evidence of any infiltrate, consolidation or pulmonary embolus. There is a left lower lobe atelectasis present. His troponin and BNP are normal. His room air oxygenation on his 4 L nasal cannula oxygen, which she is on this level at home, is running anywhere between 91 to 93%. Patient does not appear to be in any distress. Patient is not on steroids at this time and is not on any antibiotics. I will provide him with antibiotics here in the emergency department as well as remotely sent prescriptions for steroid and antibiotics to home. He was instructed to use nebulizer treatments every 4 hours while awake for the next 2 to 3 days. Blood Culture(s) Obtained: Yes Antibiotics given: Yes Counseled pt/family regarding: lab results, diagnosis, need for follow-up, rad results Medical Desision Making - Independent Historian Additional History obtained from: Spouse, Manager New Product/EMT - Diagnostic Testing Diagnostic test were ordered, analyzed, and reviewed by me: Yes Radiological Interpretation: Reviewed by me, Teleradiologist Report - Risk of complications The pt has a mod risk of morbidity or mortality based on: Need for prescription drug management - Departure Clinical Impression: Leukocytosis, unspecified, COPD exacerbation, Upper respiratory infection Condition: Fair Critical Care Time: No Referrals: CAROLYNE CAMPOS MD [Primary Care Provider] - Follow up/PCP as directed Instructions: Chronic Obstructive Pulmonary Disease Additional Instructions: Use your nebulizer treatments every 4 hours while awake for the next 2 to 3 days. Take your steroids and antibiotics as prescribed. Take your other medication as prescribed. Call your primary prescribing provider tomorrow morning, 10/09/2022, for further evaluation and management. Prescriptions: Cefdinir 300 mg PO BID #14 cap Prednisone 10 mg [Deltasone 10 mg] 10 mg PO TID #12 tablet
[2022-10-08 14:50] VITALS: TEMP 99
[2022-10-08 14:54] LABS: A-aADO2 105; ABG HEMOGLOBIN 11.3; ABG POTASSIUM 4.3 (3.5-5.1); ARTERIAL BLD GAS O2 SATURATION 97.9 % (95-100); ARTERIAL BLOOD GAS BASE EXCESS 11.8 (-2.0-2.0); ARTERIAL BLOOD GAS FIO2 36 %; ARTERIAL BLOOD GAS PCO2 59 mmHg (35-45); ARTERIAL BLOOD GAS PO2 78 mmHg (75-100); ARTERIAL BLOOD GAS pH 7.42 (7.35-7.45); CARBOXYHEMOGLOBIN 4.3 % THgb (0.0-6.9); HCO3- 38.3 (22-28); Methhemoglobin 0.7 % (1.4-1.5); paO2 pAO1 0.43
[2022-10-08 14:55] LABS: ABG SITE RIGHT BRACHIAL
[2022-10-08 15:13] LABS: Absolute Neutrophil Ct (ANC) 16.31 x10^3/uL (1.4-6.9); BASOPHIL % 0.3 % (0.0-0.4); Basophil (Absolute #) 0.06 x10^3/uL (0-0.4); Eosinophil % 0.3 % (0.00-5.0); Eosinophil (Absolute #) 0.06 x10^3/uL (0-0.5); Hematocrit 35.5 % (42-50); Hemoglobin 11.6 g/dL (12.5-18.0); IMMATURE GRAN # 0.09 x10^3u/L (0.00-0.03); IMMATURE GRAN % 0.5 % (0.00-0.4); Lymphocyte (Absolute #) 0.72 x10^3/uL (1.0-4.6); Lymphocytes % 3.8 % (24.0-44.0); Mean Cell Volume 93.7 fL (78-100); Mean Corpuscular Hemoglobin 30.6 pg (26-32); Mean Corpuscular Hgb Concent. 32.7 g/dL (32-36); Mean Platelet Volume 11.4 fL (7.5-11.0); Monocyte (Absolute #) 1.51 x10^3/uL (0.0-1.3); Monocytes % 8.1 % (0.0-12.0); Platelet Count 214 x10^3/uL (150-450); Red Blood Count 3.79 x10^6/uL (4.1-5.6); Red Cell Distribution Width 15.5 % (11.5-14.0); White Blood Count 18.8 x10^3/uL (4.0-10.5)
[2022-10-08 15:50] LABS: INFLUENZA A NEGATIVE (NEGATIVE); INFLUENZA B NEGATIVE (NEGATIVE); RESPIRATORY SYNCTIAL VIRUS NEGATIVE (NEGATIVE); SARS-CoV-2 Xpert Express NEGATIVE (NEGATIVE)
[2022-10-08 17:46] LABS: ALBUMIN 4.4 g/dL (3.5-5.0); ALKALINE PHOSPHATASE 96 U/L (38-126); BLOOD UREA NITROGEN 27 mg/dL (9-20); CHLORIDE 85 mmol/L (98-107); Calcium 9.5 mg/dL (8.4-10.2); Carbon Dioxide 36 mmol/L (22-30); Creatinine 1 0.91 mg/dL (0.66-1.25); EST GLOMERULAR FILTRATION RATE > 60.0 ML/MIN; Glucose 97 mg/dL (74-106); Potassium 4.4 mmol/L (3.5-5.1); SGOT/AST 36 U/L (17-59); SGPT/ALT 27 U/L (0-50); SODIUM 128 mmol/L (137-145); Total Protein 7.3 g/dL (6.3-8.2)
[2022-10-08] MEDS ORDERED: Sodium Chloride 0.9% 500 ML 500 ML IV ONE ×2 (18:19→19:34)
[2022-10-08] MEDS ORDERED: PROVENTIL 2.5 MG/3 ML NEB IH ONE ×4 (18:36→20:43)
[2022-10-08 19:05] LABS: Slide Review 1 YES
--- NOTE | 2022-10-08 20:28 | XRAY ---
Indication: Cough and short of breath. Elevated d-dimer. Multiple contiguous axial images of the chest using 80 cc of Isovue-370 contrast and PE protocol. Comparison: August 05, 2022 Adequate opacification of the pulmonary arteries. However respiration artifact limits evaluation of the more distal lobar and segmental branches. No obvious pulmonary embolus. Heart not enlarged. Aorta normal in course and caliber again with mild scattered arteriosclerotic calcifications. No pathologic mediastinal/hilar lymphadenopathy. Worsening diffuse left lower lobe atelectasis with left lung volume loss. Remaining lungs again demonstrates diffuse pulmonary emphysema and tiny right base calcified granuloma. Bony thorax is intact again with osteopenia and mild degenerative changes. Limited upper abdomen again demonstrates left renal cyst and nonobstructing punctate calculus. Impression: 1. Pulmonary embolus evaluation limited due to respiration artifact. No obvious pulmonary embolus. 2. Worsening left lower lobe atelectasis. 3. Again chronic findings including pulmonary emphysema, left renal cyst, nonobstructing left renal punctate calculus, arteriosclerotic disease, and chronic bony findings.
[2022-10-08] MEDS ORDERED: Levofloxacin 500MG/100ML D5W 500 MG/100 ML BAG IV STA (20:40)
[2022-10-08] MEDS ORDERED: solu-MEDROL 125 MG, Sterile H2O 10 ml 2 ML IV ONE ×2 (20:41)
[2022-10-08] MEDS ORDERED: solu-MEDROL ONE (20:48)
[2022-10-08] MEDS ORDERED: Sterile H2O 10 ml IJ ONE (20:48)
[2022-10-08] MEDS ORDERED: Levofloxacin 500MG/100ML D5W 500 MG/100 ML BAG IV ONE (20:49)
[2022-10-08 22:37] VITALS: BP 127/68; PULSE 102; RESP 22; O2SAT 90
== END 2022-10-08 22:34 | disposition home or self-care (01) ==
LOC: ED 14:15
DX: J06.9 Acute upper respiratory infection, unspecified (principal); J44.1 Chronic obstructive pulmonary disease with (acute) exacerbation; D72.829 Elevated white blood cell count, unspecified; R06.02 Shortness of breath; R53.1 Weakness; R07.9 Chest pain, unspecified; I11.0 Hypertensive heart disease with heart failure; I50.9 Heart failure, unspecified; E78.5 Hyperlipidemia, unspecified; Z79.52 Long term (current) use of systemic steroids; Z79.899 Other long term (current) drug therapy; Z99.81 Dependence on supplemental oxygen; Z72.0 Tobacco use
CPT/HCPCS: 0241U; 36000; 36415; 36600; 71260; 80053; 82375; 82803; 83880; 84484; 85025; 85379; 87040; 93005; 93041; 94640; 94760; 96365; 96374; 99284; J1956; J2930; J7609; A9270-GY

== ENCOUNTER 2024-05-12 13:12 | Inpatient (IN) | payer MEDICARE, BC ==
--- NOTE | 2024-05-12 13:21 | ERPHSYRPT ---
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 Campos and has a history of oxygen dependent COPD on 3 L of oxygen via nasal cannula, CHF, coronary artery disease, hypertension and hyperlipidemia and presents to the emergency department with the primary complaint of a fall yesterday hurting his right foot and right knee. He specifically states that is why he called the ambulance today. However, his is concerned about his shortness of breath and weakness recently. Patient admits that he does not use his nebulizer attila tments because he is frustrated with the machine and had to use it. He says the shortness of breath is secondary in terms of the reason why he came to the emergency department. Patient sees a concrete worker, Dr. Reyes and cognos administrator Dr. De Leon. On arrival to the emergency department he states he has no chest pain. He has no abdominal pain. He denies having a cough. His blood pressure is 163/70 and his oxygen saturation is 97% on 3 L of oxygen via nasal cannula. Timing/Duration: day(s) (2) Activities at Onset: none Severity of Dyspnea-Max: mild Severity of Dyspnea-Current: mild Possible Cause: frequent episodes, chronic episodes Modifying Factors: Improves With: activity Associated Symptoms: constant, edema, No cough, No chest pain/discomfort Allergies/Adverse Reactions: No Known Drug Allergies Allergy (Verified 10/08/22 14:22) Home Medications: Aspirin EC 81 mg [Ecotrin 81 mg] 81 mg PO DAILY 03/01/13 [History] Atorvastatin Calcium [Lipitor] 40 mg PO QHS 03/01/13 [History] B Complex with Vitamin C [Super B Complex with C] 1 each PO QHS 03/01/13 [History] Losartan Potassium 50 mg [Cozaar 50 MG] 100 mg PO DAILY 03/01/13 [History] Metoprolol Succinate 50 mg [Toprol Xl 50 MG] 50 mg PO QHS 03/01/13 [History] Terazosin HCl [Hytrin] 2 mg PO QHS 12/03/18 [History] Torsemide 20 mg [Demadex 20 mg] 20 mg PO BID 03/14/21 [History] Fluticasone/Umeclidin/Vilanter [Trelegy Ellipta 200-62.5-25] 1 inh PO DAILY 05/12/24 [History] Hx Tetanus, Diphtheria Vaccination/Date Given: Yes Hx Influenza Vaccination/Date Given: No Hx Pneumococcal Vaccination/Date Given: Yes Travel Risk - International Travel Have you traveled outside of the country in past 3 weeks: No - Emerging Infectious Disease Are you exhibiting symptoms associated with any current EIDs: No - Review of Systems Constitutional: No Symptoms Eyes: No Symptoms Ears, Nose, & Throat: No Symptoms Respiratory: Dyspnea on Exertion (INGRAM) Cardiac: No Symptoms Abdominal/Gastrointestinal: No Symptoms Genitourinary Symptoms: No Symptoms Musculoskeletal: No Symptoms Skin: No Symptoms Neurological: No Symptoms Psychological: No Symptoms Endocrine: No Symptoms Hematologic/Lymphatic: No Symptoms Immunological/Allergic: No Symptoms All Other Systems: Reviewed and Negative - Past Medical History Pertinent Past Medical History: Yes Neurological History: No Pertinent History ENT History: No Pertinent History Cardiac History: Coronary Artery Disease, High Cholesterol, Hypertension, Other Respiratory History: CHF, COPD, Emphysema, Pneumonia, Other Endocrine Medical History: No Pertinent History Musculoskeletal History: No Pertinent History GI Medical History: No Pertinent History History: No Pertinent History Psycho-Social History: No Pertinent History Male Reproductive Disorders: No Pertinent History Other Medical History: Rupture disc-surgery to repair - Past Surgical History Past Surgical History: Yes Neuro Surgical History: No Pertinent History Cardiac: Other Respiratory: No Pertinent History Gastrointestinal: No Pertinent History Genitourinary: No Pertinent History Musculoskeletal: Other Male Surgical History: No Pertinent History Other Surgical History: T&A at 8-10 yrs old. Ruptured disc repair. Stent x 1more than 15 yrs ago. cataract surgery Significant Family History: no pertinent family hx - Social History Smoking Status: Current every day smoker How long have you smoked: 50 years Exposure to second hand smoke: Yes Drug Use: none Patient Lives Alone: No - Nursing Vital Signs Nursing Vital Signs: Initial Vital Signs Temperature 99.7 F 05/12/24 13:19 Pulse Rate 83 05/12/24 13:19 Respiratory Rate 24 05/12/24 13:19 Blood Pressure 164/67 05/12/24 13:19 O2 Sat by Pulse Oximetry 98 05/12/24 13:19 Pain Scale Pain Intensity 5 - Physical Exam General Appearance: no apparent distress, alert, anxiety, obese Eye Exam: PERRL/EOMI, eyes nml inspection Ears, Nose, Throat Exam: hearing grossly normal, normal ENT inspection, normal pharynx Neck Exam: normal inspection, non-tender, supple, full range of motion Respiratory Exam: crackles/rales, wheezing (Inspiratory and expiratory wheezing that is mild and bilateral), No chest tenderness, No respiratory distress Cardiovascular/Chest Exam: normal heart sounds, regular rate/rhythm Abdominal/Gastrointestinal Exam: soft, normal bowel sounds, No tenderness Rectal Exam: not done Extremity Exam: non-tender, normal range of motion, pedal edema (Significant pitting edema bilateral feet and ankles. It appears to be symmetric. There is dry, cracking of skin both lower extremities), swelling (Bilateral lower extremities to the calf level) Neurologic Exam: alert, oriented x 3, cooperative, head miller II-XII nml as tested, sensation nml Skin Exam: normal color, warm, dry, other (In cracks bilateral feet and ankles) Lymphatic Exam: No adenopathy SpO2 Interpretation: normal O2 Delivery: Nasal Cannula (3 L of oxygen) - Course Nursing assessment & vital signs reviewed: Yes EKG Interpreted by Me: RATE (79), Sinus Rhythm, NORMAL AXIS, NORMAL INTERVALS, NORMAL QRS, Other (No acute ischemic changes on today's twelve-lead EKG. QTc is 435) Ordered Tests: Active Orders 24 hr Category Date Time Status Manual Plate Filler STAT Care 05/12/24 13:37 Active EKG-ER Only STAT Care 05/12/24 13:37 Active IV Insertion STAT Care 05/12/24 13:37 Active Oxygen-ED Only Nasal Cannula 4 lpm Care 05/12/24 13:37 Active Pulse Oximetry (ED) STAT Care 05/12/24 13:37 Active CHEST 1 VIEW (PORTABLE) Stat Exams 05/12/24 13:37 Completed FOOT (MINIMUM 3 VIEWS) Stat Exams 05/12/24 13:39 Completed KNEE (3 VIEWS) Stat Exams 05/12/24 13:39 Completed ARTERIAL BLOOD GASES Stat Lab 05/12/24 14:00 Completed BLOOD CULTURE Stat Lab 05/12/24 14:01 Received CBC W DIFF Stat Lab 05/12/24 13:53 Completed CMP Stat Lab 05/12/24 13:53 Completed Lactic Acid Stat Lab 05/12/24 14:00 Completed Lactic Acid Stat Lab 05/12/24 16:06 Received MAGNESIUM Stat Lab 05/12/24 13:53 Completed NT PRO BNPII Stat Lab 05/12/24 13:53 Completed Sodium, Urine Stat Lab 05/12/24 Ordered TROPONIN Q4H Lab 05/12/24 13:53 Completed TROPONIN Q4H Lab 05/12/24 17:45 Ordered TROPONIN Q4H Lab 05/12/24 21:45 Ordered UA W/RFX UR CULTURE Stat Lab 05/12/24 16:05 Ordered Respiratory Therapy Assessment DAILY RT 05/12/24 13:48 Active Medication Summary Discontinued Medications Generic Name Dose Route Start Last Admin Trade Name Freq PRN Reason Stop Dose Admin Albuterol/Ipratropium 3 ml 05/12/24 13:37 05/12/24 14:14 Ipratropium/Albuterol Sulfate 3 Ml Ampul.Neb IH 05/12/24 13:38 3 ml STAT ONE Administration Albuterol/Ipratropium Confirm 05/12/24 14:08 Ipratropium/Albuterol Sulfate 3 Ml Ampul.Neb Administered 05/12/24 14:09 Dose 3 ml IH .STK-MED ONE Bumetanide 2 mg 05/12/24 13:38 05/12/24 13:46 Bumetanide 0.25 Mg/Ml 4ml Vial IV 05/12/24 13:39 2 mg STAT STA Administration Bumetanide Confirm 05/12/24 13:42 Bumetanide 0.25 Mg/Ml 4ml Vial Administered 05/12/24 13:43 Dose 2 mg .ROUTE .STK-MED ONE Methylprednisolone Sodium 0 mg 05/12/24 13:37 05/12/24 13:46 Succinate 125 mg/ Sterile IV 05/12/24 13:38 120 mg Water 2 ml STAT ONE Administration Methylprednisolone Sodium Succinate Confirm 05/12/24 13:42 Methylprednis Sod Succ 125 Mg/2 Ml Vial Administered 05/12/24 13:43 Dose 125 mg .ROUTE .STK-MED ONE Sterile Water Confirm 05/12/24 13:42 Water For Injection,Sterile 10 Ml Vial Administered 05/12/24 13:43 Dose 10 ml IJ .STK-MED ONE Lab/Rad Data: Laboratory Result Diagrams 05/12/24 13:53 05/12/24 13:53 Laboratory Results 05/12/24 05/12/24 05/12/24 Range/Units 14:00 13:53 13:53 WBC (4.23-9.07) x10^3/uL RBC (4.63-6.08) x10^6/uL Hgb (13.7-17.5) g/dL Hct (40.1-51.0) % MCV (79.0-92.2) fL MCH (25.7-32.2) pg MCHC (32.3-36.5) g/dL RDW (11.6-14.4) % Plt Count (163-337) x10^3/uL MPV (9.4-12.4) fL Gran % (34.0-67.9) % Immature Gran % (Auto) (0.001-0.429) % Nucleat RBC Rel Count (0.00-0.2) % Eos # (Auto) (0.04-0.54) x10^3/uL Immature Gran # (Auto) (0.001-0.031) x10^3u/L Absolute Lymphs (auto) (1.32-3.57) x10^3/uL Absolute Monos (auto) (0.30-0.82) x10^3/uL Absolute Nucleated RBC (0.00-0.012) x10^3u/L Lymphocytes % (21.8-53.1) % Monocytes % (5.3-12.2) % Eosinophils % (0.8-7.0) % Basophils % (0.2-1.2) % Absolute Granulocytes (1.78-5.38) x10^3/uL Basophils # (0.01-0.08) x10^3/uL Puncture Site RIGHT RADIAL pCO2 35 (35-45) mmHg pO2 82 (75-100) mmHg Base Excess 2.7 H (-2.0-2.0) O2 Saturation 92.5 L (94-100) g/dF ABG pH 7.48 H (7.35-7.45) ABG HCO3 26.1 (22-28) ABG O2 Sat (Measured) 98.2 (95-100) % Win Test YES A-a Gradient 102 a/A Ratio 0.45 Hemoglobin 11.7 Carboxyhemoglobin 5.0 (0.0-6.9) % THgb Methemoglobin 0.8 L (1.4-1.5) % Temperature 37.0 C POC O2 Flow Rate 32 % Sodium (135-145) mmol/L Potassium 4.1 (3.5-5.1) mmol/L Chloride (98-107) mmol/L Carbon Dioxide (22-30) mmol/L Anion Gap (5-15) MEQ/L BUN (9-20) mg/dL Creatinine (0.66-1.25) mg/dL Estimated GFR ML/MIN Glucose (74-106) mg/dL Lactic Acid 2.2 H (0.4-2.0) Calcium (8.4-10.2) mg/dL Magnesium (1.6-2.3) mg/dL Total Bilirubin (0.2-1.3) mg/dL AST (17-59) U/L ALT (0-50) U/L Alkaline Phosphatase (38-126) U/L Troponin I 0.021 (0.000-0.033) ng/mL NT-Pro-B Natriuret Pep (<300) pg/mL Serum Total Protein (6.3-8.2) g/dL Albumin (3.5-5.0) g/dL Influenza Type A Ag NEGATIVE (NEGATIVE) Influenza Type B Ag NEGATIVE (NEGATIVE) RSV (PCR) NEGATIVE (NEGATIVE) SARS-CoV-2 (PCR) POSITIVE A (NEGATIVE) Slides for Path Review 05/12/24 05/12/24 Range/Units 13:53 13:53 WBC 12.1 H (4.23-9.07) x10^3/uL RBC 3.68 L (4.63-6.08) x10^6/uL Hgb 11.3 L (13.7-17.5) g/dL Hct 34.6 L (40.1-51.0) % MCV 94.0 H (79.0-92.2) fL MCH 30.7 (25.7-32.2) pg MCHC 32.7 (32.3-36.5) g/dL RDW 14.0 (11.6-14.4) % Plt Count 216 (163-337) x10^3/uL MPV 9.4 (9.4-12.4) fL Gran % 78.7 H (34.0-67.9) % Immature Gran % (Auto) 0.7 H (0.001-0.429) % Nucleat RBC Rel Count 0.0 (0.00-0.2) % Eos # (Auto) 0 L (0.04-0.54) x10^3/uL Immature Gran # (Auto) 0.09 H (0.001-0.031) x10^3u/L Absolute Lymphs (auto) 0.81 L (1.32-3.57) x10^3/uL Absolute Monos (auto) 1.62 H (0.30-0.82) x10^3/uL Absolute Nucleated RBC 0.00 (0.00-0.012) x10^3u/L Lymphocytes % 6.7 L (21.8-53.1) % Monocytes % 13.4 H (5.3-12.2) % Eosinophils % 0.0 L (0.8-7.0) % Basophils % 0.5 (0.2-1.2) % Absolute Granulocytes 9.47 H (1.78-5.38) x10^3/uL Basophils # 0.06 (0.01-0.08) x10^3/uL Puncture Site pCO2 (35-45) mmHg pO2 (75-100) mmHg Base Excess (-2.0-2.0) O2 Saturation (94-100) g/dF ABG pH (7.35-7.45) ABG HCO3 (22-28) ABG O2 Sat (Measured) (95-100) % Win Test A-a Gradient a/A Ratio Hemoglobin Carboxyhemoglobin (0.0-6.9) % THgb Methemoglobin (1.4-1.5) % Temperature C POC O2 Flow Rate % Sodium 126 L (135-145) mmol/L Potassium 4.5 (3.5-5.1) mmol/L Chloride 86 L (98-107) mmol/L Carbon Dioxide 25 (22-30) mmol/L Anion Gap 20.1 H (5-15) MEQ/L BUN 22 H (9-20) mg/dL Creatinine 1.06 (0.66-1.25) mg/dL Estimated GFR 75.5 ML/MIN Glucose 94 (74-106) mg/dL Lactic Acid (0.4-2.0) Calcium 8.6 (8.4-10.2) mg/dL Magnesium 1.8 (1.6-2.3) mg/dL Total Bilirubin 0.70 (0.2-1.3) mg/dL AST 85 H (17-59) U/L ALT 39 (0-50) U/L Alkaline Phosphatase 94 (38-126) U/L Troponin I (0.000-0.033) ng/mL NT-Pro-B Natriuret Pep 190 (<300) pg/mL Serum Total Protein 6.9 (6.3-8.2) g/dL Albumin 4.6 (3.5-5.0) g/dL Influenza Type A Ag (NEGATIVE) Influenza Type B Ag (NEGATIVE) RSV (PCR) (NEGATIVE) SARS-CoV-2 (PCR) (NEGATIVE) Slides for Path Review YES - Progress Progress: re-examined Air Movement: fair Progress Note: 05/12/24 13:59 My medical decision making of the assignment of moderate complexity to this patient's medical issue today is based on review of the patient's past medical history, review of the patient's medication list, review the patient drug allergy list, history present illness and physical findings on examination. The workup in this patient includes CBC, CMP, BNP, chest x-ray, twelve-lead EKG, troponin level, intravenous Bumex, intravenous Solu-Medrol, respiratory therapy consultation, ABG. Differential diagnosis includes but is not limited to COPD exacerbation, CHF exacerbation, arrhythmia, upper respiratory infection, viral illness, pneumonia, myocardial infarction 05/12/24 15:16 The following radiographic studies were interpreted by the radiologist and I reviewed the impressions: The chest x-ray shows nonacute chest with chronic features. X-ray of the right knee shows no acute fracture or dislocation. X-ray of the right foot (nonbearing weight views) show nondisplaced, nonangulated subcapital fractures of the head of metatarsals 3 and 4. 05/12/24 15:53 I interpreted the patient's laboratory data results. Based on the laboratory data results, the patient does have a mild leukocytosis and hyponatremia. He also tested positive for the COVID-19 infection. 05/12/24 16:06 I reviewed the test results with both the patient and his spouse. The patient prefers to be placed in observation if possible to improve his breathing as well as improve his weakness by increasing his low sodium level. In addition, we we will obtain a consult with podiatry for tomorrow, 05/13/2024, for assessment and management of patient's metatarsal fractures of his right foot Blood Culture(s) Obtained: Yes Antibiotics given: No Counseled pt/family regarding: lab results, diagnosis, need for follow-up, rad results - Departure Departure Disposition: Observation Clinical Impression: Leukocytosis, COVID-19 virus infection, Hyponatremia, Weakness Condition: Fair Critical Care Time: No Referrals: CAROLYNE CAMPOS MD [Primary Care Provider] - Follow up/PCP as directed
[2024-05-12] MEDS ORDERED: Sterile H2O 10 ml IJ ONE (13:42)
[2024-05-12] MEDS ORDERED: solu-MEDROL ONE (13:42)
[2024-05-12] MEDS ORDERED: BUMEX 1 MG ONE (13:42)
[2024-05-12] MEDS: BUMEX 1 MG IV STA (13:46)
[2024-05-12] MEDS: solu-MEDROL 125 MG, Sterile H2O 10 ml 2 ML IV ONE (13:46)
[2024-05-12 14:05] LABS: A-aADO2 102; ABG HEMOGLOBIN 11.7; ABG POTASSIUM 4.1 (3.5-5.1); ARTERIAL BLD GAS O2 SATURATION 98.2 % (95-100); ARTERIAL BLOOD GAS BASE EXCESS 2.7 (-2.0-2.0); ARTERIAL BLOOD GAS FIO2 32 %; ARTERIAL BLOOD GAS PCO2 35 mmHg (35-45); ARTERIAL BLOOD GAS PO2 82 mmHg (75-100); ARTERIAL BLOOD GAS pH 7.48 (7.35-7.45); HCO3- 26.1 (22-28); HGB O2 SAT 92.5 g/dF (94-100); Lactic Acid 2.2 (0.4-2.0); Methhemoglobin 0.8 % (1.4-1.5); paO2 pAO1 0.45
[2024-05-12 14:06] LABS: ABG SITE RIGHT RADIAL; ALLEN TEST OK? YES
[2024-05-12] MEDS ORDERED: DUONEB 0.5-3 MG/3 ml Neb IH ONE (14:08)
[2024-05-12 14:12] LABS: Absolute Neutrophil Ct (ANC) 9.47 x10^3/uL (1.78-5.38); BASOPHIL % 0.5 % (0.2-1.2); Basophil (Absolute #) 0.06 x10^3/uL (0.01-0.08); Eosinophil (Absolute #) 0 x10^3/uL (0.04-0.54); Hematocrit 34.6 % (40.1-51.0); Hemoglobin 11.3 g/dL (13.7-17.5); IMMATURE GRAN # 0.09 x10^3u/L (0.001-0.031); IMMATURE GRAN % 0.7 % (0.001-0.429); Lymphocyte (Absolute #) 0.81 x10^3/uL (1.32-3.57); Lymphocytes % 6.7 % (21.8-53.1); Mean Corpuscular Hemoglobin 30.7 pg (25.7-32.2); Mean Corpuscular Hgb Concent. 32.7 g/dL (32.3-36.5); Mean Platelet Volume 9.4 fL (9.4-12.4); Monocyte (Absolute #) 1.62 x10^3/uL (0.30-0.82); Monocytes % 13.4 % (5.3-12.2); Neutrophil % 78.7 % (34.0-67.9); Platelet Count 216 x10^3/uL (163-337); Red Blood Count 3.68 x10^6/uL (4.63-6.08); White Blood Count 12.1 x10^3/uL (4.23-9.07)
[2024-05-12] MEDS: DUONEB 0.5-3 MG/3 ml Neb IH ONE (14:14)
[2024-05-12 14:31] LABS: ALBUMIN 4.6 g/dL (3.5-5.0); ANION GAP 20.1 MEQ/L (5-15); BILIRUBIN,TOTAL 0.7 mg/dL (0.2-1.3); Calcium 8.6 mg/dL (8.4-10.2); Creatinine 1 1.06 mg/dL (0.66-1.25); EST GLOMERULAR FILTRATION RATE 75.5 ML/MIN; MAGNESIUM 1.8 mg/dL (1.6-2.3); Potassium 4.5 mmol/L (3.5-5.1); Total Protein 6.9 g/dL (6.3-8.2)
[2024-05-12 14:43] LABS: INFLUENZA A NEGATIVE (NEGATIVE); INFLUENZA B NEGATIVE (NEGATIVE); RESPIRATORY SYNCTIAL VIRUS NEGATIVE (NEGATIVE)
[2024-05-12 14:50] LABS: SARS-CoV-2 Xpert Express POSITIVE (NEGATIVE)
--- NOTE | 2024-05-12 14:55 | XRAY ---
Indication: Short of breath. Comparison: August 05, 2022 Portable chest demonstrates stable mild bibasilar and new left midlung subsegmental atelectasis/scarring. No focal infiltrate, consolidation, or large effusion. Heart not enlarged. Bony thorax intact again with osteopenia, mild degenerative changes, and old left humeral neck fracture. Impression: Continued nonacute chest with chronic features.
--- NOTE | 2024-05-12 14:55 | XRAY ---
Indication: Pain following fall. Comparison: None 3 view right knee demonstrates osteopenia, small suprapatella spurring, minimal scattered vascular calcifications, and small posterior fabella. No acute bony, articular, or soft tissue abnormalities.
--- NOTE | 2024-05-12 14:59 | XRAY ---
Indication: Pain following fall. Comparison: None 3 nonweightbearing views right foot demonstrates nondisplaced nonangulated subcapital fractures heads 3rd/4th metatarsals with diffuse soft tissue swelling. Elsewhere osteopenia and mild talonavicular degenerative changes.
[2024-05-12 15:53] LABS: Slide Review 1 YES
[2024-05-12] MEDS ORDERED: VENTOLIN COMMON CANISTER IH PRN (16:58)
[2024-05-12] MEDS ORDERED: HYDROCODONE-CHLORPHEN ER SUSP PO PRN (16:58)
[2024-05-12] MEDS ORDERED: Zofran 4 MG/2 ML VIAL IV PRN ×2 (16:58→16:59)
[2024-05-12] MEDS ORDERED: TYLENOL 325 MG PO PRN ×2 (16:58→16:59)
[2024-05-12 17:14] LABS: Appearance Clear (Clear); Bacteria None Seen /HPF (None Seen); Bilirubin Negative (Negative); Blood Trace (Negative); Epithelial Cells None Seen /HPF (None Seen); Glucose, Urine Negative (Negative); Hyaline Casts NONE SEEN /LPF (0-2); Ketones Negative (Negative); Leukocyte Esterase Negative (Negative); Nitrite Negative (Negative); Protein,Urine Dip Negative (Negative); RBC 0-2 /HPF (0-5); Specific Gravity <=1.005 (1.005-1.030); Urobilinogen 0.2 mg/dL (0.2); WBC 0-2 /HPF (0-5)
[2024-05-12 17:19] LABS: POTASSIUM, URINE RANDOM 17.7 mmol/L (0.1-0.7)
--- NOTE | 2024-05-12 17:25 | PCM.HP ---
History of Present Illness - Chief Complaint Chief Complaint: covid/hyponatremia Date: 05/12/24 History of Present Illness: Mr. Johnson is a 68-year-old male with a history of CAD, HLD, HTN, CHF, and COPD (baseline 3L oxygen at [facility]) who presented with right foot and knee pain after a ground-level fall on 05/11/24, along with progressive weakness and dyspnea. He reports that while transferring to his chair, his legs became weak, leading to a fall onto his right side. He denies LOC or head trauma. Pain is generalized and rated 2/10. He also reports a productive cough with clear sputum but denies fever, chest pain, abdominal pain, headache, dizziness, nausea, vomiting, or diarrhea. Upon arrival to ED vitals were stable. CXR showed stable mild bibasilar changes with new left midlung atelectasis/scarring. Right foot X-ray revealed nondisplaced subcapital fractures of the 3rd/4th metatarsals with soft tissue swelling, and knee X-ray showed osteopenia and mild degenerative changes. Labs were significant for leukocytosis, macrocytic anemia, hyponatremia, AG metabolic acidosis, lactic acidosis, and a positive COVID-19 test. He received Bumex, Solu-Medrol, and DuoNebs in the ED. - Review of Systems Constitutional: Fatigue, Weakness Eyes: No Symptoms Ears, Nose, & Throat: No Symptoms Respiratory: Cough, Short Of Breath, Wheezing Cardiac: Edema (BLE 4+ pitting) Abdominal/Gastrointestinal: No Symptoms Genitourinary Symptoms: No Symptoms Musculoskeletal: Joint Pain (neck, right knee, right ankle) Skin: No Symptoms Neurological: No Symptoms Psychological: No Symptoms Endocrine: No Symptoms Hematologic/Lymphatic: No Symptoms Immunological/Allergic: No Symptoms Medications & Allergies Home Medications: Home Medication List Aspirin EC 81 mg [Ecotrin 81 mg] 81 mg PO DAILY 03/01/13 [History Confirmed 05/12/24] Atorvastatin Calcium [Lipitor] 40 mg PO QHS 03/01/13 [History Confirmed 05/12/24] B Complex with Vitamin C [Super B Complex with C] 1 each PO QHS 03/01/13 [History Confirmed 05/12/24] Losartan Potassium 50 mg [Cozaar 50 MG] 100 mg PO DAILY 03/01/13 [History Confirmed 05/12/24] Metoprolol Succinate 50 mg [Toprol Xl 50 MG] 50 mg PO QHS 03/01/13 [History Confirmed 05/12/24] Terazosin HCl [Hytrin] 2 mg PO QHS 12/03/18 [History Confirmed 05/12/24] Torsemide 20 mg [Demadex 20 mg] 20 mg PO BID 03/14/21 [History Confirmed 05/12/24] Fluticasone/Umeclidin/Vilanter [Trelegy Ellipta 200-62.5-25] 1 inh PO DAILY 05/12/24 [History Confirmed 05/12/24] Allergies/Adverse Reactions: Allergies Allergy/AdvReac Type Severity Reaction Status Date / Time No Known Drug Allergies Allergy Verified 10/08/22 14:22 - Past Medical History Past Medical History: Yes Neurological History: No Pertinent History ENT History: No Pertinent History Cardiac History: Coronary Artery Disease, High Cholesterol, Hypertension, Other Respiratory History: CHF, COPD, Emphysema, Pneumonia, Other Endocrine Medical History: No Pertinent History Musculoskelatal History: No Pertinent History GI Medical History: No Pertinent History History: No Pertinent History Pyscho-Social History: No Pertinent History Male Reproductive Disorders: No Pertinent History Comment: Rupture disc-surgery to repair - Past Surgical History Past Surgical History: Yes Neuro Surgical History: No Pertinent History Cardiac History: Other Respiratory Surgery: No Pertinent History GI Surgical History: No Pertinent History Genitourinary Surgical Hx: No Pertinent History Musculskeletal Surgical Hx: Other Male Surgical History: No Pertinent History Other Surgical History: T&A at 8-10 yrs old. Ruptured disc repair. Stent x 1more than 15 yrs ago. cataract surgery Significant Family History: heart disease, cancer, diabetes, stroke - Social History Smoking Status: Current every day smoker How long have you smoked: 50 years Exposure to second hand smoke: Yes Alcohol: Daily (6 beers) Drug Use: none - Social Determinants of Health Will the patient participate in the screening: Yes Do you worry about a steady place to live?: No Do you have any problems with any of the following?: No known problems In the past 12 months,have you had to go without utilities?: No Have you or anyone in your house had to go without enough: No Transportation Issues: No Has anyone in your support network made you feel unsafe?: No - Physical Exam Vital Signs: Vital Signs - 24 hr Temp Pulse Resp BP BP Pulse Ox 05/12/24 16:31 93 H 19 155/72 95 05/12/24 16:15 90 24 158/81 95 05/12/24 16:00 88 21 161/103 95 05/12/24 15:45 87 22 158/74 96 05/12/24 15:30 88 21 157/103 96 05/12/24 15:15 87 23 172/82 05/12/24 15:01 86 21 134/83 97 05/12/24 14:45 78 28 H 156/70 93 L 05/12/24 14:30 79 29 H 164/75 96 05/12/24 14:15 85 23 181/157 98 05/12/24 14:14 83 22 97 05/12/24 14:10 85 25 H 96 05/12/24 14:01 83 24 97 05/12/24 13:48 78 20 98 05/12/24 13:45 81 22 163/76 97 05/12/24 13:42 98 05/12/24 13:30 83 23 167/73 97 05/12/24 13:20 81 23 164/67 97 05/12/24 13:19 99.7 F 83 24 164/67 98 General Appearance: no apparent distress Neurologic Exam: alert, oriented x 3, cooperative Eye Exam: PERRL/EOMI Ears, Nose, Throat Exam: normal ENT inspection Neck Exam: normal inspection Respiratory Exam: diminished breath sounds, crackles/rales, wheezing Cardiovascular Exam: regular rate/rhythm, normal heart sounds Gastrointestinal/Abdomen Exam: soft, normal bowel sounds Back Exam: normal inspection Extremity Exam: swelling (BLE 4+ pitting edema) Skin Exam: normal color Results - Labs Lab/Micro Results: Lab Results-Last 24 Hours 05/12/24 05/12/24 05/12/24 Range/Units 13:53 13:53 13:53 WBC 12.1 H (4.23-9.07) x10^3/uL RBC 3.68 L (4.63-6.08) x10^6/uL Hgb 11.3 L (13.7-17.5) g/dL Hct 34.6 L (40.1-51.0) % MCV 94.0 H (79.0-92.2) fL MCH 30.7 (25.7-32.2) pg MCHC 32.7 (32.3-36.5) g/dL RDW 14.0 (11.6-14.4) % Plt Count 216 (163-337) x10^3/uL MPV 9.4 (9.4-12.4) fL Gran % 78.7 H (34.0-67.9) % Immature Gran % (Auto) 0.7 H (0.001-0.429) % Nucleat RBC Rel Count 0.0 (0.00-0.2) % Eos # (Auto) 0 L (0.04-0.54) x10^3/uL Immature Gran # (Auto) 0.09 H (0.001-0.031) x10^3u/L Absolute Lymphs (auto) 0.81 L (1.32-3.57) x10^3/uL Absolute Monos (auto) 1.62 H (0.30-0.82) x10^3/uL Absolute Nucleated RBC 0.00 (0.00-0.012) x10^3u/L Lymphocytes % 6.7 L (21.8-53.1) % Monocytes % 13.4 H (5.3-12.2) % Eosinophils % 0.0 L (0.8-7.0) % Basophils % 0.5 (0.2-1.2) % Absolute Granulocytes 9.47 H (1.78-5.38) x10^3/uL Basophils # 0.06 (0.01-0.08) x10^3/uL Puncture Site pCO2 (35-45) mmHg pO2 (75-100) mmHg Base Excess (-2.0-2.0) O2 Saturation (94-100) g/dF ABG pH (7.35-7.45) ABG HCO3 (22-28) ABG O2 Sat (Measured) (95-100) % Win Test A-a Gradient a/A Ratio Hemoglobin Carboxyhemoglobin (0.0-6.9) % THgb Methemoglobin (1.4-1.5) % Temperature C POC O2 Flow Rate % Sodium 126 L (135-145) mmol/L Potassium 4.5 (3.5-5.1) mmol/L Chloride 86 L (98-107) mmol/L Carbon Dioxide 25 (22-30) mmol/L Anion Gap 20.1 H (5-15) MEQ/L BUN 22 H (9-20) mg/dL Creatinine 1.06 (0.66-1.25) mg/dL Estimated GFR 75.5 ML/MIN Glucose 94 (74-106) mg/dL Lactic Acid (0.4-2.0) Calcium 8.6 (8.4-10.2) mg/dL Magnesium 1.8 (1.6-2.3) mg/dL Total Bilirubin 0.70 (0.2-1.3) mg/dL AST 85 H (17-59) U/L ALT 39 (0-50) U/L Alkaline Phosphatase 94 (38-126) U/L Troponin I 0.021 (0.000-0.033) ng/mL NT-Pro-B Natriuret Pep 190 (<300) pg/mL Serum Total Protein 6.9 (6.3-8.2) g/dL Albumin 4.6 (3.5-5.0) g/dL Influenza Type A Ag (NEGATIVE) Influenza Type B Ag (NEGATIVE) RSV (PCR) (NEGATIVE) SARS-CoV-2 (PCR) (NEGATIVE) Slides for Path Review YES 05/12/24 05/12/24 Range/Units 13:53 14:00 WBC (4.23-9.07) x10^3/uL RBC (4.63-6.08) x10^6/uL Hgb (13.7-17.5) g/dL Hct (40.1-51.0) % MCV (79.0-92.2) fL MCH (25.7-32.2) pg MCHC (32.3-36.5) g/dL RDW (11.6-14.4) % Plt Count (163-337) x10^3/uL MPV (9.4-12.4) fL Gran % (34.0-67.9) % Immature Gran % (Auto) (0.001-0.429) % Nucleat RBC Rel Count (0.00-0.2) % Eos # (Auto) (0.04-0.54) x10^3/uL Immature Gran # (Auto) (0.001-0.031) x10^3u/L Absolute Lymphs (auto) (1.32-3.57) x10^3/uL Absolute Monos (auto) (0.30-0.82) x10^3/uL Absolute Nucleated RBC (0.00-0.012) x10^3u/L Lymphocytes % (21.8-53.1) % Monocytes % (5.3-12.2) % Eosinophils % (0.8-7.0) % Basophils % (0.2-1.2) % Absolute Granulocytes (1.78-5.38) x10^3/uL Basophils # (0.01-0.08) x10^3/uL Puncture Site RIGHT RADIAL pCO2 35 (35-45) mmHg pO2 82 (75-100) mmHg Base Excess 2.7 H (-2.0-2.0) O2 Saturation 92.5 L (94-100) g/dF ABG pH 7.48 H (7.35-7.45) ABG HCO3 26.1 (22-28) ABG O2 Sat (Measured) 98.2 (95-100) % Win Test YES A-a Gradient 102 a/A Ratio 0.45 Hemoglobin 11.7 Carboxyhemoglobin 5.0 (0.0-6.9) % THgb Methemoglobin 0.8 L (1.4-1.5) % Temperature 37.0 C POC O2 Flow Rate 32 % Sodium (135-145) mmol/L Potassium 4.1 (3.5-5.1) mmol/L Chloride (98-107) mmol/L Carbon Dioxide (22-30) mmol/L Anion Gap (5-15) MEQ/L BUN (9-20) mg/dL Creatinine (0.66-1.25) mg/dL Estimated GFR ML/MIN Glucose (74-106) mg/dL Lactic Acid 2.2 H (0.4-2.0) Calcium (8.4-10.2) mg/dL Magnesium (1.6-2.3) mg/dL Total Bilirubin (0.2-1.3) mg/dL AST (17-59) U/L ALT (0-50) U/L Alkaline Phosphatase (38-126) U/L Troponin I (0.000-0.033) ng/mL NT-Pro-B Natriuret Pep (<300) pg/mL Serum Total Protein (6.3-8.2) g/dL Albumin (3.5-5.0) g/dL Influenza Type A Ag NEGATIVE (NEGATIVE) Influenza Type B Ag NEGATIVE (NEGATIVE) RSV (PCR) NEGATIVE (NEGATIVE) SARS-CoV-2 (PCR) POSITIVE A (NEGATIVE) Slides for Path Review - Radiology Impressions Radiology Exams & Impressions: Radiology Procedures Category Date Time Status CHEST 1 VIEW (PORTABLE) Stat Exams 05/12/24 13:37 Completed FOOT (MINIMUM 3 VIEWS) Stat Exams 05/12/24 13:39 Completed KNEE (3 VIEWS) Stat Exams 05/12/24 13:39 Completed - Other Procedures and Tests Respiratory Therapy 05/12/24 16:58 Respiratory Therapy Consult ROUTINE 05/12/24 16:59 EKG REPEAT IN AM Oxygen Nasal Cannula 3 lpm Respiratory Therapy Consult ONCE Assessment/Plan (1) COVID-19 virus infection Current Visit: Yes Status: Acute Assessment & Plan: -CXR showed stable mild bibasilar changes with new left midlung atelectasis/scarring -Remdesivir -Dexamethasone 6mg daily x 10 days -Ceftriaxone/azithromycin -sputum culture -RT evaluation -Supplemental oxygen with goal spo2 > 91% -NEBs/INH -Flutter/IS -Lovenox/protonix Code(s): U07.1 - COVID-19 (2) Leukocytosis, unspecified Current Visit: Yes Status: Acute Assessment & Plan: -WBC reviewed at 12.1 -UA reviewed an unremarkable -Covid + -CXR as stated above -Bcult pending -See plan for COVID above Code(s): D72.829 - ELEVATED WHITE BLOOD CELL COUNT, UNSPECIFIED (3) Hyponatremia Current Visit: Yes Status: Acute Assessment & Plan: -Most likely hypervolemic with BLE edema 4+ on exam -CXR as stated above -Bumex given in ED- will continue Lasix 40mg TID -Fluid restriction 1.5L -Seizure precautions -Urine and serum osmo -Urine sodium reviewed and WNL -BMP Q4H Code(s): E87.1 - HYPO-OSMOLALITY AND HYPONATREMIA (4) Fracture of metatarsal Current Visit: Yes Status: Acute Assessment & Plan: -Right foot xray showing nondisplaced nonangulated subcapital fractures heads 3rd/4th metatarsals with diffuse soft tissue swelling. -Podiatry consulted in ED appreciate recs (5) High anion gap metabolic acidosis Current Visit: Yes Status: Acute Assessment & Plan: -IVF contraindicated - see covid for txt plan Code(s): E87.29 - OTHER ACIDOSIS (6) Lactic acid acidosis Current Visit: Yes Status: Acute Assessment & Plan: -see covid for txt plan - trend Code(s): E87.20 - ACIDOSIS, UNSPECIFIED (7) Macrocytic anemia Current Visit: Yes Status: Acute Assessment & Plan: -Chronic and at baseline with hgb at 11.3 -Iron studies Code(s): D53.9 - NUTRITIONAL ANEMIA, UNSPECIFIED (8) CAD (coronary artery disease) Current Visit: Yes Status: Acute Assessment & Plan: -continue home meds Code(s): I25.10 - ATHSCL HEART DISEASE OF [place] CORONARY ARTERY W/O ANG PCTRS (9) HTN (hypertension) Current Visit: Yes Status: Acute Assessment & Plan: -BP stable- continue home meds Code(s): I10 - ESSENTIAL (PRIMARY) HYPERTENSION (10) HLD (hyperlipidemia) Current Visit: Yes Status: Acute Assessment & Plan: -continue statin Code(s): E78.5 - HYPERLIPIDEMIA, UNSPECIFIED (11) Weakness Current Visit: Yes Status: Acute Assessment & Plan: -2/2 COVID -PT eval and treat for strengthening Code(s): R53.1 - WEAKNESS (12) Alcohol abuse Current Visit: No Status: Acute Assessment & Plan: -CIWA protocol -Patient states he drinks 6 beers a day Code(s): F10.10 - ALCOHOL ABUSE, UNCOMPLICATED (13) CHF (congestive heart failure) Current Visit: No Status: Acute Assessment & Plan: -BNP reviewed at 190 -No recent echo on file - reviewed echo from 2021 with EF estimated at 55% -BLE edema noted on exam at 4+ pitting -Lasix 40mg TID -continue home meds Code(s): I50.9 - HEART FAILURE, UNSPECIFIED (14) COPD exacerbation Current Visit: No Status: Acute Assessment & Plan: -see Covid for txt plan Code(s): J44.1 - CHRONIC OBSTRUCTIVE PULMONARY DISEASE W (ACUTE) EXACERBATION Telemedicine Encounter - Telemedicine Encounter Telemedicine Encounter: "The entirety of this encounter was performed via Telemedicine" This visit was performed using real-time audio and video connection between my location and thepatients locationwith the assistance of a surrogateat the patients location. Written or verbal consent was obtained from the patient/guardian to perform this visit usingsynchronoustelemedicine technology. Any patient questions regarding the telemedicine interaction were answered.
[2024-05-12] MEDS: REMDESIVIR 200 MG in Sodium Chloride 0.9% 250 ML 250 ML IV ONE (17:41)
[2024-05-12] MEDS: ROCEPHIN 1 GM / 100 ML NaCl 1 GM/100 ML IVPB IV SCH (17:41)
[2024-05-12] MEDS: Sodium Chloride 0.9% 1000 ML 1,000 ML IV SCH (17:42)
[2024-05-12] MEDS ORDERED: Ativan 1 MG PO PRN ×2 (17:49)
[2024-05-12] MEDS: Lasix 40 MG/4 ML IV SCH (18:51)
[2024-05-12] MEDS: Rocephin 1000 MG INJ** 1,000 MG in Sodium Chloride 100ML MINI-BAG PLUS 100 ML IV SCH (19:21)
[2024-05-12] MEDS ORDERED: ZOCOR 20MG ONE (21:40)
[2024-05-12] MEDS ORDERED: HYTRIN 1 MG ONE (21:40)
[2024-05-12] MEDS: B COMPLEX WITH VITAMIN C PO SCH (22:22)
[2024-05-12] MEDS: TERAZOSIN HCL 2 MG PO SCH (22:23)
[2024-05-12] MEDS: LIPITOR 40MG PO SCH (22:24)
[2024-05-12] MEDS: Toprol Xl 50 MG PO SCH (22:24)
[2024-05-12] MEDS: ENOXAPARIN SODIUM SQ SCH (22:24)
[2024-05-12] MEDS: ZOCOR 20MG PO SCH (22:28)
--- NOTE | 2024-05-12 23:18 | XRAY ---
CLINICAL HISTORY: PE, on o2, covid+, ddimer + COMPARISON: CT Chest done on 05 August 2022 TECHNIQUE: Contiguous axial images were obtained from the neck base through the upper abdomen following intravenous administration of contrast material. If IV contrast material had not been administered, the likelihood of detecting abnormalities relevant to the patient's condition would have been substantially decreased. In addition, sagittal and coronal reconstructions were performed. CT scan was performed according to ALARA (as low as reasonable achievable). FINDINGS: Thin rim of left basal pleural effusion is seen with sub-segmental consolidation Atelectatic bands are seen in both the lower lobes of the lungs No pulmonary nodules are seen. The central airways are patent. No pneumothorax is seen. No axillary, hilar, or mediastinal adenopathy is identified. The visualized thyroid is unremarkable. The heart, aorta, and pulmonary arteries are of normal size and configuration. Atherosclerotic calcification of aorta and coronaries is seen No pericardial effusion is identified. Degenerative changes in the visualized spine. No aggressive appearing osseous lesions are identified. IMPRESSION: 1. Thin rim of left basal pleural effusion is seen with sub-segmental consolidation 2. Atelectatic bands are seen in both the lower lobes of the lungs 3. No evidence of pulmonary thrombo-embolism As compared to prior CT scan, left basal pleural effusion is new finding Electronically Signed by: Isaias Farley MD. (05/12/2024 23:13:56 EDT)
[2024-05-12 23:43] LABS: ANION GAP 16.7 MEQ/L (5-15); Calcium 8.1 mg/dL (8.4-10.2); Creatinine 1 1.14 mg/dL (0.66-1.25); EST GLOMERULAR FILTRATION RATE 69.2 ML/MIN; Potassium 3.6 mmol/L (3.5-5.1); TROPONIN 0.025 ng/mL (0.000-0.033)
[2024-05-13] MEDS: PROVENTIL 2.5 MG/3 ML NEB IH SCH (02:55)
[2024-05-13 05:00] LABS: Absolute Neutrophil Ct (ANC) 11.77 x10^3/uL (1.78-5.38); BASOPHIL % 0.2 % (0.2-1.2); Basophil (Absolute #) 0.02 x10^3/uL (0.01-0.08); Eosinophil (Absolute #) 0 x10^3/uL (0.04-0.54); Hematocrit 33.8 % (40.1-51.0); Hemoglobin 11.6 g/dL (13.7-17.5); IMMATURE GRAN # 0.08 x10^3u/L (0.001-0.031); IMMATURE GRAN % 0.6 % (0.001-0.429); Lymphocyte (Absolute #) 0.56 x10^3/uL (1.32-3.57); Lymphocytes % 4.2 % (21.8-53.1); Mean Cell Volume 91.6 fL (79.0-92.2); Mean Corpuscular Hemoglobin 31.4 pg (25.7-32.2); Mean Corpuscular Hgb Concent. 34.3 g/dL (32.3-36.5); Mean Platelet Volume 9.2 fL (9.4-12.4); Monocyte (Absolute #) 0.83 x10^3/uL (0.30-0.82); Monocytes % 6.3 % (5.3-12.2); Neutrophil % 88.7 % (34.0-67.9); Platelet Count 215 x10^3/uL (163-337); Red Blood Count 3.69 x10^6/uL (4.63-6.08); White Blood Count 13.3 x10^3/uL (4.23-9.07)
--- NOTE | 2024-05-13 05:30 | PCM.NOTE ---
Date and Time: 05/13/24 0529 Subjective Assessment: Mr. Johnson is a 68-year-old male with a history of CAD, HLD, HTN, CHF, and COPD (baseline 3L oxygen at [facility]) who presented with right foot and knee pain after a ground-level fall on 05/11/24, along with progressive weakness and dyspnea. He reports that while transferring to his chair, his legs became weak, leading to a fall onto his right side. He denies LOC or head trauma. Pain is generalized and rated 2/10. He also reports a productive cough with clear sputum but denies fever, chest pain, abdominal pain, headache, dizziness, nausea, vomiting, or diarrhea. Upon arrival to ED vitals were stable. CXR showed stable mild bibasilar changes with new left midlung atelectasis/scarring. CT chest demonstrates thin rim of left basal pleural effusion is seen with sub-segmental consolidation. Atelectatic bands are seen in both the lower lobes of the lungs. No evidence of pulmonary thrombo-embolism. Right foot X-ray revealed nondisplaced subcapital fractures of the 3rd/4th metatarsals with soft tissue swelling, and knee X-ray showed osteopenia and mild degenerative changes. Labs were significant for leukocytosis, macrocytic anemia, hyponatremia, AG metabolic acidosis, lactic acidosis, and a positive COVID-19 test. He received Bumex, Solu-Medrol, and DuoNebs in the ED. 05/13/24: Met with patient bedside. Endorses improvement in dyspnea. At baseline oxygen at 3L. Reports continued weakness. Productive cough with white sputum. Hyponatremia improving. Continue abx, remdesivir, and steroids. - Review of Systems Constitutional: Weakness Eyes: No Symptoms Ears, Nose, & Throat: No Symptoms Respiratory: Cough, Short Of Breath, Wheezing Cardiac: No Symptoms Abdominal/Gastrointestinal: No Symptoms Genitourinary Symptoms: No Symptoms Musculoskeletal: No Symptoms Skin: No Symptoms Neurological: No Symptoms Psychological: No Symptoms Endocrine: No Symptoms Hematologic/Lymphatic: No Symptoms Immunological/Allergic: No Symptoms Objective Exam General Appearance: no apparent distress Neurologic Exam: alert, oriented x 3, cooperative Skin Exam: normal color Eye Exam: PERRL Ears, Nose, Throat Exam: normal ENT inspection Neck Exam: normal inspection Respiratory Exam: diminished breath sounds, wheezing Cardiovascular Exam: regular rate/rhythm, normal heart sounds Gastrointestinal/Abdomen Exam: soft, normal bowel sounds Extremity Exam: normal inspection Back Exam: normal inspection Male Genitalia Exam: deferred Rectal Exam: deferred Objective Data Vital Signs: Vital Signs - 24 hr Temp Pulse Resp BP BP Pulse Ox 05/13/24 04:00 98.0 F 78 22 99/62 92 L 05/13/24 03:26 72 20 93 L 05/13/24 00:00 98.6 F 65 20 115/56 95 05/12/24 20:00 98.4 F 62 22 148/64 95 05/12/24 18:16 98.6 F 66 28 H 155/64 95 05/12/24 17:55 72 22 98 05/12/24 17:32 95 05/12/24 16:31 93 H 19 155/72 95 05/12/24 16:15 90 24 158/81 95 05/12/24 16:00 88 21 161/103 95 05/12/24 15:45 87 22 158/74 96 05/12/24 15:30 88 21 157/103 96 05/12/24 15:15 87 23 172/82 05/12/24 15:01 86 21 134/83 97 05/12/24 14:45 78 28 H 156/70 93 L 05/12/24 14:30 79 29 H 164/75 96 05/12/24 14:15 85 23 181/157 98 05/12/24 14:14 83 22 97 05/12/24 14:10 85 25 H 96 05/12/24 14:01 83 24 97 05/12/24 13:48 78 20 98 05/12/24 13:45 81 22 163/76 97 05/12/24 13:42 98 05/12/24 13:30 83 23 167/73 97 05/12/24 13:20 81 23 164/67 97 05/12/24 13:19 99.7 F 83 24 164/67 98 Pain Assessment - Last Documented Pain Intensity 0 Intake and Output: Intake & Output 05/10/24 05/11/24 05/12/24 05/13/24 11:59 11:59 11:59 11:59 Intake Total 340 Output Total 1815 Balance -1475 Weight 86.8 kg Lab Results: Lab Results-Last 24 Hours 03/18/25 03/18/25 03/18/25 Range/Units 13:53 13:53 13:53 WBC 12.1 H (4.23-9.07) x10^3/uL RBC 3.68 L (4.63-6.08) x10^6/uL Hgb 11.3 L (13.7-17.5) g/dL Hct 34.6 L (40.1-51.0) % MCV 94.0 H (79.0-92.2) fL MCH 30.7 (25.7-32.2) pg MCHC 32.7 (32.3-36.5) g/dL RDW 14.0 (11.6-14.4) % Plt Count 216 (163-337) x10^3/uL MPV 9.4 (9.4-12.4) fL Gran % 78.7 H (34.0-67.9) % Immature Gran % (Auto) 0.7 H (0.001-0.429) % Nucleat RBC Rel Count 0.0 (0.00-0.2) % Eos # (Auto) 0 L (0.04-0.54) x10^3/uL Immature Gran # (Auto) 0.09 H (0.001-0.031) x10^3u/L Absolute Lymphs (auto) 0.81 L (1.32-3.57) x10^3/uL Absolute Monos (auto) 1.62 H (0.30-0.82) x10^3/uL Absolute Nucleated RBC 0.00 (0.00-0.012) x10^3u/L Lymphocytes % 6.7 L (21.8-53.1) % Monocytes % 13.4 H (5.3-12.2) % Eosinophils % 0.0 L (0.8-7.0) % Basophils % 0.5 (0.2-1.2) % Absolute Granulocytes 9.47 H (1.78-5.38) x10^3/uL Basophils # 0.06 (0.01-0.08) x10^3/uL D-Dimer (0.0-0.50) mg/L Puncture Site pCO2 (35-45) mmHg pO2 (75-100) mmHg Base Excess (-2.0-2.0) O2 Saturation (94-100) g/dF ABG pH (7.35-7.45) ABG HCO3 (22-28) ABG O2 Sat (Measured) (95-100) % Win Test A-a Gradient a/A Ratio Hemoglobin Carboxyhemoglobin (0.0-6.9) % THgb Methemoglobin (1.4-1.5) % Temperature C POC O2 Flow Rate % Sodium 126 L (135-145) mmol/L Potassium 4.5 (3.5-5.1) mmol/L Chloride 86 L (98-107) mmol/L Carbon Dioxide 25 (22-30) mmol/L Anion Gap 20.1 H (5-15) MEQ/L BUN 22 H (9-20) mg/dL Creatinine 1.06 (0.66-1.25) mg/dL Estimated GFR 75.5 ML/MIN Glucose 94 (74-106) mg/dL Lactic Acid (0.4-2.0) Calcium 8.6 (8.4-10.2) mg/dL Magnesium 1.8 (1.6-2.3) mg/dL Total Bilirubin 0.70 (0.2-1.3) mg/dL AST 85 H (17-59) U/L ALT 39 (0-50) U/L Alkaline Phosphatase 94 (38-126) U/L Troponin I 0.021 (0.000-0.033) ng/mL NT-Pro-B Natriuret Pep 190 (<300) pg/mL Serum Total Protein 6.9 (6.3-8.2) g/dL Albumin 4.6 (3.5-5.0) g/dL Prealbumin (17.6-36.0) mg/dL Procalcitonin (0.030-0.080) ng/mL Urine Color (Yellow) Urine Appearance (Clear) Urine pH (4.6-8.0) Ur Specific [place] (1.005-1.030) Urine Protein (Negative) Urine Glucose (UA) (Negative) mg/dL Urine Ketones (Negative) Urine Blood (Negative) Urine Nitrite (Negative) Urine Bilirubin (Negative) Urine Urobilinogen (0.2) mg/dL Ur Leukocyte Esterase (Negative) U Hyaline Cast (Auto) (0-2) /LPF Urine Microscopic RBC (0-5) /HPF Urine Microscopic WBC (0-5) /HPF Ur Epithelial Cells (None Seen) /HPF Urine Bacteria (None Seen) /HPF Urine Culture Reflexed (NO) Urine Sodium (30-90) mmol/L Urine Potassium (0.1-0.7) mmol/L Influenza Type A Ag (NEGATIVE) Influenza Type B Ag (NEGATIVE) RSV (PCR) (NEGATIVE) SARS-CoV-2 (PCR) (NEGATIVE) Slides for Path Review YES 05/12/24 05/12/24 05/12/24 Range/Units 13:53 14:00 16:24 WBC (4.23-9.07) x10^3/uL RBC (4.63-6.08) x10^6/uL Hgb (13.7-17.5) g/dL Hct (40.1-51.0) % MCV (79.0-92.2) fL MCH (25.7-32.2) pg MCHC (32.3-36.5) g/dL RDW (11.6-14.4) % Plt Count (163-337) x10^3/uL MPV (9.4-12.4) fL Gran % (34.0-67.9) % Immature Gran % (Auto) (0.001-0.429) % Nucleat RBC Rel Count (0.00-0.2) % Eos # (Auto) (0.04-0.54) x10^3/uL Immature Gran # (Auto) (0.001-0.031) x10^3u/L Absolute Lymphs (auto) (1.32-3.57) x10^3/uL Absolute Monos (auto) (0.30-0.82) x10^3/uL Absolute Nucleated RBC (0.00-0.012) x10^3u/L Lymphocytes % (21.8-53.1) % Monocytes % (5.3-12.2) % Eosinophils % (0.8-7.0) % Basophils % (0.2-1.2) % Absolute Granulocytes (1.78-5.38) x10^3/uL Basophils # (0.01-0.08) x10^3/uL D-Dimer (0.0-0.50) mg/L Puncture Site RIGHT RADIAL pCO2 35 (35-45) mmHg pO2 82 (75-100) mmHg Base Excess 2.7 H (-2.0-2.0) O2 Saturation 92.5 L (94-100) g/dF ABG pH 7.48 H (7.35-7.45) ABG HCO3 26.1 (22-28) ABG O2 Sat (Measured) 98.2 (95-100) % Win Test YES A-a Gradient 102 a/A Ratio 0.45 Hemoglobin 11.7 Carboxyhemoglobin 5.0 (0.0-6.9) % THgb Methemoglobin 0.8 L (1.4-1.5) % Temperature 37.0 C POC O2 Flow Rate 32 % Sodium (135-145) mmol/L Potassium 4.1 (3.5-5.1) mmol/L Chloride (98-107) mmol/L Carbon Dioxide (22-30) mmol/L Anion Gap (5-15) MEQ/L BUN (9-20) mg/dL Creatinine (0.66-1.25) mg/dL Estimated GFR ML/MIN Glucose (74-106) mg/dL Lactic Acid 2.2 H (0.4-2.0) Calcium (8.4-10.2) mg/dL Magnesium (1.6-2.3) mg/dL Total Bilirubin (0.2-1.3) mg/dL AST (17-59) U/L ALT (0-50) U/L Alkaline Phosphatase (38-126) U/L Troponin I (0.000-0.033) ng/mL NT-Pro-B Natriuret Pep (<300) pg/mL Serum Total Protein (6.3-8.2) g/dL Albumin (3.5-5.0) g/dL Prealbumin (17.6-36.0) mg/dL Procalcitonin (0.030-0.080) ng/mL Urine Color Yellow (Yellow) Urine Appearance Clear (Clear) Urine pH 6.0 (4.6-8.0) Ur Specific [place] <=1.005 (1.005-1.030) Urine Protein Negative (Negative) Urine Glucose (UA) Negative (Negative) mg/dL Urine Ketones Negative (Negative) Urine Blood Trace (Negative) Urine Nitrite Negative (Negative) Urine Bilirubin Negative (Negative) Urine Urobilinogen 0.2 (0.2) mg/dL Ur Leukocyte Esterase Negative (Negative) U Hyaline Cast (Auto) NONE SEEN (0-2) /LPF Urine Microscopic RBC 0-2 (0-5) /HPF Urine Microscopic WBC 0-2 (0-5) /HPF Ur Epithelial Cells None Seen (None Seen) /HPF Urine Bacteria None Seen (None Seen) /HPF Urine Culture Reflexed NO (NO) Urine Sodium (30-90) mmol/L Urine Potassium (0.1-0.7) mmol/L Influenza Type A Ag NEGATIVE (NEGATIVE) Influenza Type B Ag NEGATIVE (NEGATIVE) RSV (PCR) NEGATIVE (NEGATIVE) SARS-CoV-2 (PCR) POSITIVE A (NEGATIVE) Slides for Path Review 05/12/24 05/12/24 05/12/24 Range/Units 16:31 17:20 17:20 WBC (4.23-9.07) x10^3/uL RBC (4.63-6.08) x10^6/uL Hgb (13.7-17.5) g/dL Hct (40.1-51.0) % MCV (79.0-92.2) fL MCH (25.7-32.2) pg MCHC (32.3-36.5) g/dL RDW (11.6-14.4) % Plt Count (163-337) x10^3/uL MPV (9.4-12.4) fL Gran % (34.0-67.9) % Immature Gran % (Auto) (0.001-0.429) % Nucleat RBC Rel Count (0.00-0.2) % Eos # (Auto) (0.04-0.54) x10^3/uL Immature Gran # (Auto) (0.001-0.031) x10^3u/L Absolute Lymphs (auto) (1.32-3.57) x10^3/uL Absolute Monos (auto) (0.30-0.82) x10^3/uL Absolute Nucleated RBC (0.00-0.012) x10^3u/L Lymphocytes % (21.8-53.1) % Monocytes % (5.3-12.2) % Eosinophils % (0.8-7.0) % Basophils % (0.2-1.2) % Absolute Granulocytes (1.78-5.38) x10^3/uL Basophils # (0.01-0.08) x10^3/uL D-Dimer (0.0-0.50) mg/L Puncture Site pCO2 (35-45) mmHg pO2 (75-100) mmHg Base Excess (-2.0-2.0) O2 Saturation (94-100) g/dF ABG pH (7.35-7.45) ABG HCO3 (22-28) ABG O2 Sat (Measured) (95-100) % Win Test A-a Gradient a/A Ratio Hemoglobin Carboxyhemoglobin (0.0-6.9) % THgb Methemoglobin (1.4-1.5) % Temperature C POC O2 Flow Rate % Sodium (135-145) mmol/L Potassium (3.5-5.1) mmol/L Chloride (98-107) mmol/L Carbon Dioxide (22-30) mmol/L Anion Gap (5-15) MEQ/L BUN (9-20) mg/dL Creatinine (0.66-1.25) mg/dL Estimated GFR ML/MIN Glucose (74-106) mg/dL Lactic Acid (0.4-2.0) Calcium (8.4-10.2) mg/dL Magnesium 1.8 (1.6-2.3) mg/dL Total Bilirubin (0.2-1.3) mg/dL AST (17-59) U/L ALT (0-50) U/L Alkaline Phosphatase (38-126) U/L Troponin I 0.025 (0.000-0.033) ng/mL NT-Pro-B Natriuret Pep (<300) pg/mL Serum Total Protein (6.3-8.2) g/dL Albumin (3.5-5.0) g/dL Prealbumin (17.6-36.0) mg/dL Procalcitonin (0.030-0.080) ng/mL Urine Color (Yellow) Urine Appearance (Clear) Urine pH (4.6-8.0) Ur Specific [place] (1.005-1.030) Urine Protein (Negative) Urine Glucose (UA) (Negative) mg/dL Urine Ketones (Negative) Urine Blood (Negative) Urine Nitrite (Negative) Urine Bilirubin (Negative) Urine Urobilinogen (0.2) mg/dL Ur Leukocyte Esterase (Negative) U Hyaline Cast (Auto) (0-2) /LPF Urine Microscopic RBC (0-5) /HPF Urine Microscopic WBC (0-5) /HPF Ur Epithelial Cells (None Seen) /HPF Urine Bacteria (None Seen) /HPF Urine Culture Reflexed (NO) Urine Sodium 37 (30-90) mmol/L Urine Potassium 17.7 H (0.1-0.7) mmol/L Influenza Type A Ag (NEGATIVE) Influenza Type B Ag (NEGATIVE) RSV (PCR) (NEGATIVE) SARS-CoV-2 (PCR) (NEGATIVE) Slides for Path Review 05/12/24 05/12/24 05/12/24 Range/Units 17:20 17:20 17:30 WBC (4.23-9.07) x10^3/uL RBC (4.63-6.08) x10^6/uL Hgb (13.7-17.5) g/dL Hct (40.1-51.0) % MCV (79.0-92.2) fL MCH (25.7-32.2) pg MCHC (32.3-36.5) g/dL RDW (11.6-14.4) % Plt Count (163-337) x10^3/uL MPV (9.4-12.4) fL Gran % (34.0-67.9) % Immature Gran % (Auto) (0.001-0.429) % Nucleat RBC Rel Count (0.00-0.2) % Eos # (Auto) (0.04-0.54) x10^3/uL Immature Gran # (Auto) (0.001-0.031) x10^3u/L Absolute Lymphs (auto) (1.32-3.57) x10^3/uL Absolute Monos (auto) (0.30-0.82) x10^3/uL Absolute Nucleated RBC (0.00-0.012) x10^3u/L Lymphocytes % (21.8-53.1) % Monocytes % (5.3-12.2) % Eosinophils % (0.8-7.0) % Basophils % (0.2-1.2) % Absolute Granulocytes (1.78-5.38) x10^3/uL Basophils # (0.01-0.08) x10^3/uL D-Dimer 1.03 H* (0.0-0.50) mg/L Puncture Site pCO2 (35-45) mmHg pO2 (75-100) mmHg Base Excess (-2.0-2.0) O2 Saturation (94-100) g/dF ABG pH (7.35-7.45) ABG HCO3 (22-28) ABG O2 Sat (Measured) (95-100) % Win Test A-a Gradient a/A Ratio Hemoglobin Carboxyhemoglobin (0.0-6.9) % THgb Methemoglobin (1.4-1.5) % Temperature C POC O2 Flow Rate % Sodium (135-145) mmol/L Potassium (3.5-5.1) mmol/L Chloride (98-107) mmol/L Carbon Dioxide (22-30) mmol/L Anion Gap (5-15) MEQ/L BUN (9-20) mg/dL Creatinine (0.66-1.25) mg/dL Estimated GFR ML/MIN Glucose (74-106) mg/dL Lactic Acid (0.4-2.0) Calcium (8.4-10.2) mg/dL Magnesium (1.6-2.3) mg/dL Total Bilirubin (0.2-1.3) mg/dL AST (17-59) U/L ALT (0-50) U/L Alkaline Phosphatase (38-126) U/L Troponin I (0.000-0.033) ng/mL NT-Pro-B Natriuret Pep (<300) pg/mL Serum Total Protein (6.3-8.2) g/dL Albumin (3.5-5.0) g/dL Prealbumin 20.17 (17.6-36.0) mg/dL Procalcitonin 0.069 (0.030-0.080) ng/mL Urine Color (Yellow) Urine Appearance (Clear) Urine pH (4.6-8.0) Ur Specific [place] (1.005-1.030) Urine Protein (Negative) Urine Glucose (UA) (Negative) mg/dL Urine Ketones (Negative) Urine Blood (Negative) Urine Nitrite (Negative) Urine Bilirubin (Negative) Urine Urobilinogen (0.2) mg/dL Ur Leukocyte Esterase (Negative) U Hyaline Cast (Auto) (0-2) /LPF Urine Microscopic RBC (0-5) /HPF Urine Microscopic WBC (0-5) /HPF Ur Epithelial Cells (None Seen) /HPF Urine Bacteria (None Seen) /HPF Urine Culture Reflexed (NO) Urine Sodium (30-90) mmol/L Urine Potassium (0.1-0.7) mmol/L Influenza Type A Ag (NEGATIVE) Influenza Type B Ag (NEGATIVE) RSV (PCR) (NEGATIVE) SARS-CoV-2 (PCR) (NEGATIVE) Slides for Path Review 05/12/24 05/12/24 05/13/24 Range/Units 23:00 23:20 04:55 WBC 13.3 H (4.23-9.07) x10^3/uL RBC 3.69 L (4.63-6.08) x10^6/uL Hgb 11.6 L (13.7-17.5) g/dL Hct 33.8 L (40.1-51.0) % MCV 91.6 (79.0-92.2) fL MCH 31.4 (25.7-32.2) pg MCHC 34.3 (32.3-36.5) g/dL RDW 14.0 (11.6-14.4) % Plt Count 215 (163-337) x10^3/uL MPV 9.2 L (9.4-12.4) fL Gran % 88.7 H (34.0-67.9) % Immature Gran % (Auto) 0.6 H (0.001-0.429) % Nucleat RBC Rel Count 0.0 (0.00-0.2) % Eos # (Auto) 0 L (0.04-0.54) x10^3/uL Immature Gran # (Auto) 0.08 H (0.001-0.031) x10^3u/L Absolute Lymphs (auto) 0.56 L (1.32-3.57) x10^3/uL Absolute Monos (auto) 0.83 H (0.30-0.82) x10^3/uL Absolute Nucleated RBC 0.00 (0.00-0.012) x10^3u/L Lymphocytes % 4.2 L (21.8-53.1) % Monocytes % 6.3 (5.3-12.2) % Eosinophils % 0.0 L (0.8-7.0) % Basophils % 0.2 (0.2-1.2) % Absolute Granulocytes 11.77 H (1.78-5.38) x10^3/uL Basophils # 0.02 (0.01-0.08) x10^3/uL D-Dimer (0.0-0.50) mg/L Puncture Site pCO2 (35-45) mmHg pO2 (75-100) mmHg Base Excess (-2.0-2.0) O2 Saturation (94-100) g/dF ABG pH (7.35-7.45) ABG HCO3 (22-28) ABG O2 Sat (Measured) (95-100) % Win Test A-a Gradient a/A Ratio Hemoglobin Carboxyhemoglobin (0.0-6.9) % THgb Methemoglobin (1.4-1.5) % Temperature C POC O2 Flow Rate % Sodium 129 L (135-145) mmol/L Potassium 3.6 (3.5-5.1) mmol/L Chloride 90 L (98-107) mmol/L Carbon Dioxide 26 (22-30) mmol/L Anion Gap 16.7 H (5-15) MEQ/L BUN 27 H (9-20) mg/dL Creatinine 1.14 (0.66-1.25) mg/dL Estimated GFR 69.2 ML/MIN Glucose 161 H (74-106) mg/dL Lactic Acid 1.8 (0.4-2.0) Calcium 8.1 L (8.4-10.2) mg/dL Magnesium (1.6-2.3) mg/dL Total Bilirubin (0.2-1.3) mg/dL AST (17-59) U/L ALT (0-50) U/L Alkaline Phosphatase (38-126) U/L Troponin I 0.025 (0.000-0.033) ng/mL NT-Pro-B Natriuret Pep (<300) pg/mL Serum Total Protein (6.3-8.2) g/dL Albumin (3.5-5.0) g/dL Prealbumin (17.6-36.0) mg/dL Procalcitonin (0.030-0.080) ng/mL Urine Color (Yellow) Urine Appearance (Clear) Urine pH (4.6-8.0) Ur Specific [place] (1.005-1.030) Urine Protein (Negative) Urine Glucose (UA) (Negative) mg/dL Urine Ketones (Negative) Urine Blood (Negative) Urine Nitrite (Negative) Urine Bilirubin (Negative) Urine Urobilinogen (0.2) mg/dL Ur Leukocyte Esterase (Negative) U Hyaline Cast (Auto) (0-2) /LPF Urine Microscopic RBC (0-5) /HPF Urine Microscopic WBC (0-5) /HPF Ur Epithelial Cells (None Seen) /HPF Urine Bacteria (None Seen) /HPF Urine Culture Reflexed (NO) Urine Sodium (30-90) mmol/L Urine Potassium (0.1-0.7) mmol/L Influenza Type A Ag (NEGATIVE) Influenza Type B Ag (NEGATIVE) RSV (PCR) (NEGATIVE) SARS-CoV-2 (PCR) (NEGATIVE) Slides for Path Review Radiology Exams: Radiology Procedures Category Date Time Status CHEST 1 VIEW (PORTABLE) Stat Exams 05/12/24 13:37 Completed CHEST WITH CONTRAST [CT] Stat Exams 05/12/24 19:22 Completed ECHO W/2D AND DOPPLER [US] Routine Exams 05/13/24 08:00 Ordered FOOT (MINIMUM 3 VIEWS) Stat Exams 05/12/24 13:39 Completed KNEE (3 VIEWS) Stat Exams 05/12/24 13:39 Completed VENOUS BILATERAL EXTREMITY [US] Stat Exams 05/12/24 19:28 Taken Assessment/Plan (1) COVID-19 virus infection Current Visit: Yes Status: Acute Assessment & Plan: -CXR showed stable mild bibasilar changes with new left midlung atelectasis/scarring -Remdesivir -Dexamethasone 6mg daily x 10 days -Ceftriaxone/azithromycin -sputum culture -RT evaluation -Supplemental oxygen with goal spo2 > 91% -NEBs/INH -Flutter/IS -Lovenox/protonix 05/13: CT chest reviewed and negative PE. Demonstrates thin rim of left basal pleural effusion is seen with sub-segmental consolidation. Atelectatic bands are seen in both the lower lobes of the lungs. -continue remdesivir/ceftriaxone/azithromycin/dexamethasone -At baseline oxygen at 3L Code(s): U07.1 - COVID-19 (2) Leukocytosis, unspecified Current Visit: Yes Status: Acute Assessment & Plan: -WBC reviewed at 12.1 -UA reviewed an unremarkable -Covid + -CXR as stated above -Bcult pending -See plan for COVID above 05/13: -WBC reviewed at 13.3- considering steroids -see Covid for plan Code(s): D72.829 - ELEVATED WHITE BLOOD CELL COUNT, UNSPECIFIED (3) Hyponatremia Current Visit: Yes Status: Acute Assessment & Plan: -Most likely hypervolemic with BLE edema 4+ on exam -CXR as stated above -Bumex given in ED- will continue Lasix 40mg TID -Fluid restriction 1.5L -Seizure precautions -Urine and serum osmo -Urine sodium reviewed and WNL -BMP Q4H 05/13: -Improving sodium level at 132- continue fluid restriction and lasix Code(s): E87.1 - HYPO-OSMOLALITY AND HYPONATREMIA (4) Fracture of metatarsal Current Visit: Yes Status: Acute Assessment & Plan: -Right foot xray showing nondisplaced nonangulated subcapital fractures heads 3rd/4th metatarsals with diffuse soft tissue swelling. -Podiatry consulted in ED appreciate recs (5) High anion gap metabolic acidosis Current Visit: Yes Status: Acute Assessment & Plan: -IVF contraindicated - see covid for txt plan Code(s): E87.29 - OTHER ACIDOSIS (6) Lactic acid acidosis Current Visit: Yes Status: Acute Assessment & Plan: -see covid for txt plan - trend Code(s): E87.20 - ACIDOSIS, UNSPECIFIED (7) Macrocytic anemia Current Visit: Yes Status: Acute Assessment & Plan: -Chronic and at baseline with hgb at 11.6 -Iron studies Code(s): D53.9 - NUTRITIONAL ANEMIA, UNSPECIFIED (8) CAD (coronary artery disease) Current Visit: Yes Status: Acute Assessment & Plan: -continue home meds Code(s): I25.10 - ATHSCL HEART DISEASE OF [place] CORONARY ARTERY W/O ANG PCTRS (9) HTN (hypertension) Current Visit: Yes Status: Acute Assessment & Plan: -BP stable- continue home meds Code(s): I10 - ESSENTIAL (PRIMARY) HYPERTENSION (10) HLD (hyperlipidemia) Current Visit: Yes Status: Acute Assessment & Plan: -continue statin Code(s): E78.5 - HYPERLIPIDEMIA, UNSPECIFIED (11) Weakness Current Visit: Yes Status: Acute Assessment & Plan: -2/2 COVID -PT eval and treat for strengthening Code(s): R53.1 - WEAKNESS (12) Alcohol abuse Current Visit: No Status: Acute Assessment & Plan: -CIWA protocol -Patient states he drinks 6 beers a day Code(s): F10.10 - ALCOHOL ABUSE, UNCOMPLICATED (13) CHF (congestive heart failure) Current Visit: No Status: Acute Assessment & Plan: -BNP reviewed at 190 -No recent echo on file - reviewed echo from 2021 with EF estimated at 55% -BLE edema noted on exam at 4+ pitting -Lasix 40mg TID -continue home meds Code(s): I50.9 - HEART FAILURE, UNSPECIFIED (14) COPD exacerbation Current Visit: No Status: Acute Assessment & Plan: -see Covid for txt plan Code(s): J44.1 - CHRONIC OBSTRUCTIVE PULMONARY DISEASE W (ACUTE) EXACERBATION VTE: lovenox PPI: protonix Dispo: 2-3 days Code status: Full code Code(s): U07.1 - COVID-19 (2) Leukocytosis, unspecified Current Visit: Yes Status: Acute Code(s): D72.829 - ELEVATED WHITE BLOOD CELL COUNT, UNSPECIFIED (3) Hyponatremia Current Visit: Yes Status: Acute Code(s): E87.1 - HYPO-OSMOLALITY AND HYPONATREMIA (4) Fracture of metatarsal Current Visit: Yes Status: Acute (5) High anion gap metabolic acidosis Current Visit: Yes Status: Acute Code(s): E87.29 - OTHER ACIDOSIS (6) Lactic acid acidosis Current Visit: Yes Status: Acute Code(s): E87.20 - ACIDOSIS, UNSPECIFIED (7) Macrocytic anemia Current Visit: Yes Status: Acute Code(s): D53.9 - NUTRITIONAL ANEMIA, UNSPECIFIED (8) CAD (coronary artery disease) Current Visit: Yes Status: Acute Code(s): I25.10 - ATHSCL HEART DISEASE OF [place] CORONARY ARTERY W/O ANG PCTRS (9) HTN (hypertension) Current Visit: Yes Status: Acute Code(s): I10 - ESSENTIAL (PRIMARY) HYPERTENSION (10) HLD (hyperlipidemia) Current Visit: Yes Status: Acute Code(s): E78.5 - HYPERLIPIDEMIA, UNSPECIFIED (11) Weakness Current Visit: Yes Status: Acute Code(s): R53.1 - WEAKNESS (12) Alcohol abuse Current Visit: No Status: Acute Code(s): F10.10 - ALCOHOL ABUSE, UNCOMPLICATED (13) CHF (congestive heart failure) Current Visit: No Status: Acute Code(s): I50.9 - HEART FAILURE, UNSPECIFIED (14) COPD exacerbation Current Visit: No Status: Acute Code(s): J44.1 - CHRONIC OBSTRUCTIVE PULMONARY DISEASE W (ACUTE) EXACERBATION
[2024-05-13 05:56] LABS: ALBUMIN 3.9 g/dL (3.5-5.0); BILIRUBIN,TOTAL 0.4 mg/dL (0.2-1.3); Calcium 8.2 mg/dL (8.4-10.2); Creatinine 1 1.15 mg/dL (0.66-1.25); EST GLOMERULAR FILTRATION RATE 68.5 ML/MIN; Potassium 4.1 mmol/L (3.5-5.1); Total Protein 6.2 g/dL (6.3-8.2)
[2024-05-13] MEDS ORDERED: MEDICATION INTERVENTION MC SCH (07:15)
[2024-05-13] MEDS: PATIENT OWN MEDICATION IH SCH (07:18)
[2024-05-13 07:35] LABS: Slide Review 1 YES
--- NOTE | 2024-05-13 08:19 | PCM.CONS ---
Podiatry HPI - Consult Date of Consultation Date: 05/13/24 Reason for Consult: Metatral fractures right foot Consulting Provider: CONNER GAY DPM - [facility] History of Present Illness: is a 68 year old male.Patient admitted with dyspnea and weakness. He fell, causing injury to right foot and knee. Fall was due to weakness. He did not have syncope. He has COPD. He has history of CAD, HTN and HLD. He denies history of CHF but says he has chronic lymphedema. He reports FH of CAD, DM and strokes. On exam he has wheezing and marked edema. Cxray shows no acute changes. He does have fractures of 3rd and 4th metatarsals right foot. Lab show very low sodium at 126. This is hypervolemic hyponatremia. He is positive for COVID-19. We will treat for COPD exacerbation with steroids and bronchodilators. We will treat COVID with steroids and Remdesivir. He likely has CHF even though he denies this. Medications & Allergies Home Medications: Home Medication List Aspirin EC 81 mg [Ecotrin 81 mg] 81 mg PO DAILY 03/01/13 [History Confirmed 05/12/24] Atorvastatin Calcium [Lipitor] 40 mg PO QHS 03/01/13 [History Confirmed 05/12/24] B Complex with Vitamin C [Super B Complex with C] 1 each PO QHS 03/01/13 [History Confirmed 05/12/24] Losartan Potassium 50 mg [Cozaar 50 MG] 100 mg PO DAILY 03/01/13 [History Confirmed 05/12/24] Metoprolol Succinate 50 mg [Toprol Xl 50 MG] 50 mg PO QHS 03/01/13 [History Confirmed 05/12/24] Terazosin HCl [Hytrin] 2 mg PO QHS 12/03/18 [History Confirmed 05/12/24] Torsemide 20 mg [Demadex 20 mg] 20 mg PO BID 03/14/21 [History Confirmed 05/12/24] Fluticasone/Umeclidin/Vilanter [Trelegy Ellipta 200-62.5-25] 1 inh PO DAILY 05/12/24 [History Confirmed 05/12/24] Allergies/Adverse Reactions: Allergies Allergy/AdvReac Type Severity Reaction Status Date / Time No Known Drug Allergies Allergy Verified 10/08/22 14:22 - Past Medical History Past Medical History: Yes Neurological History: No Pertinent History ENT History: No Pertinent History Cardiac History: Coronary Artery Disease, High Cholesterol, Hypertension, Other Respiratory History: CHF, COPD, Emphysema, Pneumonia, Other Endocrine Medical History: No Pertinent History Musculoskelatal History: No Pertinent History GI Medical History: No Pertinent History History: No Pertinent History Pyscho-Social History: No Pertinent History Male Reproductive Disorders: No Pertinent History Comment: Rupture disc-surgery to repair - Past Surgical History Past Surgical History: Yes Neuro Surgical History: No Pertinent History Cardiac History: Other Respiratory Surgery: No Pertinent History GI Surgical History: No Pertinent History Genitourinary Surgical Hx: No Pertinent History Musculskeletal Surgical Hx: Other Male Surgical History: No Pertinent History Other Surgical History: T&A at 8-10 yrs old. Ruptured disc repair. Stent x 1more than 15 yrs ago. cataract surgery Significant Family History: heart disease, cancer, diabetes, stroke - Social History Smoking Status: Heavy tobacco smoker How long have you smoked: 50 years Exposure to second hand smoke: Yes Alcohol: Daily Drug Use: none - Social Determinants of Health Will the patient participate in the screening: Yes Do you worry about a steady place to live?: No Do you have any problems with any of the following?: No known problems In the past 12 months,have you had to go without utilities?: No Have you or anyone in your house had to go without enough: No Transportation Issues: No Has anyone in your support network made you feel unsafe?: No Does the patient want assistance with any of the above?: No Physical Exam - Narrative Narrative Physical Exam: Podiatry Physical Exam Results - Labs Lab/Micro Results: Lab Results-Last 24 Hours 05/12/24 05/12/24 05/12/24 Range/Units 13:53 13:53 13:53 WBC 12.1 H (4.23-9.07) x10^3/uL RBC 3.68 L (4.63-6.08) x10^6/uL Hgb 11.3 L (13.7-17.5) g/dL Hct 34.6 L (40.1-51.0) % MCV 94.0 H (79.0-92.2) fL MCH 30.7 (25.7-32.2) pg MCHC 32.7 (32.3-36.5) g/dL RDW 14.0 (11.6-14.4) % Plt Count 216 (163-337) x10^3/uL MPV 9.4 (9.4-12.4) fL Gran % 78.7 H (34.0-67.9) % Immature Gran % (Auto) 0.7 H (0.001-0.429) % Nucleat RBC Rel Count 0.0 (0.00-0.2) % Eos # (Auto) 0 L (0.04-0.54) x10^3/uL Immature Gran # (Auto) 0.09 H (0.001-0.031) x10^3u/L Absolute Lymphs (auto) 0.81 L (1.32-3.57) x10^3/uL Absolute Monos (auto) 1.62 H (0.30-0.82) x10^3/uL Absolute Nucleated RBC 0.00 (0.00-0.012) x10^3u/L Lymphocytes % 6.7 L (21.8-53.1) % Monocytes % 13.4 H (5.3-12.2) % Eosinophils % 0.0 L (0.8-7.0) % Basophils % 0.5 (0.2-1.2) % Absolute Granulocytes 9.47 H (1.78-5.38) x10^3/uL Basophils # 0.06 (0.01-0.08) x10^3/uL D-Dimer (0.0-0.50) mg/L Puncture Site pCO2 (35-45) mmHg pO2 (75-100) mmHg Base Excess (-2.0-2.0) O2 Saturation (94-100) g/dF ABG pH (7.35-7.45) ABG HCO3 (22-28) ABG O2 Sat (Measured) (95-100) % Win Test A-a Gradient a/A Ratio Hemoglobin Carboxyhemoglobin (0.0-6.9) % THgb Methemoglobin (1.4-1.5) % Temperature C POC O2 Flow Rate % Sodium 126 L (135-145) mmol/L Potassium 4.5 (3.5-5.1) mmol/L Chloride 86 L (98-107) mmol/L Carbon Dioxide 25 (22-30) mmol/L Anion Gap 20.1 H (5-15) MEQ/L BUN 22 H (9-20) mg/dL Creatinine 1.06 (0.66-1.25) mg/dL Estimated GFR 75.5 ML/MIN Glucose 94 (74-106) mg/dL Lactic Acid (0.4-2.0) Calcium 8.6 (8.4-10.2) mg/dL Magnesium 1.8 (1.6-2.3) mg/dL Total Bilirubin 0.70 (0.2-1.3) mg/dL AST 85 H (17-59) U/L ALT 39 (0-50) U/L Alkaline Phosphatase 94 (38-126) U/L Troponin I 0.021 (0.000-0.033) ng/mL NT-Pro-B Natriuret Pep 190 (<300) pg/mL Serum Total Protein 6.9 (6.3-8.2) g/dL Albumin 4.6 (3.5-5.0) g/dL Prealbumin (17.6-36.0) mg/dL Procalcitonin (0.030-0.080) ng/mL Urine Color (Yellow) Urine Appearance (Clear) Urine pH (4.6-8.0) Ur Specific Candor (1.005-1.030) Urine Protein (Negative) Urine Glucose (UA) (Negative) mg/dL Urine Ketones (Negative) Urine Blood (Negative) Urine Nitrite (Negative) Urine Bilirubin (Negative) Urine Urobilinogen (0.2) mg/dL Ur Leukocyte Esterase (Negative) U Hyaline Cast (Auto) (0-2) /LPF Urine Microscopic RBC (0-5) /HPF Urine Microscopic WBC (0-5) /HPF Ur Epithelial Cells (None Seen) /HPF Urine Bacteria (None Seen) /HPF Urine Culture Reflexed (NO) Urine Sodium (30-90) mmol/L Urine Potassium (0.1-0.7) mmol/L Influenza Type A Ag (NEGATIVE) Influenza Type B Ag (NEGATIVE) RSV (PCR) (NEGATIVE) SARS-CoV-2 (PCR) (NEGATIVE) Slides for Path Review YES 05/12/24 05/12/24 05/12/24 Range/Units 13:53 14:00 16:24 WBC (4.23-9.07) x10^3/uL RBC (4.63-6.08) x10^6/uL Hgb (13.7-17.5) g/dL Hct (40.1-51.0) % MCV (79.0-92.2) fL MCH (25.7-32.2) pg MCHC (32.3-36.5) g/dL RDW (11.6-14.4) % Plt Count (163-337) x10^3/uL MPV (9.4-12.4) fL Gran % (34.0-67.9) % Immature Gran % (Auto) (0.001-0.429) % Nucleat RBC Rel Count (0.00-0.2) % Eos # (Auto) (0.04-0.54) x10^3/uL Immature Gran # (Auto) (0.001-0.031) x10^3u/L Absolute Lymphs (auto) (1.32-3.57) x10^3/uL Absolute Monos (auto) (0.30-0.82) x10^3/uL Absolute Nucleated RBC (0.00-0.012) x10^3u/L Lymphocytes % (21.8-53.1) % Monocytes % (5.3-12.2) % Eosinophils % (0.8-7.0) % Basophils % (0.2-1.2) % Absolute Granulocytes (1.78-5.38) x10^3/uL Basophils # (0.01-0.08) x10^3/uL D-Dimer (0.0-0.50) mg/L Puncture Site RIGHT RADIAL pCO2 35 (35-45) mmHg pO2 82 (75-100) mmHg Base Excess 2.7 H (-2.0-2.0) O2 Saturation 92.5 L (94-100) g/dF ABG pH 7.48 H (7.35-7.45) ABG HCO3 26.1 (22-28) ABG O2 Sat (Measured) 98.2 (95-100) % Win Test YES A-a Gradient 102 a/A Ratio 0.45 Hemoglobin 11.7 Carboxyhemoglobin 5.0 (0.0-6.9) % THgb Methemoglobin 0.8 L (1.4-1.5) % Temperature 37.0 C POC O2 Flow Rate 32 % Sodium (135-145) mmol/L Potassium 4.1 (3.5-5.1) mmol/L Chloride (98-107) mmol/L Carbon Dioxide (22-30) mmol/L Anion Gap (5-15) MEQ/L BUN (9-20) mg/dL Creatinine (0.66-1.25) mg/dL Estimated GFR ML/MIN Glucose (74-106) mg/dL Lactic Acid 2.2 H (0.4-2.0) Calcium (8.4-10.2) mg/dL Magnesium (1.6-2.3) mg/dL Total Bilirubin (0.2-1.3) mg/dL AST (17-59) U/L ALT (0-50) U/L Alkaline Phosphatase (38-126) U/L Troponin I (0.000-0.033) ng/mL NT-Pro-B Natriuret Pep (<300) pg/mL Serum Total Protein (6.3-8.2) g/dL Albumin (3.5-5.0) g/dL Prealbumin (17.6-36.0) mg/dL Procalcitonin (0.030-0.080) ng/mL Urine Color Yellow (Yellow) Urine Appearance Clear (Clear) Urine pH 6.0 (4.6-8.0) Ur Specific Candor <=1.005 (1.005-1.030) Urine Protein Negative (Negative) Urine Glucose (UA) Negative (Negative) mg/dL Urine Ketones Negative (Negative) Urine Blood Trace (Negative) Urine Nitrite Negative (Negative) Urine Bilirubin Negative (Negative) Urine Urobilinogen 0.2 (0.2) mg/dL Ur Leukocyte Esterase Negative (Negative) U Hyaline Cast (Auto) NONE SEEN (0-2) /LPF Urine Microscopic RBC 0-2 (0-5) /HPF Urine Microscopic WBC 0-2 (0-5) /HPF Ur Epithelial Cells None Seen (None Seen) /HPF Urine Bacteria None Seen (None Seen) /HPF Urine Culture Reflexed NO (NO) Urine Sodium (30-90) mmol/L Urine Potassium (0.1-0.7) mmol/L Influenza Type A Ag NEGATIVE (NEGATIVE) Influenza Type B Ag NEGATIVE (NEGATIVE) RSV (PCR) NEGATIVE (NEGATIVE) SARS-CoV-2 (PCR) POSITIVE A (NEGATIVE) Slides for Path Review 05/12/24 05/12/24 05/12/24 Range/Units 16:31 17:20 17:20 WBC (4.23-9.07) x10^3/uL RBC (4.63-6.08) x10^6/uL Hgb (13.7-17.5) g/dL Hct (40.1-51.0) % MCV (79.0-92.2) fL MCH (25.7-32.2) pg MCHC (32.3-36.5) g/dL RDW (11.6-14.4) % Plt Count (163-337) x10^3/uL MPV (9.4-12.4) fL Gran % (34.0-67.9) % Immature Gran % (Auto) (0.001-0.429) % Nucleat RBC Rel Count (0.00-0.2) % Eos # (Auto) (0.04-0.54) x10^3/uL Immature Gran # (Auto) (0.001-0.031) x10^3u/L Absolute Lymphs (auto) (1.32-3.57) x10^3/uL Absolute Monos (auto) (0.30-0.82) x10^3/uL Absolute Nucleated RBC (0.00-0.012) x10^3u/L Lymphocytes % (21.8-53.1) % Monocytes % (5.3-12.2) % Eosinophils % (0.8-7.0) % Basophils % (0.2-1.2) % Absolute Granulocytes (1.78-5.38) x10^3/uL Basophils # (0.01-0.08) x10^3/uL D-Dimer (0.0-0.50) mg/L Puncture Site pCO2 (35-45) mmHg pO2 (75-100) mmHg Base Excess (-2.0-2.0) O2 Saturation (94-100) g/dF ABG pH (7.35-7.45) ABG HCO3 (22-28) ABG O2 Sat (Measured) (95-100) % Win Test A-a Gradient a/A Ratio Hemoglobin Carboxyhemoglobin (0.0-6.9) % THgb Methemoglobin (1.4-1.5) % Temperature C POC O2 Flow Rate % Sodium (135-145) mmol/L Potassium (3.5-5.1) mmol/L Chloride (98-107) mmol/L Carbon Dioxide (22-30) mmol/L Anion Gap (5-15) MEQ/L BUN (9-20) mg/dL Creatinine (0.66-1.25) mg/dL Estimated GFR ML/MIN Glucose (74-106) mg/dL Lactic Acid (0.4-2.0) Calcium (8.4-10.2) mg/dL Magnesium 1.8 (1.6-2.3) mg/dL Total Bilirubin (0.2-1.3) mg/dL AST (17-59) U/L ALT (0-50) U/L Alkaline Phosphatase (38-126) U/L Troponin I 0.025 (0.000-0.033) ng/mL NT-Pro-B Natriuret Pep (<300) pg/mL Serum Total Protein (6.3-8.2) g/dL Albumin (3.5-5.0) g/dL Prealbumin (17.6-36.0) mg/dL Procalcitonin (0.030-0.080) ng/mL Urine Color (Yellow) Urine Appearance (Clear) Urine pH (4.6-8.0) Ur Specific Candor (1.005-1.030) Urine Protein (Negative) Urine Glucose (UA) (Negative) mg/dL Urine Ketones (Negative) Urine Blood (Negative) Urine Nitrite (Negative) Urine Bilirubin (Negative) Urine Urobilinogen (0.2) mg/dL Ur Leukocyte Esterase (Negative) U Hyaline Cast (Auto) (0-2) /LPF Urine Microscopic RBC (0-5) /HPF Urine Microscopic WBC (0-5) /HPF Ur Epithelial Cells (None Seen) /HPF Urine Bacteria (None Seen) /HPF Urine Culture Reflexed (NO) Urine Sodium 37 (30-90) mmol/L Urine Potassium 17.7 H (0.1-0.7) mmol/L Influenza Type A Ag (NEGATIVE) Influenza Type B Ag (NEGATIVE) RSV (PCR) (NEGATIVE) SARS-CoV-2 (PCR) (NEGATIVE) Slides for Path Review 05/12/24 05/12/24 05/12/24 Range/Units 17:20 17:20 17:30 WBC (4.23-9.07) x10^3/uL RBC (4.63-6.08) x10^6/uL Hgb (13.7-17.5) g/dL Hct (40.1-51.0) % MCV (79.0-92.2) fL MCH (25.7-32.2) pg MCHC (32.3-36.5) g/dL RDW (11.6-14.4) % Plt Count (163-337) x10^3/uL MPV (9.4-12.4) fL Gran % (34.0-67.9) % Immature Gran % (Auto) (0.001-0.429) % Nucleat RBC Rel Count (0.00-0.2) % Eos # (Auto) (0.04-0.54) x10^3/uL Immature Gran # (Auto) (0.001-0.031) x10^3u/L Absolute Lymphs (auto) (1.32-3.57) x10^3/uL Absolute Monos (auto) (0.30-0.82) x10^3/uL Absolute Nucleated RBC (0.00-0.012) x10^3u/L Lymphocytes % (21.8-53.1) % Monocytes % (5.3-12.2) % Eosinophils % (0.8-7.0) % Basophils % (0.2-1.2) % Absolute Granulocytes (1.78-5.38) x10^3/uL Basophils # (0.01-0.08) x10^3/uL D-Dimer 1.03 H* (0.0-0.50) mg/L Puncture Site pCO2 (35-45) mmHg pO2 (75-100) mmHg Base Excess (-2.0-2.0) O2 Saturation (94-100) g/dF ABG pH (7.35-7.45) ABG HCO3 (22-28) ABG O2 Sat (Measured) (95-100) % Win Test A-a Gradient a/A Ratio Hemoglobin Carboxyhemoglobin (0.0-6.9) % THgb Methemoglobin (1.4-1.5) % Temperature C POC O2 Flow Rate % Sodium (135-145) mmol/L Potassium (3.5-5.1) mmol/L Chloride (98-107) mmol/L Carbon Dioxide (22-30) mmol/L Anion Gap (5-15) MEQ/L BUN (9-20) mg/dL Creatinine (0.66-1.25) mg/dL Estimated GFR ML/MIN Glucose (74-106) mg/dL Lactic Acid (0.4-2.0) Calcium (8.4-10.2) mg/dL Magnesium (1.6-2.3) mg/dL Total Bilirubin (0.2-1.3) mg/dL AST (17-59) U/L ALT (0-50) U/L Alkaline Phosphatase (38-126) U/L Troponin I (0.000-0.033) ng/mL NT-Pro-B Natriuret Pep (<300) pg/mL Serum Total Protein (6.3-8.2) g/dL Albumin (3.5-5.0) g/dL Prealbumin 20.17 (17.6-36.0) mg/dL Procalcitonin 0.069 (0.030-0.080) ng/mL Urine Color (Yellow) Urine Appearance (Clear) Urine pH (4.6-8.0) Ur Specific Candor (1.005-1.030) Urine Protein (Negative) Urine Glucose (UA) (Negative) mg/dL Urine Ketones (Negative) Urine Blood (Negative) Urine Nitrite (Negative) Urine Bilirubin (Negative) Urine Urobilinogen (0.2) mg/dL Ur Leukocyte Esterase (Negative) U Hyaline Cast (Auto) (0-2) /LPF Urine Microscopic RBC (0-5) /HPF Urine Microscopic WBC (0-5) /HPF Ur Epithelial Cells (None Seen) /HPF Urine Bacteria (None Seen) /HPF Urine Culture Reflexed (NO) Urine Sodium (30-90) mmol/L Urine Potassium (0.1-0.7) mmol/L Influenza Type A Ag (NEGATIVE) Influenza Type B Ag (NEGATIVE) RSV (PCR) (NEGATIVE) SARS-CoV-2 (PCR) (NEGATIVE) Slides for Path Review 05/12/24 05/12/24 05/13/24 Range/Units 23:00 23:20 04:55 WBC 13.3 H (4.23-9.07) x10^3/uL RBC 3.69 L (4.63-6.08) x10^6/uL Hgb 11.6 L (13.7-17.5) g/dL Hct 33.8 L (40.1-51.0) % MCV 91.6 (79.0-92.2) fL MCH 31.4 (25.7-32.2) pg MCHC 34.3 (32.3-36.5) g/dL RDW 14.0 (11.6-14.4) % Plt Count 215 (163-337) x10^3/uL MPV 9.2 L (9.4-12.4) fL Gran % 88.7 H (34.0-67.9) % Immature Gran % (Auto) 0.6 H (0.001-0.429) % Nucleat RBC Rel Count 0.0 (0.00-0.2) % Eos # (Auto) 0 L (0.04-0.54) x10^3/uL Immature Gran # (Auto) 0.08 H (0.001-0.031) x10^3u/L Absolute Lymphs (auto) 0.56 L (1.32-3.57) x10^3/uL Absolute Monos (auto) 0.83 H (0.30-0.82) x10^3/uL Absolute Nucleated RBC 0.00 (0.00-0.012) x10^3u/L Lymphocytes % 4.2 L (21.8-53.1) % Monocytes % 6.3 (5.3-12.2) % Eosinophils % 0.0 L (0.8-7.0) % Basophils % 0.2 (0.2-1.2) % Absolute Granulocytes 11.77 H (1.78-5.38) x10^3/uL Basophils # 0.02 (0.01-0.08) x10^3/uL D-Dimer (0.0-0.50) mg/L Puncture Site pCO2 (35-45) mmHg pO2 (75-100) mmHg Base Excess (-2.0-2.0) O2 Saturation (94-100) g/dF ABG pH (7.35-7.45) ABG HCO3 (22-28) ABG O2 Sat (Measured) (95-100) % Win Test A-a Gradient a/A Ratio Hemoglobin Carboxyhemoglobin (0.0-6.9) % THgb Methemoglobin (1.4-1.5) % Temperature C POC O2 Flow Rate % Sodium 129 L (135-145) mmol/L Potassium 3.6 (3.5-5.1) mmol/L Chloride 90 L (98-107) mmol/L Carbon Dioxide 26 (22-30) mmol/L Anion Gap 16.7 H (5-15) MEQ/L BUN 27 H (9-20) mg/dL Creatinine 1.14 (0.66-1.25) mg/dL Estimated GFR 69.2 ML/MIN Glucose 161 H (74-106) mg/dL Lactic Acid 1.8 (0.4-2.0) Calcium 8.1 L (8.4-10.2) mg/dL Magnesium (1.6-2.3) mg/dL Total Bilirubin (0.2-1.3) mg/dL AST (17-59) U/L ALT (0-50) U/L Alkaline Phosphatase (38-126) U/L Troponin I 0.025 (0.000-0.033) ng/mL NT-Pro-B Natriuret Pep (<300) pg/mL Serum Total Protein (6.3-8.2) g/dL Albumin (3.5-5.0) g/dL Prealbumin (17.6-36.0) mg/dL Procalcitonin (0.030-0.080) ng/mL Urine Color (Yellow) Urine Appearance (Clear) Urine pH (4.6-8.0) Ur Specific Candor (1.005-1.030) Urine Protein (Negative) Urine Glucose (UA) (Negative) mg/dL Urine Ketones (Negative) Urine Blood (Negative) Urine Nitrite (Negative) Urine Bilirubin (Negative) Urine Urobilinogen (0.2) mg/dL Ur Leukocyte Esterase (Negative) U Hyaline Cast (Auto) (0-2) /LPF Urine Microscopic RBC (0-5) /HPF Urine Microscopic WBC (0-5) /HPF Ur Epithelial Cells (None Seen) /HPF Urine Bacteria (None Seen) /HPF Urine Culture Reflexed (NO) Urine Sodium (30-90) mmol/L Urine Potassium (0.1-0.7) mmol/L Influenza Type A Ag (NEGATIVE) Influenza Type B Ag (NEGATIVE) RSV (PCR) (NEGATIVE) SARS-CoV-2 (PCR) (NEGATIVE) Slides for Path Review YES 05/13/24 05/13/24 05/13/24 Range/Units 04:55 04:55 04:55 WBC (4.23-9.07) x10^3/uL RBC (4.63-6.08) x10^6/uL Hgb (13.7-17.5) g/dL Hct (40.1-51.0) % MCV (79.0-92.2) fL MCH (25.7-32.2) pg MCHC (32.3-36.5) g/dL RDW (11.6-14.4) % Plt Count (163-337) x10^3/uL MPV (9.4-12.4) fL Gran % (34.0-67.9) % Immature Gran % (Auto) (0.001-0.429) % Nucleat RBC Rel Count (0.00-0.2) % Eos # (Auto) (0.04-0.54) x10^3/uL Immature Gran # (Auto) (0.001-0.031) x10^3u/L Absolute Lymphs (auto) (1.32-3.57) x10^3/uL Absolute Monos (auto) (0.30-0.82) x10^3/uL Absolute Nucleated RBC (0.00-0.012) x10^3u/L Lymphocytes % (21.8-53.1) % Monocytes % (5.3-12.2) % Eosinophils % (0.8-7.0) % Basophils % (0.2-1.2) % Absolute Granulocytes (1.78-5.38) x10^3/uL Basophils # (0.01-0.08) x10^3/uL D-Dimer 0.82 H* (0.0-0.50) mg/L Puncture Site pCO2 (35-45) mmHg pO2 (75-100) mmHg Base Excess (-2.0-2.0) O2 Saturation (94-100) g/dF ABG pH (7.35-7.45) ABG HCO3 (22-28) ABG O2 Sat (Measured) (95-100) % Win Test A-a Gradient a/A Ratio Hemoglobin Carboxyhemoglobin (0.0-6.9) % THgb Methemoglobin (1.4-1.5) % Temperature C POC O2 Flow Rate % Sodium 132 L (135-145) mmol/L Potassium 4.1 (3.5-5.1) mmol/L Chloride 92 L (98-107) mmol/L Carbon Dioxide 28 (22-30) mmol/L Anion Gap 17.0 H (5-15) MEQ/L BUN 31 H (9-20) mg/dL Creatinine 1.15 (0.66-1.25) mg/dL Estimated GFR 68.5 ML/MIN Glucose 144 H (74-106) mg/dL Lactic Acid (0.4-2.0) Calcium 8.2 L (8.4-10.2) mg/dL Magnesium (1.6-2.3) mg/dL Total Bilirubin 0.40 (0.2-1.3) mg/dL AST 78 H (17-59) U/L ALT 36 (0-50) U/L Alkaline Phosphatase 89 (38-126) U/L Troponin I (0.000-0.033) ng/mL NT-Pro-B Natriuret Pep 640 (<300) pg/mL Serum Total Protein 6.2 L (6.3-8.2) g/dL Albumin 3.9 (3.5-5.0) g/dL Prealbumin (17.6-36.0) mg/dL Procalcitonin 0.100 H (0.030-0.080) ng/mL Urine Color (Yellow) Urine Appearance (Clear) Urine pH (4.6-8.0) Ur Specific Candor (1.005-1.030) Urine Protein (Negative) Urine Glucose (UA) (Negative) mg/dL Urine Ketones (Negative) Urine Blood (Negative) Urine Nitrite (Negative) Urine Bilirubin (Negative) Urine Urobilinogen (0.2) mg/dL Ur Leukocyte Esterase (Negative) U Hyaline Cast (Auto) (0-2) /LPF Urine Microscopic RBC (0-5) /HPF Urine Microscopic WBC (0-5) /HPF Ur Epithelial Cells (None Seen) /HPF Urine Bacteria (None Seen) /HPF Urine Culture Reflexed (NO) Urine Sodium (30-90) mmol/L Urine Potassium (0.1-0.7) mmol/L Influenza Type A Ag (NEGATIVE) Influenza Type B Ag (NEGATIVE) RSV (PCR) (NEGATIVE) SARS-CoV-2 (PCR) (NEGATIVE) Slides for Path Review - Radiology Impressions Radiology Exams & Impressions: Radiology Procedures Category Date Time Status CHEST 1 VIEW (PORTABLE) Stat Exams 05/12/24 13:37 Completed CHEST WITH CONTRAST [CT] Stat Exams 05/12/24 19:22 Completed ECHO W/2D AND DOPPLER [US] Routine Exams 05/13/24 08:00 Ordered FOOT (MINIMUM 3 VIEWS) Stat Exams 05/12/24 13:39 Completed KNEE (3 VIEWS) Stat Exams 05/12/24 13:39 Completed VENOUS BILATERAL EXTREMITY [US] Stat Exams 05/12/24 19:28 Taken - Other Procedures and Tests Respiratory Therapy 05/12/24 16:59 Oxygen Nasal Cannula 3 lpm 05/12/24 19:55 Respiratory Therapy Assessment DAILY 05/13/24 07:00 Respiratory MDI Q12H Assessment/Plan (1) Onychomycosis Current Visit: Yes Status: Acute Assessment & Plan: Nailcare will be provided during visit today Nails 1-5 on the right and left debirded utilizing a nail nipper and dremmel to patient satisfaction and without incident. Code(s): B35.1 - TINEA UNGUIUM (2) COVID-19 virus infection Current Visit: Yes Status: Acute Code(s): U07.1 - COVID-19 (3) Fracture of metatarsal Current Visit: Yes Status: Acute Assessment & Plan: Metatrsal fractures to the right 3-4 metatarsals at surgical neck with mild transverse plane deformity. This is a non surgical issue and likely will benefit with a surgical sandal. (4) CHF (congestive heart failure) Current Visit: No Status: Acute Code(s): I50.9 - HEART FAILURE, UNSPECIFIED (5) COPD exacerbation Current Visit: No Status: Acute Code(s): J44.1 - CHRONIC OBSTRUCTIVE PULMONARY DISEASE W (ACUTE) EXACERBATION (6) COPD with acute exacerbation Current Visit: No Status: Acute Code(s): J44.1 - CHRONIC OBSTRUCTIVE PULMONARY DISEASE W (ACUTE) EXACERBATION (7) Venous insufficiency (chronic) (peripheral) Current Visit: No Status: Acute (8) Fissure in skin of both feet Current Visit: No Status: Chronic Code(s): R23.4 - CHANGES IN SKIN TEXTURE (9) Xerosis of skin Current Visit: No Status: Chronic Code(s): L85.3 - XEROSIS CUTIS
--- NOTE | 2024-05-13 08:44 | XRAY ---
Indication: Elevated d-dimer. 2-dimensional sonogram and color Doppler imaging major venous vessels left and right leg performed. Comparison: August 05, 2022 No thrombus seen in the examined deep venous vessels left and right leg including greater saphenous vein. Veins demonstrate normal compressibility. Venous waveforms are normal with and without augmentation. Impression: Left and right legs continue to be negative for DVT. Comment: Preliminary report was given.
[2024-05-13] MEDS: Lasix 40 MG/4 ML IV SCH (09:43)
[2024-05-13] MEDS: PROTONIX 40 MG IV IV SCH (09:43)
[2024-05-13] MEDS: DECADRON 10MG INJ. IV SCH (09:43)
[2024-05-13] MEDS: ECOTRIN 81 MG PO SCH (09:45)
[2024-05-13] MEDS: THERAGRAN MULTIVITAMIN PO SCH (09:45)
[2024-05-13] MEDS: Cozaar 50 MG PO SCH (09:45)
[2024-05-13] MEDS: FOLATE 1 MG PO SCH (09:46)
[2024-05-13] MEDS: VITAMIN B-1 100 MG PO SCH (09:50)
[2024-05-13] MEDS ORDERED: ENOXAPARIN SODIUM SQ SCH (10:00)
[2024-05-13] MEDS ORDERED: NON-FORMULARY ITEM (Fluticasone/Umeclidin/Vilanter [Trelegy Ellipta 200-62.5-25] 1 EACH Bl PO SCH (10:00)
[2024-05-13] MEDS: REMDESIVIR 100 MG in Sodium Chloride 100ML MINI-BAG PLUS 100 ML IV SCH (17:47)
[2024-05-13] MEDS: VITA-BEE WITH C PO SCH (22:13)
[2024-05-13] MEDS: HYTRIN 1 MG PO SCH (22:15)
[2024-05-14] MEDS: Nicoderm CQ 21 MG TOP SCH (01:15)
--- NOTE | 2024-05-14 05:38 | PCM.NOTE ---
Date and Time: 05/14/24 0537 Subjective Assessment: Mr. Johnson is a 68-year-old male with a history of CAD, HLD, HTN, CHF, and COPD (baseline 3L oxygen at [facility]) who presented with right foot and knee pain after a ground-level fall on 05/11/24, along with progressive weakness and dyspnea. He reports that while transferring to his chair, his legs became weak, leading to a fall onto his right side. He denies LOC or head trauma. Pain is generalized and rated 2/10. He also reports a productive cough with clear sputum but denies fever, chest pain, abdominal pain, headache, dizziness, nausea, vomiting, or diarrhea. Upon arrival to ED vitals were stable. CXR showed stable mild bibasilar changes with new left midlung atelectasis/scarring. CT chest demonstrates thin rim of left basal pleural effusion is seen with sub-segmental consolidation. Atelectatic bands are seen in both the lower lobes of the lungs. No evidence of pulmonary thrombo-embolism. Right foot X-ray revealed nondisplaced subcapital fractures of the 3rd/4th metatarsals with soft tissue swelling, and knee X-ray showed osteopenia and mild degenerative changes. Labs were significant for leukocytosis, macrocytic anemia, hyponatremia, AG metabolic acidosis, lactic acidosis, and a positive COVID-19 test. He received Bumex, Solu-Medrol, and DuoNebs in the ED. 05/13/24: Met with patient bedside. Endorses improvement in dyspnea. At baseline oxygen at 3L. Reports continued weakness. Productive cough with white sputum. Hyponatremia improving. Continue abx, remdesivir, and steroids. Objective Data Vital Signs: Vital Signs - 24 hr Temp Pulse Resp BP Pulse Ox 05/14/24 04:00 98.2 F 76 20 104/64 96 05/14/24 02:30 80 20 98 05/14/24 00:00 98.2 F 109 H 22 99/63 95 05/13/24 23:02 107 H 22 95 05/13/24 20:00 98.2 F 76 20 107/41 95 05/13/24 19:14 79 20 95 05/13/24 16:00 97.4 F 81 24 111/64 94 L 05/13/24 14:44 68 18 92 L 05/13/24 12:00 98.2 F 56 L 19 134/60 90 L 05/13/24 10:38 71 20 93 L 05/13/24 08:00 98.2 F 71 22 104/57 93 L 05/13/24 07:32 73 20 93 L Pain Assessment - Last Documented Pain Intensity 0 Intake and Output: Intake & Output 05/11/24 05/12/24 05/13/24 05/14/24 11:59 11:59 11:59 11:59 Intake Total 460 820 Output Total 2215 1999 Balance -1755 -1180 Weight 87 kg Lab Results: Lab Results-Last 24 Hours 05/13/24 05/13/24 05/13/24 Range/Units 04:55 04:55 04:55 Sodium 132 L (135-145) mmol/L Potassium 4.1 (3.5-5.1) mmol/L Chloride 92 L (98-107) mmol/L Carbon Dioxide 28 (22-30) mmol/L Anion Gap 17.0 H (5-15) MEQ/L BUN 31 H (9-20) mg/dL Creatinine 1.15 (0.66-1.25) mg/dL Estimated GFR 68.5 ML/MIN Glucose 144 H (74-106) mg/dL Calcium 8.2 L (8.4-10.2) mg/dL Total Bilirubin 0.40 (0.2-1.3) mg/dL AST 78 H (17-59) U/L ALT 36 (0-50) U/L Alkaline Phosphatase 89 (38-126) U/L NT-Pro-B Natriuret Pep 640 (<300) pg/mL Serum Total Protein 6.2 L (6.3-8.2) g/dL Albumin 3.9 (3.5-5.0) g/dL Procalcitonin 0.100 H (0.030-0.080) ng/mL Slides for Path Review YES 05/14/24 Range/Units 04:47 Sodium (135-145) mmol/L Potassium (3.5-5.1) mmol/L Chloride (98-107) mmol/L Carbon Dioxide (22-30) mmol/L Anion Gap (5-15) MEQ/L BUN (9-20) mg/dL Creatinine (0.66-1.25) mg/dL Estimated GFR ML/MIN Glucose (74-106) mg/dL Calcium (8.4-10.2) mg/dL Total Bilirubin (0.2-1.3) mg/dL AST (17-59) U/L ALT (0-50) U/L Alkaline Phosphatase (38-126) U/L NT-Pro-B Natriuret Pep (<300) pg/mL Serum Total Protein (6.3-8.2) g/dL Albumin (3.5-5.0) g/dL Procalcitonin 0.107 H (0.030-0.080) ng/mL Slides for Path Review Radiology Exams: Radiology Procedures Category Date Time Status CHEST 1 VIEW (PORTABLE) Stat Exams 05/12/24 13:37 Completed CHEST WITH CONTRAST [CT] Stat Exams 05/12/24 19:22 Completed ECHO W/2D AND DOPPLER [US] Routine Exams 05/13/24 08:00 Taken FOOT (MINIMUM 3 VIEWS) Stat Exams 05/12/24 13:39 Completed KNEE (3 VIEWS) Stat Exams 05/12/24 13:39 Completed VENOUS BILATERAL EXTREMITY [US] Stat Exams 05/12/24 19:28 Completed Multi-Disciplinary Progress Notes: Multi-Disciplinary Progress Notes 05/13/24 13:16 Occupational Therapy Note by Harper (L#[id number])eHrmelinda DISCUSSION HELD WITH PT, RIGO SANDOVAL, THIS MORNING WHO REPORTS THAT PATIENT IS REFUSING THERAPY. OT WILL HOLD MOBILITY ASSESSMENT IS PRIORITY AND WAIT UNTIL PATIENT BECOMES AGREEABLE TO THERAPY. WILL ATTEMPT BACK APPROPRIATE. Initialized on 05/13/24 13:16 - END OF NOTE Assessment/Plan (1) COVID-19 virus infection Current Visit: Yes Status: Acute Assessment & Plan: -CXR showed stable mild bibasilar changes with new left midlung atelectasis/scarring -Remdesivir -Dexamethasone 6mg daily x 10 days -Ceftriaxone/azithromycin -sputum culture -RT evaluation -Supplemental oxygen with goal spo2 > 91% -NEBs/INH -Flutter/IS -Lovenox/protonix 05/13: CT chest reviewed and negative PE. Demonstrates thin rim of left basal pleural effusion is seen with sub-segmental consolidation. Atelectatic bands are seen in both the lower lobes of the lungs. -continue remdesivir/ceftriaxone/azithromycin/dexamethasone -At baseline oxygen at 3L Code(s): U07.1 - COVID-19 (2) Leukocytosis, unspecified Current Visit: Yes Status: Acute Assessment & Plan: -WBC reviewed at 12.1 -UA reviewed an unremarkable -Covid + -CXR as stated above -Bcult pending -See plan for COVID above 05/13: -WBC reviewed at 13.3- considering steroids -see Covid for plan Code(s): D72.829 - ELEVATED WHITE BLOOD CELL COUNT, UNSPECIFIED (3) Hyponatremia Current Visit: Yes Status: Acute Assessment & Plan: -Most likely hypervolemic with BLE edema 4+ on exam -CXR as stated above -Bumex given in ED- will continue Lasix 40mg TID -Fluid restriction 1.5L -Seizure precautions -Urine and serum osmo -Urine sodium reviewed and WNL -BMP Q4H 05/13: -Improving sodium level at 132- continue fluid restriction and lasix Code(s): E87.1 - HYPO-OSMOLALITY AND HYPONATREMIA (4) Fracture of metatarsal Current Visit: Yes Status: Acute Assessment & Plan: -Right foot xray showing nondisplaced nonangulated subcapital fractures heads 3rd/4th metatarsals with diffuse soft tissue swelling. -Podiatry consulted in ED appreciate recs (5) High anion gap metabolic acidosis Current Visit: Yes Status: Acute Assessment & Plan: -IVF contraindicated - see covid for txt plan Code(s): E87.29 - OTHER ACIDOSIS (6) Lactic acid acidosis Current Visit: Yes Status: Acute Assessment & Plan: -see covid for txt plan - trend Code(s): E87.20 - ACIDOSIS, UNSPECIFIED (7) Macrocytic anemia Current Visit: Yes Status: Acute Assessment & Plan: -Chronic and at baseline with hgb at 11.6 -Iron studies Code(s): D53.9 - NUTRITIONAL ANEMIA, UNSPECIFIED (8) CAD (coronary artery disease) Current Visit: Yes Status: Acute Assessment & Plan: -continue home meds Code(s): I25.10 - ATHSCL HEART DISEASE OF [place] CORONARY ARTERY W/O ANG PCTRS (9) HTN (hypertension) Current Visit: Yes Status: Acute Assessment & Plan: -BP stable- continue home meds Code(s): I10 - ESSENTIAL (PRIMARY) HYPERTENSION (10) HLD (hyperlipidemia) Current Visit: Yes Status: Acute Assessment & Plan: -continue statin Code(s): E78.5 - HYPERLIPIDEMIA, UNSPECIFIED (11) Weakness Current Visit: Yes Status: Acute Assessment & Plan: -2/2 COVID -PT eval and treat for strengthening Code(s): R53.1 - WEAKNESS (12) Alcohol abuse Current Visit: No Status: Acute Assessment & Plan: -CIWA protocol -Patient states he drinks 6 beers a day Code(s): F10.10 - ALCOHOL ABUSE, UNCOMPLICATED (13) CHF (congestive heart failure) Current Visit: No Status: Acute Assessment & Plan: -BNP reviewed at 190 -No recent echo on file - reviewed echo from 2021 with EF estimated at 55% -BLE edema noted on exam at 4+ pitting -Lasix 40mg TID -continue home meds Code(s): I50.9 - HEART FAILURE, UNSPECIFIED (14) COPD exacerbation Current Visit: No Status: Acute Assessment & Plan: -see Covid for txt plan Code(s): J44.1 - CHRONIC OBSTRUCTIVE PULMONARY DISEASE W (ACUTE) EXACERBATION VTE: lovenox PPI: protonix Dispo: 2-3 days Code status: Full code Code(s): U07.1 - COVID-1 Code(s): U07.1 - COVID-19 (2) Leukocytosis, unspecified Current Visit: Yes Status: Acute Code(s): D72.829 - ELEVATED WHITE BLOOD CELL COUNT, UNSPECIFIED (3) Hyponatremia Current Visit: Yes Status: Acute Code(s): E87.1 - HYPO-OSMOLALITY AND HYPONATREMIA (4) Fracture of metatarsal Current Visit: Yes Status: Acute (5) High anion gap metabolic acidosis Current Visit: Yes Status: Acute Code(s): E87.29 - OTHER ACIDOSIS (6) Lactic acid acidosis Current Visit: Yes Status: Acute Code(s): E87.20 - ACIDOSIS, UNSPECIFIED (7) Macrocytic anemia Current Visit: Yes Status: Acute Code(s): D53.9 - NUTRITIONAL ANEMIA, UNSPECIFIED (8) CAD (coronary artery disease) Current Visit: Yes Status: Acute Code(s): I25.10 - ATHSCL HEART DISEASE OF [place] CORONARY ARTERY W/O ANG PCTRS (9) HTN (hypertension) Current Visit: Yes Status: Acute Code(s): I10 - ESSENTIAL (PRIMARY) HYPERTENSION (10) HLD (hyperlipidemia) Current Visit: Yes Status: Acute Code(s): E78.5 - HYPERLIPIDEMIA, UNSPECIFIED (11) Weakness Current Visit: Yes Status: Acute Code(s): R53.1 - WEAKNESS (12) Alcohol abuse Current Visit: No Status: Acute Code(s): F10.10 - ALCOHOL ABUSE, UNCOMPLICATED (13) CHF (congestive heart failure) Current Visit: No Status: Acute Code(s): I50.9 - HEART FAILURE, UNSPECIFIED (14) COPD exacerbation Current Visit: No Status: Acute Code(s): J44.1 - CHRONIC OBSTRUCTIVE PULMONARY DISEASE W (ACUTE) EXACERBATION
[2024-05-14 07:24] LABS: Absolute Neutrophil Ct (ANC) 13.79 x10^3/uL (1.78-5.38); BASOPHIL % 0.1 % (0.2-1.2); Basophil (Absolute #) 0.01 x10^3/uL (0.01-0.08); Eosinophil (Absolute #) 0 x10^3/uL (0.04-0.54); Hematocrit 32.5 % (40.1-51.0); Hemoglobin 11.1 g/dL (13.7-17.5); IMMATURE GRAN # 0.07 x10^3u/L (0.001-0.031); IMMATURE GRAN % 0.4 % (0.001-0.429); Lymphocyte (Absolute #) 0.73 x10^3/uL (1.32-3.57); Lymphocytes % 4.6 % (21.8-53.1); Mean Cell Volume 92.3 fL (79.0-92.2); Mean Corpuscular Hemoglobin 31.5 pg (25.7-32.2); Mean Corpuscular Hgb Concent. 34.2 g/dL (32.3-36.5); Mean Platelet Volume 10.9 fL (9.4-12.4); Monocyte (Absolute #) 1.27 x10^3/uL (0.30-0.82); Neutrophil % 86.9 % (34.0-67.9); Platelet Count 226 x10^3/uL (163-337); Red Blood Count 3.52 x10^6/uL (4.63-6.08); Red Cell Distribution Width 14.4 % (11.6-14.4); White Blood Count 15.9 x10^3/uL (4.23-9.07)
[2024-05-14 07:38] LABS: ALBUMIN 3.7 g/dL (3.5-5.0); ANION GAP 13.8 MEQ/L (5-15); BILIRUBIN,TOTAL 0.3 mg/dL (0.2-1.3); Calcium 8.3 mg/dL (8.4-10.2); Creatinine 1 1.42 mg/dL (0.66-1.25); EST GLOMERULAR FILTRATION RATE 53.2 ML/MIN; Potassium 3.6 mmol/L (3.5-5.1); Total Protein 6.3 g/dL (6.3-8.2)
[2024-05-14 08:27] VITALS: O2SAT 93
[2024-05-14] MEDS: DEMADEX 20 MG PO SCH (08:44)
[2024-05-14] MEDS ORDERED: Lasix 40 MG/4 ML IV SCH (10:00)
--- NOTE | 2024-05-14 11:19 | PCM.DS ---
Discharge Summary Date of Admission: 05/12/24 16:54 Date of Discharge: 05/14/24 Admitting Physician: TIN ARMIJO MD Consults: Consults on Case 05/12/24 16:59 Consult Podiatry ROUTINE Nutritional Consult ROUTINE Primary Care Provider: CAROLYNE CARCAMO NIRAJ Allergies Allergies No Known Drug Allergies Allergy (Verified 10/08/22 14:22) Hospital Summary - Hospital Course Hospital Course: Mr. Johnson is a 68 year old male with a history of coronary artery disease, hyperlipidemia, hypertension, congestive heart failure, and chronic obstructive pulmonary disease, who presented 05/11/24 with right foot and knee pain following a ground-level fall. He also reported progressive weakness, dyspnea, and a productive cough, with a positive COVID-19 test. Imaging revealed nondisplaced fractures of the 3rd and 4th metatarsals of the right foot and atelectasis, sub- segmental consolidation, and a thin rim of left basal pleural effusion on chest CT. Labs were significant for leukocytosis, macrocytic anemia, hyponatremia, high anion gap metabolic acidosis, and lactic acidosis. He was treated with remdesivir, dexamethasone, ceftriaxone, azithromycin, and diuretics for his COVID-19 infection and fluid overload. His hyponatremia improved with fluid restriction and Lasix, and he remains on supplemental oxygen at baseline. The patient received supportive care with surgical sandal for his fractures by pod iatry and will follow up in 3-4 weeks OP . He was stabilized and planned for discharge with continued COVID-19 treatment with dexamethasone and cefuroxime, home medications, and follow-up. Advised cessation of alcohol and smoking. Patient advised to hold torsemide x 2 days due to elevated creat with follow up for labs on Saturday with PCP. 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 Discharge Note New Diagnosis: COVID/Fracture/hyponatremia New Medications: Cefuroxime/ dexamethasone/protonix Follow Up: PCP/Pulm/cardiology I spent 35 minutes [id number] with the patient on the day of discharge performing discharge exam, discussing hospital stay and discharge instructions with patient and caregivers, preparation of discharge records, prescriptions & referral forms and addressing any questions/concerns the patient had as documented above. - Vitals & Intake/Output Vital Signs: Vital Signs Temperature 97.9 F 05/14/24 08:00 Pulse Rate 70 05/14/24 10:05 Respiratory Rate 16 05/14/24 10:05 Blood Pressure 116/60 05/14/24 08:00 O2 Sat by Pulse Oximetry 93 L 05/14/24 10:05 Intake & Output: Intake & Output 05/11/24 05/12/24 05/13/24 05/14/24 11:59 11:59 11:59 11:59 Intake Total 460 1300 Output Total 2215 2300 Balance -1755 -1000 Weight 87 kg - Lab Result Diagrams: 05/14/24 04:40 05/14/24 04:40 Lab Results-Last 24 Hrs: Lab Results-Last 24 Hours 05/14/24 05/14/24 05/14/24 Range/Units 04:40 04:40 04:47 WBC 15.9 H (4.23-9.07) x10^3/uL RBC 3.52 L (4.63-6.08) x10^6/uL Hgb 11.1 L (13.7-17.5) g/dL Hct 32.5 L (40.1-51.0) % MCV 92.3 H (79.0-92.2) fL MCH 31.5 (25.7-32.2) pg MCHC 34.2 (32.3-36.5) g/dL RDW 14.4 (11.6-14.4) % Plt Count 226 (163-337) x10^3/uL MPV 10.9 (9.4-12.4) fL Gran % 86.9 H (34.0-67.9) % Immature Gran % (Auto) 0.4 (0.001-0.429) % Nucleat RBC Rel Count 0.0 (0.00-0.2) % Eos # (Auto) 0 L (0.04-0.54) x10^3/uL Immature Gran # (Auto) 0.07 H (0.001-0.031) x10^3u/L Absolute Lymphs (auto) 0.73 L (1.32-3.57) x10^3/uL Absolute Monos (auto) 1.27 H (0.30-0.82) x10^3/uL Absolute Nucleated RBC 0.00 (0.00-0.012) x10^3u/L Lymphocytes % 4.6 L (21.8-53.1) % Monocytes % 8.0 (5.3-12.2) % Eosinophils % 0.0 L (0.8-7.0) % Basophils % 0.1 L (0.2-1.2) % Absolute Granulocytes 13.79 H (1.78-5.38) x10^3/uL Basophils # 0.01 (0.01-0.08) x10^3/uL Sodium 137 (135-145) mmol/L Potassium 3.6 (3.5-5.1) mmol/L Chloride 98 (98-107) mmol/L Carbon Dioxide 29 (22-30) mmol/L Anion Gap 13.8 (5-15) MEQ/L BUN 49 H (9-20) mg/dL Creatinine 1.42 H (0.66-1.25) mg/dL Estimated GFR 53.2 ML/MIN Glucose 126 H (74-106) mg/dL Calcium 8.3 L (8.4-10.2) mg/dL Total Bilirubin 0.30 (0.2-1.3) mg/dL AST 71 H (17-59) U/L ALT 34 (0-50) U/L Alkaline Phosphatase 83 (38-126) U/L Serum Total Protein 6.3 (6.3-8.2) g/dL Albumin 3.7 (3.5-5.0) g/dL Procalcitonin 0.107 H (0.030-0.080) ng/mL Micro Results-Entire Visit: Microbiology 05/12/24 14:01 Blood Culture - Preliminary Blood 05/12/24 13:53 Blood Culture - Preliminary Blood - Radiology Exams Ordered Rad Exams-Entire Visit: Radiology Procedures Category Date Time Status CHEST 1 VIEW (PORTABLE) Stat Exams 05/12/24 13:37 Completed CHEST WITH CONTRAST [CT] Stat Exams 05/12/24 19:22 Completed ECHO W/2D AND DOPPLER [US] Routine Exams 05/13/24 08:00 Taken FOOT (MINIMUM 3 VIEWS) Stat Exams 05/12/24 13:39 Completed KNEE (3 VIEWS) Stat Exams 05/12/24 13:39 Completed VENOUS BILATERAL EXTREMITY [US] Stat Exams 05/12/24 19:28 Completed - Procedures and Test Procedures and Tests throughout Hospitalization: Therapy Orders & Screens 05/12/24 13:48 Respiratory Therapy Assessment DAILY Comment: 05/12/24 16:58 PT Eval & Treat (MD Order) ONCE Reason for Eval:: weakness Diagnosis: weakness Respiratory Therapy Consult ROUTINE Comment: Reason For Exam: OT Eval and Treat (MD Order) ONCE Comment: Physician Instructions: Reason For Exam: weakness Evaluate: Yes: weakness Treat: Yes Reason for Evaluation: weakness Diagnosis: covid 05/12/24 16:59 EKG REPEAT IN AM Comment: Oxygen Nasal Cannula 3 lpm Comment: Respiratory Therapy Consult ONCE Comment: Reason For Exam: 05/12/24 19:55 Respiratory Therapy Assessment DAILY Comment: Diagnosis: covid/hyponatremia 05/13/24 07:00 Respiratory MDI Q12H Comment: Diagnosis: covid/hyponatremia Discharge Exam General Appearance: no apparent distress Neurologic Exam: alert, oriented x 3, cooperative Eye Exam: PERRL Ears, Nose, Throat Exam: normal ENT inspection Neck Exam: normal inspection Respiratory Exam: crackles/rales, wheezing Cardiovascular Exam: regular rate/rhythm, normal heart sounds Gastrointestinal/Abdomen Exam: soft, normal bowel sounds Male Genitalia Exam: deferred Rectal Exam: deferred Back Exam: normal inspection Extremity Exam: normal inspection Skin Exam: normal color Final Diagnosis/Problem List - Final Discharge Diagnosis/Problem (1) COVID-19 virus infection Current Visit: Yes Status: Acute Code(s): U07.1 - COVID-19 (2) Leukocytosis, unspecified Current Visit: Yes Status: Acute Code(s): D72.829 - ELEVATED WHITE BLOOD CELL COUNT, UNSPECIFIED (3) Hyponatremia Current Visit: Yes Status: Resolved Code(s): E87.1 - HYPO-OSMOLALITY AND HYPONATREMIA (4) Fracture of metatarsal Current Visit: Yes Status: Acute (5) High anion gap metabolic acidosis Current Visit: Yes Status: Resolved Code(s): E87.29 - OTHER ACIDOSIS (6) Lactic acid acidosis Current Visit: Yes Status: Resolved Code(s): E87.20 - ACIDOSIS, UNSPECIFIED (7) Macrocytic anemia Current Visit: Yes Status: Chronic Code(s): D53.9 - NUTRITIONAL ANEMIA, UNSPECIFIED (8) CAD (coronary artery disease) Current Visit: Yes Status: Chronic Code(s): I25.10 - ATHSCL HEART DISEASE OF [place] CORONARY ARTERY W/O ANG PCTRS (9) HTN (hypertension) Current Visit: Yes Status: Chronic Code(s): I10 - ESSENTIAL (PRIMARY) HYPERTENSION (10) HLD (hyperlipidemia) Current Visit: Yes Status: Chronic Code(s): E78.5 - HYPERLIPIDEMIA, UNSPECIFIED (11) Weakness Current Visit: Yes Status: Resolved Code(s): R53.1 - WEAKNESS (12) Alcohol abuse Current Visit: No Status: Chronic Code(s): F10.10 - ALCOHOL ABUSE, UNCOMPL ICATED (13) CHF (congestive heart failure) Current Visit: No Status: Chronic Code(s): I50.9 - HEART FAILURE, UNSPECIFIED (14) COPD exacerbation Current Visit: No Status: Chronic Code(s): J44.1 - CHRONIC OBSTRUCTIVE PULMONARY DISEASE W (ACUTE) EXACERBATION - Discharge Discharge Date: 05/14/24 Disposition: Home, Self-Care Condition: Fair Prescriptions: New cefuroxime axetiL [Cefuroxime] 500 mg PO BID 7 Days #14 tablet dexAMETHasone [Dexamethasone] 6 mg PO DAILY 7 Days #7 tablet Folic Acid 1 mg [Folate 1 mg] 1 mg PO DAILY 30 Days #30 tablet Multivitamins,Therapeutic Tab* [Theragran Multivitamin] 1 tab PO QAM 30 Days #30 tablet Thiamine HCl 100 mg [Vitamin B-1 100 mg] 100 mg PO DAILY 30 Days #30 tablet PANTOPRAZOLE 40 mg Tablet [Protonix 40MG Tablet] 40 mg PO QAM 14 Days #14 tab Continue Aspirin EC 81 mg [Ecotrin 81 mg] 81 mg PO DAILY Losartan Potassium 50 mg [Cozaar 50 MG] 100 mg PO DAILY Atorvastatin Calcium [Lipitor] 40 mg PO QHS B Complex with Vitamin C [Super B Complex with C] 1 each PO QHS Metoprolol Succinate 50 mg [Toprol Xl 50 MG] 50 mg PO QHS Terazosin HCl [Hytrin] 2 mg PO QHS Fluticasone/Umeclidin/Vilanter [Trelegy Ellipta 200-62.5-25] 1 inh PO DAILY Discontinued Torsemide 20 mg [Demadex 20 mg] 20 mg PO BID Additional Instructions: Contact your PCP for a repeat CMP to check your kidney function on Saturday Hold your Torsemide for 3 day Follow up with: CAROLYNE CARCAMO MD [Primary Care Provider] - 05/28/24 10:45 am
[2024-05-14 11:43] VITALS: BP 96/56; PULSE 76; RESP 23; TEMP 98
== END 2024-05-14 13:29 | disposition home or self-care (01) | DRG 178 ==
LOC: ED 13:12 → MED SURG 16:54 → OBSVTOIN 16:54 → MED SURG 18:30
PROVIDERS: ADMIT Internal Medicine; ATTEND Internal Medicine
DX: U07.1 COVID-19 (principal); E87.1 Hypo-osmolality and hyponatremia; E87.29 Other acidosis; E87.20 Acidosis, unspecified; J44.1 Chronic obstructive pulmonary disease with (acute) exacerbation; D72.829 Elevated white blood cell count, unspecified; S92.334A Nondisplaced fracture of third metatarsal bone, right foot, initial encounter for closed fracture; S92.344A Nondisplaced fracture of fourth metatarsal bone, right foot, initial encounter for closed fracture; D53.9 Nutritional anemia, unspecified; I25.10 Atherosclerotic heart disease of native coronary artery without angina pectoris; E78.5 Hyperlipidemia, unspecified; R53.1 Weakness; F10.10 Alcohol abuse, uncomplicated; I11.0 Hypertensive heart disease with heart failure; I50.9 Heart failure, unspecified; W19.XXXA Unspecified fall, initial encounter; R06.00 Dyspnea, unspecified; F17.200 Nicotine dependence, unspecified, uncomplicated; B35.1 Tinea unguium; R23.4 Changes in skin texture; L85.3 Xerosis cutis; Z79.899 Other long term (current) drug therapy
CPT/HCPCS: 0241U; 11056; 11721; 28470; 36415; 36600; 71045; 71260; 73562; 73630; 80048; 80053; 81001; 82375; 82803; 83605; 83735; 83880; 83930; 83935; 84133; 84134; 84145; 84300; 84484; 85025; 85379; 87040; 93005; 93041; 93306; 93970; 94640; 94760; 96374; 96375; 97161; 97166; 99223; 99285; Q3014; 99284; J0248; J0696; J1100; J1650; J1940; J2919; J7609; A9270-GY